=== PATIENT | female | born 1960 | race Caucasian/White ===

== ENCOUNTER → 2018-01-05 10:25 | Outpatient (CLI) | payer SELFPAY ==
--- NOTE | 2018-01-05 10:35 | US_ITS ---
STUDY: ABDOMINAL ULTRASOUND - RIGHT UPPER QUADRANT REASON FOR VISIT: Female, 57 years old. Right upper quadrant pain. TECHNIQUE: Ultrasound evaluation of the right upper quadrant was performed with real-time and static cat-scale imaging. TECHNICAL QUALITY: Adequate. COMPARISON: None. FINDINGS: Liver: The liver measures 16.5 cm. There is increased echogenicity consistent with fatty infiltration. The bile ducts are within normal limits. There is hepatic color flow. The direction of portal flow is hepatopetal. There is no demonstrated mass lesion. Gallbladder: Normal distended gallbladder. The gallbladder wall measures 2.2 mm. There is a negative sonographic Hu's sign. There is no pericholecystic fluid. There are no gallstones. Common Bile Duct (C.B.D.): The common bile duct measures 5.0 mm. Pancreas: Normal size of the head, body and tail of the pancreas. There is increased echogenicity of the pancreas. There is no demonstrated pancreatic mass or cyst. Right Kidney: Normal size of the right kidney. The right kidney measures 10.9 cm x 5.7 cm x 4.3 cm. Normal renal cortex. The right cortex measures 1.2 cm. There is no demonstrated renal mass or cyst. There is no right hydronephrosis. US/Abdomen Limited IMPRESSION: Fatty infiltration of the liver. Electronically Signed: Stefan Perez MD at 13:00 EDT Tel [phone], Service support ,
== END ==
PROVIDERS: Family Provider Family Medicine; PCP Family Medicine; Visit Provider Family Medicine
DX: R10.9 Unspecified abdominal pain (principal)
CPT/HCPCS: 76705

== ENCOUNTER → 2018-01-14 13:00 | Outpatient (CLI) | payer SELFPAY ==
--- NOTE | 2018-01-14 13:11 | CT_ITS ---
STUDY: CT ABDOMEN WITH CONTRAST REASON FOR EXAM: Female, 57 years old. Right upper quadrant and right flank pain RADIATION DOSAGE (If Supplied By Facility): CTDIvol = ( 21.59 ) mGy, DLP = ( 825.17 ) mGycm TECHNIQUE: Transaxial images were obtained post I.V. administration of 100mL ml of Isovue 300 contrast, and oral contrast. Sagittal and coronal images were reconstructed. Individualized dose optimization techniques were used for this CT. COMPARISON: None. FINDINGS: There is minor atelectasis within the dependent portion of the lungs.. The visualized portions of the heart are within normal limits. Liver is diffusely fatty infiltrated without mass or bile duct dilatation. Normal gallbladder and extrahepatic biliary system. Normal spleen. Normal pancreas. Normal bilateral adrenal glands. No evidence for renal obstruction or ureteral calculus. Tiny hypoattenuated density within the right kidney too small to characterize most likely cyst. Normal visualized stomach. Normal visualized portions of the small intestine. Normal visualized portions of the colon. Normal abdominal aorta. Normal inferior vena cava. Normal retroperitoneum. Normal abdominal wall. Lumbar spine demonstrates mild spondylosis.. CT/Abdomen WITH IV Contrast IMPRESSION: Mild hepatomegaly and fatty infiltrated liver. No other significant abnormality Electronically Signed: Calos Arnold MD at 17:18 EDT , Service support ,
== END ==
PROVIDERS: Family Provider Family Medicine; PCP Family Medicine; Visit Provider Family Medicine
DX: R10.9 Unspecified abdominal pain (principal)
CPT/HCPCS: 74160; Q9967

== ENCOUNTER → 2018-08-02 09:47 | Outpatient (CLI) | payer OTHER, SELFPAY ==
[2018-08-02 12:04] LABS: Absolute Lymphocyte Count 1.36 X10^3/ul (0.83-4.51); Absolute Neutrophil Count 4.2 X10^3/uL (2.0-7.7); Basophil# 0.03 X10^3/uL; Basophil% 0.5 % (0-1); Eosinophil# 0.16 X10^3/uL; Eosinophils% 2.6 % (0-5); Hematocrit 39.2 % (37-47); Hemoglobin 12.3 g/dl (12.0-15.0); Lymphocyte # 1.36 X10^3/ul (4.0); Lymphocyte % 21.7 % (19-41); Mean Corp Hgb Conc 31.4 g/gl (32-36); Mean Corpuscular Hgb 28.3 pg (27.0-32.0); Mean Corpuscular Volume 90.1 fL (81-99); Mean Platelet Vol. 10.3 fl (6.2-12.0); Monocyte# 0.53 X10^3/uL; Monocyte% 8.5 % (0-10); Neutrophil # 4.17 X10^3/uL (2.7-7.7); Neutrophil % 66.4 % (47-70); Platelet Count 287 K/mm3 (150-450); RBC Distribution Width CV 13.1 % (11.6-14.6); RBC Distribution Width SD 42.9 fl (35.1-43.9); Red Blood Count 4.35 M/mm3 (4.2-5.4); White Blood Count 6.3 K/mm3 (4.4-11.0)
[2018-08-02 12:07] LABS: POSITIVE COUNT NO; POSITIVE DIFFERENTIAL NO; POSITIVE MORPHOLOGY NO
[2018-08-02 12:12] LABS: ALB/GLOB Ratio 0.9 RATIO (0.9-2.4); AST(SGOT) 11 U/L (15-37); Alanine Aminotransfer ALT/SGPT 24 U/L (13-56); Albumin, Serum 3.6 g/dL (3.2-5.0); Alkaline Phosphatase 87 U/L (45-117); Anion Gap 8 (5-15); BUN 19 mg/dL (7-18); BUN/Creat Ratio 20.3 RATIO (10-20); Calcium,Total 8.8 mg/dL (8.5-10.1); Chloride 107 mmol/L (98-107); Creatinine, Serum 0.94 mg/dL (0.55-1.02); EST Glomerular Filtration Rate 65 mL/min (>60); Est Glom Filt Rate - Afr Amer 79 mL/min (>60); Globulin 4.2 g/dL (2.2-4.2); Glucose 147 mg/dL (74-106); Lipase 150 U/L (73-393); Potassium 4.3 mmol/L (3.5-5.1); Protein, Total 7.8 g/dL (6.4-8.2); Sodium Level 142 mmol/L (136-145)
== END ==
PROVIDERS: Family Provider Family Medicine; PCP Family Medicine; Visit Provider Family Medicine
DX: R10.9 Unspecified abdominal pain (principal)
CPT/HCPCS: 36415; 80053; 83690; 85025

== ENCOUNTER → 2018-08-02 10:21 | Outpatient (CLI) | payer OTHER, SELFPAY ==
--- NOTE | 2018-08-02 10:26 | US_ITS ---
STUDY: ABDOMINAL ULTRASOUND - RIGHT UPPER QUADRANT REASON FOR VISIT: Female, 57 years old. Right upper quadrant pain. TECHNIQUE: Ultrasound evaluation of the right upper quadrant was performed with real-time and static cat-scale imaging. TECHNICAL QUALITY: Adequate. COMPARISON: CT abdomen with IV contrast 01/14/2018. FINDINGS: Liver: The liver measures 18.1 cm. Increase echogenicity of the liver parenchyma due to fatty infiltration. The bile ducts are within normal limits. There is hepatic color flow. The direction of portal flow is hepatopetal. There is no demonstrated mass lesion. Gallbladder: Normal distended gallbladder. The gallbladder wall measures 2.1 mm. There is a negative sonographic Hu's sign. There is no pericholecystic fluid. There are no gallstones. Common Bile Duct (C.B.D.): The common bile duct measures 5.3 mm. Pancreas: Normal size of the head, body and tail of the pancreas. There is normal echogenicity of the pancreas. There is no demonstrated pancreatic mass or cyst. The pancreatic duct is not dilated. Right Kidney: Normal size of the right kidney. The right kidney measures 10.7 x 6.5 x 4.3 cm. Normal renal cortex. The right cortex measures 1.3 cm. There is no demonstrated renal mass or cyst. There is no right hydronephrosis. US/Abdomen Limited IMPRESSION: Hepatic steatosis otherwise negative ultrasound of the right upper quadrant of the abdomen. Electronically Signed: Vivek Locke MD at 13:19 EDT , Service support ,
== END ==
PROVIDERS: Family Provider Family Medicine; PCP Family Medicine; Visit Provider Family Medicine
DX: R10.9 Unspecified abdominal pain (principal)
CPT/HCPCS: 76705

== ENCOUNTER → 2018-08-18 07:41 | Outpatient (CLI) | payer OTHER, SELFPAY ==
--- NOTE | 2018-08-18 07:44 | NM_ITS ---
CLINICAL: 57-year-old female with reported history of right upper quadrant abdominal pain. RADIONUCLIDE HEPATOBILIARY SCINTIGRAPHY COMPARISON: Abdominal ultrasound report 08/02/2018 FINDINGS: Following the intravenous administration of 5.2 mCi of 99m Tc Mebrofenin, hepatobiliary images reveal: 1. Relatively prompt and homogeneous radiopharmaceutical concentration is noted by a normal sized liver. No parenchymal defects are identified. 2. Gallbladder activity is identified at 14 minutes post radiopharmaceutical administration. 3. Intestinal tract is not visualized during 60 minutes of sequential image acquisition. Small bowel is defined following the administration of the fatty meal. 4. Washout of the radiopharmaceutical by the hepatic parenchyma appears qualitatively normal. The patient was administered a fatty meal (8 ounces Boost). The post fatty meal ingestion gallbladder ejection fraction calculated at 60 minutes was noted to be 33.0 % (normal greater than 30%). NM/Hepatobilliary Img w/Pharm Int IMPRESSION: 1. NORMAL 99m Tc Mebrofenin hepatobiliary imaging examination with fatty meal ingestion. A. A gallbladder ejection fraction calculated to be greater than 30% following the administration of an ingested fatty meal makes the probability of functional hepatobiliary disease (gallbladder and/or sphincter of Oddi dyskinesia) and/or organic hepatobiliary disease (chronic acalculous cholecystitis and/or cystic duct syndrome) to be low. (Hany and Radames, J Nucl Med 43: 1603, 2002). Electronically Signed: Zev Mitchell DO at 23:04 EDT Tel , Service support ,
== END ==
PROVIDERS: Family Provider Family Medicine; PCP Family Medicine; Referring Provider Family Medicine; Visit Provider Family Medicine
DX: R10.9 Unspecified abdominal pain (principal)
CPT/HCPCS: 78227; A9500; A9537

== ENCOUNTER → 2018-08-26 08:50 | Outpatient (CLI) | payer OTHER, SELFPAY ==
--- NOTE | 2018-08-26 09:03 | RAD_ITS ---
STUDY: X-RAY - ABDOMEN/PELVIS REASON FOR EXAM: Female, 57 years old. Right upper quadrant pain. Constipation and diarrhea alternating for 3 to 4 weeks. TECHNIQUE: AP supine and upright views of the abdomen and pelvis. COMPARISON: None. FINDINGS: Normal visualized lung bases. There is a nonspecific bowel gas pattern. There is air seen scattered throughout nondistended colon. There is air in nondilated small bowel loops in the right mid abdomen. There is no demonstrated free abdominal air. The visualized liver, spleen and kidneys are grossly normal in size and morphology. Normal soft tissue structures. Normal visualized osseous structures. RAD/Abd Inc Decub and/or Erect IMPRESSION: Nonspecific bowel gas pattern. There is no obvious obstruction or ileus. Electronically Signed: Simone Campos DO at 22:28 EDT Tel [phone], Service support ,
[2018-08-26 09:13] LABS: Color, Urine Yellow (Yellow); Glucose, Dipstick Normal (Normal); Ketone-Dipstick Negative (Negative); Leukocyte Esterase-Dipstick 25 /ul (Negative); Nitrite-Dipstick Negative (Negative); Occult Blood-Urine 10 /ul (Negative); Protein-Dipstick Negative (Negative); Urine Bilirubin Dipstick Negative (Negative); Urine Clarity Sl. Cloudy (Clear); Urine Urobilinogen Normal (Normal)
[2018-08-26 09:21] LABS: Red Blood Cells-Urine 0-5 SEEN /hpf (0-5); Squamous Epithelial Cells - UA 0-5 SEEN /hpf (5-10); White Blood Cells 0-5 SEEN /hpf (0-5)
[2018-08-26 09:22] LABS: Bacteria 1+ /hpf (None Seen); Mucous, Urine 1+ /hpf (<or=2+)
== END ==
PROVIDERS: Family Provider Family Medicine; PCP Family Medicine; Referring Provider Surgery; Visit Provider Surgery
DX: R10.11 Right upper quadrant pain (principal)
CPT/HCPCS: 74019; 81001

== ENCOUNTER 2018-08-31 10:45 | Day surgery (SDC) | payer OTHER, SELFPAY ==
[2018-08-31 11:00] VITALS: BP 123/80; PULSE 82; RESP 16; TEMP 37.6; O2SAT 97; BMI 35.8
[2018-08-31 11:52] LABS: Bacteria 0 SEEN /hpf (None Seen); Red Blood Cells-Urine 0 SEEN /hpf (0-5)
[2018-08-31 11:58] LABS: Color, Urine Yellow (Yellow); Glucose, Dipstick Normal (Normal); Ketone-Dipstick Negative (Negative); Leukocyte Esterase-Dipstick 25 /ul (Negative); Nitrite-Dipstick Negative (Negative); Occult Blood-Urine Negative /ul (Negative); Protein-Dipstick 15 mg/dl (Negative); Urine Bilirubin Dipstick Negative (Negative); Urine Clarity Sl. Cloudy (Clear); Urine Urobilinogen Normal (Normal)
--- NOTE | 2018-08-31 12:00 | EGD_PTH ---
PATIENT: HAYLEE RICKS LOC: EN U#:[id number] AGE/SX: 57/F ROOM: RE08/31/[address]: Dr. Kolby Curry MD : 1960 BED: DIS: 08/31/2018 SPEC #: [id number] RECD: 08/31/18 13:15 STATUS: YVONNE YUNGGloria #: [id number] NIDHI: 08/31/18 12:[address]: Kolby Curry DEPT: SURGICAL PATHOLOGY RECD BY: Asa Urbina ENTERED: 08/31/18 14:49 SP TYPE: EGD BIOPSY OT DR: Dr. Charly Blackmon MD Tissues: A - Duodenum, NOS B - Gastric mucous membrane C - Esophagus, NOS D - Esophagus, NOS E - Cecum, NOS F - Transverse colon G - COLON BIOPSY Procedures: Surgery Specimen Level IV HEADER OPERATION: Colonoscopy, EGD ([facility] [place]) PRE-OP DIAGNOSIS: Epigastric pain and diarrhea TISSUE SUBMITTED: A - Duodenum biopsy, B - Antrum biopsy for H. pylori and path, C - Distal esophagus biopsy, D - Mid esophagus biopsy, E - Cecum polyp, F - Proximal transverse polyp, G - Left colon biopsy MICROSCOPIC DIAGNOSIS A. Duodenum, biopsy: A fragment of duodenal mucosa, no pathologic diagnosis. B. Antrum, biopsy: Mild gastritis. See microscopic description and comment. C. Distal esophagus, biopsy: Fragments of squamous epithelium with mild chronic inflammation. D. Mid esophagus, biopsy: Fragments of squamous epithelium, no pathologic diagnosis. E. Cecum polyp, biopsy: Fragments of tubular adenoma. F. Proximal transverse colon polyp, biopsy: Fragments of fecal material. See comment. G. Left colon, biopsy: Fragments of colonic mucosa, no pathologic diagnosis. SJ:jordan 09/01/18 COMMENT B. The results of immunohistochemistry for Helicobacter pylori will be reported separately ([id number]). F. Colonic mucosal tissue is not identified in the submitted specimen. MICROSCOPIC DESCRIPTION Slides are reviewed. B. The specimen shows fragments of gastric mucosa with chronic inflammatory cell infiltrates in the lamina propria consisting of lymphocytes and plasma cells, consistent with mild chronic gastritis. GROSS DESCRIPTION A - Received in fixative is one container labeled with the patient's name and designated duodenum biopsy. The specimen consists of one irregular fragment of light waller soft tissue that measures 0.3 x 0.2 x 0.1 cm. The specimen is totally submitted in one cassette. B - Received in fixative is one container labeled with the patient's name and designated antrum biopsy. The specimen consists of one fragment of light waller soft tissue that measures 0.5 x 0.3 x 0.1 cm. The specimen is totally submitted in one cassette. C - Received in fixative is one container labeled with the patient's name and designated distal esophagus biopsy. The specimen consists of multiple irregular fragments of light waller soft tissue that in aggregate measure 0.4 x 0.3 x 0.1 cm. The specimen is totally submitted in one cassette. D - Received in fixative is one container labeled with the patient's name and designated mid esophagus biopsy. The specimen consists of two irregular fragments of light waller soft tissue that in aggregate measure 0.5 x 0.2 x 0.1 cm. The specimen is totally submitted in one cassette. E - Received in fixative is one container labeled with the patient's name and designated cecum polyp. The specimen consists of multiple irregular fragments of light waller soft tissue that in aggregate measure 2 x 0.2 x 0.1 cm. The specimen is totally submitted in one cassette. F - Received in fixative is one container labeled with the patient's name and designated proximal transverse polyp. The specimen consists of multiple irregular fragments of light waller soft tissue mixed with fecal material that in aggregate measure 0.4 x 0.2 x 0.1 cm. The specimen is totally submitted in one cassette. G - Received in fixative is one container labeled with the patient's name and designated left colon biopsy. The specimen consists of multiple irregular fragments of light waller soft tissue that in aggregate measure 1.5 x 0.3 x 0.1 cm. The specimen is totally submitted in one cassette. / WILIAN:jordan 08/31/18 TC:1 CPT: 16876 x7
--- NOTE | 2018-08-31 12:00 | IMM_PTH ---
PATIENT: HAYLEE RICKS LOC: EN U#:[id number] AGE/SX: 57/F ROOM: RE08/31/[address]: Dr. Kolby Curry MD : 1960 BED: DIS: 08/31/2018 SPEC #: [id number] RECD: 08/31/18 15:54 STATUS: YVONNE FISCHER #: [id number] NIDHI: 08/31/18 12:[address]: Kolby Curry DEPT: IMMUNOHISTOCHEMISTRY RECD BY: Shayy Daily ENTERED: 08/31/18 15:54 SP TYPE: IMMUNO OTHR DR: Dr. Charly Blackmon MD Tissues: B - Stomach, NOS Procedures: H Pylori (initial) PHYSICIAN & INSTITUTION [place] [address] SPECIMEN INFORMATION: Tissue Source: B - Antrum biopsy Clinical Info: Epigastric pain and diarrhea Specimen Number: [id number] CPT code: 22467 METHODOLOGY: Deparaffinized sections of prefer/formalin-fixed tissue or PAP/DQ stained slides are incubated with monoclonal/polyclonal antibodies/oligonucleotide probes. Localization is made via biotin free immunoperoxidase method. Appropriate controls are performed and reacted as expected. Results on target cell population are indicated in the following table: RESULTS: ANTIBODY / CLONE RESULT Block B H Pylori (polyclonal) negative These tests were developed and their performance characteristics determined by [facility]. They may not have been cleared or approved by the U.S. Food and Drug Administration. The FDA has determined that such clearance or approval is not necessary. INTERPRETATION: B. Antrum, biopsy: Negative for Helicobacter pylori organisms. SJ:jordan 09/01/18
[2018-08-31 12:04] LABS: Mucous, Urine 1+ /hpf (<or=2+); Squamous Epithelial Cells - UA 0-5 SEEN /hpf (5-10); White Blood Cells 0-5 SEEN /hpf (0-5)
[2018-08-31 13:05] VITALS: BP 109/68; BP 123/80; PULSE 67; RESP 16; TEMP 36.4; O2SAT 98
--- NOTE | 2018-08-31 13:06 | OP.ENDO_ITS ---
Patient Name: Anuja Douglas Procedure Date: 08/31/2018 12:19 PM Date of : 1960 Age: 57 Procedure: Upper GI endoscopy Indications: Epigastric abdominal pain Providers: Kolby Curry MD Referring MD: Kolby Curry MD Medicines: See the Anesthesia note for documentation of the administered medications Complications: No immediate complications. Procedure: Pre-Anesthesia Assessment: - Prior to the procedure, a History and Physical was performed, and patient medications and allergies were reviewed. The patient's tolerance of previous anesthesia was also reviewed. The risks and benefits of the procedure and the sedation options and risks were discussed with the patient. All questions were answered, and informed consent was obtained. Prior Anticoagulants: The patient has taken aspirin, last dose was 1 day prior to procedure. ASA Grade Assessment: II - A patient with mild systemic disease. After reviewing the risks and benefits, the patient was deemed in satisfactory condition to undergo the procedure. After obtaining informed consent, the endoscope was passed under direct vision. Throughout the procedure, the patient's blood pressure, pulse, and oxygen saturations were monitored continuously. The gastroscope was introduced through the mouth, and advanced to the second part of duodenum. The upper GI endoscopy was accomplished without difficulty. The patient tolerated the procedure well. Scope In: 12:30:40 PM Scope Out: 12:35:34 PM Total Procedure Duration Time 0 hours 4 minutes 54 seconds Findings: A small hiatal hernia was present. Biopsies were taken with a cold forceps for histology. Mid esophageal biopsies obtained as well Diffuse mildly erythematous mucosa without bleeding was found in the gastric antrum. Biopsies were taken with a cold forceps for histology. The examined duodenum was normal. Biopsies were taken with a cold forceps for histology. Impression: - Small hiatal hernia. Biopsied. Mid esophagus visually normal, biopsied - Erythematous mucosa in the antrum. Biopsied. Very minimal findings - Normal examined duodenum. Biopsied. Recommendation: - Resume previous diet. - Continue present medications. - Telephone my office for pathology results in 1 week. Procedure Code(s): --- Professional --- 60328, Esophagogastroduodenoscopy, flexible, transoral; with biopsy, single or multiple Diagnosis Code(s): --- Professional --- K44.9, Diaphragmatic hernia without obstruction or gangrene K31.89, Other diseases of stomach and duodenum R10.13, Epigastric pain CPT copyright 2017 [employer]. All rights reserved. The codes documented in this report are preliminary and upon warp tier review may be revised to meet current compliance requirements. Kolby Curry MD 08/31/2018 1:05:41 PM This report has been signed electronically. Number of Addenda: 0 Note Initiated On: 08/31/2018 12:19 PM
[2018-08-31 13:10] VITALS: BP 114/71; BP 123/80; PULSE 60; RESP 16; O2SAT 96
--- NOTE | 2018-08-31 13:10 | OP.ENDO_ITS ---
Patient Name: Anuja Douglas Procedure Date: 08/31/2018 12:37 PM Date of : 1960 Age: 57 Procedure: Colonoscopy Indications: Epigastric abdominal pain Providers: Kolby Curry MD Referring MD: Kolby Curry MD Medicines: See the Anesthesia note for documentation of the administered medications Patient Profile: Last Colonoscopy: none. The patient's first colonoscopy is today. Complications: No immediate complications. Procedure: Pre-Anesthesia Assessment: - Prior to the procedure, a History and Physical was performed, and patient medications and allergies were reviewed. The patient's tolerance of previous anesthesia was also reviewed. The risks and benefits of the procedure and the sedation options and risks were discussed with the patient. All questions were answered, and informed consent was obtained. Prior Anticoagulants: The patient has taken aspirin, last dose was 1 day prior to procedure. ASA Grade Assessment: II - A patient with mild systemic disease. After reviewing the risks and benefits, the patient was deemed in satisfactory condition to undergo the procedure. After I obtained informed consent, the scope was passed under direct vision. Throughout the procedure, the patient's blood pressure, pulse, and oxygen saturations were monitored continuously. The colonoscope was introduced through the anus and advanced to the cecum, identified by appendiceal orifice and ileocecal valve. The colonoscopy was performed without difficulty. The patient tolerated the procedure well. The quality of the bowel preparation was good. The ileocecal valve was photographed. Scope In: 12:38:55 PM Scope Withdrawal Time 0 hours 13 minutes 13 seconds Scope Out: 12:58:49 PM Total Procedure Duration Time 0 hours 19 minutes 54 seconds Findings: Hemorrhoids were found on perianal exam. A 13 mm polyp was found in the cecum. The polyp was sessile. The polyp was removed with a cold snare. Resection and retrieval were complete. A 8 mm polyp was found in the proximal transverse colon. The polyp was sessile. The polyp was removed with a cold snare. Resection and retrieval were complete. Normal mucosa was found in the sigmoid colon. Biopsies for histology were taken with a cold forceps from the descending colon and sigmoid colon for evaluation of microscopic colitis. Impression: - Hemorrhoids found on perianal exam. - One 13 mm polyp in the cecum, removed with a cold snare. Resected and retrieved. - One 8 mm polyp in the proximal transverse colon, removed with a cold snare. Resected and retrieved. - Normal mucosa in the sigmoid colon. Biopsied. Recommendation: - Discharge patient to home. - Resume previous diet. - Continue present medications. - Telephone my office for pathology results in 1 week. - Repeat colonoscopy in 3 years for surveillance. Procedure Code(s): --- Professional --- 26721, Colonoscopy, flexible; with removal of tumor(s), polyp(s), or other lesion(s) by snare technique 09878, 59, Colonoscopy, flexible; with biopsy, single or multiple Diagnosis Code(s): --- Professional --- K64.9, Unspecified hemorrhoids D12.0, Benign neoplasm of cecum D12.3, Benign neoplasm of transverse colon (hepatic flexure or splenic flexure) R10.13, Epigastric pain CPT copyright 2017 [employer]. All rights reserved. The codes documented in this report are preliminary and upon dressmaker or tailor review may be revised to meet current compliance requirements. Kolby Curry MD 08/31/2018 1:09:37 PM This report has been signed electronically. Number of Addenda: 0 Note Initiated On: 08/31/2018 12:37 PM
[2018-08-31 13:15] VITALS: BP 115/69; BP 123/80; PULSE 57; RESP 16; O2SAT 95
[2018-08-31 13:20] VITALS: BP 115/70; BP 123/80; PULSE 55; RESP 16; TEMP 36.6; O2SAT 99
[2018-08-31 14:08] VITALS: BP 123/80
== END 2018-08-31 14:08 | disposition home or self-care (01) ==
LOC: EN 10:46 → AC 10:47
PROVIDERS: Family Provider Family Medicine; PCP Family Medicine; Referring Provider Surgery; Visit Provider Surgery
PROC: 0DJD8ZZ Inspection of Lower Intestinal Tract, Via Natural or Artificial Opening Endoscopic (ICD-10-PCS; CPT 45378; principal; 2018-08-31 11:55)
DX: K44.9 Diaphragmatic hernia without obstruction or gangrene (principal); K29.50 Unspecified chronic gastritis without bleeding; D12.0 Benign neoplasm of cecum; D12.3 Benign neoplasm of transverse colon; I10 Essential (primary) hypertension; J45.909 Unspecified asthma, uncomplicated; M19.90 Unspecified osteoarthritis, unspecified site; Z79.899 Other long term (current) drug therapy
CPT/HCPCS: 43239; 45380; 45385; 81001; 88305; 88342; J7120; J2405

== ENCOUNTER → 2018-10-07 15:09 | Outpatient (CLI) | payer OTHER, SELFPAY ==
--- NOTE | 2018-10-07 15:12 | RAD_ITS ---
STUDY: X-RAY - ABDOMEN/PELVIS REASON FOR EXAM: Female, 57 years old. Abdominal pain. TECHNIQUE: AP supine and upright views of the abdomen and pelvis. COMPARISON: AP supine and upright views of the abdomen and pelvis August 26, 2018; nuclear medicine HIDA scan August 18, 2018; right upper quadrant ultrasound August 02, 2018; CT abdomen January 14, 2018. FINDINGS: Normal visualized lung bases. Gas is seen again in segments of nondistended small bowel and colon. There are several fluid levels on upright exam, suggesting a mild generalized ileus. There is no demonstrated free abdominal air. The visualized liver, spleen and kidneys are grossly normal in size and morphology. Rounded sclerotic densities projecting in the right lower quadrant and some images are presumably radiopaque tablets in the bowel. There are stable calcified phleboliths in the left pelvic soft tissues. There are stable multilevel degenerative changes of the visualized spine, as well as degenerative arthroses of the bilateral sacroiliac joints. RAD/Abd Inc Decub and/or Erect IMPRESSION: Mild ileus without distention. No free gas. Electronically Signed: Onur Bean MD at 19:40 EST , Service support ,
--- OUTSIDE RECORDS SUMMARY | 2018-11-23 12:48 | XMS RPT_ITS ---
:1960 Author Organization OHIP Support Name Relationship Address Phone JASON RODRÍGUEZ Unavailable Unavailable + АЛЕКСАНДР RICKS Unavailable [address] + [place] [address] UE Unavailable Unavailable Unavailable JASON RODRÍGUEZ Unavailable Unavailable + АЛЕКСАНДР RICKS Unavailable [address] + [place] [address] UE Unavailable Unavailable Unavailable JASON RODRÍGUEZ Unavailable Unavailable + АЛЕКСАНДР RICKS Unavailable [address] + [place] [address] UE Unavailable Unavailable Unavailable JASON RODRÍGUEZ Unavailable Unavailable + АЛЕКСАНДР RICKS Unavailable [address] + [place] [address] UE Unavailable Unavailable Unavailable АЛЕКСАНДР RICKS Unavailable [address] + [place] [address] UE Unavailable Unavailable Unavailable АЛЕКСАНДР RICKS Unavailable [address] + [place] [address] UE Unavailable Unavailable Unavailable АЛЕКСАНДР RICKS Unavailable [address] + [place] [address] UE Unavailable Unavailable Unavailable АЛЕКСАНДР RICKS Unavailable [address] + [place] [address] S Unavailable Unavailable Unavailable АЛЕКСАНДР RICKS Unavailable [address] + [place] [address] S Unavailable Unavailable Unavailable АЛЕКСАНДР RICKS Unavailable [address] + [place] [address] S Unavailable Unavailable Unavailable АЛЕКСАНДР RICKS Unavailable [address] + [place] [address] S Unavailable Unavailable Unavailable Care Team Providers Name Role Phone Charly Blackmon Attending Unavailable Blackmon, Charly Referring Unavailable Blackmon, Charly Primary Care Unavailable Jabour, Huang Attending Unavailable Jabour, Nenaent Referring Unavailable Blackmon, Charly Primary Care Unavailable Blackmon, Charly Attending Unavailable Blackmon, Charly Primary Care Unavailable Blackmon, Charly Attending Unavailable Blackmon, Charly Primary Care Unavailable Blackmon, Charly Attending Unavailable Blackmon, Charly Primary Care Unavailable Blackmon, Charly Attending Unavailable Blackmon, Charly Primary Care Unavailable Blackmon, Charly Attending Unavailable Blackmon, Charly Referring Unavailable Blackmon, Charly Primary Care Unavailable Cebul, Kolby Attending Unavailable Blackmon, Charly Referring Unavailable Cebul, Kolby Attending Unavailable Cebul, Kolby Referring Unavailable Blackmon, Charly Primary Care Unavailable Cebul, Kolby Attending Unavailable Cebul, Kolby Referring Unavailable Blackmon, Charly Primary Care Unavailable Cebul, Kolby Attending Unavailable PROBLEMS PROBLEMS DATE TYPE CONDITION / CODE ATTENDING STATUS SOURCE 08/31/2018 Unknown R10.9 - Unspecified Cebul, Kolby Active [facility] abdominal pain / Community R10.9(ICD-10) Hospital Repository 09/23/2018 Unknown R10.13 - Epigastric Cebul, Kolby Active [facility] pain / Community R10.13(ICD-10) Hospital Repository 09/23/2018 Unknown 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7(ICD-10) Hospital Repository PROCEDURES PROCEDURES No Procedure Records FoundRESULTS RESULTS CRP Collected: 11/03/2018 Status: F Source: [facility] [facility] TYPE CODE TESTS RESULT OUT OF RANGE REFERENCE UNITS LAB L501.6710 0.0-3.0 mg/L High 69.90 C-REACTIVE PROT Result Comment: C-Reactive Protein (CRP) provides useful information for the diagnosis, therapy and monitoring of inflammatory processes and associated diseases. For the evaluation of Relative Risk for Cardiovascular Disease, a High Sensitivity CRP (HSCRP) should be ordered. Performed By: #### L501.6710 #### [facility] [address] [place], [address] CELIAC DISEASE Collected: 11/03/2018 Status: F Source: [place] PROFILE 4:50 PM [facility] REPOSITORY TYPE CODE TESTS RESULT OUT OF RANGE REFERENCE UNITS LAB L3200.1400 87-352 mg/dL Normal IMMUNO A 194 Result Comment: Performed at: - [facility] [id number] [employer]: Huang Barba PhD, Phone: [phone] LAB L3632.6722 0-3 U/mL Normal tTG IGA <2 Result Comment: Negative 0 - 3 Weak Positive 4 - 10 Positive >10 Tissue Transglutaminase (tTG) has been identified as the endomysial antigen. Studies have demonstr- ated that endomysial IgA antibodies have over 99% specificity for gluten sensitive enteropathy. LAB L3410.8731 Negative Normal ENDOMYSIAL IGA Negative Performed By: #### L3410.2400 #### [facility] (refer to report for specific site) refer to report for address and phone number ABD INC DECUB Observed: 10/07/2018 Status: F Source: [place] AND/OR ERECT 3:12 PM [facility] REPOSITORY [facility] Imaging Services [address] [place] [address] Abd Inc Decub and/or Erect MR#: [id number] Acct: [id number] Name: HAYLEE RICKS Rep #: [id number] : 1960 F 57 From: Sabas Bean MD PCP: Charly Blackmon MD Status: REG CLI Study: Abd Inc Decub and/or Erect Date of Exam: 10/07/18 Exam# [id number] Ordering Dr: Charly Blackmon MD STUDY: X-RAY - ABDOMEN/PELVIS REASON FOR EXAM: Female, 57 years old. Abdominal pain. TECHNIQUE: AP supine and upright views of the abdomen and pelvis. COMPARISON: AP supine and upright views of the abdomen and pelvis August 26, 2018; nuclear medicine HIDA scan August 18, 2018; right upper quadrant ultrasound August 02, 2018; CT abdomen January 14, 2018. FINDINGS: Normal visualized lung bases. Gas is seen again in segments of nondistended small bowel and colon. There are several fluid levels on upright exam, suggesting a mild generalized ileus. There is no demonstrated free abdominal air. The visualized liver, spleen and kidneys are grossly normal in size and morphology. Rounded sclerotic densities projecting in the right lower quadrant and some images are presumably radiopaque tablets in the bowel. There are stable calcified phleboliths in the left pelvic soft tissues. There are stable multilevel degenerative changes of the visualized spine, as well as degenerative arthroses of the bilateral sacroiliac joints. RAD/Abd Inc Decub and/or Erect IMPRESSION: Mild ileus without distention. No free gas. Electronically Signed: Onur Bean MD at 19:40 EST , Service support , CC: Charly Blackmon MD Chassis Driver: Signed OPERATIVE REPORT - Observed: 08/31/2018 Status: F Source: [place] [facility] 1:10 PM [facility] REPOSITORY [facility] Medical Records Department [address] [place] [address] Operative Report - Endoscopy MR#: [id number] Acct: [id number] Name: HAYLEE RICKS Rep #: [id number] : 1960 57 From: Kolby Curry MD PCP: Charly Blackmon MD Status: REG [facility] Patient Name: Haylee Ricks Procedure Date: 08/31/2018 12:37 PM Date of : 1960 Age: 57 Procedure: Colonoscopy Indications: Epigastric abdominal pain Providers: Kolby Curry MD Referring MD: Kolby Curry MD Medicines: See the Anesthesia note for documentation of the administered medications Patient Profile: Last Colonoscopy: none. The patient's first colonoscopy is today. Complications: No immediate complications. Procedure: Pre-Anesthesia Assessment: - Prior to the procedure, a History and Physical was performed, and patient medications and allergies were reviewed. The patient's tolerance of previous anesthesia was also reviewed. The risks and benefits of the procedure and the sedation options and risks were discussed with the patient. All questions were answered, and informed consent was obtained. Prior Anticoagulants: The patient has taken aspirin, last dose was 1 day prior to procedure. ASA Grade Assessment: II - A patient with mild systemic disease. After reviewing the risks and benefits, the patient was deemed in satisfactory condition to undergo the procedure. After I obtained informed consent, the scope was passed under direct vision. Throughout the procedure, the patient's blood pressure, pulse, and oxygen saturations were monitored continuously. The colonoscope was introduced through the anus and advanced to the cecum, identified by appendiceal orifice and ileocecal valve. The colonoscopy was performed without difficulty. The patient tolerated the procedure well. The quality of the bowel preparation was good. The ileocecal valve was photographed. Scope In: 12:38:55 PM Scope Withdrawal Time 0 hours 13 minutes 13 seconds Scope Out: 12:58:49 PM Total Procedure Duration Time 0 hours 19 minutes 54 seconds Findings: Hemorrhoids were found on perianal exam. A 13 mm polyp was found in the cecum. The polyp was sessile. The polyp was removed with a cold snare. Resection and retrieval were complete. A 8 mm polyp was found in the proximal transverse colon. The polyp was sessile. The polyp was removed with a cold snare. Resection and retrieval were complete. Normal mucosa was found in the sigmoid colon. Biopsies for histology were taken with a cold forceps from the descending colon and sigmoid colon for evaluation of microscopic colitis. Impression: - Hemorrhoids found on perianal exam. - One 13 mm polyp in the cecum, removed with a cold snare. Resected and retrieved. - One 8 mm polyp in the proximal transverse colon, removed with a cold snare. Resected and retrieved. - Normal mucosa in the sigmoid colon. Biopsied. Recommendation: - Discharge patient to home. - Resume previous diet. - Continue present medications. - Telephone my office for pathology results in 1 week. - Repeat colonoscopy in 3 years for surveillance. Procedure Code(s): --- Professional --- 11587, Colonoscopy, flexible; with removal of tumor(s), polyp(s), or other lesion(s) by snare technique 35020, 59, Colonoscopy, flexible; with biopsy, single or multiple Diagnosis Code(s): --- Professional --- K64.9, Unspecified hemorrhoids D12.0, Benign neoplasm of cecum D12.3, Benign neoplasm of transverse colon (hepatic flexure or splenic flexure) R10.13, Epigastric pain CPT copyright 2017 [employer]. All rights reserved. The codes documented in this report are preliminary and upon polisher balance screwhead review may be revised to meet current compliance requirements. Kolby Curry MD 08/31/2018 1:09:37 PM This report has been signed electronically. Number of Addenda: 0 Note Initiated On: 08/31/2018 12:37 PM 08/31/18 1309 Date Kolby Curry MD Cosigner Signature: Date (if indicated) CC: Charly Blackmon MD; Kolby Curry MD Date Dictated: 08/31/18 1237 Date Transcribed: Chassis Driver: BENEDICT Signed OPERATIVE REPORT - Observed: 08/31/2018 Status: F Source: [place] [facility] 1:06 PM [facility] REPOSITORY [facility] Medical Records Department [address] [place] [address] Operative Report - Endoscopy MR#: [id number] Acct: [id number] Name: HAYLEE RICKS Rep #: [id number] : 1960 57 From: Kolby Curry MD PCP: Charly Blackmon MD Status: REG [facility] Patient Name: Haylee Ricks Procedure Date: 08/31/2018 12:19 PM Date of : 1960 Age: 57 Procedure: Upper GI endoscopy Indications: Epigastric abdominal pain Providers: Kolby Curry MD Referring MD: Kolby Curry MD Medicines: See the Anesthesia note for documentation of the administered medications Complications: No immediate complications. Procedure: Pre-Anesthesia Assessment: - Prior to the procedure, a History and Physical was performed, and patient medications and allergies were reviewed. The patient's tolerance of previous anesthesia was also reviewed. The risks and benefits of the procedure and the sedation options and risks were discussed with the patient. All questions were answered, and informed consent was obtained. Prior Anticoagulants: The patient has taken aspirin, last dose was 1 day prior to procedure. ASA Grade Assessment: II - A patient with mild systemic disease. After reviewing the risks and benefits, the patient was deemed in satisfactory condition to undergo the procedure. After obtaining informed consent, the endoscope was passed under direct vision. Throughout the procedure, the patient's blood pressure, pulse, and oxygen saturations were monitored continuously. The gastroscope was introduced through the mouth, and advanced to the second part of duodenum. The upper GI endoscopy was accomplished without difficulty. The patient tolerated the procedure well. Scope In: 12:30:40 PM Scope Out: 12:35:34 PM Total Procedure Duration Time 0 hours 4 minutes 54 seconds Findings: A small hiatal hernia was present. Biopsies were taken with a cold forceps for histology. Mid esophageal biopsies obtained as well Diffuse mildly erythematous mucosa without bleeding was found in the gastric antrum. Biopsies were taken with a cold forceps for histology. The examined duodenum was normal. Biopsies were taken with a cold forceps for histology. Impression: - Small hiatal hernia. Biopsied. Mid esophagus visually normal, biopsied - Erythematous mucosa in the antrum. Biopsied. Very minimal findings - Normal examined duodenum. Biopsied. Recommendation: - Resume previous diet. - Continue present medications. - Telephone my office for pathology results in 1 week. Procedure Code(s): --- Professional --- 40719, Esophagogastroduodenoscopy, flexible, transoral; with biopsy, single or multiple Diagnosis Code(s): --- Professional --- K44.9, Diaphragmatic hernia without obstruction or gangrene K31.89, Other diseases of stomach and duodenum R10.13, Epigastric pain CPT copyright 2017 [employer]. All rights reserved. The codes documented in this report are preliminary and upon polisher balance screwhead review may be revised to meet current compliance requirements. Kolby Curry MD 08/31/2018 1:05:41 PM This report has been signed electronically. Number of Addenda: 0 Note Initiated On: 08/31/2018 12:19 PM 08/31/18 1305 Date Kolby Curry MD Cosigner Signature: Date (if indicated) CC: Charly Blackmon MD; Kolby Curry MD Date Dictated: 08/31/18 1219 Date Transcribed: Chassis Driver: BENEDICT Signed EGD (PICK SITE) Observed: 08/31/2018 Status: F Source: [place] 12:00 PM [facility] REPOSITORY Patient: HAYLEE RICKS : 1960 (57/F) Acct Num: [id number] Phys: Kolby Curry MD Unit Num: [id number] Loc: EN Specimen: [id number] Received: 08/31/18 - 1315 Spec Type: EGD BIOPSY TISSUES 1 TISSUES: A. Duodenum, NOS B. Gastric mucous membrane C. Esophagus, NOS - DISTAL D. Esophagus, NOS - MID E. Cecum, NOS F. Transverse colon G. COLON BIOPSY - LEFT COMMENT B. The results of immunohistochemistry for Helicobacter pylori will be reported separately ([id number]). F. Colonic mucosal tissue is not identified in the submitted specimen. GROSS DESCRIPTION A - Received in fixative is one container labeled with the patient's name and designated duodenum biopsy. The specimen consists of one irregular fragment of light waller soft tissue that measures 0.3 x 0.2 x 0.1 cm. The specimen is totally submitted in one cassette. B - Received in fixative is one container labeled with the patient's name and designated antrum biopsy. The specimen consists of one fragment of light waller soft tissue that measures 0.5 x 0.3 x 0.1 cm. The specimen is totally submitted in one cassette. C - Received in fixative is one container labeled with the patient's name and designated distal esophagus biopsy. The specimen consists of multiple irregular fragments of light waller soft tissue that in aggregate measure 0.4 x 0.3 x 0.1 cm. The specimen is totally submitted in one cassette. D - Received in fixative is one container labeled with the patient's name and designated mid esophagus biopsy. The specimen consists of two irregular fragments of light waller soft tissue that in aggregate measure 0.5 x 0.2 x 0.1 cm. The specimen is totally submitted in one cassette. E - Received in fixative is one container labeled with the patient's name and designated cecum polyp. The specimen consists of multiple irregular fragments of light waller soft tissue that in aggregate measure 2 x 0.2 x 0.1 cm. The specimen is totally submitted in one cassette. F - Received in fixative is one container labeled with the patient's name and designated proximal transverse polyp. The specimen consists of multiple irregular fragments of light waller soft tissue mixed with fecal material that in aggregate measure 0.4 x 0.2 x 0.1 cm. The specimen is totally submitted in one cassette. G - Received in fixative is one container labeled with the patient's name and designated left colon biopsy. The specimen consists of multiple irregular fragments of light waller soft tissue that in aggregate measure 1.5 x 0.3 x 0.1 cm. The specimen is totally submitted in one cassette. / SJ:rg 08/31/18 TC:1 CPT: 62261 x7 HEADER OPERATION: Colonoscopy, [place] PRE-OP DIAGNOSIS: Epigastric pain and diarrhea TISSUE SUBMITTED: A - Duodenum biopsy, B - Antrum biopsy for H. pylori and path , C - Distal esophagus biopsy, D - Mid esophagus biopsy, E - Cecum polyp, F - Proximal transverse polyp, G - Left colon biopsy MICROSCOPIC DESCRIPTION Slides are reviewed. B. The specimen shows fragments of gastric mucosa with chronic inflammatory cell infiltrates in the lamina propria consisting of lymphocytes and plasma cells, consistent with mild chronic gastritis. MICROSCOPIC DIAGNOSIS A. Duodenum, biopsy: A fragment of duodenal mucosa, no pathologic diagnosis. B. Antrum, biopsy: Mild gastritis. See microscopic description and comment. C. Distal esophagus, biopsy: Fragments of squamous epithelium with mild chronic inflammation. D. Mid esophagus, biopsy: Fragments of squamous epithelium, no pathologic diagnosis. E. Cecum polyp, biopsy: Fragments of tubular adenoma. F. Proximal transverse colon polyp, biopsy: Fragments of fecal material. See comment. G. Left colon, biopsy: Fragments of colonic mucosa, no pathologic diagnosis. SJ:jordan 09/01/18 Signed Buck Almendarez 09/01/18 <signature on file> Performed By: #### PEGD #### [facility] [address] [place] [address]. [place], [place], [address] IMMUNOHISTOCHEMISTRY Observed: 08/31/2018 Status: F Source: [place] 12:00 PM [facility] REPOSITORY Patient: HAYLEE RICKS : 1960 (57/F) Acct Num: [id number] Phys: Antoinette CRAWFORD,Kolby Unit Num: [id number] Loc: EN Specimen: [id number] Received: 08/31/181553 Spec Type: IMMUNO TISSUES 1 TISSUES: B. Stomach, NOS SPECIMEN INFORMATION: Tissue Source: B - Antrum biopsy Clinical Info: Epigastric pain and diarrhea Specimen Number: [id number] CPT code: 74316 METHODOLOGY: Deparaffinized sections of prefer/formalin-fixed tissue or PAP/DQ stained slides are incubated with monoclonal/polyclonal antibodies/oligonucleotide probes. Localization is made via biotin free immunoperoxidase method. Appropriate controls are performed and reacted as expected. Results on target cell population are indicated in the following table: RESULTS: ANTIBODY / CLONE RESULT Block B H Pylori (polyclonal) negative These tests were developed and their performance characteristics determined by [facility]. They may not have been cleared or approved by the U.S. Food and Drug Administration. The FDA has determined that such clearance or approval is not necessary. INTERPRETATION: B. Antrum, biopsy: Negative for Helicobacter pylori organisms. SJ:jordan 09/01/18 PHYSICIAN [facility] INSTIT[facility] [address] [address] Signed Buck Almendarez 09/01/18 <signature on file> Performed By: #### PIMM #### [facility] [address] [place], [place], [address] URINALYSIS, COMPLETE Collected: 08/31/2018 Status: F Source: [place] 11:52 AM [facility] REPOSITORY Order Comment: Comments: straight cath prior to colonoscopy Comments: straight cath prior to colonoscopy How was Urine Obtained? CATHETER SPECIMEN TYPE CODE TESTS RESULT OUT OF RANGE REFERENCE UNITS LAB L400.3000 Yellow COLOR Normal Yellow LAB L400.3050 Clear Normal CLARITY Sl. Cloudy LAB L400.3200 Normal mg/dl Normal GLUCOSE, UR Normal LAB L400.3300 Negative mg/dL Normal BILIRUBIN URINE Negative LAB L400.3400 Negative mg/dl Normal KETONE UR Negative LAB L400.3465 1.002-1.030 Normal SP.GR. DIPSTX 1.020 LAB L400.3550 5.0 - 8.0 pH UR Normal 5.0 LAB L400.3600 Negative mg/dl High PROT 15 DIPSTX LAB L400.3700 Normal mg/dl Normal UROBILI Normal LAB L400.3750 Negative Normal NITRITE UR Negative LAB L400.3780 Negative /ul Normal OCCULT BLOOD-UR Negative LAB L400.3800 Negative /ul High LEUK 25 ESTERASE LAB L400.4050 0-5 /hpf WBC Normal 0-5 SEEN LAB L400.4100 0-5 /hpf 0 Normal RBC-UA SEEN LAB L400.4150 5-10 /hpf SQUAM Normal EPI 0-5 SEEN LAB L400.4300 None Seen /hpf 0 Normal BACTERIA SEEN LAB L400.4350 <or=2+ /hpf 1+ Normal MUCUS, URINE Performed By: #### L400.0001 #### [facility] [address] [place], [address] SURGERY VISIT REPORT Observed: 08/26/2018 Status: F Source: [place] 9:06 AM [facility] REPOSITORY [facility]. [address] [place] [address] OFFICE VISIT Date of Service: 08/26/18 MR#: [id number] Acct: [id number] Name: HAYLEE RICKS Rep #: [id number] : 1960 Provider: Kolby Curry MD Age/Sex: 57/F [facility] Status: Signed Intake Vital Signs08/26/18 Height 5 ft 4 in 08/26/18 Weight: 210 lb Intake Visit Reasons: Abdominal Pain US [facility] 08/02 Electronic Publishing Specialist Required: No Is patient in pain?: Yes (abdomen) Pain scale (1-10): 6 Allergies hydrocodone bitartrate [From Vicodin] Allergy (Verified 08/26/18 08:16) Hives Medications D-Methorphan/PE/Acetaminophen [[place]aggie[place] Plus Day Cap] 1 ea PO DAILY 10/02/16 [History Confirmed 08/26/18] Fluticasone 0.05% [Flonase Nasal [place]] 1 spray NASAL DAILY 10/02/16 [History Confirmed 08/26/18] Lisinopril [Zestril] 5 mg PO DAILY 10/02/16 [History Confirmed 08/26/18] loratadine 10 mg tablet 10 mg PO DAILY 08/26/18 [History Confirmed 08/26/18] omeprazole 20 mg capsule,delayed release 20 mg PO DAILY 08/26/18 [History Confirmed 08/26/18] ondansetron HCl 4 mg tablet 4 mg PO BID-TID PRN 08/26/18 [History Confirmed 08/26/18] [facility] Medical History Asthma (Acute) HTN (hypertension) (Chronic) Surgical History S/P laparoscopy (Acute) S/P tonsillectomy (Acute) Family History Mother Breast cancer Diabetes Heart disease Hypertension CVA (cerebral vascular accident) Father Diabetes Heart disease Kidney disease Social History Smoking Status: Never smoker alcohol intake: current alcohol intake frequency: holidays/special occasions only HPI HPI HPI: HAYLEE RICKS, is a 57 F who presents to the office today for surgical consultation regarding abdominal pain and diarrhea. The patient is referred by Dr. Charly Blackmon and a written copy of my surgical consult recommendations will be returned to him. The patient's primary complaint today is that she is feeling worse than before. She has not felt well over the past year. Her problem started initially with right upper quadrant pain. Now over particularly the past 2 weeks she has had pain radiating over to the upper abdomen. She feels bloated. If he tries to eat within 15 minutes she has profuse diarrhea. As noted below she has had CT scan imaging and gallbladder ultrasound and gallbladder nuclear medicine tests all normal. The patient is referred for surgical consideration regarding potential gallbladder disease. The patient states that she is feeling very fatigued. She has not noticed bright red blood per rectum or melena. She has never had an upper or lower endoscopy. 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 She is less active. She is thinking that this is what is causing her increased weight gain. She claims that she has no routine physical activity because she is feeling so poorly. [facility] Imaging Services [address] [place] [address] Abdomen WITH IV Contrast MR#: [id number] Name: HAYLEE RICKS ERedarshan #:[id number] : 1960 57 From: Calos Arnold MD PCP:Charly Blackmon MD Status:REG CLI Study:Abdomen WITH IV Contrast Date of Exam:01/14/18 Exam#[id number] Ordering Dr: Charly Blackmon MD STUDY: CT ABDOMEN WITH CONTRAST REASON FOR EXAM: Female, 57 years old. Right upper quadrant and right flank pain RADIATION DOSAGE (If Supplied By Facility): CTDIvol = ( 21.59 ) mGy, DLP = ( 825.17 ) mGycm TECHNIQUE: Transaxial images were obtained post I.V. administration of 100mL ml of Isovue 300 contrast, and oral contrast. Sagittal and coronal images were reconstructed. Individualized dose optimization techniques were used for this CT. COMPARISON: None. FINDINGS: There is minor atelectasis within the dependent portion of the lungs.. The visualized portions of the heart are within normal limits. Liver is diffusely fatty infiltrated without mass or bile duct dilatation. Normal gallbladder and extrahepatic biliary system. Normal spleen. Normal pancreas. Normal bilateral adrenal glands. No evidence for renal obstruction or ureteral calculus. Tiny hypoattenuated density within the right kidney too small to characterize most likely cyst. Normal visualized stomach. Normal visualized portions of the small intestine. Normal visualized portions of the colon. Normal abdominal aorta. Normal inferior vena cava. Normal retroperitoneum. Normal abdominal wall. Lumbar spine demonstrates mild spondylosis.. CT/Abdomen WITH IV Contrast IMPRESSION: Mild hepatomegaly and fatty infiltrated liver. No other significant abnormality Electronically Signed: Calos Arnold MD at 17:18 EDT , Service support , [facility] Imaging Services [address] [place] [address] Abdomen Limited MR#: [id number] Name: HAYLEE RICKS [facility] #:[id number] : 1960 57 From: Vivek Locke MD PCP:Charly Blackmon MD Status:REG CLI Study:Abdomen Limited Date of Exam:08/02/18 Exam#[id number] Ordering Dr: Charly Blackmon MD STUDY: ABDOMINAL ULTRASOUND - RIGHT UPPER QUADRANT REASON FOR VISIT: Female, 57 years old. Right upper quadrant pain. TECHNIQUE: Ultrasound evaluation of the right upper quadrant was performed with real-time and static cat-scale imaging. TECHNICAL QUALITY: Adequate. COMPARISON: CT abdomen with IV contrast 01/14/2018. FINDINGS: Liver: The liver measures 18.1 cm. Increase echogenicity of the liver parenchyma due to fatty infiltration. The bile ducts are within normal limits. There is hepatic color flow. The direction of portal flow is hepatopetal. There is no demonstrated mass lesion. Gallbladder: Normal distended gallbladder. The gallbladder wall measures 2.1 mm. There is a negative sonographic Hu's sign. There is no pericholecystic fluid. There are no gallstones. Common Bile Duct (C.B.D.): The common bile duct measures 5.3 mm. Pancreas: Normal size of the head, body and tail of the pancreas. There is normal echogenicity of the pancreas. There is no demonstrated pancreatic mass or cyst. The pancreatic duct is not dilated. Right Kidney: Normal size of the right kidney. The right kidney measures 10.7 x 6.5 x 4.3 cm. Normal renal cortex. The right cortex measures 1.3 cm. There is no demonstrated renal mass or cyst. There is no right hydronephrosis. US/Abdomen Limited IMPRESSION: Hepatic steatosis otherwise negative ultrasound of the right upper quadrant of the abdomen. Electronically Signed: Vivek Locke MD at 13:19 EDT , Service support , [facility] Imaging Services [address] [place] [address] Hepatobilliary Img w/Pharm Int MR#: [id number] Name: HAYLEE RICKS [facility] #:[id number] : 1960 57 From: Zev Mitchell DO PCP:Charly Blackmon MD Status:REG CLI Study:Hepatobilliary Img w/Pharm Int Date of Exam:08/18/18 Exam#[id number] Ordering Dr: Charly Blackmon MD CLINICAL: 57-year-old female with reported history of right upper quadrant abdominal pain. RADIONUCLIDE HEPATOBILIARY SCINTIGRAPHY COMPARISON: Abdominal ultrasound report 08/02/2018 FINDINGS: Following the intravenous administration of 5.2 mCi of 99m Tc Mebrofenin, hepatobiliary images reveal: 1. Relatively prompt and homogeneous radiopharmaceutical concentration is noted by a normal sized liver. No parenchymal defects are identified. 2. Gallbladder activity is identified at 14 minutes post radiopharmaceutical administration. 3. Intestinal tract is not visualized during 60 minutes of sequential image acquisition. Small bowel is defined following the administration of the fatty meal. 4. Washout of the radiopharmaceutical by the hepatic parenchyma appears qualitatively normal. The patient was administered a fatty meal (8 ounces Boost). The post fatty meal ingestion gallbladder ejection fraction calculated at 60 minutes was noted to be 33.0 % (normal greater than 30%). NM/Hepatobilliary Img w/Pharm Int IMPRESSION: 1. NORMAL 99m Tc Mebrofenin hepatobiliary imaging examination with fatty meal ingestion. A. A gallbladder ejection fraction calculated to be greater than 30% following the administration of an ingested fatty meal makes the probability of functional hepatobiliary disease (gallbladder and/or sphincter of Oddi dyskinesia) and/or organic hepatobiliary disease (chronic acalculous cholecystitis and/or cystic duct syndrome) to be low. (Hany and Rdaames, J Nucl Med 43: 1603, 2002). Electronically Signed: Zev Mitchell DO at 23:04 EDT Tel , Service support , CC: Charly Blackmon MD Chassis Driver: Signed ROS General General: Yes fatigue; no weight change, appetite, colon cancer, breast cancer or weakness HEENT HEENT: No difficulty swallowing, eye injury, eye surgery, swollen glands or hoarseness Endo Endocrine: No thyroid disease, diabetes mellitus, thyroid cancer, Hair loss, heat intolerance or cold intolerance Skin Skin: No rash or changing moles Breast Breast: No left breast lump, right breast lump, nipple discharge, breast pain, abnormal mammogram, abnormal US or breast enlargement Musc Musculoskeletal: Yes arthritis; no back problems, rheumatoid arthritis, gout or joint pain Cardio Cardiovascular: Yes high blood pressure; no murmur, pacemaker, heart disease, atrial fibrillation, heart attack, heart stent, palpitations, shortness of breat with exertion or chest pain Psych Psychiatric: Yes depression and anxiety; no hearing voices Resp Respiratory: No shortness of breath, No sleep apnea, No cough, No COPD, No asthma, No emphysema, No wheezing Gastro Gastrointestinal: Yes abdominal pain, Yes nausea or vomiting, Yes diarrhea, Yes constipation, No blood in stool, No acid reflux, No hemorrhoids, No ulcers, No gallbladder problem, No black,tarry stools Gus Hematologic: No blood thinners, No blood disorders, No bleeding, No anemia, No blood clots Neuro Neurologic: No system reviewed and no additional complaints, except as docu, No as per HPI, No abnormal walking, No abnormal hearing, No abnormal movements, No abnormal speech, No behavioral changes, No burning sensations, No confusion, No seizure-like activity, No unsteadiness, No dizziness, No localized weakness, No frequent falls, No headache(s), No lack of coordination, No loss of vision, No memory loss, No numbness, No other visual disturbances, No radiating pain, No restless legs, No sensory deficit, No fainting, No tingling, No tremor(s), No weakness, No other Exam Const General: cooperative, ill appearing Nutritional Appearance: obese Orientation: alert, awake, oriented x3 Other: Halitosis noted HENMT Head: normal to inspection Eyes General: appearance normal, both eyes and all related structures Neck Neck: normal visual inspection Carotids: normal carotid upstroke, no bruits Lymphatic: no lymphadenopathy noted Chest Chest palpation AND inspection: normal inspection of the chest Breast Palpation: No nipple discharge Resp Effort AND Inspection: normal respiratory effort Auscultation: clear to auscultation bilaterally Cardio Rate: regular rate Rhythm: regular rhythm Heart Sounds: no murmurs GI Palpation: soft, no hepatosplenomegaly, no guarding Auscultation: hypoactive bowel sounds Musc Cervical Spine: normal cervical lordosis Skin Rashes: no rashes Neuro General: CN's II-XI intact bilaterally Extrem General: no calf tenderness Psych Affect: normal affect Assessment AND Plan Problems 1. Epigastric pain R10.13 2. Diarrhea, unspecified type R19.7 Plan 57-year-old female with a one-year history of right upper quadrant pain with radiation to the flank and to the upper abdomen. Now complaining of upper abdominal bloating. She has postprandial diarrhea. Fatigue. And simply generally describes her feeling of wellness is feeling very poorly. Significant fatigue. Laboratory that was obtained did not demonstrate leukocytosis or anemia. She has never had a colonoscopy. Her gallbladder testing is normal. Etiology to this patient's illness is undetermined at this time. Her abdomen is very quiet on examination. She has a lot of upper abdominal distention bloating. I recommend that we obtain a urinalysis today because of the right flank radiating discomfort. I recommend that we obtain supine and upright abdominal x- rays. I then recommend a esophagogastroduodenoscopy with anticipated biopsies and a colonoscopy with anticipated random biopsies to try to facilitate the diagnosis. Her symptoms do not seem to correlate with symptomatic gallbladder disease as noted CT ultrasound and HIDA scan all normal. I appreciate the opportunity of assisting with her surgical care. We will try to assist with expediting diagnosis and potential treatment CC: Dr. Charly Curry M.D., F.A.C.S. Orders Orders: Coding Level of Care Code Comprehensive,moderate Diagnoses Epigastric pain R10.13 Abdominal location: epigastric Diarrhea, unspecified type R19.7 Diarrhea type: unspecified type 08/26/18 0906 <Electronically signed by Kolby Curry MD> Date Kolby Curry MD Cosigner Signature: Date (if applicable) CC: Charly Blackmon MD ABD INC DECUB Observed: 08/26/2018 Status: F Source: [place] AND/OR ERECT 9:03 AM [facility] REPOS[facility] Imaging Services [address] [place] [address] Abd Inc Decub and/or Erect MR#: [id number] Acct: [id number] Name: HAYLEE RICKS Rep #: [id number] : 1960 F 57 From: Simone Campos DO PCP: Charly Blackmon MD Status: REG CLI Study: Abd Inc Decub and/or Erect Date of Exam: 08/26/18 Exam# [id number] Ordering Dr: Kolby Curry MD STUDY: X-RAY - ABDOMEN/PELVIS REASON FOR EXAM: Female, 57 years old. Right upper quadrant pain. Constipation and diarrhea alternating for 3 to 4 weeks. TECHNIQUE: AP supine and upright views of the abdomen and pelvis. COMPARISON: None. FINDINGS: Normal visualized lung bases. There is a nonspecific bowel gas pattern. There is air seen scattered throughout nondistended colon. There is air in nondilated small bowel loops in the right mid abdomen. There is no demonstrated free abdominal air. The visualized liver, spleen and kidneys are grossly normal in size and morphology. Normal soft tissue structures. Normal visualized osseous structures. RAD/Abd Inc Decub and/or Erect IMPRESSION: Nonspecific bowel gas pattern. There is no obvious obstruction or ileus. Electronically Signed: Simone Campos DO at 22:28 EDT Tel [phone], Service support , CC: Charly Blackmon MD; Kolby Curry MD Chassis Driver: Signed URINALYSIS, COMPLETE Collected: 08/26/2018 Status: F Source: [place] 8:56 AM [facility] REPOS[facility] Order Comment: How was Urine Obtained? CLEAN CATCH TYPE CODE TESTS RESULT OUT OF RANGE REFERENCE UNITS LAB L400.3000 Yellow COLOR Normal Yellow LAB L400.3050 Clear Normal CLARITY Sl. Cloudy LAB L400.3200 Normal mg/dl Normal GLUCOSE, UR Normal LAB L400.3300 Negative mg/dL Normal BILIRUBIN URINE Negative LAB L400.3400 Negative mg/dl Normal KETONE UR Negative LAB L400.3465 1.002-1.030 Normal SP.GR. DIPSTX 1.020 LAB L400.3550 5.0 - 8.0 pH UR Normal 6.0 LAB L400.3600 Negative mg/dl PROT Normal DIPSTX Negative LAB L400.3700 Normal mg/dl Normal UROBILI Normal LAB L400.3750 Negative Normal NITRITE UR Negative LAB L400.3780 Negative /ul High 10 OCCULT BLOOD-UR LAB L400.3800 Negative /ul High LEUK 25 ESTERASE LAB L400.4050 0-5 /hpf WBC Normal 0-5 SEEN LAB L400.4100 0-5 /hpf Normal RBC-UA 0-5 SEEN LAB L400.4150 5-10 /hpf SQUAM Normal EPI 0-5 SEEN LAB L400.4300 None Seen /hpf 1+ Normal BACTERIA LAB L400.4350 <or=2+ /hpf 1+ Normal MUCUS, URINE Performed By: #### L400.0001 #### [facility] [address] [place], [address] HEPATOBILLIARY IMG Observed: 08/18/2018 Status: F Source: [place] W/PHARM INT 7:44 AM [facility] REPOS[facility] Imaging Services [address] [place] [address] Hepatobilliary Img w/Pharm Int MR#: [id number] Acct: [id number] Name: HAYLEE RICKS Rep #: [id number] : 1960 F 57 From: Zev Mitchell DO PCP: Charly Blackmon MD Status: REG CLI Study: Hepatobilliary Img w/Pharm Int Date of Exam: 08/18/18 Exam# [id number] Ordering Dr: Charly Blackmon MD CLINICAL: 57-year-old female with reported history of right upper quadrant abdominal pain. RADIONUCLIDE HEPATOBILIARY SCINTIGRAPHY COMPARISON: Abdominal ultrasound report 08/02/2018 FINDINGS: Following the intravenous administration of 5.2 mCi of 99m Tc Mebrofenin, hepatobiliary images reveal: 1. Relatively prompt and homogeneous radiopharmaceutical concentration is noted by a normal sized liver. No parenchymal defects are identified. 2. Gallbladder activity is identified at 14 minutes post radiopharmaceutical administration. 3. Intestinal tract is not visualized during 60 minutes of sequential image acquisition. Small bowel is defined following the administration of the fatty meal. 4. Washout of the radiopharmaceutical by the hepatic parenchyma appears qualitatively normal. The patient was administered a fatty meal (8 ounces Boost). The post fatty meal ingestion gallbladder ejection fraction calculated at 60 minutes was noted to be 33.0 % (normal greater than 30%). NM/Hepatobilliary Img w/Pharm Int IMPRESSION: 1. NORMAL 99m Tc Mebrofenin hepatobiliary imaging examination with fatty meal ingestion. A. A gallbladder ejection fraction calculated to be greater than 30% following the administration of an ingested fatty meal makes the probability of functional hepatobiliary disease (gallbladder and/or sphincter of Oddi dyskinesia) and/or organic hepatobiliary disease (chronic acalculous cholecystitis and/or cystic duct syndrome) to be low. (Hany and Radames, J Nucl Med 43: 1603, 2002). Electronically Signed: Zev Mitchell DO at 23:04 EDT Tel , Service support , CC: Charly Blackmon MD Chassis Driver: Signed ABDOMEN LIMITED Observed: 08/02/2018 Status: F Source: [place] 10:26 AM [facility] RE[facility] Imaging Services [address] [place] [address] Abdomen Limited MR#: [id number] Acct: [id number] Name: HAYLEE RICKS Rep #: [id number] : 1960 F 57 From: Vivek Locke MD PCP: Charly Blackmon MD Status: REG CLI Study: Abdomen Limited Date of Exam: 08/02/18 Exam# [id number] Ordering Dr: Charly Blackmon MD STUDY: ABDOMINAL ULTRASOUND - RIGHT UPPER QUADRANT REASON FOR VISIT: Female, 57 years old. Right upper quadrant pain. TECHNIQUE: Ultrasound evaluation of the right upper quadrant was performed with real-time and static cat-scale imaging. TECHNICAL QUALITY: Adequate. COMPARISON: CT abdomen with IV contrast 01/14/2018. FINDINGS: Liver: The liver measures 18.1 cm. Increase echogenicity of the liver parenchyma due to fatty infiltration. The bile ducts are within normal limits. There is hepatic color flow. The direction of portal flow is hepatopetal. There is no demonstrated mass lesion. Gallbladder: Normal distended gallbladder. The gallbladder wall measures 2.1 mm. There is a negative sonographic Hu's sign. There is no pericholecystic fluid. There are no gallstones. Common Bile Duct (C.B.D.): The common bile duct measures 5.3 mm. Pancreas: Normal size of the head, body and tail of the pancreas. There is normal echogenicity of the pancreas. There is no demonstrated pancreatic mass or cyst. The pancreatic duct is not dilated. Right Kidney: Normal size of the right kidney. The right kidney measures 10.7 x 6.5 x 4.3 cm. Normal renal cortex. The right cortex measures 1.3 cm. There is no demonstrated renal mass or cyst. There is no right hydronephrosis. US/Abdomen Limited IMPRESSION: Hepatic steatosis otherwise negative ultrasound of the right upper quadrant of the abdomen. Electronically Signed: Vivek Locke MD at 13:19 EDT , Service support , CC: Charly Blackmon MD Chassis Driver: Signed CBC W/DIFF, AUTOMATED Collected: 08/02/2018 Status: F Source: [place] 9:51 AM [facility] TYPE CODE TESTS RESULT OUT OF RANGE REFERENCE UNITS LAB L100.1000 4.4-11.0 K/mm3 Normal WBC 6.3 LAB L100.1200 4.2-5.4 M/mm3 Normal RBC 4.35 LAB L100.1300 12.0-15.0 g/dl Normal HGB 12.3 LAB L100.1400 37-47 % Normal HCT 39.2 LAB L100.1500 81-99 fL Normal MCV 90.1 LAB L100.1600 27.0-32.0 pg Normal MCH 28.3 LAB L100.1700 32-36 g/gl Low MCHC 31.4 LAB L100.1810 11.6-14.6 % Normal RDW CV 13.1 LAB L100.1820 35.1-43.9 fl Normal RDW SD 42.9 LAB L100.1900 150-450 K/mm3 Normal PLT 287 LAB L100.2000 6.2-12.0 fl Normal MPV 10.3 LAB L100.2100 47-70 % Normal NEUT% 66.4 LAB L100.2200 19-41 % Normal LY% 21.7 LAB L100.2300 0-10 % Normal MONO% 8.5 LAB L100.2400 0-5 % Normal EO% 2.6 LAB L100.2500 0-1 % Normal BASO% 0.5 LAB L100.2550 0.0-0.9 % Normal IM GRAN % 0.300 Result Comment: IG% - Immature Granulocytes (promyelocytes, myelocytes and metamyelocytes) > 1% indicates that a LEFT SHIFT is Present. LAB L100.2620 2.0-7.7 X10 3/uL Normal Absolute Neut 4.2 LAB L100.2720 0.83-4.51 X10 3/ul Normal Absolute Lymph 1.36 Performed By: #### L100.0100 #### [facility] [address] [place], [address] COMPREHENSIVE METABOLIC Collected: 08/02/2018 Status: F Source: [place] [facility] 9:51 AM [facility] TYPE CODE TESTS RESULT OUT OF RANGE REFERENCE UNITS LAB L501.0100 74-106 mg/dL High GLU 147 Result Comment: Fasting Glucose result greater than or equal to 126 mg/dL suggests DIABETES MELLITUS per A.D.A. criteria. Please note revised GLUCOSE reference range effective 2017. LAB L501.1000 7-18 mg/dL High BUN 19 LAB L501.1100 0.55-1.02 mg/dL Normal CREAT,SERUM 0.94 Result Comment: The validity of the calculated GFR AND GFRAA in patients over 70 years has not been determined. Clinical correlation is essential. LAB L501.1110 >60 mL/min Normal EST GFR 65 Result Comment: Non- GFR Calc LAB L501.1115 >60 mL/min Normal EST GFR - AA 79 Result Comment: GFR Calc LAB L501.1300 10-20 RATIO High BUN/CRE 20.3 LAB L501.1500 6.4-8.2 g/dL T Normal PROT 7.8 LAB L501.1800 3.2-5.0 g/dL Normal ALB 3.6 LAB L501.1950 2.2-4.2 g/dL Normal GLOB 4.2 LAB L501.2000 0.9-2.4 RATIO Normal A/G 0.9 LAB L501.2200 8.5-10.1 mg/dL CA Normal 8.8 LAB L501.4100 15-37 U/L Low AST 11 LAB L501.4305 45-117 U/L Normal ALK P 87 LAB L501.4405 13-56 U/L Normal ALT 24 LAB L501.4600 0.20-1.00 mg/dL T Normal BILI 0.30 LAB L501.5300 136-145 mmol/L NA Normal 142 LAB L501.5600 3.5-5.1 mmol/L K Normal 4.3 LAB L501.5900 98-107 mmol/L CL Normal 107 LAB L501.6100 21.0-32.0 mmol/L Normal CO2 27.0 LAB L501.6200 5-15 Normal GAP 8 Performed By: #### L500.4050, L501.2450 #### [facility] [address] [place], [address] LIPASE Collected: 08/02/2018 Status: F Source: [place] 9:51 AM [facility] REPOS[facility] TYPE CODE TESTS RESULT OUT OF RANGE REFERENCE UNITS LAB L501.2450 73-393 U/L Normal LIPASE 150 Performed By: #### L500.4050, L501.2450 #### [facility] [address] [place], [address] ABDOMEN WITH IV Observed: 01/14/2018 Status: F Source: [place] CONTRAST 1:11 PM [facility] RE[facility] Imaging Services [address] [place] [address] Abdomen WITH IV Contrast MR#: [id number] Acct: [id number] Name: HAYLEE RICKS Rep #: [id number] : 1960 F 57 From: Calos Arnold MD PCP: Charly Blackmon MD Status: REG CLI Study: Abdomen WITH IV Contrast Date of Exam: 01/14/18 Exam# [id number] Ordering Dr: Charly Blackmon MD STUDY: CT ABDOMEN WITH CONTRAST REASON FOR EXAM: Female, 57 years old. Right upper quadrant and right flank pain RADIATION DOSAGE (If Supplied By Facility): CTDIvol = ( 21.59 ) mGy, DLP = ( 825.17 ) mGycm TECHNIQUE: Transaxial images were obtained post I.V. administration of 100mL ml of Isovue 300 contrast, and oral contrast. Sagittal and coronal images were reconstructed. Individualized dose optimization techniques were used for this CT. COMPARISON: None. FINDINGS: There is minor atelectasis within the dependent portion of the lungs.. The visualized portions of the heart are within normal limits. Liver is diffusely fatty infiltrated without mass or bile duct dilatation. Normal gallbladder and extrahepatic biliary system. Normal spleen. Normal pancreas. Normal bilateral adrenal glands. No evidence for renal obstruction or ureteral calculus. Tiny hypoattenuated density within the right kidney too small to characterize most likely cyst. Normal visualized stomach. Normal visualized portions of the small intestine. Normal visualized portions of the colon. Normal abdominal aorta. Normal inferior vena cava. Normal retroperitoneum. Normal abdominal wall. Lumbar spine demonstrates mild spondylosis.. CT/Abdomen WITH IV Contrast IMPRESSION: Mild hepatomegaly and fatty infiltrated liver. No other significant abnormality Electronically Signed: Calos Arnold MD at 17:18 EDT , Service support , CC: Charly Blackmon MD Chassis Driver: Signed ABDOMEN LIMITED Observed: 01/05/2018 Status: F Source: [place] 10:35 AM [facility] Imaging Services [address] [place] [address] Abdomen Limited MR#: [id number] Acct: [id number] Name: HAYLEE RICKS Rep #: [id number] : 1960 F 57 From: Stefan Perez MD PCP: Charly Blackmon MD Status: REG CLI Study: Abdomen Limited Date of Exam: 01/05/18 Exam# [id number] Ordering Dr: Charly Blackmon MD STUDY: ABDOMINAL ULTRASOUND - RIGHT UPPER QUADRANT REASON FOR VISIT: Female, 57 years old. Right upper quadrant pain. TECHNIQUE: Ultrasound evaluation of the right upper quadrant was performed with real-time and static cat-scale imaging. TECHNICAL QUALITY: Adequate. COMPARISON: None. FINDINGS: Liver: The liver measures 16.5 cm. There is increased echogenicity consistent with fatty infiltration. The bile ducts are within normal limits. There is hepatic color flow. The direction of portal flow is hepatopetal. There is no demonstrated mass lesion. Gallbladder: Normal distended gallbladder. The gallbladder wall measures 2.2 mm. There is a negative sonographic Hu's sign. There is no pericholecystic fluid. There are no gallstones. Common Bile Duct (C.B.D.): The common bile duct measures 5.0 mm. Pancreas: Normal size of the head, body and tail of the pancreas. There is increased echogenicity of the pancreas. There is no demonstrated pancreatic mass or cyst. Right Kidney: Normal size of the right kidney. The right kidney measures 10.9 cm x 5.7 cm x 4.3 cm. Normal renal cortex. The right cortex measures 1.2 cm. There is no demonstrated renal mass or cyst. There is no right hydronephrosis. US/Abdomen Limited IMPRESSION: Fatty infiltration of the liver. Electronically Signed: Stefan Perez MD at 13:00 EDT Tel [phone], Service support , CC: Charly Blackmon MD Chassis Driver: Signed ALLERGIES ALLERGIES DATE TYPE / CODE NAME / CODE REACTION SEVERITY SOURCE 08/27/2018 Drug hydrocodone Hives Unknown [place] Allergy/416 bitartrate/[id number] [facility] [id number]([place] [address](RXNORM) [facility] ED CT) Repository ENCOUNTERS ENCOUNTERS ADMIT/DISCHARGE ACCOUNT ADMITTING ENCOUNTER LOCATION SOURCE NUMBER CLASS 11/03/2018 [id number] Ambulatory [place] Erik 7 [facility] ing:MTLAB Repository 10/07/2018 [id number] Ambulatory [place] Erik 7 [facility] ing:MTRAD Repository 08/31/2018/ [id number] Ambulatory Erik Erik 8 9 [facility] ing:ENRoom: Repository AC12 08/31/2018/ [id number] Ambulatory BMSBuilding:B Erik 8 2 CF.A [facility] Repository 08/26/2018 [id number] Ambulatory [place] 8 [facility] ing:LAB Repository 08/26/2018/ [id number] Ambulatory BMSBuilding:B Erik 8 7 MS.WSA [facility] Repository 08/18/2018 [id number] Ambulatory Erik [place] 6 [facility] ing:NM Repository 08/02/2018 [id number] Ambulatory Erik [place] 0 [facility] Hospital ing:US Repository 08/02/2018 [id number] Ambulatory [place] Erik 0 [facility] Hospital ing:MFPLAB Repository 01/14/2018 [id number] Ambulatory Erik [place] 3 [facility] ing:CT Repository 01/05/2018 [id number] Ambulatory Erik Erik 1 [facility] ing:US Repository PAYERS PAYERS ENCOUNTER GUARANTOR PAYER SUBSCRIBER SOURCE 11/03/2018 HAYLEE Cooper Primary АЛЕКСАНДР Cooper Erik [id number] SR Insurance:GPATPA REUTTERDOB: [address] Number: [id number] [address]Ifa: 330 [id number] Repository [phone] () Date:7511-10-92[address], [place] [address]TR: 11/03/2018 Secondary NOT GIVENUNK Erik Insurance:SELF PAY [facility] Number: Effective Repository Date:2018-11-03 10/07/2018 HAYLEE Cooper Primary АЛЕКСАНДР Cooper [place] [id number] SR Insurance:GPATPA REUTTERDOB: [address] Number: [id number] Hospital [id number]: 330 [id number] Repository [phone] () Date:9318-42-16ZU [address], [place] [address]OB: 10/07/2018 Secondary NOT GIVENUNK [place] Insurance:SELF PAY [facility] Number: Effective Repository Date:2018-10-07 08/31/2018 HAYLEE Cooper Primary АЛЕКСАНДР [place] [id number] SR Insurance:GPATPA REUTTERDOB: [address] Number: [id number] [address]Jum: [phone] [id number] Repository [phone] (HP) Date:7475-29-91NS [address], [place] [address]NW: 08/31/2018 Secondary NOT GIVENUNK [place] Insurance:SELF PAY [facility] Number: Effective Repository Date:2018-08-26 08/31/2018 HAYLEE E Primary АЛЕКСАНДР E [place] [id number] SR Insurance:GPATPA REUTTERDOB: [address] Number: [id number] [facility] [address]Qjb: ([phone] [id number] Repository [phone] (HP) Date:4129-13-43[address], [place] [address]CP: 08/31/2018 Secondary NOT GIVENUNK [place] Insurance:SELF PAY [facility] Number: Effective Repository Date:2018-08-31 08/26/2018 HAYLEE E Primary АЛЕКСАНДР E [place] [id number] SR Insurance:GPATPA REUTTERDOB: [address] Number: [id number] [facility] [address]Glq: 330 [id number] Repository [phone] () Date:5558-36-37XL [address], [place] [address]DC: 08/26/2018 Secondary NOT GIVENUNK [place] Insurance:SELF PAY [facility] Hospital Number: Effective Repository Date:2018-08-26 08/26/2018 HAYLEE E Primary АЛЕКСАНДР E [place] [id number] SR Insurance:GPATPA REUTTERDOB: [address] Number: [id number] Hospital [address]Fch: [phone] [id number] Repository [phone] (HP) Date:7861-09-52XP [address], [place] [address]VX: 08/26/2018 Secondary NOT GIVENUNK Erik Insurance:SELF PAY [facility] Hospital Number: Effective Repository Date:2018-08-26 08/18/2018 HAYLEE E Primary АЛЕКСАНДР E Erik [id number] SR Insurance:GPATPA REUTTERDOB: [address] [facility] Number: [id number] [facility] [id number]: 330 [id number] Repository [phone] () Date:6900-43-43RV [address], [place] [address]VD: 08/18/2018 Secondary NOT GIVENUNK [place] Insurance:SELF PAY [facility] Hospital Number: Effective Repository Date:2018-08-13 08/02/2018 Haylee E Primary АЛЕКСАНДР REUTTERUNK Erik [id number] SR Insurance:[address] Number: [facility] [address]Ibc: 330 [id number] Repository [phone] () Date:3937-43-09YO [address], [place] [address]RJ: 08/02/2018 Secondary NOT GIVENUNK [place] Insurance:SELF PAY [facility] Hospital Number: Effective Repository Date:2018-08-02 08/02/2018 Haylee E Primary АЛЕКСАНДР REUTTERUNK [place] [id number] SR Insurance:[address] Number: [facility] [address]Fbk: 330 [id number] Repository [phone] () Date:2168-15-87CY [address], [place] [address]YA: 08/02/2018 Secondary NOT GIVENUNK [place] Insurance:SELF PAY [facility] Hospital Number: Effective Repository Date:2018-08-02 01/14/2018 Haylee E Primary Insurance:[facility] Haylee E [place] [id number] SR PACKAGE PLANPolicy ReutterDOB: [address] Number: Effective [id number] Hospital [address]Tid: 330) Date:2018-01-14 Repository [phone] () 01/14/2018 Secondary NOT GIVENUNK [place] Insurance:SELF PAY [facility] Number: Effective Repository Date:2018-01-14 01/05/2018 Haylee Cooper Primary Insurance:[facility] Haylee [place] [id number] SR PACKAGE PLANPolicy ReutterDOB: [address] Number: Effective [id number] Hospital [address]Pvc: ([phone]) Date:2018-01-04 Repository [phone] () 01/05/2018 Secondary NOT GIVENUNK Erik Insurance:SELF PAY [facility] Number: Effective Repository Date:2018-01-04
== END ==
PROVIDERS: Family Provider Family Medicine; PCP Family Medicine; Referring Provider Family Medicine; Visit Provider Family Medicine
DX: R10.9 Unspecified abdominal pain (principal)
CPT/HCPCS: 74019

== ENCOUNTER → 2018-11-03 16:43 | Outpatient (CLI) | payer OTHER, SELFPAY ==
[2018-11-05 16:07] LABS: Endomysial Antibody IgA Negative (Negative)
[2018-11-06 19:49] LABS: Immunoglobulin A 194 mg/dL (87-352); t-Transglutaminase IgA <2 U/mL (0-3)
== END ==
PROVIDERS: Family Provider Family Medicine; PCP Family Medicine; Referring Provider Internal Medicine Gastroenterology; Visit Provider Internal Medicine Gastroenterology
DX: R19.7 Diarrhea, unspecified (principal)
CPT/HCPCS: 36415; 82784; 83516; 86140; 86255

== ENCOUNTER → 2018-11-22 12:06 | Outpatient (CLI) | payer OTHER, SELFPAY ==
[2018-11-22 15:40] LABS: ALB/GLOB Ratio 0.8 RATIO (0.9-2.4); AST(SGOT) 15 U/L (15-37); Alanine Aminotransfer ALT/SGPT 21 U/L (13-56); Albumin, Serum 3.3 g/dL (3.2-5.0); Alkaline Phosphatase 72 U/L (45-117); Anion Gap 10 (5-15); BUN 18 mg/dL (7-18); Calcium,Total 8.6 mg/dL (8.5-10.1); Chloride 105 mmol/L (98-107); EST Glomerular Filtration Rate 68 mL/min (>60); Est Glom Filt Rate - Afr Amer 82 mL/min (>60); Globulin 4.1 g/dL (2.2-4.2); Glucose 107 mg/dL (74-106); Potassium 4.1 mmol/L (3.5-5.1); Protein, Total 7.4 g/dL (6.4-8.2); Sodium Level 142 mmol/L (136-145)
[2018-11-22 16:27] LABS: Erythrocyte Sedimentation Rate 19 mm/hr (0-30)
[2018-11-25 11:22] LABS: ANTINUCLEAR ANTIBODIES DIRECT Negative (Negative); Anti-Mitochondrial AB <20.0 Units (0.0-20.0)
== END ==
PROVIDERS: Family Provider Family Medicine; PCP Family Medicine; Visit Provider Family Medicine
DX: R10.9 Unspecified abdominal pain (principal)
CPT/HCPCS: 36415; 80053; 83516; 85652; 86038; 86140

== ENCOUNTER → 2018-12-20 11:10 | Outpatient (CLI) | payer OTHER, SELFPAY ==
--- NOTE | 2018-12-20 11:45 | CT_ITS ---
STUDY: CT ABDOMEN AND PELVIS WITH CONTRAST REASON FOR EXAM: Female, 57 years old. Abdominal pain and fever. RADIATION DOSAGE (If Supplied By Facility): CTDIvol = ( 15.14 ) mGy, DLP = ( 1984.63 ) mGycm TECHNIQUE: Transaxial images were obtained from the dome of the diaphragm to the symphysis pubis with oral contrast. Isovue 300 100 IV/Oral was administered. Sagittal and coronal images were reconstructed. Delayed imaging was obtained as well. Individualized dose optimization techniques were used for this CT. COMPARISON: Comparison is made with prior study dated January 14, 2018. FINDINGS: Increased linear markings at the lung bases suggestive of bibasilar atelectasis. The visualized portions of the heart are within normal limits. There is decreased attenuation of the liver consistent with steatosis. There is evidence of perihepatic and perisplenic fluid collection. Normal gallbladder and extrahepatic biliary system. Normal spleen. Normal pancreas. Normal bilateral adrenal glands. Mild to moderate degree of right hydronephrosis and right hydroureter. Normal left kidney. Normal visualized stomach. Normal small intestine. Normal colon. The appendix is visualized and appears normal. Normal abdominal aorta. Normal inferior vena cava. There is retroperitoneal lymphadenopathy with enlarged nodes greater than 10-15mm in the short axis. There is evidence of increased markings in the peritoneum with the multiple small nodular densities just above the mesenteric and omental metastasis. The bladder is not well visualized. There is evidence of a 11 cm x 19 cm x 14.1 cm inhomogeneous mass arising from the pelvis more prominent on the right side. This most likely represents right ovarian carcinoma. This also extends into the left adnexal region. This also evidence of a 5.1 cm x 4.7 cm inhomogeneous soft tissue mass in the left anterior pelvis. Normal abdominal wall. Normal osseous structures. CT/Abdomen/Pelvis WITH Contrast IMPRESSION: There is evidence of a large pelvic mass most likely ovarian carcinoma with retroperitoneal lymphadenopathy and mesenteric and omental metastasis. Fatty infiltration of the liver. Perihepatic and perisplenic fluid. Electronically Signed: Stefan Perez MD at 14:56 EST , Service support ,
[2018-12-20 12:33] LABS: Absolute Lymphocyte Count 1.25 X10^3/ul (0.83-4.51); Absolute Neutrophil Count 9.6 X10^3/uL (2.0-7.7); Basophil# 0.01 X10^3/uL; Basophil% 0.1 % (0-1); Eosinophil# 0.05 X10^3/uL; Eosinophils% 0.4 % (0-5); Hematocrit 37.1 % (37-47); Hemoglobin 11.3 g/dl (12.0-15.0); Lymphocyte # 1.25 X10^3/ul (4.0); Lymphocyte % 10.6 % (19-41); Mean Corp Hgb Conc 30.5 g/gl (32-36); Mean Corpuscular Volume 85.5 fL (81-99); Mean Platelet Vol. 9.5 fl (6.2-12.0); Monocyte% 7.6 % (0-10); Neutrophil # 9.59 X10^3/uL (2.7-7.7); Platelet Count 351 K/mm3 (150-450); RBC Distribution Width CV 14.8 % (11.6-14.6); RBC Distribution Width SD 46.2 fl (35.1-43.9); Red Blood Count 4.34 M/mm3 (4.2-5.4); White Blood Count 11.8 K/mm3 (4.4-11.0)
[2018-12-20 12:36] LABS: POSITIVE COUNT NO; POSITIVE DIFFERENTIAL NO; POSITIVE MORPHOLOGY NO
[2018-12-20 12:49] LABS: ALB/GLOB Ratio 0.7 RATIO (0.9-2.4); AST(SGOT) 19 U/L (15-37); Alanine Aminotransfer ALT/SGPT 24 U/L (13-56); Albumin, Serum 2.8 g/dL (3.2-5.0); Alkaline Phosphatase 67 U/L (45-117); Anion Gap 7 (5-15); BUN 19 mg/dL (7-18); Calcium,Total 8.4 mg/dL (8.5-10.1); Chloride 107 mmol/L (98-107); Creatinine, Serum 0.95 mg/dL (0.55-1.02); EST Glomerular Filtration Rate 64 mL/min (>60); Est Glom Filt Rate - Afr Amer 78 mL/min (>60); Globulin 4.3 g/dL (2.2-4.2); Glucose 111 mg/dL (74-106); Lipase 167 U/L (73-393); Potassium 4.1 mmol/L (3.5-5.1); Protein, Total 7.1 g/dL (6.4-8.2); Sodium Level 139 mmol/L (136-145)
== END ==
PROVIDERS: Family Provider Family Medicine; PCP Family Medicine; Referring Provider Family Medicine; Visit Provider Family Medicine
DX: R10.9 Unspecified abdominal pain (principal); C56.9 Malignant neoplasm of unspecified ovary; C78.6 Secondary malignant neoplasm of retroperitoneum and peritoneum; N39.0 Urinary tract infection, site not specified; I10 Essential (primary) hypertension; R50.9 Fever, unspecified; R05 Cough; Z79.899 Other long term (current) drug therapy
CPT/HCPCS: 36415; 71046; 74177; 80053; 81001; 83690; 85025; 87086; 87088; 87804; 96365; 96375; 96376; 99284; J7030; J7040; Q9967; A4216; J2405

== ENCOUNTER 2018-12-20 17:30 | Emergency (ER) | payer OTHER, SELFPAY ==
[2018-12-20 17:33] VITALS: BP 134/86; PULSE 103; RESP 20; TEMP 37.5; O2SAT 97; BMI 34.8
--- NOTE | 2018-12-20 19:08 | RAD_ITS ---
STUDY: X-RAY CHEST REASON FOR EXAM: Female, 57 years old. Cough TECHNIQUE: Frontal and lateral views COMPARISON: None. FINDINGS: The lungs are not fully expanded. There is no demonstrated pleural abnormality. Normal size heart. Normal mediastinum and petros. Normal visualized pulmonary arteries. Normal visualized aortic arch and descending thoracic aorta. Degenerative changes of the thoracic spine. Degenerative changes of the shoulders. There is no demonstrated abnormality of the visualized soft tissue structures of the upper abdomen. RAD/Chest PA and Lateral IMPRESSION: Normal x-ray examination of the chest. Electronically Signed: Ron Negrete DO at 20:46 EST Tel [phone], Service support ,
[2018-12-20] MEDS: Ondansetron 4 MG/2 ML Vial IV (19:40)
[2018-12-20] MEDS: Morphine 4 MG/ML Syringe IV ×2 (19:43→23:26)
[2018-12-20 19:44] LABS: Bacteria 0 SEEN /hpf (None Seen); Mucous, Urine 0 SEEN /hpf (<or=2+)
[2018-12-20 19:45] LABS: Color, Urine Yellow (Yellow); Glucose, Dipstick Normal (Normal); Ketone-Dipstick Negative (Negative); Leukocyte Esterase-Dipstick 100 /ul (Negative); Nitrite-Dipstick Negative (Negative); Occult Blood-Urine 50 /ul (Negative); Protein-Dipstick 15 mg/dl (Negative); Specific Gravity, Urine 1.005 (1.002-1.030); Urine Bilirubin Dipstick Negative (Negative); Urine Clarity Cloudy (Clear); Urine Urobilinogen Normal (Normal)
[2018-12-20 19:46] VITALS: BP 117/75; PULSE 78; RESP 16; O2SAT 100
[2018-12-20 19:55] LABS: Amorphous Sediment 1+ URATE; Red Blood Cells-Urine 0-5 SEEN /hpf (0-5); Squamous Epithelial Cells - UA 0-5 SEEN /hpf (5-10); White Blood Cells 10-25 SEEN /hpf (0-5)
[2018-12-20 19:58] LABS: Absolute Lymphocyte Count 1.63 X10^3/ul (0.83-4.51); Absolute Neutrophil Count 11.3 X10^3/uL (2.0-7.7); Basophil# 0.01 X10^3/uL; Basophil% 0.1 % (0-1); Eosinophil# 0.05 X10^3/uL; Eosinophils% 0.4 % (0-5); Hematocrit 35.3 % (37-47); Hemoglobin 10.9 g/dl (12.0-15.0); Lymphocyte # 1.63 X10^3/ul (4.0); Lymphocyte % 11.6 % (19-41); Mean Corp Hgb Conc 30.9 g/gl (32-36); Mean Corpuscular Hgb 26.1 pg (27.0-32.0); Mean Corpuscular Volume 84.7 fL (81-99); Mean Platelet Vol. 9.8 fl (6.2-12.0); Monocyte# 1.06 X10^3/uL; Monocyte% 7.5 % (0-10); Neutrophil # 11.26 X10^3/uL (2.7-7.7); Neutrophil % 80.2 % (47-70); Platelet Count 352 K/mm3 (150-450); RBC Distribution Width CV 14.8 % (11.6-14.6); RBC Distribution Width SD 46.3 fl (35.1-43.9); Red Blood Count 4.17 M/mm3 (4.2-5.4)
[2018-12-20 19:59] LABS: ALB/GLOB Ratio 0.7 RATIO (0.9-2.4); AST(SGOT) 20 U/L (15-37); Alanine Aminotransfer ALT/SGPT 25 U/L (13-56); Albumin, Serum 2.9 g/dL (3.2-5.0); Alkaline Phosphatase 68 U/L (45-117); Anion Gap 11 (5-15); BUN 17 mg/dL (7-18); BUN/Creat Ratio 17.5 RATIO (10-20); Calcium,Total 8.2 mg/dL (8.5-10.1); Chloride 105 mmol/L (98-107); Creatinine, Serum 0.97 mg/dL (0.55-1.02); EST Glomerular Filtration Rate 63 mL/min (>60); Est Glom Filt Rate - Afr Amer 76 mL/min (>60); Estimated Creatinine Clearance 54.59 ml/min; Globulin 4.2 g/dL (2.2-4.2); Glucose 133 mg/dL (74-106); Potassium 3.8 mmol/L (3.5-5.1); Protein, Total 7.1 g/dL (6.4-8.2); Sodium Level 140 mmol/L (136-145)
[2018-12-20 20:08] LABS: POSITIVE COUNT NO; POSITIVE DIFFERENTIAL NO; POSITIVE MORPHOLOGY NO
[2018-12-20] MEDS: Ceftriaxone 1 GM/50 ML BAG IV (21:04)
--- NOTE | 2018-12-20 22:19 | ED.RN ---
Patient has been accepted to [facility] [place] 6 floor bed 6028
[2018-12-20 22:47] VITALS: BP 131/72; PULSE 93; RESP 18; O2SAT 96
[2018-12-20 23:12] VITALS: BP 131/72; PULSE 93; RESP 16; RESP 18; TEMP 37.7; O2SAT 96
--- NOTE | 2018-12-20 23:19 | ED.VISSUMM ---
- ER Visit Summary Date of Service: 12/20/18 Chief Complaint: Abdominal pain History of Present Illness: The patient is a [address] Charly Rey. 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 She reports that she has had abdominal pain for approximately a year. Is gradually gotten worse. Pain is 8 out of 10 at worst and 5-10 currently. Is worsened by movement relieved by remaining still. She denies any vaginal bleeding or discharge. She denies any dysuria. She has had frequency. Patient reports that she has had evaluation for this multiple times in the past year. States that she has had CT and ultrasounds that were unremarkable. Today she had an outpatient CT that showed a large ovarian mass with metastases. On review of systems patient complains of a fever of 103 degrees. She had a nonproductive cough. She denies any vomiting or diarrhea. No dysuria. No rash or headache. She does report she had a poor appetite. Physical Examination: Vitals: Stable. Afebrile. General: Well-nourished and well-developed. Head: Normocephalic atraumatic. Neck: Supple, no lymphadenopathy. No JVD. Nontender. Cardiovascular: Regular rate and rhythm. No murmurs. Respiratory: No respiratory distress. Clear to auscultation bilaterally. Abdominal: Soft, moderate suprapubic tenderness to palpation, nondistended, normal bowel sounds. No guarding, rebound, or peritoneal signs. Back: Nontender. Extremities: Nontender, no edema. Skin: Normal color, no rash. Neurologic: Alert and oriented ?3. Cranial nerves II through XII are intact. Normal strength and sensation. Psych: Normal affect. Test Results: CBC is remarkable for a white count of 14.0, H&H of 10.9 and 35.3, segmented neutrophils of 80, and lymphocytes of 12. Chem-7 is more for glucose 133 and calcium 8.2. LFTs marked for an albumin of 2.9. UA shows leukocytes and 10-25 white blood cells. There is no bacteria. Chest x-ray shows no acute disease. CT with p.o. and IV contrast obtained prior to arrival shows an 11 x 19 x 14 cm right adnexal mass with a 5.1 x 4.7 cm mass in the left inferior pelvis. There is retroperitoneal adenopathy. There is mesenteric and omental metastases. Emergency Department Course and Treatment: Patient's urine was sent for culture. She was given Rocephin IV. She was given morphine and Zofran. She is resting comfortably. Treatment Plan: Patient was discussed with [facility]. They do not have any beds available. She was then discussed with Dr. Rinaldi at [facility] who is accepted her in transfer. States that with the extent of the patient's disease that she will not have operative management. They will obtain a biopsy and start her on chemotherapy. It was discussed with the patient and her family. Disposition: Transferred in serious condition. Impression: 1. Ovarian cancer with metastases. 2. Fever. 3. Pyuria. This note was generated with [employer] dictation software. It may contain incorrect words, spelling, and punctuation that were not noted in review of the chart prior to signing ED Disposition - Plan for ED Patient: Referrals: Charly Blackmon MD [Primary Care Provider] -
--- NOTE | 2018-12-20 23:22 | ED.DCSUM_ITS ---
- ER Visit Summary Date of Service: 12/20/18 Chief Complaint: Abdominal pain History of Present Illness: The patient is a [address] Charly Rey. 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 She reports that she has had abdominal pain for approximately a year. Is gradually gotten worse. Pain is 8 out of 10 at worst and 5-10 currently. Is worsened by movement relieved by remaining still. She denies any vaginal bleeding or discharge. She denies any dysuria. She has had frequency. Patient reports that she has had evaluation for this multiple times in the past year. States that she has had CT and ultrasounds that were unremarkable. Today she had an outpatient CT that showed a large ovarian mass with metastases. On review of systems patient complains of a fever of 103 degrees. She had a nonproductive cough. She denies any vomiting or diarrhea. No dysuria. No rash or headache. She does report she had a poor appetite. Physical Examination: Vitals: Stable. Afebrile. General: Well-nourished and well-developed. Head: Normocephalic atraumatic. Neck: Supple, no lymphadenopathy. No JVD. Nontender. Cardiovascular: Regular rate and rhythm. No murmurs. Respiratory: No respiratory distress. Clear to auscultation bilaterally. Abdominal: Soft, moderate suprapubic tenderness to palpation, nondistended, normal bowel sounds. No guarding, rebound, or peritoneal signs. Back: Nontender. Extremities: Nontender, no edema. Skin: Normal color, no rash. Neurologic: Alert and oriented ?3. Cranial nerves II through XII are intact. Normal strength and sensation. Psych: Normal affect. Test Results: CBC is remarkable for a white count of 14.0, H&H of 10.9 and 35.3, segmented neutrophils of 80, and lymphocytes of 12. Chem-7 is more for glucose 133 and calcium 8.2. LFTs marked for an albumin of 2.9. UA shows leukocytes and 10-25 white blood cells. There is no bacteria. Chest x-ray shows no acute disease. CT with p.o. and IV contrast obtained prior to arrival shows an 11 x 19 x 14 cm right adnexal mass with a 5.1 x 4.7 cm mass in the left inferior pelvis. There is retroperitoneal adenopathy. There is mesenteric and omental metastases. Emergency Department Course and Treatment: Patient's urine was sent for culture. She was given Rocephin IV. She was given morphine and Zofran. She is resting comfortably. Treatment Plan: Patient was discussed with [facility]. They do not have any beds available. She was then discussed with Dr. Rinaldi at [facility] who is accepted her in transfer. States that with the extent of the patient's disease that she will not have operative management. They will obtain a biopsy and start her on chemotherapy. It was discussed with the patient and her family. Disposition: Transferred in serious condition. Impression: 1. Ovarian cancer with metastases. 2. Fever. 3. Pyuria. This note was generated with [employer] dictation software. It may contain incorrect words, spelling, and punctuation that were not noted in review of the chart prior to signing ED Disposition - Plan for ED Patient: Referrals: Charly Blackmon MD [Primary Care Provider] -
== END 2018-12-20 23:53 | disposition short-term general hospital (02) ==
LOC: ED 19:09
PROVIDERS: Emergency Provider Emergency Medicine; Family Provider Family Medicine; PCP Family Medicine
DX: C56.9 Malignant neoplasm of unspecified ovary (principal); C78.6 Secondary malignant neoplasm of retroperitoneum and peritoneum; N39.0 Urinary tract infection, site not specified; I10 Essential (primary) hypertension; R50.9 Fever, unspecified; R05 Cough; Z79.899 Other long term (current) drug therapy
CPT/HCPCS: 71046; 80053; 81001; 85025; 87086; 87088; 87804; 96365; 96375; 96376; 99284; J7030; J7040; A4216; J2405

== ENCOUNTER 2019-01-02 18:09 | Inpatient (IN) | payer OTHER, SELFPAY ==
[2019-01-02] VITALS (9 sets, daily range): BP systolic 125–147; BP diastolic 74–86; PULSE 91–107; RESP 18–23; TEMP 37.3–38.3; O2SAT 93–96; BMI 36.6; BMI 36.0; BMI 36.1
--- NOTE | 2019-01-02 18:35 | RAD_ITS ---
STUDY: X-RAY CHEST REASON FOR EXAM: Female, 58 years old. Fever, weakness lower abdominal pain TECHNIQUE: PA and lateral chest COMPARISON: 12/20/2018. FINDINGS: There are new bibasilar pulmonary opacities and pleural effusions. Normal size heart. Normal mediastinum and petros. Normal visualized pulmonary arteries. Normal visualized aortic arch and descending thoracic aorta. Normal visualized thoracic spine. Normal visualized ribs, clavicles, and shoulders. There is no demonstrated abnormality of the visualized soft tissue structures of the upper abdomen. RAD/Chest PA and Lateral IMPRESSION: New bibasilar pulmonary opacities, infiltrates and pleural effusions Electronically Signed: Kolby Franz, at 21:45 EDT Tel , Service support ,
--- NOTE | 2019-01-02 18:40 | ED.DCSUM_ITS ---
- ER Visit Summary Date of Service: 01/02/19 Chief Complaint: Fever History of Present Illness: The patient is a 58 F with ovarian cancer who started chemotherapy on Thursday who presents with a fever today. Patient states she had her first chemotherapy on Thursday which had to be aborted earlier due to an anaphylactic reaction. Patient felt well yesterday. During the night she developed lower abdominal pain that is consistent with her cancer pain but did not respond to her pain medications. Today she is felt fatigued, dizzy, with general malaise and noted that she had a fever this afternoon. She denies any cough, congestion, shortness of breath, nausea or vomiting, diarrhea, myalgias or arthralgias, headache. She has a nephrostomy tube in place due to kidney inflammation resulting in a UTI. Patient states she just stopped antibiotics yesterday. Physical Examination: Vital signs: afebrile, normotensive and tachycardic, no hypoxia on room air General: well nourished, well developed, appears unwell Skin: warm, flushed, no rash, no pallor HEENT: normocephalic and atraumatic; PERRL, EOMI, moist mucous membranes, no lymphadenopathy Cardiovascular: Tachycardic rate and rhythm without murmurs, no peripheral edema, 2+ pulses all distal extremities Respiratory: No increased work of breathing, lungs are clear to auscultation bilaterally, no rales, rhonchi or wheezing Abdominal: Abdomen is soft, tender with normoactive bowel sounds, no guarding or rebound MSK: Moves all extremities, no deformities, normal strength Neuro: Awake and alert, oriented ?4. No facial droop, sensation and motor function intact and symmetric Test Results: Abnormal Lab Results 01/02/19 01/02/19 01/02/19 18:26 18:26 18:26 WBC 16.2 H RBC 3.95 L Hgb 10.4 L Hct 33.3 L MCV 84.3 MCH 26.3 L MCHC 31.2 L RDW 15.1 H RDW Differential 46.9 H Plt Count 541 H MPV 9.1 Immature Gran % (Auto) 0.200 Neut % (Auto) 82.7 H Lymph % (Auto) 6.7 L Harrison % (Auto) 9.6 Eos % (Auto) 0.7 Baso % (Auto) 0.1 Absolute Neuts (auto) 13.4 H Absolute Lymphs (auto) 1.08 Total Counted Not Reportable Differential Comment SCANNED Diff Path Review May foll Platelet Estimate SLT INC Ovalocytes RARE PT 14.6 INR 1.2 APTT 26.9 Sodium 137 Potassium 4.5 Chloride 105 Carbon Dioxide 25.0 Anion Gap 7 BUN 21 H Creatinine 1.01 Estim Creat Clear Calc 51.79 Est GFR (MDRD) Af Amer 72 Est GFR (MDRD) Non-Af 60 BUN/Creatinine Ratio 20.8 H Glucose 115 H Lactic Acid Calcium 7.9 L Phosphorus 3.7 Magnesium 1.9 Total Bilirubin 0.20 AST 17 ALT 28 Alkaline Phosphatase 69 Total Protein 6.5 Albumin 2.6 L Globulin 3.9 Albumin/Globulin Ratio 0.7 L Urine Color Urine Clarity Urine pH Ur Specific [place] Urine Protein Urine Glucose (UA) Urine Ketones Urine Occult Blood Urine Nitrite Urine Bilirubin Urine Urobilinogen Ur Leukocyte Esterase Urine RBC Urine WBC Ur Squamous Epith Cells Amorphous Sediment Urine Bacteria Urine Mucus 01/02/19 01/02/19 18:26 19:47 WBC RBC Hgb Hct MCV MCH MCHC RDW RDW Differential Plt Count MPV Immature Gran % (Auto) Neut % (Auto) Lymph % (Auto) Harrison % (Auto) Eos % (Auto) Baso % (Auto) Absolute Neuts (auto) Absolute Lymphs (auto) Total Counted Differential Comment Diff Path Review Platelet Estimate Ovalocytes PT INR APTT Sodium Potassium Chloride Carbon Dioxide Anion Gap BUN Creatinine Estim Creat Clear Calc Est GFR (MDRD) Af Amer Est GFR (MDRD) Non-Af BUN/Creatinine Ratio Glucose Lactic Acid 1.5 Calcium Phosphorus Magnesium Total Bilirubin AST ALT Alkaline Phosphatase Total Protein Albumin Globulin Albumin/Globulin Ratio Urine Color Yellow Urine Clarity Sl. Cloudy Urine pH 6.0 Ur Specific [place] 1.015 Urine Protein 100 H Urine Glucose (UA) Normal Urine Ketones Negative Urine Occult Blood 150 H Urine Nitrite Negative Urine Bilirubin Negative Urine Urobilinogen Normal Ur Leukocyte Esterase 25 H Urine RBC 25-50 SEEN Urine WBC 0-5 SEEN Ur Squamous Epith Cells 10-25 SEEN Amorphous Sediment 1+ URATE Urine Bacteria 0 SEEN Urine Mucus 0 SEEN Clinical Impression(s) from Imaging Studies Chest X-Ray 01/02/19 18:35 IMPRESSION: New bibasilar pulmonary opacities, infiltrates and pleural effusions Electronically Signed: Kolby Franz, at 21:45 EDT Tel , Service support , Medications Given Vancomycin HCl 1,500 mg/ (Sodium Chloride) 530 mls @ 250 mls/hr IV X1 ONE Stop: 01/02/19 22:11 Last Admin: 01/02/19 21:43 Dose: 250 mls/hr Discontinued Medications Sodium Chloride () 1,000 mls @ 999 mls/hr IV .Q1H1M ONE Stop: 01/02/19 19:35 Last Admin: 01/02/19 19:11 Dose: 999 mls/hr Piperacillin Sod/Tazobactam (Sod 3.375 gm/ Sodium Chloride) 50 mls @ 100 mls/hr IV X1 ONE Stop: 01/02/19 20:33 Last Admin: 01/02/19 20:29 Dose: 100 mls/hr Morphine Sulfate () 4 mg IV X1 ONE Stop: 01/02/19 19:06 Last Admin: 01/02/19 19:09 Dose: 4 mg Ondansetron HCl (Zofran) 4 mg IV X1 ONE Stop: 01/02/19 19:06 Last Admin: 01/02/19 19:12 Dose: 4 mg Emergency Department Course and Treatment: Patient presents for fever and general fatigue and malaise, with initiation of chemotherapy treatment that was aborted 2 days ago for anaphylactic reaction. Patient received morphine for her abdominal pain and got great relief. She was given Zofran for any nausea. Patient is unlikely neutropenic at this point since she only has received a partial treatment, however neutropenic precautions were followed until her status was confirmed. Labs were performed showing a leukocytosis of 18.2. Lactate was normal. Urinalysis was performed on the nephrostomy output and did not show any acute infection. Patient eventually was able to produce a urine sample which is currently in process. Patient's chest x-ray was concerning for bilateral lower lobe infiltrates and effusions. Patient had been started empirically on vancomycin and Zosyn for infection in a cancer patient of unknown origin. Patient was discussed with her oncology team at [facility], Dr. Garcia for Dr. Rinaldi ([phone]), and they were notified patient is at this hospital. Patient will be admitted for bilateral lower lobe pneumonia and cancer related pain. Patient was discussed with the hospitalist and admitted. Treatment Plan: [] Disposition: [] Impression: Metastatic ovarian cancer, bilateral lower lobe pneumonia, cancer related pain This note was generated with [employer] dictation software. It may contain incorrect words, spelling, and punctuation that were not noted in review of the chart prior to signing ED Disposition - Plan for ED Patient: Referrals: Charly Blackmon MD [Primary Care Provider] -
[2019-01-02] MEDS: Morphine 4 MG/ML Syringe IV ×2 (19:09→23:09)
[2019-01-02] MEDS: 0.9% Normal Saline 1,000 ML 999 ML IV (19:11)
[2019-01-02] MEDS: Ondansetron 4 MG/2 ML Vial IV (19:12)
[2019-01-02 19:46] LABS: International Normalized Ratio 1.2; Partial Thromboplast Time 26.9 Seconds (24.1-36.2); Prothrombin Time (Protime)PT. 14.6 SECONDS (11.7-14.9)
[2019-01-02 19:48] LABS: Bacteria 0 SEEN /hpf (None Seen); Mucous, Urine 0 SEEN /hpf (<or=2+)
[2019-01-02 19:48] LABS: Absolute Lymphocyte Count 1.08 X10^3/ul (0.83-4.51); Absolute Neutrophil Count 13.4 X10^3/uL (2.0-7.7); Basophil# 0.02 X10^3/uL; Basophil% 0.1 % (0-1); Eosinophil# 0.12 X10^3/uL; Eosinophils% 0.7 % (0-5); Hematocrit 33.3 % (37-47); Hemoglobin 10.4 g/dl (12.0-15.0); Lymphocyte # 1.08 X10^3/ul (4.0); Lymphocyte % 6.7 % (19-41); Mean Corp Hgb Conc 31.2 g/gl (32-36); Mean Corpuscular Hgb 26.3 pg (27.0-32.0); Mean Corpuscular Volume 84.3 fL (81-99); Mean Platelet Vol. 9.1 fl (6.2-12.0); Monocyte# 1.55 X10^3/uL; Monocyte% 9.6 % (0-10); Neutrophil # 13.38 X10^3/uL (2.7-7.7); Neutrophil % 82.7 % (47-70); Platelet Count 541 K/mm3 (150-450); RBC Distribution Width CV 15.1 % (11.6-14.6); RBC Distribution Width SD 46.9 fl (35.1-43.9); Red Blood Count 3.95 M/mm3 (4.2-5.4); White Blood Count 16.2 K/mm3 (4.4-11.0)
[2019-01-02 19:49] LABS: Differential Indicated SCAN CRITERIA MET; POSITIVE COUNT NO; POSITIVE DIFFERENTIAL YES; POSITIVE MORPHOLOGY NO
[2019-01-02 19:50] LABS: Color, Urine Yellow (Yellow); Glucose, Dipstick Normal (Normal); Ketone-Dipstick Negative (Negative); Leukocyte Esterase-Dipstick 25 /ul (Negative); Nitrite-Dipstick Negative (Negative); Occult Blood-Urine 150 /ul (Negative); Protein-Dipstick 100 mg/dl (Negative); Specific Gravity, Urine 1.015 (1.002-1.030); Urine Bilirubin Dipstick Negative (Negative); Urine Clarity Sl. Cloudy (Clear); Urine Urobilinogen Normal (Normal)
[2019-01-02 20:00] LABS: ALB/GLOB Ratio 0.7 RATIO (0.9-2.4); AST(SGOT) 17 U/L (15-37); Alanine Aminotransfer ALT/SGPT 28 U/L (13-56); Albumin, Serum 2.6 g/dL (3.2-5.0); Alkaline Phosphatase 69 U/L (45-117); Anion Gap 7 (5-15); BUN 21 mg/dL (7-18); BUN/Creat Ratio 20.8 RATIO (10-20); Calcium,Total 7.9 mg/dL (8.5-10.1); Chloride 105 mmol/L (98-107); Creatinine, Serum 1.01 mg/dL (0.55-1.02); EST Glomerular Filtration Rate 60 mL/min (>60); Est Glom Filt Rate - Afr Amer 72 mL/min (>60); Estimated Creatinine Clearance 51.79 ml/min; Globulin 3.9 g/dL (2.2-4.2); Glucose 115 mg/dL (74-106); Lactic Acid 1.5 mmol/L (0.4-2.0); Magnesium 1.9 mg/dL (1.6-2.6); Phosphorus 3.7 mg/dL (2.5-4.9); Potassium 4.5 mmol/L (3.5-5.1); Protein, Total 6.5 g/dL (6.4-8.2); Sodium Level 137 mmol/L (136-145)
[2019-01-02 20:02] LABS: Amorphous Sediment 1+ URATE; Red Blood Cells-Urine 25-50 SEEN /hpf (0-5); Squamous Epithelial Cells - UA 10-25 SEEN /hpf (5-10); White Blood Cells 0-5 SEEN /hpf (0-5)
[2019-01-02 20:26] LABS: Platelet Estimate SLT INC (ADEQ)
[2019-01-02 20:27] LABS: Differential Comment SCANNED; Ovalocyte RARE
--- NOTE | 2019-01-02 21:22 | ED.RN ---
CALLED XRAY FOR THE SECOND TIME REQUESTED BY DR COLON REFERENCE A REPORT ON THIS PT, XRAY IS UNABLE TO GET A RESULT.
--- NOTE | 2019-01-02 21:30 | ED.RN ---
CALLED [facility], THEIR REP STATED THE DELAY IS DUE TO VERY HIGH VOLUME, AND THEY HAVE REQUESTED ASSISTANCE FROM OTHERS IN THEIR ORGANIZATION. THIS XRAY IS THIRD IN LINE TO BE READ.
--- NOTE | 2019-01-02 21:50 | HP.PCM_ITS ---
Problem List (1) Sepsis Status: Acute (2) Community acquired pneumonia Status: Acute History of Present Illness Date of Admission: 01/02/19 Chief Complaint: fever The patient is a 58 year old F with a significant history of metastatic ovarian cancer; nephrostomy tube secondary to inflammation from metastatic ovarian cancer; hypertension and GERD who presented to the emergency department because of a fever of 102.2. Patient reported that per her oncology team at [facility] if she has a fever of 100.4 she should follow-up. So with a fever of 102.2 she called her oncology team and she was instructed to come to the emergency department. Associated with her symptoms is malaise, lightheadedness, poor appetite, weakness, and tiredness. In regard to her metastatic ovarian cancer she was started on a chemotherapy 2 days ago. About 5 minutes into her chemotherapy infusion she had an anaphylactic reaction where she became unresponsive and she stopped breathing requiring administration of epinephrine. Patient reports that chemotherapy will be tried again next 04/07/2019. Emergency department doctor was concerned that patient might have aspirated during the episode of unresponsiveness from her anaphylactic reaction. Also patient reported that she finished antibiotic treatment for UTI a day before her presentation. At the emergency department her T-max was 100. She had tachypnea and tachycardia. Her white count was elevated at 16.2 K. Her lactic acid was unremarkable. Past Medical History Medical History: Medical History (Last Reviewed 01/02/19 @ 22:55 by David Martinez MD) Abdominal pain (Acute) R10.9 Asthma J45.909 HTN (hypertension) I10 Allergies carboplatin Allergy (Verified 01/02/19 19:28) Anaphylaxis unresponsive hydrocodone bitartrate [From Vicodin] Allergy (Verified 01/02/19 18:16) Hives paclitaxel Allergy (Verified 01/02/19 19:28) Anaphylaxis unresponsive Home Medications: Ambulatory Orders Medication Instructions Recorded Lisinopril [Zestril] 20 mg PO DAILY 10/02/16 Pantoprazole Sodium [Protonix] 40 mg PO DAILY 01/02/19 Surgical History: Surgical History (Last Reviewed 01/02/19 @ 22:55 by David Martinez MD) S/P laparoscopy Z98.890 S/P tonsillectomy Z90.89 Lives: With Family Smoking Status: Never smoker Alcohol: Occasional - *Family History Maternal Family History: Family History (Last Reviewed 01/02/19 @ 23:30 by David Martinez MD) Mother Breast cancer Diabetes Heart disease Hypertension CVA (cerebral vascular accident) Father Diabetes Heart disease Kidney disease Review of Systems Constitutional: Reports: Fever, Malaise, Weakness. Denies: Chills, Weight Change HEENT: Denies: Head Aches, Sinus Congestion, Sinus Drainage Cardiovascular: Reports: Chest Pain, Light Headedness. Denies: Palpitations Respiratory: Reports: Cough, Shortness of Breath Gastrointestinal: Reports: Abdominal Pain Genitourinary: Denies: Dysuria Musculoskeletal: Denies: Joint Pain, Joint Tenderness Skin: Denies: Rash, Wounds Neurological: Denies: Numbness, Tingling, Focal weakness Psychiatric: Denies: Anxiety, Depression, Homicidal Ideations, Suicidal Ideations Hematologic/ Lymphatic: Denies: Easy Bruising, Easy Bleeding VTE Information - Inpt Only VTE Present on Admission: No VTE Mechan Device Prophylaxis: None VTE Pharm Prophylaxis ordered?: Yes Patient Problems: Active and Suspected Problems (Last Reviewed 01/02/19 @ 22:55 by David Martinez MD) Sepsis (Acute) Community acquired pneumonia (Acute) - Physical Exam General: Alert, Oriented x3, Cooperative HEENT: Atraumatic, PERRLA, EOMI, Normocephalic Neck: Supple, No JVD, Negative Carotid Bruits Lungs: Rales - Bibasilar, Tachypneic Cardiovascular: No murmurs, Tachycardic Abdomen: Bowel Sounds Present, Soft, Tender Extremities: Capillary Refill Less than 3 Seconds, Edema - Bilateral legs Skin: No rashes, No breakdown Musculoskeletal: No Tenderness to Palpation of Joints or Extremities, - - Nephrostomy tube draining clear yellow urine and emanating from right flank. Neurological: Neuro grossly intact Psych/Mental Status: Normal Affect, Appropriate Vital Signs Temp Pulse Resp BP Pulse Ox 99.7 F H 94 18 131/78 H 95 01/02/19 21:00 01/02/19 21:00 01/02/19 21:00 01/02/19 21:00 01/02/19 21:00 Oxygen Flow Rate (L/min) 2 Oxygen Delivery Method Room Air Weight: 96.615 kg Body Mass Index (BMI) 36.6 Microbiology Past 72 Hours 01/02/19 18:45 Influenza Types A,B Direct FA (KIMBERLEY) - Final Mucosa - Nasopharyngeal Laboratory Tests Past 24 Hrs 01/02/19 01/02/19 01/02/19 18:26 18:26 18:26 WBC 16.2 H RBC 3.95 L Hgb 10.4 L Hct 33.3 L MCV 84.3 MCH 26.3 L MCHC 31.2 L RDW 15.1 H RDW Differential 46.9 H Plt Count 541 H MPV 9.1 Immature Gran % (Auto) 0.200 Neut % (Auto) 82.7 H Lymph % (Auto) 6.7 L King % (Auto) 9.6 Eos % (Auto) 0.7 Baso % (Auto) 0.1 Absolute Neuts (auto) 13.4 H Absolute Lymphs (auto) 1.08 Total Counted Not Reportable Differential Comment SCANNED Diff Path Review May foll Platelet Estimate SLT INC Ovalocytes RARE PT 14.6 INR 1.2 APTT 26.9 Sodium 137 Potassium 4.5 Chloride 105 Carbon Dioxide 25.0 Anion Gap 7 BUN 21 H Creatinine 1.01 Estim Creat Clear Calc 51.79 Est GFR (MDRD) Af Amer 72 Est GFR (MDRD) Non-Af 60 BUN/Creatinine Ratio 20.8 H Glucose 115 H Lactic Acid Calcium 7.9 L Phosphorus 3.7 Magnesium 1.9 Total Bilirubin 0.20 AST 17 ALT 28 Alkaline Phosphatase 69 Total Protein 6.5 Albumin 2.6 L Globulin 3.9 Albumin/Globulin Ratio 0.7 L Urine Color Urine Clarity Urine pH Ur Specific [place] Urine Protein Urine Glucose (UA) Urine Ketones Urine Occult Blood Urine Nitrite Urine Bilirubin Urine Urobilinogen Ur Leukocyte Esterase Urine RBC Urine WBC Ur Squamous Epith Cells Amorphous Sediment Urine Bacteria Urine Mucus 01/02/19 01/02/19 18:26 19:47 WBC RBC Hgb Hct MCV MCH MCHC RDW RDW Differential Plt Count MPV Immature Gran % (Auto) Neut % (Auto) Lymph % (Auto) King % (Auto) Eos % (Auto) Baso % (Auto) Absolute Neuts (auto) Absolute Lymphs (auto) Total Counted Differential Comment Diff Path Review Platelet Estimate Ovalocytes PT INR APTT Sodium Potassium Chloride Carbon Dioxide Anion Gap BUN Creatinine Estim Creat Clear Calc Est GFR (MDRD) Af Amer Est GFR (MDRD) Non-Af BUN/Creatinine Ratio Glucose Lactic Acid 1.5 Calcium Phosphorus Magnesium Total Bilirubin AST ALT Alkaline Phosphatase Total Protein Albumin Globulin Albumin/Globulin Ratio Urine Color Yellow Urine Clarity Sl. Cloudy Urine pH 6.0 Ur Specific [place] 1.015 Urine Protein 100 H Urine Glucose (UA) Normal Urine Ketones Negative Urine Occult Blood 150 H Urine Nitrite Negative Urine Bilirubin Negative Urine Urobilinogen Normal Ur Leukocyte Esterase 25 H Urine RBC 25-50 SEEN Urine WBC 0-5 SEEN Ur Squamous Epith Cells 10-25 SEEN Amorphous Sediment 1+ URATE Urine Bacteria 0 SEEN Urine Mucus 0 SEEN Assessment/Plan All Active Problems (Last Reviewed 01/02/19 @ 22:55 by David Martinez MD) Sepsis (Acute) Community acquired pneumonia (Acute) Abdominal pain (Acute) The patient is a 58 year old F with a significant history of metastatic ovarian cancer; nephrostomy tube secondary to inflammation from metastatic ovarian cancer; hypertension and GERD who presented to the emergency department because of a fever of 102.2; and found to have tachycardia; tachypnea; fever; and radiographic evidence of fever consistent with sepsis secondary to pneumonia which could be adequately acquired pneumonia or aspiration pneumonia. Sepsis. Secondary to community-acquired pneumonia or aspiration pneumonia Lactic acid: 1.5 RR ~23 Tachycardia with heart rate of between 97-107 Blood culture ?2 is pending Chest x-ray: New bibasilar pulmonary opacities; infiltrates and pleural effusions. By independent review I agree with radiologist interpretation. Respiratory Gram stain and culture pending Antibiotics : On 01/02/2019 at emergency department patient was started on vancomycin and Zosyn. We will continue vancomycin and Zosyn. Pharmacy to dose vancomycin. We will get an MRSA screen of the nares. IV hydration: Received normal saline 1 L bolus at the emergency department. Albuterol as needed Legionella antigen screen and Strep antigen ordered Incentive spirometer and acapella ordered. Trend CBC and BMP. Metastatic ovarian cancer Per Emergency department doctor patient case was discussed with her oncology team at [facility]. Tylenol as needed; oxycodone as needed for moderate pain and morphine pain for severe pain ordered. Bowel protocol and IV antiemetics as needed ordered in the setting of starting narcotics. Urinary retention status post inflammation of metastatic ovarian cancer Nephrostomy tube in place. Abnormal urinalysis Patient noted to have some urine occult blood; mild leukocyte esterase in the urine. But with no bacteria seen. Urine cultures are pending Indicates Zosyn will be effective for many genitourinary bacteria. And of note patient last antibiotic for UTI was a day before presentation. Hypertension On presentation his blood pressure was not within goal. Lisinopril continued Trend blood pressure and adjust blood pressure medication. GERD Protonix continued DVT prophylaxis Lovenox ordered Code Visit Inpatient E&M: 58051 Init Hosp L3
[2019-01-02 21:56] LABS: Bacteria 0 SEEN /hpf (None Seen); Mucous, Urine 0 SEEN /hpf (<or=2+)
[2019-01-02 22:11] LABS: Color, Urine Yellow (Yellow); Glucose, Dipstick Normal (Normal); Ketone-Dipstick Negative (Negative); Leukocyte Esterase-Dipstick 25 /ul (Negative); Nitrite-Dipstick Negative (Negative); Occult Blood-Urine 10 /ul (Negative); Protein-Dipstick Negative (Negative); Urine Bilirubin Dipstick Negative (Negative); Urine Clarity Sl. Cloudy (Clear); Urine Urobilinogen Normal (Normal)
[2019-01-02 22:16] LABS: Red Blood Cells-Urine 0-5 SEEN /hpf (0-5); Squamous Epithelial Cells - UA 0-5 SEEN /hpf (5-10); Transitional Epithelial - Ur 0-5 SEEN /hpf (0-5); White Blood Cells 0-5 SEEN /hpf (0-5)
[2019-01-03] VITALS (10 sets, daily range): BP systolic 111–137; BP diastolic 61–79; PULSE 75–97; RESP 16–20; TEMP 37–37.8; O2SAT 95–98
--- NOTE | 2019-01-03 00:12 | PCM.RX.CS ---
Consult Pharmacy has been consulted to manage selected antiobiotic: Vancomycin Type of Consult: New start Suspected Infection: Sepsis Prior Doses of Antibiotics Received/Current Regimen: Medications Vancomycin HCl (Vancomycin) 1,000 mg in 200 mls @ 200 mls/hr IV Q12H [facility] Discontinued Medications Vancomycin HCl 1,500 mg/ (Sodium Chloride) 530 mls @ 250 mls/hr IV X1 ONE Stop: 01/02/19 22:11 Last Admin: 01/02/19 21:43 Dose: 250 mls/hr Labs: Sodium 137 mmol/L (136-145) 01/02/19 18:26 Potassium 4.5 mmol/L (3.5-5.1) 01/02/19 18:26 Chloride 105 mmol/L (98-107) 01/02/19 18:26 Carbon Dioxide 25.0 mmol/L (21.0-32.0) 01/02/19 18:26 Anion Gap 7 (5-15) 01/02/19 18:26 BUN 21 mg/dL (7-18) H 01/02/19 18:26 Creatinine 1.01 mg/dL (0.55-1.02) 01/02/19 18:26 Est GFR (MDRD) Af Amer 72 mL/min (>60) 01/02/19 18:26 Est GFR (MDRD) Non-Af 60 mL/min (>60) 01/02/19 18:26 BUN/Creatinine Ratio 20.8 RATIO (10-20) H 01/02/19 18:26 Glucose 115 mg/dL (74-106) H 01/02/19 18:26 Microbiology: Microbiology 01/02/19 18:45 Mucosa - Nasopharyngeal Influenza Types A,B Direct FA (KIMBERLEY) - Final Weight used for dosin.3 kg Estimated Creatinine Clearance: 52 Goal Trough: 15-20 mcg/mL Pharmacy Plan for Drug Dosing: Pharmacy Service will continue to monitor and adjust dosing as required. Follow-Up Labs: Trough Vancomycin Labs to be done on [date and time ordered]: 01/04/19 @0930
[2019-01-03] MEDS: Morphine 2 MG/ML Syringe IV ×2 (05:00→13:36)
[2019-01-03 05:38] LABS: Anion Gap 11 (5-15); BUN 21 mg/dL (7-18); BUN/Creat Ratio 19.4 RATIO (10-20); Calcium,Total 7.8 mg/dL (8.5-10.1); Chloride 105 mmol/L (98-107); Creatinine, Serum 1.08 mg/dL (0.55-1.02); EST Glomerular Filtration Rate 55 mL/min (>60); Est Glom Filt Rate - Afr Amer 67 mL/min (>60); Estimated Creatinine Clearance 48.43 ml/min; Glucose 130 mg/dL (74-106); Potassium 4.3 mmol/L (3.5-5.1); Sodium Level 140 mmol/L (136-145)
[2019-01-03 05:59] LABS: Absolute Lymphocyte Count 1.41 X10^3/ul (0.83-4.51); Absolute Neutrophil Count 9.9 X10^3/uL (2.0-7.7); Basophil# 0.02 X10^3/uL; Basophil% 0.2 % (0-1); Eosinophil# 0.11 X10^3/uL; Eosinophils% 0.9 % (0-5); Hematocrit 31.6 % (37-47); Hemoglobin 9.8 g/dl (12.0-15.0); Lymphocyte # 1.41 X10^3/ul (4.0); Lymphocyte % 10.9 % (19-41); Mean Corpuscular Hgb 26.3 pg (27.0-32.0); Mean Corpuscular Volume 84.9 fL (81-99); Mean Platelet Vol. 8.9 fl (6.2-12.0); Monocyte# 1.45 X10^3/uL; Monocyte% 11.2 % (0-10); Neutrophil # 9.91 X10^3/uL (2.7-7.7); Neutrophil % 76.5 % (47-70); Platelet Count 500 K/mm3 (150-450); RBC Distribution Width CV 15.4 % (11.6-14.6); RBC Distribution Width SD 47.7 fl (35.1-43.9); Red Blood Count 3.72 M/mm3 (4.2-5.4); White Blood Count 12.9 K/mm3 (4.4-11.0)
[2019-01-03 06:08] LABS: POSITIVE COUNT NO; POSITIVE DIFFERENTIAL NO; POSITIVE MORPHOLOGY NO
--- NOTE | 2019-01-03 07:47 | PN_ITS ---
Patient Problems: Active and Suspected Problems (Last Reviewed 01/02/19 @ 22:55 by David Martinez MD) Sepsis (Acute) Community acquired pneumonia (Acute) Subjective: Patient is a 58-year-old lady recently diagnosed with metastatic ovarian CA who presented with fever of 102.2. Chest x-ray obtained demonstrated new bibasilar pulmonary opacities and infiltrate. An assessment of pneumonia made admitted to regular nursing floor for further management. Objective: GENERAL: cooperative HEENT: Atraumatic; moist oral mucosa EYES; Anicteric, Normal Conjunctiva NECK; supple, normal thyroid, RESPIRATORY: Diminished to auscultation bilaterally, CARDIOVASCULAR: Regular S1 S2, no audible murmurs GI: soft, non-tender, normoactive bowel sounds, : No Renal angle tenderness; EXTREMITIES: No edema, no clubbing, no cyanosis. MUSCULOSKELETAL: No Joint Tenderness; NEURO: Awake; no lateralizing signs. SKIN: No Rash PSYCH; Normal affect Vitals/I&O's: Vital Signs Temp Pulse Resp BP Pulse Ox 99.1 F 97 20 H 130/79 H 98 01/03/19 05:07 01/03/19 05:07 01/03/19 05:07 01/03/19 05:07 01/03/19 05:07 Oxygen Flow Rate (L/min) 2 Oxygen Delivery Method Nasal Cannula Weight: 95.3 kg Body Mass Index (BMI) 36.0 Intake and Output for Last 24 Hours 01/01/19 01/02/19 01/03/19 22:59 23:59 23:59 Intake Total 1094 / 1094 Output Total 200 / 200 Balance 894 / 894 Microbiology Past 72 Hours 01/02/19 19:47 Urine, Clean Catch Streptococcus pneumoniae Antigen (M - Final 01/02/19 19:47 Urine, Clean Catch Legionella Antigen - Final 01/02/19 18:45 Mucosa - Nasopharyngeal Influenza Types A,B Direct FA (KIMBERLEY) - Final Laboratory Results 01/02/19 18:26: WBC 16.2 H, RBC 3.95 L, Hgb 10.4 L, Hct 33.3 L, MCV 84.3, MCH 26.3 L, MCHC 31.2 L, RDW 15.1 H, RDW Differential 46.9 H, Plt Count 541 H, MPV 9.1, Immature Gran % (Auto) 0.200, Neut % (Auto) 82.7 H, Lymph % (Auto) 6.7 L, [place] % (Auto) 9.6, Eos % (Auto) 0.7, Baso % (Auto) 0.1, Absolute Neuts (auto) 13.4 H, Absolute Lymphs (auto) 1.08, Total Counted Not Reportable, Differential Comment SCANNED, Diff Path Review May foll, Platelet Estimate SLT INC, Ovalocytes RARE 01/02/19 18:26: PT 14.6, INR 1.2, APTT 26.9 01/02/19 18:26: Sodium 137, Potassium 4.5, Chloride 105, Carbon Dioxide 25.0, Anion Gap 7, BUN 21 H, Creatinine 1.01, Estim Creat Clear Calc 51.79, Est GFR (MDRD) Af Amer 72, Est GFR (MDRD) Non-Af 60, BUN/Creatinine Ratio 20.8 H, Glucose 115 H, Calcium 7.9 L, Phosphorus 3.7, Magnesium 1.9, Total Bilirubin 0.20, AST 17, ALT 28, Alkaline Phosphatase 69, Total Protein 6.5, Albumin 2.6 L, Globulin 3.9, Albumin/Globulin Ratio 0.7 L 01/02/19 18:26: Lactic Acid 1.5 01/02/19 19:47: Urine Color Yellow, Urine Clarity Sl. Cloudy, Urine pH 6.0, Ur Specific [place] 1.015, Urine Protein 100 H, Urine Glucose (UA) Normal, Urine Ketones Negative, Urine Occult Blood 150 H, Urine Nitrite Negative, Urine Bilirubin Negative, Urine Urobilinogen Normal, Ur Leukocyte Esterase 25 H, Urine RBC 25-50 SEEN, Urine WBC 0-5 SEEN, Ur Squamous Epith Cells 10-25 SEEN, Amorphous Sediment 1+ URATE, Urine Bacteria 0 SEEN, Urine Mucus 0 SEEN 01/02/19 21:50: Urine Color Yellow, Urine Clarity Sl. Cloudy, Urine pH 5.0, Ur Specific [place] 1.010, Urine Protein Negative, Urine Glucose (UA) Normal, Urine Ketones Negative, Urine Occult Blood 10 H, Urine Nitrite Negative, Urine Bilir ubin Negative, Urine Urobilinogen Normal, Ur Leukocyte Esterase 25 H, Urine RBC 0-5 SEEN, Urine WBC 0-5 SEEN, Ur Squamous Epith Cells 0-5 SEEN, Ur Transition Epith Cell 0-5 SEEN, Urine Bacteria 0 SEEN, Urine Mucus 0 SEEN 01/03/19 05:08: Sodium 140, Potassium 4.3, Chloride 105, Carbon Dioxide 24.0, Anion Gap 11, BUN 21 H, Creatinine 1.08 H, Estim Creat Clear Calc 48.43, Est GFR (MDRD) Af Amer 67, Est GFR (MDRD) Non-Af 55 L, BUN/Creatinine Ratio 19.4, Glucose 130 H, Calcium 7.8 L 01/03/19 05:08: WBC 12.9 H, RBC 3.72 L, Hgb 9.8 L, Hct 31.6 L, MCV 84.9, MCH 26.3 L, MCHC 31.0 L, RDW 15.4 H, RDW Differential 47.7 H, Plt Count 500 H, MPV 8.9, Immature Gran % (Auto) 0.300, Neut % (Auto) 76.5 H, Lymph % (Auto) 10.9 L, [place] % (Auto) 11.2 H, Eos % (Auto) 0.9, Baso % (Auto) 0.2, Absolute Neuts (auto) 9.9 H, Absolute Lymphs (auto) 1.41, Total Counted Not Reportable 01/03/19 05:10: MRSA (PCR) Pending Current Medications Acetaminophen (Tylenol) 650 mg PO Q6H PRN PRN PRN Reason: Mild Pain (scale 0-3)/T>100.7 Al Hydroxide/Mg Hydroxide (Mylanta Ii) 30 ml PO Q6H PRN PRN PRN Reason: Gastric burning Albuterol Sulfate (Ventolin Aerosols) 2.5 mg INHALATION Q2H PRN PRN PRN Reason: SHORTNESS OF BREATH Enoxaparin Sodium (Lovenox) 40 mg SC DAILY@1000 [facility] Piperacillin Sod/Tazobactam (Sod 3.375 gm/ Sodium Chloride) 50 mls @ 12.5 mls/hr IV Q8 [facility] Last Admin: 01/03/19 05:13 Dose: 12.5 mls/hr Vancomycin IV Pharmacy to Dose (1,000 ea/ Sodium Chloride) 500 mls @ 250 mls/hr IV PRN PRN; Protocol Vancomycin HCl (Vancomycin) 1,000 mg in 200 mls @ 200 mls/hr IV Q12H [facility] Lisinopril (Zestril) 20 mg PO DAILY [facility] Magnesium Hydroxide (Milk Of Magnesia) 30 ml PO DAILY PRN PRN PRN Reason: Constipation Morphine Sulfate () 2 - 4 mg IV Q3H PRN PRN PRN Reason: Severe Pain (pain scale 6-10) Last Admin: 01/03/19 05:00 Dose: 2 mg Morphine Sulfate () 2 - 4 mg IV Q3H PRN PRN PRN Reason: Severe Pain (pain scale 6-10) Ondansetron HCl (Zofran) 4 mg IV Q8H PRN PRN PRN Reason: NAUSEA Oxycodone HCl (Oxyir) 5 mg PO Q4H PRN PRN PRN Reason: Moderate Pain (pain scale 4-5) Pantoprazole Sodium (Protonix) 40 mg PO DAILY [facility] Psyllium Hydrophilic Mucilloid (Metamucil) 1 packet PO DAILY PRN PRN PRN Reason: CONSTIPATION Senna/Docusate Sodium (Senokot-S, Diane-Colace) 1 tablet PO BID [facility] Sodium Chloride () 5 - 15 ml IV UD PRN PRN Reason: SALINE FLUSH Zolpidem Tartrate (Ambien (Generic)) 5 mg PO QHS PRN PRN PRN Reason: INSOMNIA Medical Necessity - Tobacco Use Smoking Status: Never smoker Assessment/Plan All Active Problems (Last Reviewed 01/02/19 @ 22:55 by David Martinez MD) Sepsis (Acute) Community acquired pneumonia (Acute) Abdominal pain (Acute) Patient is a 58-year-old lady recently diagnosed with metastatic ovarian CA who presented with fever of 102.2. Chest x-ray obtained demonstrated new bibasilar pulmonary opacities and infiltrate. An assessment of pneumonia made admitted to regular nursing floor for further management. 1. Sepsis secondary to community-acquired pneumonia with suspected gram- negative organisms. Patient admitted to a regular nursing floor antibiotics initiated per protocol with Zosyn and vancomycin MRSA nasal swab ordered if negative will discontinue Vanco. Blood cultures were obtained on admission results pending. In addition to above patient was placed on aerosol treatment as well as supplemental oxygen titrated to keep oxygen saturation greater than 90 2. Metastatic ovarian CA diagnosed on 12/20/2018. Patient apparently had an allergic reaction to her first chemo at [facility]. Her next chemo is apparently scheduled on 01/05/2019 3. Urinary retention attributed to patient metastatic ovarian CA has a nephrostomy tube in place. 4. Hypertension-blood pressure controlled, home medications continued with dose adjustment as needed 5. GERD on PPI 6. DVT prophylaxis SC Lovenox Active Medications Acetaminophen (Tylenol) 650 mg PO Q6H PRN PRN PRN Reason: Mild Pain (scale 0-3)/T>100.7 Al Hydroxide/Mg Hydroxide (Mylanta Ii) 30 ml PO Q6H PRN PRN PRN Reason: Gastric burning Albuterol Sulfate (Ventolin Aerosols) 2.5 mg INHALATION Q2H PRN PRN PRN Reason: SHORTNESS OF BREATH Enoxaparin Sodium (Lovenox) 40 mg SC DAILY@1000 [facility] Piperacillin Sod/Tazobactam (Sod 3.375 gm/ Sodium Chloride) 50 mls @ 12.5 mls/ hr IV Q8 [facility] Last Admin: 01/03/19 05:13 Dose: 12.5 mls/hr Vancomycin IV Pharmacy to Dose (1,000 ea/ Sodium Chloride) 500 mls @ 250 mls/hr IV PRN PRN; Protocol Vancomycin HCl (Vancomycin) 1,000 mg in 200 mls @ 200 mls/hr IV Q12H [facility] Lisinopril (Zestril) 20 mg PO DAILY [facility] Magnesium Hydroxide (Milk Of Magnesia) 30 ml PO DAILY PRN PRN PRN Reason: Constipation Morphine Sulfate () 2 - 4 mg IV Q3H PRN PRN PRN Reason: Severe Pain (pain scale 6-10) Last Admin: 01/03/19 05:00 Dose: 2 mg Morphine Sulfate () 2 - 4 mg IV Q3H PRN PRN PRN Reason: Severe Pain (pain scale 6-10) Ondansetron HCl (Zofran) 4 mg IV Q8H PRN PRN PRN Reason: NAUSEA Oxycodone HCl (Oxyir) 5 mg PO Q4H PRN PRN PRN Reason: Moderate Pain (pain scale 4-5) Pantoprazole Sodium (Protonix) 40 mg PO DAILY [facility] Psyllium Hydrophilic Mucilloid (Metamucil) 1 packet PO DAILY PRN PRN PRN Reason: CONSTIPATION Senna/Docusate Sodium (Senokot-S, Diane-Colace) 1 tablet PO BID [facility] Sodium Chloride () 5 - 15 ml IV UD PRN PRN Reason: SALINE FLUSH Zolpidem Tartrate (Ambien (Generic)) 5 mg PO QHS PRN PRN PRN Reason: INSOMNIA Clinical Impression(s) from Imaging Studies Chest X-Ray 01/02/19 18:35 IMPRESSION: New bibasilar pulmonary opacities, infiltrates and pleural effusions Electronically Signed: Kolby Franz, at 21:45 EDT Tel , Service support , Code Visit Inpatient E&M: 16609 Subs Hosp L3
[2019-01-03 08:19] LABS: M R Staph aureus DNA By PCR Negative (Negative); Probe Check PASS; Specimen Processing Control PASS
[2019-01-03] MEDS: Enoxaparin 40 MG/0.4 ML Syringe SC (10:47)
[2019-01-03] MEDS: Senna/Docusate Sodium 1 Tablet PO ×2 (10:47→19:55)
[2019-01-03] MEDS: Lisinopril 20 MG Tablet PO (10:48)
[2019-01-03] MEDS: Pantoprazole Sodium 40 MG Tablet PO (10:48)
--- NOTE | 2019-01-03 11:18 | CASEMGMT ---
RN CM Assessment Presentation: Sepsis; CAP. Pt recently started chemotherapy for metastatic ovarian cancer and had code event during the infusion. Intro role of CM and purpose of RN CM assessment to patient and her in room. Pt is resting in bed. Able to speak with both re: care needs at home, current home health. RN CM inquired on how pt feels she is doing with care of nephrostomy tube. Pt stated at first I was worried, but now I'm doing ok with it. Voiced that Home Health nurse is supportive with teaching. Pt feels she has good support system with her family, is supportive. Emotional support given, questions answered. PCP:Dr. Blackmon Specialists: Oncologist @ [facility] Preferred Pharmacy: [facility] Insurance:[employer] Prescription Benefit: through insurance LNOK: Giovanni Douglas, Living Arrangements: Lives independently with her . Pt states her is able to assist with care needs. Has home health nurse who assesses and teaches care. Pt currently independent in room. Transportation: pt or drives. DME: none HHC: [facility]- RN (add Team 5 nurses on fax cover) -clinical information faxed to [facility] with new resume order. DC PLAN: anticipate home with family support. Resume [facility]
[2019-01-03] MEDS: 0.9% NaCl Peripheral Flush Adult/Peds IV (13:36)
[2019-01-03] MEDS: oxyCODONE 5 MG Tablet PO (18:47)
[2019-01-03] MEDS: Ondansetron 4 MG/2 ML Vial IV (19:23)
[2019-01-04] VITALS (13 sets, daily range): BP systolic 123–166; BP diastolic 70–83; PULSE 71–87; RESP 16–18; TEMP 36.7–37.1; O2SAT 93–100
[2019-01-04 06:20] LABS: Hematocrit 31.2 % (37-47); Hemoglobin 9.5 g/dl (12.0-15.0); Mean Corp Hgb Conc 30.4 g/gl (32-36); Mean Corpuscular Hgb 26.3 pg (27.0-32.0); Mean Corpuscular Volume 86.4 fL (81-99); Mean Platelet Vol. 9.1 fl (6.2-12.0); Platelet Count 491 K/mm3 (150-450); RBC Distribution Width CV 15.1 % (11.6-14.6); RBC Distribution Width SD 45.6 fl (35.1-43.9); Red Blood Count 3.61 M/mm3 (4.2-5.4); White Blood Count 13.1 K/mm3 (4.4-11.0)
[2019-01-04] MEDS: oxyCODONE 5 MG Tablet PO (06:21)
[2019-01-04 06:35] LABS: Anion Gap 12 (5-15); BUN 19 mg/dL (7-18); Calcium,Total 8.2 mg/dL (8.5-10.1); Chloride 104 mmol/L (98-107); Creatinine, Serum 1.19 mg/dL (0.55-1.02); EST Glomerular Filtration Rate 49 mL/min (>60); Est Glom Filt Rate - Afr Amer 60 mL/min (>60); Estimated Creatinine Clearance 43.96 ml/min; Glucose 125 mg/dL (74-106); Magnesium 2.1 mg/dL (1.6-2.6); Potassium 4.5 mmol/L (3.5-5.1); Sodium Level 141 mmol/L (136-145)
[2019-01-04 06:46] LABS: Scan Indicated on CBC? Y/N NO
--- NOTE | 2019-01-04 08:04 | PN_ITS ---
Patient Problems: Active and Suspected Problems (Last Reviewed 01/02/19 @ 22:55 by David Martinez MD) Sepsis (Acute) Community acquired pneumonia (Acute) Subjective: Patient seen complains of still feeling tired. WBC count remains elevated. Temp Pulse Resp BP Pulse Ox 98.2 F 79 16 166/77 H 100 01/04/19 02:30 01/04/19 04:17 01/04/19 02:30 01/04/19 02:30 01/04/19 03:00 Objective: GENERAL: cooperative HEENT: Atraumatic; moist oral mucosa EYES; Anicteric, Normal Conjunctiva NECK; supple, normal thyroid, RESPIRATORY: Diminished to auscultation bilaterally, CARDIOVASCULAR: Regular S1 S2, no audible murmurs GI: soft, non-tender, normoactive bowel sounds, : No Renal angle tenderness; EXTREMITIES: No edema, no clubbing, no cyanosis. MUSCULOSKELETAL: No Joint Tenderness; NEURO: Awake; no lateralizing signs. SKIN: No Rash PSYCH; Normal affect Vitals/I&O's: Vital Signs Temp Pulse Resp BP Pulse Ox 98.2 F 79 16 166/77 H 100 01/04/19 02:30 01/04/19 04:17 01/04/19 02:30 01/04/19 02:30 01/04/19 03:00 Oxygen Flow Rate (L/min) 1 Oxygen Delivery Method Nasal Cannula Weight: 95.3 kg Body Mass Index (BMI) 36.0 Intake and Output for Last 24 Hours 01/02/19 01/03/19 01/04/19 23:59 23:59 23:59 Intake Total 2744 / 2744 899 / 899 Output Total 1550 / 1550 Balance 1194 / 1194 899 / 899 Microbiology Past 72 Hours 01/02/19 19:47 Urine, Clean Catch Urine Culture - Preliminary Culture exhibits no growth. 01/02/19 19:47 Urine, Clean Catch Streptococcus pneumoniae Antigen (M - Final 01/02/19 19:47 Urine, Clean Catch Legionella Antigen - Final 01/02/19 18:45 Mucosa - Nasopharyngeal Influenza Types A,B Direct FA ([facility]) - Final Laboratory Results 01/03/19 05:10: MRSA (PCR) Negative 01/04/19 05:30: WBC 13.1 H, RBC 3.61 L, Hgb 9.5 L, Hct 31.2 L, MCV 86.4, MCH 26.3 L, MCHC 30.4 L, RDW 15.1 H, RDW Differential 45.6 H, Plt Count 491 H, MPV 9.1 01/04/19 05:30: Sodium 141, Potassium 4.5, Chloride 104, Carbon Dioxide 25.0, Anion Gap 12, BUN 19 H, Creatinine 1.19 H, Estim Creat Clear Calc 43.96, Est GFR (MDRD) Af Amer 60, Est GFR (MDRD) Non-Af 49 L, BUN/Creatinine Ratio 16.0, Glucose 125 H, Calcium 8.2 L, Magnesium 2.1 Current Medications Acetaminophen (Tylenol) 650 mg PO Q6H PRN PRN PRN Reason: Mild Pain (scale 0-3)/T>100.7 Al Hydroxide/Mg Hydroxide (Mylanta Ii) 30 ml PO Q6H PRN PRN PRN Reason: Gastric burning Albuterol Sulfate (Ventolin Aerosols) 2.5 mg INHALATION Q2H PRN PRN PRN Reason: SHORTNESS OF BREATH Enoxaparin Sodium (Lovenox) 40 mg SC DAILY@1000 [facility] Last Admin: 01/03/19 10:47 Dose: 40 mg Piperacillin Sod/Tazobactam (Sod 3.375 gm/ Sodium Chloride) 50 mls @ 12.5 mls/hr IV Q8 [facility] Last Admin: 01/04/19 06:21 Dose: 12.5 mls/hr Lisinopril (Zestril) 20 mg PO DAILY [facility] Last Admin: 01/03/19 10:48 Dose: 20 mg Magnesium Hydroxide (Milk Of Magnesia) 30 ml PO DAILY PRN PRN PRN Reason: Constipation Morphine Sulfate () 2 - 4 mg IV Q3H PRN PRN PRN Reason: Severe Pain (pain scale 6-10) Last Admin: 01/03/19 13:36 Dose: 2 mg Morphine Sulfate () 2 - 4 mg IV Q3H PRN PRN PRN Reason: Severe Pain (pain scale 6-10) Ondansetron HCl (Zofran) 4 mg IV Q8H PRN PRN PRN Reason: NAUSEA Last Admin: 01/03/19 19:23 Dose: 4 mg Oxycodone HCl (Oxyir) 5 mg PO Q4H PRN PRN PRN Reason: Moderate Pain (pain scale 4-5) Last Admin: 01/04/19 06:21 Dose: 5 mg Pantoprazole Sodium (Protonix) 40 mg PO DAILY [facility] Last Admin: 01/03/19 10:48 Dose: 40 mg Psyllium Hydrophilic Mucilloid (Metamucil) 1 packet PO DAILY PRN PRN PRN Reason: CONSTIPATION Senna/Docusate Sodium (Senokot-S, Diane-Colace) 1 tablet PO BID [facility] Last Admin: 01/03/19 19:55 Dose: 1 tablet Sodium Chloride () 5 - 15 ml IV UD PRN PRN Reason: SALINE FLUSH Last Admin: 01/03/19 13:36 Dose: 10 ml Zolpidem Tartrate (Ambien (Generic)) 5 mg PO QHS PRN PRN PRN Reason: INSOMNIA Medical Necessity - Tobacco Use Smoking Status: Never smoker Assessment/Plan All Active Problems (Last Reviewed 01/02/19 @ 22:55 by David Martinez MD) Sepsis (Acute) Community acquired pneumonia (Acute) Abdominal pain (Acute) Patient is a 58-year-old lady recently diagnosed with metastatic ovarian CA who presented with fever of 102.2. Chest x-ray obtained demonstrated new bibasilar pulmonary opacities and infiltrate. An assessment of pneumonia made admitted to regular nursing floor for further management. 1. Sepsis secondary to community-acquired pneumonia with suspected gram-n egative organisms. Patient admitted to a regular nursing floor antibiotics initiated per protocol with Zosyn and vancomycin MRSA nasal swab ordered if negative will discontinue Vanco. Blood cultures were obtained on admission results pending. In addition to above patient was placed on aerosol treatment as well as supplemental oxygen titrated to keep oxygen saturation greater than 90 cultures still pending. 2. Metastatic ovarian CA diagnosed on 12/20/2018. Patient apparently had an allergic reaction to her first chemo at [facility]. Her next chemo is apparently scheduled on 01/05/2019 3. Urinary retention attributed to patient metastatic ovarian CA has a nephrostomy tube in place. 4. Hypertension-blood pressure controlled, home medications continued with dose adjustment as needed 5. GERD on PPI 6. DVT prophylaxis SC Lovenox Code Visit Inpatient E&M: 14942 Subs Hosp L2
[2019-01-04] MEDS: Enoxaparin 40 MG/0.4 ML Syringe SC (10:11)
[2019-01-04] MEDS: Lisinopril 20 MG Tablet PO (10:12)
[2019-01-04] MEDS: Senna/Docusate Sodium 1 Tablet PO ×2 (10:12→21:57)
[2019-01-04] MEDS: Pantoprazole Sodium 40 MG Tablet PO (10:12)
[2019-01-04] MEDS: Acetaminophen 325 MG Tablet 650 MG PO (12:50)
[2019-01-04] MEDS: Psyllium 1 PACKET PO (12:50)
[2019-01-04 13:20] LABS: Pathologist Review Reviewed
[2019-01-04] MEDS: Magnesium Hydroxide 30 ML UDC PO (16:57)
[2019-01-04] MEDS: Ondansetron 4 MG/2 ML Vial IV (22:14)
[2019-01-05] VITALS (12 sets, daily range): BP systolic 126–144; BP diastolic 69–76; PULSE 74–100; RESP 16–20; TEMP 36.9–37.3; O2SAT 87–97
[2019-01-05] MEDS: Mag Hydrox/Al Hydrox/Simeth 30 ML UDC PO (03:11)
[2019-01-05 05:57] LABS: Hematocrit 32.4 % (37-47); Hemoglobin 9.9 g/dl (12.0-15.0); Mean Corp Hgb Conc 30.6 g/gl (32-36); Mean Corpuscular Hgb 26.1 pg (27.0-32.0); Mean Corpuscular Volume 85.5 fL (81-99); Platelet Count 562 K/mm3 (150-450); RBC Distribution Width CV 14.9 % (11.6-14.6); RBC Distribution Width SD 45.1 fl (35.1-43.9); Red Blood Count 3.79 M/mm3 (4.2-5.4); White Blood Count 14.6 K/mm3 (4.4-11.0)
[2019-01-05 06:10] LABS: Scan Indicated on CBC? Y/N NO
[2019-01-05 06:53] LABS: Anion Gap 8 (5-15); BUN 16 mg/dL (7-18); BUN/Creat Ratio 12.1 RATIO (10-20); Calcium,Total 8.6 mg/dL (8.5-10.1); Chloride 100 mmol/L (98-107); Creatinine, Serum 1.32 mg/dL (0.55-1.02); EST Glomerular Filtration Rate 44 mL/min (>60); Est Glom Filt Rate - Afr Amer 53 mL/min (>60); Estimated Creatinine Clearance 39.63 ml/min; Glucose 138 mg/dL (74-106); Potassium 4.6 mmol/L (3.5-5.1); Sodium Level 137 mmol/L (136-145)
[2019-01-05] MEDS: Ondansetron 4 MG/2 ML Vial IV ×2 (07:21→22:00)
--- NOTE | 2019-01-05 07:52 | VDLE_ITS ---
Reason For Study: LEG SWELLING RIGHT LEFT GSV is normal. GSV is normal. CFV is compressible, spontaneous, phasic, CFV is compressible, spontaneous, phasic, competent and demonstrates normal competent, and demonstrates normal augmentation. augmentation. FV is compressible, spontaneous, phasic, FV is compressible, spontaneous, phasic, competent and demonstrates normal competent and demonstrates normal augmentation. augmentation. POP V is compressible, spontaneous, phasic, POP V is compressible, spontaneous, phasic, competent and demonstrates normal competent and demonstrates normal augmentation. augmentation. T/P Trunk is compressible. T/P Trunk is compressible. PTV is compressible. PTV is compressible. RT PerV is compressible. LT PerV is compressible. Procedure Exam performed portable in patient room. A preliminary report was called and/or faxed to [facility]. Interpretation Summary Deep veins of the lower extremities are bilaterally patent and compressible segmentally. There is no evidence of deep vein thrombosis on either side. Valvular competence appears intact within the proximal deep venous systems bilaterally. The greater saphenous veins appear bilaterally patent and compressible segmentally. Ordering Physician: Eric Neil Referring Physician: Charly Blackmon Performed By: Glendy Hidalgo RVT
--- NOTE | 2019-01-05 07:53 | PCM.PN.HOSP ---
Patient Problems: Active and Suspected Problems (Last Reviewed 01/02/19 @ 22:55 by David Martinez MD) Sepsis (Acute) Community acquired pneumonia (Acute) Subjective: Patient seen complains of not feeling well. Apparently had several bouts of nausea with emesis during the night. Also complains of not having had any bowel movement admission. Patient was given senna, miraLAX as well as milk of magnesia without any bowel movement. Also complains of bilateral swelling involving both lower extremities. Ordered bilateral venous duplex to rule out DVT. Also requested for abdominal series to rule out small bowel obstruction. Patient WBC count is going up in addition to his creatinine IV fluids initiated Vital Signs - 24 hr Temp Pulse Resp BP Pulse Ox 01/05/19 06:55 94 01/05/19 04:12 80 01/04/19 22:11 87 01/04/19 18:14 98.7 F 82 16 126/70 H 94 01/04/19 18:00 80 01/04/19 15:00 18 98 01/04/19 14:11 98.1 F 82 16 123/77 H 100 01/04/19 14:00 83 01/04/19 10:00 84 01/04/19 09:01 93 01/04/19 09:00 18 100 01/04/19 08:30 98.6 F 84 16 135/83 H 100 Objective: GENERAL: cooperative HEENT: Atraumatic; moist oral mucosa EYES; Anicteric, Normal Conjunctiva NECK; supple, normal thyroid, RESPIRATORY: Diminished to auscultation bilaterally, CARDIOVASCULAR: Regular S1 S2, no audible murmurs GI: soft, non-tender, normoactive bowel sounds, : No Renal angle tenderness; EXTREMITIES: No edema, no clubbing, no cyanosis. MUSCULOSKELETAL: No Joint Tenderness; NEURO: Awake; no lateralizing signs. SKIN: No Rash PSYCH; Normal affect Vitals/I&O's: Vital Signs Temp Pulse Resp BP Pulse Ox 98.7 F 80 16 126/70 H 94 01/04/19 18:14 01/05/19 04:12 01/04/19 18:14 01/04/19 18:14 01/05/19 06:55 Oxygen Flow Rate (L/min) 1 Oxygen Delivery Method Room Air Weight: 95.3 kg Body Mass Index (BMI) 36.0 Intake and Output for Last 24 Hours 01/03/19 01/04/19 01/05/19 23:59 23:59 23:59 Intake Total 2744 / 2744 2824 / 2824 989 / 989 Output Total 1550 / 1550 1050 / 1050 200 / 200 Balance 1194 / 1194 1774 / 1774 789 / 789 Microbiology Past 72 Hours 01/02/19 21:50 Urine, Clean Catch Urine Culture - Final Mixed Gram Positive Organisms 01/02/19 19:47 Urine, Clean Catch Urine Culture - Final Culture exhibits no growth. 01/02/19 19:47 Urine, Clean Catch Streptococcus pneumoniae Antigen (M - Final 01/02/19 19:47 Urine, Clean Catch Legionella Antigen - Final 01/02/19 18:45 Mucosa - Nasopharyngeal Influenza Types A,B Direct FA ([facility]) - Final Laboratory Results 01/02/19 18:26: Diff Path Review Reviewed 01/05/19 05:30: WBC 14.6 H, RBC 3.79 L, Hgb 9.9 L, Hct 32.4 L, MCV 85.5, MCH 26.1 L, MCHC 30.6 L, RDW 14.9 H, RDW Differential 45.1 H, Plt Count 562 H, MPV 9.0 01/05/19 05:30: Sodium 137, Potassium 4.6, Chloride 100, Carbon Dioxide 29.0, Anion Gap 8, BUN 16, Creatinine 1.32 H, Estim Creat Clear Calc 39.63, Est GFR (MDRD) Af Amer 53 L, Est GFR (MDRD) Non-Af 44 L, BUN/Creatinine Ratio 12.1, Glucose 138 H, Calcium 8.6 Current Medications Acetaminophen (Tylenol) 650 mg PO Q6H PRN PRN PRN Reason: Mild Pain (scale 0-3)/T>100.7 Last Admin: 01/04/19 12:50 Dose: 650 mg Al Hydroxide/Mg Hydroxide (Mylanta Ii) 30 ml PO Q6H PRN PRN PRN Reason: Gastric burning Last Admin: 01/05/19 03:11 Dose: 30 ml Albuterol Sulfate (Ventolin Aerosols) 2.5 mg INHALATION Q2H PRN PRN PRN Reason: SHORTNESS OF BREATH Enoxaparin Sodium (Lovenox) 40 mg SC DAILY@1000 [facility] Last Admin: 01/04/19 10:11 Dose: 40 mg Piperacillin Sod/Tazobactam (Sod 3.375 gm/ Sodium Chloride) 50 mls @ 12.5 mls/hr IV Q8 [facility] Last Admin: 01/05/19 06:17 Dose: 12.5 mls/hr Sodium Chloride () 1,000 mls @ 125 mls/hr IV .Q8H [facility] Lisinopril (Zestril) 20 mg PO DAILY [facility] Last Admin: 01/04/19 10:12 Dose: 20 mg Magnesium Hydroxide (Milk Of Magnesia) 30 ml PO DAILY PRN PRN PRN Reason: Constipation Last Admin: 01/04/19 16:57 Dose: 30 ml Morphine Sulfate () 2 - 4 mg IV Q3H PRN PRN PRN Reason: Severe Pain (pain scale 6-10) Last Admin: 01/03/19 13:36 Dose: 2 mg Morphine Sulfate () 2 - 4 mg IV Q3H PRN PRN PRN Reason: Severe Pain (pain scale 6-10) Ondansetron HCl (Zofran) 4 mg IV Q8H PRN PRN PRN Reason: NAUSEA Last Admin: 01/05/19 07:21 Dose: 4 mg Oxycodone HCl (Oxyir) 5 mg PO Q4H PRN PRN PRN Reason: Moderate Pain (pain scale 4-5) Last Admin: 01/04/19 06:21 Dose: 5 mg Pantoprazole Sodium (Protonix) 40 mg PO DAILY [facility] Last Admin: 01/04/19 10:12 Dose: 40 mg Psyllium Hydrophilic Mucilloid (Metamucil) 1 packet PO DAILY PRN PRN PRN Reason: CONSTIPATION Last Admin: 01/04/19 12:50 Dose: 1 packet Senna/Docusate Sodium (Senokot-S, Diane-Colace) 1 tablet PO BID [facility] Last Admin: 01/04/19 21:57 Dose: 1 tablet Sodium Chloride () 5 - 15 ml IV UD PRN PRN Reason: SALINE FLUSH Last Admin: 01/03/19 13:36 Dose: 10 ml Zolpidem Tartrate (Ambien (Generic)) 5 mg PO QHS PRN PRN PRN Reason: INSOMNIA Medical Necessity - Tobacco Use Smoking Status: Never smoker Assessment/Plan All Active Problems (Last Reviewed 01/02/19 @ 22:55 by David Martinez MD) Sepsis (Acute) Community acquired pneumonia (Acute) Abdominal pain (Acute) Patient is a 58-year-old lady recently diagnosed with metastatic ovarian CA who presented with fever of 102.2. Chest x-ray obtained demonstrated new bibasilar pulmonary opacities and infiltrate. An assessment of pneumonia made admitted to regular nursing floor for further management. 1. Sepsis secondary to community-acquired pneumonia with suspected gram-negative organisms. Patient admitted to a regular nursing floor antibiotics initiated per protocol with Zosyn and vancomycin MRSA nasal swab ordered if negative will discontinue Vanco. Blood cultures were obtained on admission results pending. In addition to above patient was placed on aerosol treatment as well as supplemental oxygen titrated to keep oxygen saturation greater than 90. Patient cultures have remained negative to date. 2. Intractable nausea vomiting ordered abdominal series to rule out ileus/small bowel obstruction and if present did discuss with patient about being transferred to [facility] 3. Bilateral swelling involving both lower extremities ordered bilateral venous duplex to rule out DVT 4. Acute kidney injury patient started on IV fluids with subsequent monitoring of electrolyte 5. Metastatic ovarian CA diagnosed on 12/20/2018. Patient apparently had an allergic reaction to her first chemo at [facility]. Her next chemo is apparently scheduled on 01/05/2019 6. Urinary retention attributed to patient metastatic ovarian CA has a nephrostomy tube in place. 7. Hypertension-blood pressure controlled, home medications continued with dose adjustment as needed 8. GERD on PPI 9. DVT prophylaxis SC Lovenox Code Visit Inpatient E&M: [id number] [facility] Hosp L3
--- NOTE | 2019-01-05 07:57 | PN_ITS ---
Patient Problems: Active and Suspected Problems (Last Reviewed 01/02/19 @ 22:55 by David Martinez MD) Sepsis (Acute) Community acquired pneumonia (Acute) Subjective: Patient seen complains of not feeling well. Apparently had several bouts of nausea with emesis during the night. Also complains of not having had any bowel movement admission. Patient was given senna, miraLAX as well as milk of magnesia without any bowel movement. Also complains of bilateral swelling involving both lower extremities. Ordered bilateral venous duplex to rule out DVT. Also requested for abdominal series to rule out small bowel obstruction. Patient WBC count is going up in addition to his creatinine IV fluids initiated Vital Signs - 24 hr Temp Pulse Resp BP Pulse Ox 01/05/19 06:55 94 01/05/19 04:12 80 01/04/19 22:11 87 01/04/19 18:14 98.7 F 82 16 126/70 H 94 01/04/19 18:00 80 01/04/19 15:00 18 98 01/04/19 14:11 98.1 F 82 16 123/77 H 100 01/04/19 14:00 83 01/04/19 10:00 84 01/04/19 09:01 93 01/04/19 09:00 18 100 01/04/19 08:30 98.6 F 84 16 135/83 H 100 Objective: GENERAL: cooperative HEENT: Atraumatic; moist oral mucosa EYES; Anicteric, Normal Conjunctiva NECK; supple, normal thyroid, RESPIRATORY: Diminished to auscultation bilaterally, CARDIOVASCULAR: Regular S1 S2, no audible murmurs GI: soft, non-tender, normoactive bowel sounds, : No Renal angle tenderness; EXTREMITIES: No edema, no clubbing, no cyanosis. MUSCULOSKELETAL: No Joint Tenderness; NEURO: Awake; no lateralizing signs. SKIN: No Rash PSYCH; Normal affect Vitals/I&O's: Vital Signs Temp Pulse Resp BP Pulse Ox 98.7 F 80 16 126/70 H 94 01/04/19 18:14 01/05/19 04:12 01/04/19 18:14 01/04/19 18:14 01/05/19 06:55 Oxygen Flow Rate (L/min) 1 Oxygen Delivery Method Room Air Weight: 95.3 kg Body Mass Index (BMI) 36.0 Intake and Output for Last 24 Hours 01/03/19 01/04/19 01/05/19 23:59 23:59 23:59 Intake Total 2744 / 2744 2824 / 2824 989 / 989 Output Total 1550 / 1550 1050 / 1050 200 / 200 Balance 1194 / 1194 1774 / 1774 789 / 789 Microbiology Past 72 Hours 01/02/19 21:50 Urine, Clean Catch Urine Culture - Final Mixed Gram Positive Organisms 01/02/19 19:47 Urine, Clean Catch Urine Culture - Final Culture exhibits no growth. 01/02/19 19:47 Urine, Clean Catch Streptococcus pneumoniae Antigen (M - Final 01/02/19 19:47 Urine, Clean Catch Legionella Antigen - Final 01/02/19 18:45 Mucosa - Nasopharyngeal Influenza Types A,B Direct FA ([facility]) - Final Laboratory Results 01/02/19 18:26: Diff Path Review Reviewed 01/05/19 05:30: WBC 14.6 H, RBC 3.79 L, Hgb 9.9 L, Hct 32.4 L, MCV 85.5, MCH 26.1 L, MCHC 30.6 L, RDW 14.9 H, RDW Differential 45.1 H, Plt Count 562 H, MPV 9.0 01/05/19 05:30: Sodium 137, Potassium 4.6, Chloride 100, Carbon Dioxide 29.0, Anion Gap 8, BUN 16, Creatinine 1.32 H, Estim Creat Clear Calc 39.63, Est GFR (MDRD) Af Amer 53 L, Est GFR (MDRD) Non-Af 44 L, BUN/Creatinine Ratio 12.1, Glucose 138 H, Calcium 8.6 Current Medications Acetaminophen (Tylenol) 650 mg PO Q6H PRN PRN PRN Reason: Mild Pain (scale 0-3)/T>100.7 Last Admin: 01/04/19 12:50 Dose: 650 mg Al Hydroxide/Mg Hydroxide (Mylanta Ii) 30 ml PO Q6H PRN PRN PRN Reason: Gastric burning Last Admin: 01/05/19 03:11 Dose: 30 ml Albuterol Sulfate (Ventolin Aerosols) 2.5 mg INHALATION Q2H PRN PRN PRN Reason: SHORTNESS OF BREATH Enoxaparin Sodium (Lovenox) 40 mg SC DAILY@1000 [facility] Last Admin: 01/04/19 10:11 Dose: 40 mg Piperacillin Sod/Tazobactam (Sod 3.375 gm/ Sodium Chloride) 50 mls @ 12.5 mls/hr IV Q8 [facility] Last Admin: 01/05/19 06:17 Dose: 12.5 mls/hr Sodium Chloride () 1,000 mls @ 125 mls/hr IV .Q8H [facility] Lisinopril (Zestril) 20 mg PO DAILY [facility] Last Admin: 01/04/19 10:12 Dose: 20 mg Magnesium Hydroxide (Milk Of Magnesia) 30 ml PO DAILY PRN PRN PRN Reason: Constipation Last Admin: 01/04/19 16:57 Dose: 30 ml Morphine Sulfate () 2 - 4 mg IV Q3H PRN PRN PRN Reason: Severe Pain (pain scale 6-10) Last Admin: 01/03/19 13:36 Dose: 2 mg Morphine Sulfate () 2 - 4 mg IV Q3H PRN PRN PRN Reason: Severe Pain (pain scale 6-10) Ondansetron HCl (Zofran) 4 mg IV Q8H PRN PRN PRN Reason: NAUSEA Last Admin: 01/05/19 07:21 Dose: 4 mg Oxycodone HCl (Oxyir) 5 mg PO Q4H PRN PRN PRN Reason: Moderate Pain (pain scale 4-5) Last Admin: 01/04/19 06:21 Dose: 5 mg Pantoprazole Sodium (Protonix) 40 mg PO DAILY [facility] Last Admin: 01/04/19 10:12 Dose: 40 mg Psyllium Hydrophilic Mucilloid (Metamucil) 1 packet PO DAILY PRN PRN PRN Reason: CONSTIPATION Last Admin: 01/04/19 12:50 Dose: 1 packet Senna/Docusate Sodium (Senokot-S, Diane-Colace) 1 tablet PO BID [facility] Last Admin: 01/04/19 21:57 Dose: 1 tablet Sodium Chloride () 5 - 15 ml IV UD PRN PRN Reason: SALINE FLUSH Last Admin: 01/03/19 13:36 Dose: 10 ml Zolpidem Tartrate (Ambien (Generic)) 5 mg PO QHS PRN PRN PRN Reason: INSOMNIA Medical Necessity - Tobacco Use Smoking Status: Never smoker Assessment/Plan All Active Problems (Last Reviewed 01/02/19 @ 22:55 by David Martinez MD) Sepsis (Acute) Community acquired pneumonia (Acute) Abdominal pain (Acute) Patient is a 58-year-old lady recently diagnosed with metastatic ovarian CA who presented with fever of 102.2. Chest x-ray obtained demonstrated new bibasilar pulmonary opacities and infiltrate. An assessment of pneumonia made admitted to regular nursing floor for further management. 1. Sepsis secondary to community-acquired pneumonia with suspected gram- negative organisms. Patient admitted to a regular nursing floor antibiotics initiated per protocol with Zosyn and vancomycin MRSA nasal swab ordered if negative will discontinue Vanco. Blood cultures were obtained on admission results pending. In addition to above patient was placed on aerosol treatment as well as supplemental oxygen titrated to keep oxygen saturation greater than 90. Patient cultures have remained negative to date. 2. Intractable nausea vomiting ordered abdominal series to rule out ileus/small bowel obstruction and if present did discuss with patient about being transferred to [facility] 3. Bilateral swelling involving both lower extremities ordered bilateral venous duplex to rule out DVT 4. Acute kidney injury patient started on IV fluids with subsequent monitoring of electrolyte 5. Metastatic ovarian CA diagnosed on 12/20/2018. Patient apparently had an allergic reaction to her first chemo at [facility]. Her next chemo is apparently scheduled on 01/05/2019 6. Urinary retention attributed to patient metastatic ovarian CA has a nephrostomy tube in place. 7. Hypertension-blood pressure controlled, home medications continued with dose adjustment as needed 8. GERD on PPI 9. DVT prophylaxis SC Lovenox Code Visit Inpatient E&M: [id number] [facility] Hosp L3
--- NOTE | 2019-01-05 09:10 | RAD_ITS ---
STUDY: X-RAY - ABDOMEN/PELVIS REASON FOR EXAM: Female, 58 years old. Nausea and vomiting. Patient has a history of ovarian carcinoma. TECHNIQUE: AP supine and upright views of the abdomen and pelvis. COMPARISON: Comparison is made with prior study dated October 07, 2018. FINDINGS: Elevation of the left hemidiaphragm with left basilar infiltration and/or atelectasis with blunting of the left costophrenic angle. There is also blunting of the right costophrenic angle. There is an unremarkable bowel gas pattern. There is no demonstrated free abdominal air. A right-sided nephro ureteral stent is seen. Right femoral line is seen. There are calcified phleboliths in the pelvis. There are diffuse degenerative changes of the visualized lumbar spine. RAD/Abd Inc Decub and/or Erect IMPRESSION: Nonspecific gas pattern. Fecal material is seen throughout the colon down to the rectum. Electronically Signed: Stefan Perez, at 15:20 EDT , Service support ,
--- NOTE | 2019-01-05 09:18 | NURSING ---
pt off of unit- to radiology
[2019-01-05] MEDS: Morphine 2 MG/ML Syringe IV (10:13)
[2019-01-05] MEDS: 0.9% Normal Saline 1,000 ML 125 ML IV ×2 (10:13→19:11)
[2019-01-05] MEDS: 0.9% NaCl Peripheral Flush Adult/Peds IV ×3 (10:13→19:21)
[2019-01-05] MEDS: Pantoprazole Sodium 40 MG Tablet PO (10:26)
[2019-01-05] MEDS: Senna/Docusate Sodium 1 Tablet PO ×2 (10:26→21:47)
[2019-01-05] MEDS: Enoxaparin 40 MG/0.4 ML Syringe SC (14:21)
[2019-01-05] MEDS: Morphine 4 MG/ML Syringe IV ×2 (14:22→19:20)
[2019-01-05] MEDS: Magnesium Citrate 300 ML PO (19:11)
--- NOTE | 2019-01-05 21:41 | NURSING ---
Pt fell asleep and SPO2 dropped to 87% on room air. Reapplied oxygen - 97% on 2L
[2019-01-05] MEDS: Bisacodyl 10 MG Suppository RECTAL (21:49)
[2019-01-05] MEDS: Acetaminophen 325 MG Tablet 650 MG PO (22:00)
[2019-01-06] VITALS (12 sets, daily range): BP systolic 130–151; BP diastolic 67–88; PULSE 77–96; RESP 16–18; TEMP 36.6–37.2; O2SAT 93–96
[2019-01-06] MEDS: 0.9% Normal Saline 1,000 ML 125 ML IV ×3 (03:12→18:48)
[2019-01-06] MEDS: Ondansetron 4 MG/2 ML Vial IV ×2 (06:44→15:50)
[2019-01-06 07:49] LABS: Anion Gap 9 (5-15); BUN 16 mg/dL (7-18); BUN/Creat Ratio 14.2 RATIO (10-20); Calcium,Total 8.1 mg/dL (8.5-10.1); Chloride 105 mmol/L (98-107); Creatinine, Serum 1.13 mg/dL (0.55-1.02); EST Glomerular Filtration Rate 52 mL/min (>60); Est Glom Filt Rate - Afr Amer 63 mL/min (>60); Estimated Creatinine Clearance 46.29 ml/min; Glucose 126 mg/dL (74-106); Potassium 4.4 mmol/L (3.5-5.1); Sodium Level 139 mmol/L (136-145)
--- NOTE | 2019-01-06 09:16 | PCM.PN.HOSP ---
Patient Problems: Active and Suspected Problems (Last Reviewed 01/02/19 @ 22:55 by David Martinez MD) Sepsis (Acute) Community acquired pneumonia (Acute) Subjective: Patient seen complains of significantly decreased appetite as well as nausea. Imaging studies obtained the day prior did not show any evidence of obstruction nor ileus. However did demonstrate significant amount of stool in the colon. Patient did respond to magnesium citrate. Vital Signs - 24 hr Temp Pulse Resp BP Pulse Ox 01/06/19 09:05 98.5 F 80 16 151/88 H 93 01/06/19 03:44 77 01/06/19 02:05 88 01/06/19 02:00 98.5 F 88 18 130/67 H 95 01/05/19 23:59 92 01/05/19 22:00 100 18 97 01/05/19 21:54 99.2 F H 100 18 144/76 H 97 01/05/19 21:41 87 01/05/19 19:59 90 01/05/19 18:00 84 01/05/19 14:06 98.5 F 74 16 126/69 H 94 01/05/19 14:00 78 01/05/19 10:00 82 Objective: GENERAL: cooperative HEENT: Atraumatic; moist oral mucosa EYES; Anicteric, Normal Conjunctiva NECK; supple, normal thyroid, RESPIRATORY: Diminished to auscultation bilaterally, CARDIOVASCULAR: Regular S1 S2, no audible murmurs GI: soft, non-tender, normoactive bowel sounds, : No Renal angle tenderness; EXTREMITIES: No edema, no clubbing, no cyanosis. MUSCULOSKELETAL: No Joint Tenderness; NEURO: Awake; no lateralizing signs. SKIN: No Rash PSYCH; Normal affect Vitals/I&O's: Vital Signs Temp Pulse Resp BP Pulse Ox 98.5 F 80 16 151/88 H 93 01/06/19 09:05 01/06/19 09:05 01/06/19 09:05 01/06/19 09:05 01/06/19 09:05 Oxygen Flow Rate (L/min) 2 Oxygen Delivery Method Room Air Weight: 95.3 kg Body Mass Index (BMI) 36.0 Intake and Output for Last 24 Hours 01/04/19 01/05/19 01/06/19 23:59 23:59 23:59 Intake Total 2824 / 2824 2145 / 2145 1679 / 1679 Output Total 1050 / 1050 1850 / 1850 300 / 300 Balance 1774 / 1774 295 / 295 1379 / 1379 Microbiology Past 72 Hours 01/02/19 18:26 Blood Culture (Wb) #2 - Anticubital Right Blood Culture - Preliminary No growth in 48 hours. 01/02/19 18:26 Blood Culture (Wb) - Anticubital Left Blood Culture - Preliminary No growth in 48 hours. 01/02/19 21:50 Urine, Clean Catch Urine Culture - Final Mixed Gram Positive Organisms 01/02/19 19:47 Urine, Clean Catch Urine Culture - Final Culture exhibits no growth. Laboratory Results 01/06/19 07:00: Sodium 139, Potassium 4.4, Chloride 105, Carbon Dioxide 25.0, Anion Gap 9, BUN 16, Creatinine 1.13 H, Estim Creat Clear Calc 46.29, Est GFR (MDRD) Af Amer 63, Est GFR (MDRD) Non-Af 52 L, BUN/Creatinine Ratio 14.2, Glucose 126 H, Calcium 8.1 L Current Medications Acetaminophen (Tylenol) 650 mg PO Q6H PRN PRN PRN Reason: Mild Pain (scale 0-3)/T>100.7 Last Admin: 01/05/19 22:00 Dose: 650 mg Al Hydroxide/Mg Hydroxide (Mylanta Ii) 30 ml PO Q6H PRN PRN PRN Reason: Gastric burning Last Admin: 01/05/19 03:11 Dose: 30 ml Albuterol Sulfate (Ventolin Aerosols) 2.5 mg INHALATION Q2H PRN PRN PRN Reason: SHORTNESS OF BREATH Enoxaparin Sodium (Lovenox) 40 mg SC DAILY@1000 [facility] Last Admin: 01/05/19 14:21 Dose: 40 mg Piperacillin Sod/Tazobactam (Sod 3.375 gm/ Sodium Chloride) 50 mls @ 12.5 mls/hr IV Q8 [facility] Last Admin: 01/06/19 05:27 Dose: 12.5 mls/hr Sodium Chloride () 1,000 mls @ 125 mls/hr IV .Q8H [facility] Last Admin: 01/06/19 03:12 Dose: 125 mls/hr Lisinopril (Zestril) 20 mg PO DAILY [facility] Last Admin: 01/05/19 12:09 Dose: Not Given Magnesium Hydroxide (Milk Of Magnesia) 30 ml PO DAILY PRN PRN PRN Reason: Constipation Last Admin: 01/04/19 16:57 Dose: 30 ml Morphine Sulfate () 2 - 4 mg IV Q3H PRN PRN PRN Reason: Severe Pain (pain scale 6-10) Last Admin: 01/05/19 10:13 Dose: 4 mg Morphine Sulfate () 2 - 4 mg IV Q3H PRN PRN PRN Reason: Severe Pain (pain scale 6-10) Last Admin: 01/05/19 19:20 Dose: 4 mg Ondansetron HCl (Zofran) 4 mg IV Q8H PRN PRN PRN Reason: NAUSEA Last Admin: 01/06/19 06:44 Dose: 4 mg Oxycodone HCl (Oxyir) 5 mg PO Q4H PRN PRN PRN Reason: Moderate Pain (pain scale 4-5) Last Admin: 01/04/19 06:21 Dose: 5 mg Pantoprazole Sodium (Protonix) 40 mg PO DAILY [facility] Last Admin: 01/05/19 10:26 Dose: 40 mg Promethazine HCl (Phenergan) 12.5 mg IM Q4H PRN PRN PRN Reason: NAUSEA/VOMITING Psyllium Hydrophilic Mucilloid (Metamucil) 1 packet PO DAILY PRN PRN PRN Reason: CONSTIPATION Last Admin: 01/04/19 12:50 Dose: 1 packet Senna/Docusate Sodium (Senokot-S, Diane-Colace) 1 tablet PO BID [facility] Last Admin: 01/05/19 21:47 Dose: 1 tablet Sodium Chloride () 5 - 15 ml IV UD PRN PRN Reason: SALINE FLUSH Last Admin: 01/05/19 19:21 Dose: 10 ml Zolpidem Tartrate (Ambien (Generic)) 5 mg PO QHS PRN PRN PRN Reason: INSOMNIA Medical Necessity - Tobacco Use Smoking Status: Never smoker Assessment/Plan All Active Problems (Last Reviewed 01/02/19 @ 22:55 by David Martinez MD) Sepsis (Acute) Community acquired pneumonia (Acute) Abdominal pain (Acute) Patient is a 58-year-old lady recently diagnosed with metastatic ovarian CA who presented with fever of 102.2. Chest x-ray obtained demonstrated new bibasilar pulmonary opacities and infiltrate. An assessment of pneumonia made admitted to regular nursing floor for further management. 1. Sepsis secondary to community-acquired pneumonia with suspected gram-negative organisms. Patient admitted to a regular nursing floor antibiotics initiated per protocol with Zosyn and vancomycin MRSA nasal swab ordered if negative will discontinue Vanco. Blood cultures were obtained on admission results pending. In addition to above patient was placed on aerosol treatment as well as supplemental oxygen titrated to keep oxygen saturation greater than 90. Patient cultures have remained negative to date.. Patient still remains afebrile however has significant nausea. 2. Intractable nausea vomiting ordered abdominal series to rule out ileus/small bowel obstruction imaging studies demonstrated Nonspecific gas pattern. Fecal material is seen throughout the colon down to the rectum. Patient was treated with magnesium citrate with some improvement in symptoms 3. Bilateral swelling involving both lower extremities ordered bilateral venous duplex to rule out DVT 4. Acute kidney injury patient started on IV fluids with subsequent monitoring of electrolyte 5. Metastatic ovarian CA diagnosed on 12/20/2018. Patient apparently had an allergic reaction to her first chemo at [facility]. Her next chemo is apparently scheduled on 01/05/2019 6. Urinary retention attributed to patient metastatic ovarian CA has a nephrostomy tube in place. 7. Hypertension-blood pressure controlled, home medications continued with dose adjustment as needed 8. GERD on PPI 9. DVT prophylaxis SC Lovenox 10 Physical deconditioning secondary to medical comorbidities requested for PT OT and social work administrator to assist with discharge planning Clinical Impression(s) from Imaging Studies Abdomen X-Ray 01/05/19 09:10 IMPRESSION: Nonspecific gas pattern. Fecal material is seen throughout the colon down to the rectum. Electronically Signed: Stefan Perez, at 15:20 EDT , Service support , Code Visit Inpatient E&M: [id number] Subs Hosp L2
[2019-01-06] MEDS: Pantoprazole Sodium 40 MG Tablet PO (09:17)
[2019-01-06] MEDS: Lisinopril 20 MG Tablet PO (09:17)
[2019-01-06] MEDS: Enoxaparin 40 MG/0.4 ML Syringe SC (09:17)
[2019-01-06] MEDS: Senna/Docusate Sodium 1 Tablet PO ×2 (09:17→21:45)
--- NOTE | 2019-01-06 09:19 | PN_ITS ---
Patient Problems: Active and Suspected Problems (Last Reviewed 01/02/19 @ 22:55 by David Martinez MD) Sepsis (Acute) Community acquired pneumonia (Acute) Subjective: Patient seen complains of significantly decreased appetite as well as nausea. Imaging studies obtained the day prior did not show any evidence of obstruction nor ileus. However did demonstrate significant amount of stool in the colon. Patient did respond to magnesium citrate. Vital Signs - 24 hr Temp Pulse Resp BP Pulse Ox 01/06/19 09:05 98.5 F 80 16 151/88 H 93 01/06/19 03:44 77 01/06/19 02:05 88 01/06/19 02:00 98.5 F 88 18 130/67 H 95 01/05/19 23:59 92 01/05/19 22:00 100 18 97 01/05/19 21:54 99.2 F H 100 18 144/76 H 97 01/05/19 21:41 87 01/05/19 19:59 90 01/05/19 18:00 84 01/05/19 14:06 98.5 F 74 16 126/69 H 94 01/05/19 14:00 78 01/05/19 10:00 82 Objective: GENERAL: cooperative HEENT: Atraumatic; moist oral mucosa EYES; Anicteric, Normal Conjunctiva NECK; supple, normal thyroid, RESPIRATORY: Diminished to auscultation bilaterally, CARDIOVASCULAR: Regular S1 S2, no audible murmurs GI: soft, non-tender, normoactive bowel sounds, : No Renal angle tenderness; EXTREMITIES: No edema, no clubbing, no cyanosis. MUSCULOSKELETAL: No Joint Tenderness; NEURO: Awake; no lateralizing signs. SKIN: No Rash PSYCH; Normal affect Vitals/I&O's: Vital Signs Temp Pulse Resp BP Pulse Ox 98.5 F 80 16 151/88 H 93 01/06/19 09:05 01/06/19 09:05 01/06/19 09:05 01/06/19 09:05 01/06/19 09:05 Oxygen Flow Rate (L/min) 2 Oxygen Delivery Method Room Air Weight: 95.3 kg Body Mass Index (BMI) 36.0 Intake and Output for Last 24 Hours 01/04/19 01/05/19 01/06/19 23:59 23:59 23:59 Intake Total 2824 / 2824 2145 / 2145 1679 / 1679 Output Total 1050 / 1050 1850 / 1850 300 / 300 Balance 1774 / 1774 295 / 295 1379 / 1379 Microbiology Past 72 Hours 01/02/19 18:26 Blood Culture (Wb) #2 - Anticubital Right Blood Culture - Preliminary No growth in 48 hours. 01/02/19 18:26 Blood Culture (Wb) - Anticubital Left Blood Culture - Preliminary No growth in 48 hours. 01/02/19 21:50 Urine, Clean Catch Urine Culture - Final Mixed Gram Positive Organisms 01/02/19 19:47 Urine, Clean Catch Urine Culture - Final Culture exhibits no growth. Laboratory Results 01/06/19 07:00: Sodium 139, Potassium 4.4, Chloride 105, Carbon Dioxide 25.0, Anion Gap 9, BUN 16, Creatinine 1.13 H, Estim Creat Clear Calc 46.29, Est GFR (MDRD) Af Amer 63, Est GFR (MDRD) Non-Af 52 L, BUN/Creatinine Ratio 14.2, Glucose 126 H, Calcium 8.1 L Current Medications Acetaminophen (Tylenol) 650 mg PO Q6H PRN PRN PRN Reason: Mild Pain (scale 0-3)/T>100.7 Last Admin: 01/05/19 22:00 Dose: 650 mg Al Hydroxide/Mg Hydroxide (Mylanta Ii) 30 ml PO Q6H PRN PRN PRN Reason: Gastric burning Last Admin: 01/05/19 03:11 Dose: 30 ml Albuterol Sulfate (Ventolin Aerosols) 2.5 mg INHALATION Q2H PRN PRN PRN Reason: SHORTNESS OF BREATH Enoxaparin Sodium (Lovenox) 40 mg SC DAILY@1000 [facility] Last Admin: 01/05/19 14:21 Dose: 40 mg Piperacillin Sod/Tazobactam (Sod 3.375 gm/ Sodium Chloride) 50 mls @ 12.5 mls/hr IV Q8 [facility] Last Admin: 01/06/19 05:27 Dose: 12.5 mls/hr Sodium Chloride () 1,000 mls @ 125 mls/hr IV .Q8H [facility] Last Admin: 01/06/19 03:12 Dose: 125 mls/hr Lisinopril (Zestril) 20 mg PO DAILY [facility] Last Admin: 01/05/19 12:09 Dose: Not Given Magnesium Hydroxide (Milk Of Magnesia) 30 ml PO DAILY PRN PRN PRN Reason: Constipation Last Admin: 01/04/19 16:57 Dose: 30 ml Morphine Sulfate () 2 - 4 mg IV Q3H PRN PRN PRN Reason: Severe Pain (pain scale 6-10) Last Admin: 01/05/19 10:13 Dose: 4 mg Morphine Sulfate () 2 - 4 mg IV Q3H PRN PRN PRN Reason: Severe Pain (pain scale 6-10) Last Admin: 01/05/19 19:20 Dose: 4 mg Ondansetron HCl (Zofran) 4 mg IV Q8H PRN PRN PRN Reason: NAUSEA Last Admin: 01/06/19 06:44 Dose: 4 mg Oxycodone HCl (Oxyir) 5 mg PO Q4H PRN PRN PRN Reason: Moderate Pain (pain scale 4-5) Last Admin: 01/04/19 06:21 Dose: 5 mg Pantoprazole Sodium (Protonix) 40 mg PO DAILY [facility] Last Admin: 01/05/19 10:26 Dose: 40 mg Promethazine HCl (Phenergan) 12.5 mg IM Q4H PRN PRN PRN Reason: NAUSEA/VOMITING Psyllium Hydrophilic Mucilloid (Metamucil) 1 packet PO DAILY PRN PRN PRN Reason: CONSTIPATION Last Admin: 01/04/19 12:50 Dose: 1 packet Senna/Docusate Sodium (Senokot-S, Diane-Colace) 1 tablet PO BID [facility] Last Admin: 01/05/19 21:47 Dose: 1 tablet Sodium Chloride () 5 - 15 ml IV UD PRN PRN Reason: SALINE FLUSH Last Admin: 01/05/19 19:21 Dose: 10 ml Zolpidem Tartrate (Ambien (Generic)) 5 mg PO QHS PRN PRN PRN Reason: INSOMNIA Medical Necessity - Tobacco Use Smoking Status: Never smoker Assessment/Plan All Active Problems (Last Reviewed 01/02/19 @ 22:55 by Dvaid Martinez MD) Sepsis (Acute) Community acquired pneumonia (Acute) Abdominal pain (Acute) Patient is a 58-year-old lady recently diagnosed with metastatic ovarian CA who presented with fever of 102.2. Chest x-ray obtained demonstrated new bibasilar pulmonary opacities and infiltrate. An assessment of pneumonia made admitted to regular nursing floor for further management. 1. Sepsis secondary to community-acquired pneumonia with suspected gram- negative organisms. Patient admitted to a regular nursing floor antibiotics initiated per protocol with Zosyn and vancomycin MRSA nasal swab ordered if negative will discontinue Vanco. Blood cultures were obtained on admission results pending. In addition to above patient was placed on aerosol treatment as well as supplemental oxygen titrated to keep oxygen saturation greater than 90. Patient cultures have remained negative to date.. Patient still remains afebrile however has significant nausea. 2. Intractable nausea vomiting ordered abdominal series to rule out ileus/small bowel obstruction imaging studies demonstrated Nonspecific gas pattern. Fecal material is seen throughout the colon down to the rectum. Patient was treated with magnesium citrate with some improvement in symptoms 3. Bilateral swelling involving both lower extremities ordered bilateral venous duplex to rule out DVT 4. Acute kidney injury patient started on IV fluids with subsequent monitoring of electrolyte 5. Metastatic ovarian CA diagnosed on 12/20/2018. Patient apparently had an allergic reaction to her first chemo at [facility]. Her next chemo is apparently scheduled on 01/05/2019 6. Urinary retention attributed to patient metastatic ovarian CA has a nephrostomy tube in place. 7. Hypertension-blood pressure controlled, home medications continued with dose adjustment as needed 8. GERD on PPI 9. DVT prophylaxis SC Lovenox 10 Physical deconditioning secondary to medical comorbidities requested for PT OT and social worker assistant to assist with discharge planning Clinical Impression(s) from Imaging Studies Abdomen X-Ray 01/05/19 09:10 IMPRESSION: Nonspecific gas pattern. Fecal material is seen throughout the colon down to the rectum. Electronically Signed: Stefan Perez, at 15:20 EDT , Service support , Code Visit Inpatient E&M: [id number] Subs Hosp L2
[2019-01-06] MEDS: proMETHazine 25 MG/ML Syringe 12.5 MG IM (09:59)
--- NOTE | 2019-01-06 10:06 | NURSING ---
Pt reports mild abd pain, states she does not want pain medication d/t constipation issues. Will monitor. Warm blanket offered for abd cramping also suggested ambulation.
[2019-01-06] MEDS: Morphine 4 MG/ML Syringe IV ×2 (12:57→15:50)
[2019-01-06] MEDS: Ensure Clear 120 ML Liquid PO ×2 (12:57→21:41)
[2019-01-06] MEDS: 0.9% NaCl Peripheral Flush Adult/Peds IV ×6 (12:58→20:11)
--- NOTE | 2019-01-06 14:30 | RAD_ITS ---
STUDY: X-RAY - ABDOMEN/PELVIS REASON FOR EXAM: Female, 58 years old. Abdominal pain, bloating, nausea. Recent diagnosis of ovarian cancer and aspiration. TECHNIQUE: AP supine and upright views of the abdomen and pelvis on 4 films. COMPARISON: Supine and upright views of the abdomen and pelvis January 05, 2019 FINDINGS: Airspace disease with air bronchograms reflecting partial collapse or pneumonia noted in the left lung base overlapping the cardiac silhouette. There is mild gas and fluid distention of the colon to the mid descending segment, with a number of fluid levels on upright exam. Bowel gas in the midabdomen is thought to be in elongated sigmoid colon rather than small bowel. Differential includes a colonic ileus as well as called distal colonic obstructive pathology. Gas and stool seen previously in the area of the rectum have been evacuated. There is no demonstrated free abdominal air. Percutaneous nephroureteral stent seen on the right, its proximal retaining loop in the area of the renal pelvis and distal loop at the level of the urinary bladder. The visualized liver, spleen and kidneys are otherwise grossly normal in size and morphology. There is calcified phlebolith in the left pelvic soft tissues. There are diffuse degenerative changes of the visualized spine. RAD/Abd Inc Decub and/or Erect IMPRESSION: 1. Colonic ileus versus occult distal obstructive pathology without significant distention. No free gas. 2. Persistent airspace disease with air bronchograms in the medial left lung base. 3. Right percutaneous nephroureteral stent again noted. Electronically Signed: Onur Bean MD at 17:02 EDT , Service support ,
--- NOTE | 2019-01-06 15:28 | CASEMGMT ---
RN CM Note: Call to Home Health to update on pt's stay and anticipated dc tomorrow. PT notes reviewed: no PT recommended. Anticipate home with RN for home health care. Will fax dc summary and instructions when available. will continue with RN only for HHS. Freddie GIBBONSN RN AC
[2019-01-06] MEDS: Bisacodyl 10 MG Suppository RECTAL (17:32)
[2019-01-06] MEDS: Morphine 2 MG/ML Syringe IV (20:04)
[2019-01-07] VITALS (8 sets, daily range): BP systolic 134–143; BP diastolic 79–84; PULSE 83–93; RESP 16–18; TEMP 36.8–37.2; O2SAT 94–97
[2019-01-07] MEDS: Morphine 2 MG/ML Syringe IV ×2 (01:33→07:26)
[2019-01-07] MEDS: 0.9% Normal Saline 1,000 ML 125 ML IV ×2 (03:20→11:27)
[2019-01-07] MEDS: Senna/Docusate Sodium 1 Tablet PO (10:25)
[2019-01-07] MEDS: Enoxaparin 40 MG/0.4 ML Syringe SC (10:25)
[2019-01-07] MEDS: Lisinopril 20 MG Tablet PO (10:25)
[2019-01-07] MEDS: Pantoprazole Sodium 40 MG Tablet PO (10:25)
--- NOTE | 2019-01-07 11:57 | CT_ITS ---
STUDY: CT CHEST/THORAX WITHOUT CONTRAST REASON FOR EXAM: Female, 58 years old. Anaerobic bacteria and blood. RADIATION DOSAGE (If Supplied By Facility): CTDIvol = ( 19.25 ) mGy, DLP = ( 567.04 ) mGycm TECHNIQUE: Transaxial imaging was performed without the administration of intravenous contrast material. Multiplanar coronal and sagittal images were reformatted. Individualized dose optimization techniques were used for this CT. COMPARISON: Upright AP and lateral chest x-ray January 02, 2019. FINDINGS: 9 x 12 x 8 mm low-density of the anterior margin of the lower aspect of the right thyroid lobe (series 2 image 8, series 601 image 93) is of indeterminate etiology. There is a moderate-sized left pleural effusion. The lungs overall are underexpanded. Subsegmental airspace disease in the lung bases is mildly worsened from CT abdomen and pelvis December 20, 2018. This is likely atelectasis, but infection is not excluded. There is no demonstrated pleural abnormality. Normal heart size. There is a small anterior pericardial effusion. There are calcifications of the coronary arteries. Normal mediastinum. Normal hilar regions. Normal unenhanced pulmonary arteries. There is minimal atherosclerotic calcification of the aortic arch. There are degenerative changes of the thoracic spine with multilevel bridging and near bridging anterior endplate osteophytes. Subarticular cystic degenerative changes are noted at the right glenohumeral articulation, and there is degenerative osteoarthritis of the right acromioclavicular joint. There is diffuse decreased attenuation of the liver parenchyma consistent with fatty metamorphosis. There is small volume ascites. Particular stranding and some nodularity seen in the fatty tissues of the left upper quadrant. CT/Chest without Contrast IMPRESSION: 1. Moderate size left pleural effusion. 2. Overall, the lungs are underexpanded. Subsegmental airspace disease in the lung bases is mildly worsened from December 20, 2018. While this is likely atelectasis, infection is not excluded. 3. Normal heart size. Small anterior pericardial effusion present. 4. Atherosclerotic calcifications of the coronary arteries. 5. Hepatic steatosis. 6. There is small volume ascites as well as particular stranding and nodularity in the fatty tissues of the left upper quadrant of the abdomen. See report of CT abdomen pelvis also done today. 7. 12 mm low-density in the anterior margin of the lower right lobe of the thyroid. This could be further characterized with ultrasound. Electronically Signed: Onur Bean MD at 16:32 EDT , Service support ,
--- NOTE | 2019-01-07 12:01 | CASEMGMT ---
Addendum entered by Desmond Salomon 01/07/19 15:53: Plan is to transfer pt to [facility] per Dr. Jacobsen. Call to [facility] to notify of this change. Curt SESAY Original Note: EFREN MUNOZ Note: Per interdisciplinary rounds, pt will remain with anticipated dc Thursday or Thursday. Call to [facility] to update. She requests call if dc'd on weekend to contact worker lithography staff and fax dc instructions/summary to , attention Intake. See green Sheet on chart. Curt GLASER ACM.
[2019-01-07] MEDS: Morphine 4 MG/ML Syringe IV ×3 (12:09→19:43)
[2019-01-07] MEDS: 0.9% NaCl Peripheral Flush Adult/Peds IV ×5 (12:10→19:43)
--- NOTE | 2019-01-07 12:13 | CT_ITS ---
STUDY: CT ABDOMEN AND PELVIS WITHOUT CONTRAST REASON FOR EXAM: Female, 58 years old. Anaerobic bacteria in blood. RADIATION DOSAGE (If Supplied By Facility): CTDIvol = ( 25.69 ) mGy, DLP = ( 1448.84 ) mGycm TECHNIQUE: Transaxial images were obtained from the dome of the diaphragm to the symphysis pubis with oral contrast, and without intravenous contrast. Sagittal and coronal images were reconstructed. Individualized dose optimization techniques were used for this CT. COMPARISON: Supine and upright views of the abdomen and pelvis January 06, 2019; CT abdomen pelvis with IV contrast December 20, 2018. FINDINGS: Moderate size left pleural effusion is now present. There is mildly worsened subsegmental airspace disease in the bilateral lung bases, presumably atelectasis, but infection is not excluded. The heart size remains within normal limits. There is calcification of the left anterior descending coronary artery. There is decreased attenuation of the liver consistent with steatosis. The portal vein diameter is 1.5 cm. Normal gallbladder and extrahepatic biliary system. The diameter of the common bile duct in the head of the pancreas is 6 mm. Normal spleen. Normal pancreas. Normal bilateral adrenal glands. Right percutaneous nephroureteral stent catheter is now present with its proximal retaining loop is in a lateral calyx at the midpole of the right kidney, while its distal retaining loop within the urinary bladder. Right hydroureteronephrosis is relatively unchanged. There is mild left hydroureteronephrosis that is new. Normal size of the left kidney. Normal visualized stomach. Small volume ascites again noted there is extensive stranding in the omentum, particularly to the left, with occasional nodularity. An incompletely defined 4.8 x 11.2 x 4.1 cm soft tissue density in the anterolateral left flank consistent with an enlarging omental cake metastasis. Borderline gaseous and fluid distention of the colon from the hepatic flexure to the proximal descending segment, the point of transition correlating roughly to the region of ill-defined and mildly nodular omental metastatic disease described above. The small bowel is not fully opacified at the time of scanning, but there is no sign of obstruction. There is non-visualization of the appendix. Normal abdominal aorta. Normal inferior vena cava. Retroperitoneal/periaortic adenopathy is slightly worsened. Normal urinary bladder. The large, complex mass arising out of the pelvis, presumably neoplasm of ovarian etiology with next solid and cystic components, is grossly unchanged. This is inseparable from the fundal region of the uterus. There is increasing ill-defined congestive or inflammatory stranding in the subcutaneous tissues of the lateral abdominal and pelvic long. Soft tissue density of indeterminate etiology and significance at the umbilicus is unchanged. There are stable multilevel degenerative changes of the visualized spine. CT/Abdomen/Pel W ORAL Cont Only IMPRESSION: 1. Large, complex mass with mixed solid and cystic components arising out of the pelvis is unchanged. 2. Findings of mesenteric/omental metastatic disease as well as probable metastatic peritoneal adenopathy again noted. The lymph nodes are slightly increased in size, and there is increased size of a mesenteric soft tissue density consistent with an omental cake in the anterolateral left flank. 3. Right percutaneous nephroureteral stent catheter now present. Right hydroureteronephrosis is relatively unchanged, while mild left hydroureteronephrosis is now present. 4. A moderate-sized left pleural effusion is now present as well. There is mild worsened bibasilar subsegmental airspace disease, likely atelectasis. Infection is not excluded, however. 5. New, mild congestive or inflammatory stranding in the subcutaneous tissues of the lateral abdominal and pelvic long. There is stable soft tissue density at the umbilicus, etiology uncertain. Electronically Signed: Onur Bean MD at 16:06 EDT , Service support ,
--- NOTE | 2019-01-07 12:14 | PN_ITS ---
Patient Problems: Active and Suspected Problems (Last Reviewed 01/07/19 @ 15:12 by Kayla Ellis MD) Sepsis (Acute) Community acquired pneumonia (Acute) Bacteremia due to Gram-negative bacteria (Acute) Hydronephrosis (Acute) Low urine output (Acute) Subjective: Day #6 Zosyn The patient is a 58-year-old female with a past medical history of recently diagnosed metastatic ovarian cancer, recent right nephrostomy tube(placed at [facility]) secondary to urinary tract obstruction related to inflammation from metastatic ovarian cancer, hypertension and GERD who presented to the ED at [facility] on 01/02/2019 with a complaint of fever to 102.2 ?F. 2 days prior to presentation to the ED she had an anaphylactic RX to a chemo agent and her tells me that she quit breathing. White blood cell count at presentation to the emergency department was 16.2 with a left shift. Hemoglobin was 10.4 and the platelets were high at 541,000. BMP was remarkable for an elevated BUN at 21. Lactic acid was 1.5. Phosphorus and magnesium were within normal limits. LFTs were unremarkable. A UA had 0-5 WBCs per high-power field and 25-50 RBCs. Chest x-ray showed dense consolidation in the left base with platelike infiltrate in the right base. she was admitted to the hospital with a dx of healthcare associated pneumonia, possibly secondary to aspiration during anaphylactic episode. She was started on vancomycin and Zosyn. Legionella and streptococcal antigens in the urine were negative. Urine culture had no growth. Influenza swab was negative. 1 of 2 blood cultures drawn on 01/02/2019 is positive for a gram-negative willa anaerobe. A venous US during the admission was negative for DVT. KUB should a lot of stool accumulation and a bowel regimen was started. Abd bloating and Nausea improved after a few BM's. All events the past 24 hours been reviewed. She has been afebrile since 01/03/2019. Vital signs are stable. Weights are not accurate. She is maintaining a pulse ox on room air of 94% at rest but becomes very tachypneic with conversational dyspnea after walking out to her chair from the bathroom. Fluid balance since admission is positive greater than 6 L. All lab was personally reviewed. She is c/o increasing edema and discomfort of the legs and also SOB when lying down. CT of the abd and pelvis in November showed perihepatic and perisplenic fluid. fullness in the abdomen improved with BM's - Physical Exam General: Alert, Oriented x3, Cooperative, - - tachypneic after walking across the room from the BR. She is pale and appears very fatigued HEENT: Atraumatic, PERRLA, EOMI, Normocephalic Oral: Dry Mucosa Neck: Supple, No Nuchal Rigidity, Trachea Midline Lungs: No wheeze, Diminished - ashley in the left base, Rales, Rhonchi, Tachypneic, - - no accessory muscle use Cardiovascular: Regular rate, Regular Rhythm, Normal S1, Normal S2, No murmurs, No rub noted, No Gallop Abdomen: Bowel Sounds Present, Soft, Distended - mildly, - - no guarding with palpation Extremities: Edema - 4+ of the legs.......posterior thighs to the groin. no pitting in the flanks Skin: No rashes, No breakdown Neurological: Cranial nerves II-XII grossly intact, Neuro grossly intact Psych/Mental Status: Normal Affect, Appropriate Vital Signs Temp Pulse Resp BP Pulse Ox 98.7 F 87 16 143/81 H 94 01/07/19 08:04 01/07/19 08:04 01/07/19 08:04 01/07/19 08:04 01/07/19 08:04 Oxygen Flow Rate (L/min) 2 Oxygen Delivery Method Room Air Weight: 210 lb 1.608 oz Body Mass Index (BMI) 36.0 Intake and Output for Last 24 Hours 01/05/19 01/06/19 01/07/19 23:59 23:59 23:59 Intake Total 2145 / 2145 3214 / 3214 2771 / 2771 Output Total 1850 / 1850 340 / 340 325 / 325 Balance 295 / 295 2874 / 2874 2446 / 2446 Microbiology Past 72 Hours 01/02/19 18:26 Blood Culture - Preliminary Blood Culture (Wb) - Anticubital Left 01/02/19 18:26 Blood Culture - Preliminary Blood Culture (Wb) #2 - Anticubital Right No growth in 48 hours. 01/02/19 21:50 Urine Culture - Final Urine, Clean Catch Mixed Gram Positive Organisms 01/02/19 19:47 Urine Culture - Final Urine, Clean Catch Culture exhibits no growth. Medical Necessity - Tobacco Use Smoking Status: Never smoker Assessment/Plan All Active Problems (Last Reviewed 01/07/19 @ 15:12 by Kayla Ellis MD) Sepsis (Acute) Community acquired pneumonia (Acute) Bacteremia due to Gram-negative bacteria (Acute) Hydronephrosis (Acute) Low urine output (Acute) Abdominal pain (Acute) Impressions 1. HCAP - possibly due to aspiration 2. anaerobic bacteremia - GM negative willa 3. ovarian CA with mets to the mesentery and the omentum 4. R nephrostomy tube placed at for obstructed R ureter 5. severe peripheral edema, suspect may also have ascites and pleural effusion as well. Venous ultrasound of the lower extremities was negative for DVT 6. RGEGOR 7. severe constipation CMP, BNP, CBC with diff, mag and phos, ESR, CRP CT scan of the chest, abd and pelvis Consult Dr. Ellis from urology Consult Dr. Kolby Padilla from infectious disease Continue Zosyn further recommendations after results from the above obtained Code Visit Inpatient E&M: 56940 Subs Hosp L3
[2019-01-07] MEDS: Furosemide 40 MG/4 ML Vial IV (12:47)
[2019-01-07 12:55] LABS: Erythrocyte Sedimentation Rate 68 mm/hr (0-30)
[2019-01-07 13:08] LABS: AST(SGOT) 18 U/L (15-37); Alanine Aminotransfer ALT/SGPT 20 U/L (13-56); Albumin, Serum 2.3 g/dL (3.2-5.0); Alkaline Phosphatase 72 U/L (45-117); Bilirubin, Direct 0.14 mg/dL (0.00-0.30); Globulin 3.9 g/dL (2.2-4.2); Magnesium 2.3 mg/dL (1.6-2.6); Phosphorus 3.3 mg/dL (2.5-4.9); Protein, Total 6.2 g/dL (6.4-8.2)
--- NOTE | 2019-01-07 13:13 | PCM.HP.ID ---
Problem List (1) Bacteremia due to Gram-negative bacteria Status: Acute Reason for Consult: (+) bcx Consulted by: Dr. Jacobsen History of Present Illness: The patient is a 58 year old F with recent dx of metastatic ovarian cancer who presented 01/02 to the ED with sudden onset of fever to 102 at home. Presented originally to ED 12/20 after a year of not feeling well, CT showed ovarian mass, transferred to , dx with the cancer, and had R neph tube placed. Discharged on po cipro and plans to start chemotherapy. 1st chemo was 12/31 via PIV, had to be stopped due to anaphylaxis. She completed cipro 01/01. Over next day noticed decreased neph tube output. Mild nausea. No blood in stool. No cough or SOB. Came to ED, had ? aspiration pneumonia, admitted on zosyn after vanc x1. Feeling about the same. Bcx now with GNR. Full ROS Performed and neg except as noted above. - Medical History Allergies/Adverse Reactions: Allergies carboplatin Allergy (Verified 01/02/19 19:28) Anaphylaxis unresponsive hydrocodone bitartrate [From Vicodin] Allergy (Verified 01/02/19 18:16) Hives paclitaxel Allergy (Verified 01/02/19 19:28) Anaphylaxis unresponsive Home Medications: Ambulatory Orders Medication Instructions Recorded Lisinopril [Zestril] 20 mg PO DAILY 10/02/16 Pantoprazole Sodium [Protonix] 40 mg PO DAILY 01/02/19 - Social History SMOKING STATUS:: Never smoker Vital Signs Temp Pulse Resp BP Pulse Ox 98.7 F 87 16 143/81 H 94 01/07/19 08:04 01/07/19 08:04 01/07/19 08:04 01/07/19 08:04 01/07/19 08:04 Oxygen Flow Rate (L/min) 2 Oxygen Delivery Method Room Air Weight: 95.3 kg Body Mass Index (BMI) 36.0 Microbiology Past 72 Hours 01/02/19 18:26 Blood Culture - Preliminary Blood Culture (Wb) - Anticubital Left 01/02/19 18:26 Blood Culture - Preliminary Blood Culture (Wb) #2 - Anticubital Right No growth in 48 hours. 01/02/19 21:50 Urine Culture - Final Urine, Clean Catch Mixed Gram Positive Organisms Laboratory Tests Past 24 Hrs 01/07/19 01/07/19 01/07/19 12:25 12:25 12:25 ESR 68 H Phosphorus 3.3 Magnesium 2.3 Total Bilirubin 0.40 Direct Bilirubin 0.14 AST 18 ALT 20 Alkaline Phosphatase 72 C-React Prot Ext Range 172.00 H B-Natriuretic Peptide Pending Total Protein 6.2 L Albumin 2.3 L Globulin 3.9 - Other Studies Radiology: [] reviewed Other Studies: [] Route of nutrition/ use of supplements: [] Nutritional Intake: [] IV Site: [] Ontiveros Catheter: [] - Physical Exam General: Alert, Oriented x3, Cooperative, No apparent distress HEENT: Atraumatic, PERRLA, EOMI Neck: Supple, No Nodes Lungs: Clear to auscultation, Normal air movement Cardiovascular: Regular rate, Regular Rhythm, No murmurs Abdomen: Soft, Non Tender, Distended - mild Extremities: No edema Skin: No rashes IV Site: Peripheral, without redness Musculoskeletal: No Tenderness to Palpation of Joints or Extremities Neurological: Cranial nerves II-XII grossly intact - Assessment/Plan Antibiotics: [] Assessment/Plan: [] Active and Suspected Problems (Last Reviewed 01/02/19 @ 22:55 by David Martinez MD) Sepsis (Acute) Community acquired pneumonia (Acute) sepsis due to GNR bacteremia, suspect neph tube as source vs related to her ovarian cancer - low suspicion for pneumonia given lack of SOB, cough, or hypoxia. Continue zosyn. Would consult urology given decreased neph tube output recently. Will request discharge summary and micro data from recent admit where she was treated for uti/pyelo, sent home on cipro. Check CT abd/pelvis to look for nidus of infection/hydronephrosis/possible GI source. Will follow, thank you, d/w Dr. Jacobsen.
[2019-01-07] MEDS: Ondansetron 4 MG/2 ML Vial IV ×2 (13:18→20:31)
[2019-01-07 13:40] LABS: BNP,B-Type NATRIURETIC PEPTIDE 32.4 pg/mL (0-100)
--- NOTE | 2019-01-07 15:13 | CON.PCM_ITS ---
Problem List (1) Hydronephrosis Status: Acute (2) Low urine output Status: Acute (3) Bacteremia due to Gram-negative bacteria Status: Acute (4) Abdominal pain Status: Acute Qualifiers: Abdominal location: epigastric Qualified Code(s): R10.13 - Epigastric pain Reason for Consult Date of Consultation: 01/07/19 Reason for Consultation: Low urine output, metastatic ovarian Ca S/P right percutaneous nephrostomy tube. History of Present Illness: The patient is a 58 year old F who was identified as having metastatic ovarian cancer approximately 18 days ago. She was transferred up to [place] and a right nephrostomy tube was inserted secondary to obstruction with hydronephrosis. She was subsequently admitted here with fevers. She was identified as having positive blood cultures with gram-negative rods also seen in her urine. She is being followed by infectious disease. Over the course of the last 24 hours she has had significant decrease in urine output from her nephrostomy tube as well as from her bladder. At this time she is lying in bed in preparation for a CAT scan of her abdomen and pelvis and is complaining of significant pain in her abdomen. Past Medical History Medical History: Medical History (Last Reviewed 01/07/19 @ 15:12 by Kayla Ellis MD) Abdominal pain (Acute) R10.9 Asthma J45.909 HTN (hypertension) I10 Allergies carboplatin Allergy (Verified 01/02/19 19:28) Anaphylaxis unresponsive hydrocodone bitartrate [From Vicodin] Allergy (Verified 01/02/19 18:16) Hives paclitaxel Allergy (Verified 01/02/19 19:28) Anaphylaxis unresponsive Home Medications: Ambulatory Orders Medication Instructions Recorded Lisinopril [Zestril] 20 mg PO DAILY 10/02/16 Pantoprazole Sodium [Protonix] 40 mg PO DAILY 01/02/19 Surgical History: Surgical History (Last Reviewed 01/07/19 @ 15:12 by Kayla Ellis MD) S/P laparoscopy Z98.890 S/P tonsillectomy Z90.89 [employer] History: ovarian cancer Lives: With Family Smoking Status: Never smoker Alcohol: Occasional - *Family History Maternal Family History: Family History (Last Reviewed 01/07/19 @ 15:12 by Kayla Ellis MD) Mother Breast cancer Diabetes Heart disease Hypertension CVA (cerebral vascular accident) Father Diabetes Heart disease Kidney disease Review of Systems Constitutional: Reports: Anorexia Eyes: Denies: Vision Change HEENT: Denies: Head Aches Cardiovascular: Denies: Chest Pressure Respiratory: Denies: Shortness of Breath Gastrointestinal: Reports: Abdominal Pain Genitourinary: Denies: Retention Neurological: Denies: Difficulty swallowing Patient Problems: Active and Suspected Problems (Last Reviewed 01/07/19 @ 15:12 by Kayla Ellis MD) Sepsis (Acute) Community acquired pneumonia (Acute) Bacteremia due to Gram-negative bacteria (Acute) Hydronephrosis (Acute) Low urine output (Acute) - Physical Exam General: Alert, Oriented x3, - - mild distress due to abdominal pain HEENT: Atraumatic, Normocephalic Oral: Dry Mucosa Neck: Trachea Midline Lungs: Normal air movement Abdomen: Tender, - - right nephrostomy tube with clear yellow urine in bag Skin: - - warm Neurological: Cranial nerves II-XII grossly intact, Neuro grossly intact Psych/Mental Status: Appropriate Vital Signs Temp Pulse Resp BP Pulse Ox 98.9 F 86 16 135/84 H 94 01/07/19 14:04 01/07/19 14:04 01/07/19 14:04 01/07/19 14:04 01/07/19 14:04 Oxygen Flow Rate (L/min) 2 Oxygen Delivery Method Room Air Weight: 95.3 kg Body Mass Index (BMI) 36.0 Intake and Output for Last 24 Hours 01/05/19 01/06/19 01/07/19 23:59 23:59 23:59 Intake Total 2145 / 2145 3214 / 3214 2771 / 2771 Output Total 1850 / 1850 340 / 340 625 / 625 Balance 295 / 295 2874 / 2874 2146 / 2146 Microbiology Past 72 Hours 01/02/19 18:26 Blood Culture - Preliminary Blood Culture (Wb) - Anticubital Left 01/02/19 18:26 Blood Culture - Preliminary Blood Culture (Wb) #2 - Anticubital Right No growth in 48 hours. Laboratory Tests Past 24 Hrs 01/07/19 01/07/19 01/07/19 12:25 12:25 12:25 ESR 68 H Phosphorus 3.3 Magnesium 2.3 Total Bilirubin 0.40 Direct Bilirubin 0.14 AST 18 ALT 20 Alkaline Phosphatase 72 C-React Prot Ext Range 172.00 H B-Natriuretic Peptide 32.4 Total Protein 6.2 L Albumin 2.3 L Globulin 3.9 Assessment/Plan All Active Problems (Last Reviewed 01/07/19 @ 15:12 by Kayla Ellis MD) Sepsis (Acute) Community acquired pneumonia (Acute) Bacteremia due to Gram-negative bacteria (Acute) Hydronephrosis (Acute) Low urine output (Acute) Abdominal pain (Acute) Await results of the CT scan/nephrostogram. Continue antibiotics per ID recommendations. Check bladder scan post void residual. Given the appearance of the urine, I feel that it is likely this is a medical issue with decreased UOP rather than obstruction. The CT will show increased hydronephrosis if there is obstruction. I have a call into IR, await results. BMP, CBC. Will follow with you.
--- NOTE | 2019-01-07 15:37 | PCM.PN.BLA ---
Progress Note I reviewed CT with radiologist. The PCN on the right is in good position. Left kidney starting to develop hydronephrosis, not enough to place PCN at present, ureter is decompressed, bladder is empty. Left lung infiltrate. Uterus/abdomen with mets etc seen on last CT. Recommend desai insertion and consider transfer to . Discussed with medicine team.
--- NOTE | 2019-01-07 16:42 | NURSING ---
ALEJANDRO IN LAB NOTIFIED TO RUN LAB WORK STAT
--- NOTE | 2019-01-07 16:43 | DS.PCM_ITS ---
Discharge Date and Diagnosis - Problem List Patient Problems: Active and Suspected Problems (Last Reviewed 01/07/19 @ 15:12 by Kayla Ellis MD) Sepsis (Acute) Community acquired pneumonia (Acute) Bacteremia due to Gram-negative bacteria (Acute) Hydronephrosis (Acute) Low urine output (Acute) Date of Admission: 01/02/19 Date of Discharge: 01/07/19 - Primary Discharge Diagnosis Active and Suspected Problems (Last Reviewed 01/07/19 @ 15:12 by Kayla Ellis MD) Sepsis (Acute) Healthcare Acquired pneumonia (Acute) Bacteremia due to Gram-negative bacteria (Acute)- anaerobic bottle, 1 of 2 from 01/02 BL Hydronephrosis (Acute) Severe constipation Large Left pleural effusion - suspect possibly malignant Thrombocytosis - Secondary Discharge Diagnosis Ovarian CA with mets to the omentum, mesentery and retroperitoneal nodes Urine retention Hypertension GERD anemia Hospital Course and Treatment Imaging Results: 01/07/19 11:57 CT Chest [Chest without Contrast] [CT] Urgent 01/07/19 12:13 CT Abd [Abdomen/Pel W ORAL Cont Only] [CT] Urgent Dr. Kolby Padilla-infectious disease Dr. Kayla Ellis-urology Operations: None Procedures: None Summary of Care Provided: The patient is a 58-year-old female with a past medical history of recently diagnosed metastatic ovarian cancer (with mets to the omentum,mesentery and retroperitoneal nodes), recent right nephrostomy tube(placed at [facility]) secondary to urinary tract obstruction related to inflammation from metastatic ovarian cancer, hypertension and GERD who presented to the ED at [facility] on 01/02/2019 with a complaint of fever to 102.2 ?F. 2 days prior to presentation to the ED she had an anaphylactic RX to a chemo agent and her tells me that she quit breathing. White blood cell count at presentation to the emergency department was 16.2 with a left shift. Hemoglobin was 10.4 and the platelets were high at 541,000. BMP was remarkable for an elevated BUN at 21. Lactic acid was 1.5. Phosphorus and magnesium were within normal limits. LFTs were unremarkable. A UA had 0-5 WBCs per high-power field and 25-50 RBCs. The urine culture grew mixed gram-positive organisms. Chest x- ray showed infiltrate +/- effusion in the in the left base with platelike in filtrate in the right base. She was admitted to the hospital with a dx of healthcare associated pneumonia, possibly secondary to aspiration during anaphylactic episode. She was started on Vancomycin and Zosyn. Vancomycin was discontinued when a MRSA nasal swab was negative. Legionella and streptococcal antigens in the urine were negative. Urine culture had mixed gram positive organisms. An influenza swab was negative. 1 of 2 anaerobic blood cultures drawn on 01/02/2019 is positive for a gram-negative willa. Repeat BC's drawn 01/06 are pending. She has pitting edema of both LE's to the groin. BL venous US's of the LE's were negative. KUB showed fecal retention and she was started on a bowel regimen. Creatinine increased from 1.01 at admission to 1.32 on 01/05/2019 and she was given IV fluids with some improvement. Creatinine on 01/06/2019 was 1.13. When I first saw her on 01/07 she was tachypneic just walking 10 ft from the BR to a chair. She denied any significant cough. She had some mild abdominal discomfort but, had a few BM's. Auscultation of the lungs revealed markedly diminished BS's on the left side posteriorly and coarse crackles in the left base. She had 4+ edema of the legs BL. She was AF and the VS were stable. She was 94% on RA at rest. She told me that the output from the right nephrostomy tube was decreased. She had spoken to someone from the oncology care service at [facility] who suggested we obtain a urology consult. A CT scan of the chest, abdomen and pelvis was ordered. Stat lab was also ordered. CT of the chest showed a moderate size left pleural effusion with subsegmental airspace disease in the lung bases, mildly worsened from 12/20/2018. A CT scan of the abdomen and pelvis showed a large complex mass with mixed solid and cystic components arising from the pelvis. There was mesenteric/omental metastatic disease as well as peritoneal adenopathy. There was increase in size of a mesenteric soft tissue density consistent with an omental cake. A right percutaneous nephroureteral stent was present with persistent right ureteral nephrosis that was unchanged. There is mild left hydroureteronephrosis now present. She was seen in consult by Dr. Padilla who recommended we continue Zosyn. she was seen by Dr. Ellis from urology who recommended she be transferred to a higher level of care at . I was in contact with Dr. Stokes at who has accepted transfer. Discs of the CT scans will be sent with the patient. Lactic acid on the date of discharge is 1.2. LFTs are within normal limits. ESR is 68 and the CRP is 172. CBC with differential and BMP are currently pending. Hemoglobin on 313 9 was 9.9 with platelets of 562,000. The WBC count was 14.6. - Physical Exam General: Alert, Oriented x3, Cooperative, - - tachypneic after walking across the room from the . She is pale and appears very fatigued HEENT: Atraumatic, PERRLA, EOMI, Normocephalic Oral: Dry Mucosa Neck: Supple, No Nuchal Rigidity, Trachea Midline Lungs: No wheeze, Diminished - ashley in the left base, Rales, Rhonchi, Tachypneic, - - no accessory muscle use Cardiovascular: Regular rate, Regular Rhythm, Normal S1, Normal S2, No murmurs, No rub noted, No Gallop Abdomen: Bowel Sounds Present, Soft, Distended - mildly, - - no guarding with palpation Extremities: Edema - 4+ of the legs.......posterior thighs to the groin. no pitting in the flanks Skin: No rashes, No breakdown Neurological: Cranial nerves II-XII grossly intact, Neuro grossly intact Psych/Mental Status: Normal Affect, Appropriate When she was re-examined later in the afternoon her coloring was irby and the abdominal pain had increased. This note was generated with [employer] dictation software. It may contain incorrect words, spelling, and punctuation that were not noted in checking the note before signing. Patient Problems: Active and Suspected Problems (Last Reviewed 01/07/19 @ 15:12 by Kayla Ellis MD) Sepsis (Acute) Community acquired pneumonia (Acute) Bacteremia due to Gram-negative bacteria (Acute) Hydronephrosis (Acute) Low urine output (Acute) - Physical Exam Vital Signs Temp Pulse Resp BP Pulse Ox 98.9 F 86 16 135/84 H 94 01/07/19 14:04 01/07/19 14:04 01/07/19 14:04 01/07/19 14:04 01/07/19 14:04 Oxygen Flow Rate (L/min) 2 Oxygen Delivery Method Room Air Weight: 210 lb 1.608 oz Body Mass Index (BMI) 36.0 Intake and Output for Last 24 Hours 01/05/19 01/06/19 01/07/19 23:59 23:59 23:59 Intake Total 2145 / 2145 3214 / 3214 2771 / 2771 Output Total 1850 / 1850 340 / 340 625 / 625 Balance 295 / 295 2874 / 2874 2146 / 2146 Microbiology Past 72 Hours 01/02/19 18:26 Blood Culture - Preliminary Blood Culture (Wb) - Anticubital Left 01/02/19 18:26 Blood Culture - Preliminary Blood Culture (Wb) #2 - Anticubital Right No growth in 48 hours. Laboratory Tests Past 24 Hrs 01/07/19 01/07/19 01/07/19 12:25 12:25 12:25 ESR 68 H Lactic Acid Phosphorus 3.3 Magnesium 2.3 Total Bilirubin 0.40 Direct Bilirubin 0.14 AST 18 ALT 20 Alkaline Phosphatase 72 C-React Prot Ext Range 172.00 H B-Natriuretic Peptide 32.4 Total Protein 6.2 L Albumin 2.3 L Globulin 3.9 01/07/19 16:20 ESR Lactic Acid Pending Phosphorus Magnesium Total Bilirubin Direct Bilirubin AST ALT Alkaline Phosphatase C-React Prot Ext Range B-Natriuretic Peptide Total Protein Albumin Globulin Home Medications: Medications to take at Discharge Lisinopril [Zestril] 20 mg PO DAILY 10/02/16 Pantoprazole Sodium [Protonix] 40 mg PO DAILY 01/02/19 Primary Care Physician: Charly Blackmon MD [Primary Care Provider] - Disposition: Acute care Hospital Minutes spent on discharge:: 50 Patient Condition:: Guarded Medical Necessity - Tobacco Use Smoking Status: Never smoker Tobacco Use: Non-smoker Meaningful Use Info Meaningful Use Diagnoses (Choose all that apply): None applicable Code Visit Inpatient E&M: 39539 Disch Hosp
[2019-01-07 17:06] LABS: Lactic Acid 1.2 mmol/L (0.4-2.0)
[2019-01-07 17:08] LABS: Absolute Lymphocyte Count 0.92 X10^3/ul (0.83-4.51); Absolute Neutrophil Count 10.4 X10^3/uL (2.0-7.7); Basophil# 0.03 X10^3/uL; Basophil% 0.2 % (0-1); Eosinophils% 0.8 % (0-5); Hemoglobin 9.8 g/dl (12.0-15.0); Lymphocyte # 0.92 X10^3/ul (4.0); Lymphocyte % 7.4 % (19-41); Mean Corp Hgb Conc 30.6 g/gl (32-36); Mean Corpuscular Hgb 25.8 pg (27.0-32.0); Mean Corpuscular Volume 84.2 fL (81-99); Mean Platelet Vol. 8.9 fl (6.2-12.0); Monocyte# 0.99 X10^3/uL; Monocyte% 7.9 % (0-10); Neutrophil # 10.37 X10^3/uL (2.7-7.7); Neutrophil % 83.3 % (47-70); Platelet Count 447 K/mm3 (150-450); RBC Distribution Width CV 15.2 % (11.6-14.6); RBC Distribution Width SD 47.2 fl (35.1-43.9); White Blood Count 12.5 K/mm3 (4.4-11.0)
[2019-01-07 17:10] LABS: POSITIVE COUNT NO; POSITIVE DIFFERENTIAL NO; POSITIVE MORPHOLOGY NO
[2019-01-07 17:29] LABS: Anion Gap 8 (5-15); BUN 15 mg/dL (7-18); BUN/Creat Ratio 11.9 RATIO (10-20); Calcium,Total 7.7 mg/dL (8.5-10.1); Chloride 103 mmol/L (98-107); Creatinine, Serum 1.26 mg/dL (0.55-1.02); EST Glomerular Filtration Rate 46 mL/min (>60); Est Glom Filt Rate - Afr Amer 56 mL/min (>60); Estimated Creatinine Clearance 41.51 ml/min; Glucose 101 mg/dL (74-106); Potassium 4.1 mmol/L (3.5-5.1); Sodium Level 135 mmol/L (136-145)
--- NOTE | 2019-01-07 19:33 | NURSING ---
Report called to Vivek Corbett [address] [place] [address].
--- NOTE | 2019-01-07 19:53 | NURSING ---
ROUTINE VITAL SIGN CHECK REVEALED SPO2 @ 88%, 2L O2 NC APPLIED. SPO2 BACK UP TO 96%
--- NOTE | 2019-01-11 11:39 | CASEMGMT ---
Addendum entered by Dean Andre 01/12/19 10:56: Message received form Arianne @ [facility] inquiring about discharge disposition. Call placed back to Autumn @ [phone]. No answer. Message left informing her that pt was transferred to hospital Thursday01/07/19. Original Note: RN CM NOTE: CHAD leeg received from Sean @ [facility], inquiring if pt was discharged over the weekend. Call placed back to [facility] @ [phone] and this RN CM informed Sean is not in the office today. This RN CM spoke with Vandana in triage @ [facility] and she was notified that pt was transferred to Hospital on Thursday01/07/19. Ana GLASER RN CM
== END 2019-01-07 20:47 | disposition short-term general hospital (02) | DRG 871 ==
LOC: ED 18:49 → MS2 23:20
PROVIDERS: Internal Medicine; Urology; Admitting Provider Hospitalist; Emergency Provider Emergency Medicine; Family Provider Family Medicine; PCP Family Medicine; Visit Provider Internal Medicine
DX: A41.50 Gram-negative sepsis, unspecified (principal); J18.9 Pneumonia, unspecified organism; C56.9 Malignant neoplasm of unspecified ovary; C78.6 Secondary malignant neoplasm of retroperitoneum and peritoneum; N17.9 Acute kidney failure, unspecified; J91.0 Malignant pleural effusion; N13.39 Other hydronephrosis; Z93.6 Other artificial openings of urinary tract status; I10 Essential (primary) hypertension; K21.9 Gastro-esophageal reflux disease without esophagitis; D64.9 Anemia, unspecified; K59.00 Constipation, unspecified
CPT/HCPCS: 36415; 71046; 71250; 74019; 74176; 80048; 80053; 80076; 81001; 83605; 83735; 83880; 84100; 85025; 85027; 85610; 85652; 85730; 86140; 87040; 87086; 87088; 87449; 87641; 87804; 93970; 94667; 94668; 97162; 97166; 97530; 99285; J7030; J7040; A4216; J1940; J2405

== ENCOUNTER 2019-01-25 15:35 | Emergency (ER) | payer OTHER, SELFPAY ==
[2019-01-02 23:49] VITALS: BMI 36.0
[2019-01-25] VITALS (9 sets, daily range): BP systolic 123–154; BP diastolic 78–96; PULSE 92–121; RESP 16–22; TEMP 36.7–37.9; O2SAT 92–95; BMI 38.9; BMI 34.0
--- NOTE | 2019-01-25 16:00 | EKG12_ITS ---
Test Reason : FEVER Blood Pressure : / mmHG Vent. Rate : 114 BPM Atrial Rate : 114 BPM P-R Int : 120 ms QRS Dur : 072 ms QT Int : 298 ms P-R-T Axes : 025 000 036 degrees QTc Int : 410 ms Sinus tachycardia Otherwise normal ECG Confirmed by HANNA PATEL ([id number]), features editor NICOLE KNOX ([id number]) on 01/28/2019 11:09:23 AM Referred By: ALETHEA Confirmed By:HANNA PATEL
--- NOTE | 2019-01-25 16:00 | RAD_ITS ---
STUDY: X-RAY CHEST REASON FOR EXAM: Female, 58 years old. Cough. Chemotherapy. Ovarian cancer. TECHNIQUE: Single AP portable view of the chest. COMPARISON: 01/02/2019. FINDINGS: Stable opacification of the lower left hemithorax consistent with effusion with atelectasis or infiltrate. Improving platelike atelectasis in the right lung base. Indeterminate heart size. Normal mediastinum and petros. Normal visualized pulmonary arteries. Normal visualized aortic arch and descending thoracic aorta. Normal visualized thoracic spine. Normal visualized ribs, clavicles, and shoulders. There is no demonstrated abnormality of the visualized soft tissue structures of the upper abdomen. RAD/Chest 1 View (Portable) IMPRESSION: Relatively stable opacification in the mid and lower left lung. Electronically Signed: Milton Verde MD at 16:24 EDT , Service support ,
--- NOTE | 2019-01-25 16:03 | ED.VISSUMM ---
- ER Visit Summary Date of Service: 01/25/19 Chief Complaint: Fever and nausea History of Present Illness: The patient is a 58 F with history of ovarian cancer, last chemotherapy treatment on January 14. Patient comes in with intermittent nausea for a few days and today noted fever. Her chemo nurse advised her to come in. Patient did not take any medication to treat temperature before arrival. Patient was admitted January 02- for sepsis, pneumonia, and bacteremia, then transferred to for further care. She has a right-sided nephrostomy tube and has noted decreased output from that recently. She has not had increasing right flank pain. She reports minimal cough. She denies diarrhea or urinary symptoms. Physical Examination: Blood pressure is 145/91, temperature 100.2, heart rate 121, respiratory rate 16, pulse ox 93% on room air. Patient sitting upright in bed no acute distress. She is nontoxic appearing. Head neck examination grossly unremarkable. Heart is tachycardic and regular. Lungs sounds are slightly diminished at the bases. Abdomen is soft and nontender. Extremity examination was 2+ bilateral lower extremity edema that is symmetric. Test Results: EKG is sinus tach at 114 with no acute ischemia. Portable chest x-ray shows stable opacification of the mid to lower left lung. CBC was a white count 12.4 with 84% neutrophils. Hemoglobin is 9.5. Chemistry studies unremarkable. LFTs significant only for an alk phos of 136. Urinalysis shows 5-10 white cells with 0-5 epithelials and no bacteria. Lactate is 1.4. Influenza swab is negative. Blood and urine cultures were sent. CT the chest shows slight increase in moderate to large left pleural effusion with near complete atelectasis of the left lower lobe. Emergency Department Course and Treatment: Patient was given IV fluids, Zofran, and Tylenol. Repeat vital signs include blood pressure of 136/87, heart rate 93, respiratory rate 22, pulse ox 95% on room air. Her temperature is 98.1. Patient was discussed with oncology at . We reviewed her presentation and lab findings. Patient will be discharged home at this time. Oncology from will call her tomorrow to check on her. If her blood cultures are to return positive she will be called immediately and asked to return. Patient is to return for recurrent fever. Treatment Plan: [] Disposition: Discharge Impression: 1. Reported fever, uncertain etiology 2. History of metastatic ovarian cancer This note was generated with [employer] dictation software. It may contain incorrect words, spelling, and punctuation that were not noted in review of the chart prior to signing ED Disposition - Plan for ED Patient: Disposition: Home or Assisted Living Instructions: ED Fever Unconf Cause Additional Instructions: Your oncology nurses will call you tomorrow to check on you. Return to ED for elevated fever, vomiting, increased pain, etc. The preliminary report on your blood cultures should be available tomorrow afternoon. If this reveals concern for infection in your blood stream, you will be called to return to the ED.
[2019-01-25] MEDS: Acetaminophen 500 MG Tablet 1000 MG PO (16:10)
[2019-01-25] MEDS: 0.9% Normal Saline 1,000 ML 150 ML IV (16:41)
[2019-01-25] MEDS: Ondansetron 4 MG/2 ML Vial IV (16:41)
[2019-01-25 16:53] LABS: Absolute Neutrophil Count 10.4 X10^3/uL (2.0-7.7); Basophil# 0.02 X10^3/uL; Basophil% 0.2 % (0-1); Eosinophil# 0.05 X10^3/uL; Eosinophils% 0.4 % (0-5); Hematocrit 30.3 % (37-47); Hemoglobin 9.5 g/dl (12.0-15.0); Lymphocyte % 4.8 % (19-41); Mean Corp Hgb Conc 31.4 g/gl (32-36); Mean Corpuscular Volume 82.8 fL (81-99); Mean Platelet Vol. 9.4 fl (6.2-12.0); Monocyte# 1.22 X10^3/uL; Monocyte% 9.8 % (0-10); Neutrophil # 10.41 X10^3/uL (2.7-7.7); Neutrophil % 83.9 % (47-70); Platelet Count 321 K/mm3 (150-450); RBC Distribution Width SD 46.7 fl (35.1-43.9); Red Blood Count 3.66 M/mm3 (4.2-5.4); White Blood Count 12.4 K/mm3 (4.4-11.0)
[2019-01-25 16:58] LABS: Differential Indicated SCAN CRITERIA MET; POSITIVE COUNT NO; POSITIVE DIFFERENTIAL YES; POSITIVE MORPHOLOGY YES
[2019-01-25 17:05] LABS: ALB/GLOB Ratio 0.5 RATIO (0.9-2.4); AST(SGOT) 25 U/L (15-37); Alanine Aminotransfer ALT/SGPT 18 U/L (13-56); Albumin, Serum 2.2 g/dL (3.2-5.0); Alkaline Phosphatase 136 U/L (45-117); Anion Gap 9 (5-15); BUN 16 mg/dL (7-18); BUN/Creat Ratio 15.5 RATIO (10-20); Calcium,Total 8.4 mg/dL (8.5-10.1); Chloride 102 mmol/L (98-107); Creatinine, Serum 1.03 mg/dL (0.55-1.02); EST Glomerular Filtration Rate 58 mL/min (>60); Est Glom Filt Rate - Afr Amer 71 mL/min (>60); Estimated Creatinine Clearance 50.78 ml/min; Globulin 4.7 g/dL (2.2-4.2); Glucose 115 mg/dL (74-106); Potassium 4.8 mmol/L (3.5-5.1); Protein, Total 6.9 g/dL (6.4-8.2); Sodium Level 139 mmol/L (136-145)
[2019-01-25 17:09] LABS: Lactic Acid 1.4 mmol/L (0.4-2.0)
[2019-01-25 17:18] LABS: Differential Comment SCANNED
[2019-01-25 17:27] LABS: International Normalized Ratio 1.2; Prothrombin Time (Protime)PT. 14.8 SECONDS (11.7-14.9)
[2019-01-25 17:28] LABS: Partial Thromboplast Time 34.8 Seconds (24.1-36.2)
[2019-01-25 17:50] LABS: Bacteria 0 SEEN /hpf (None Seen); Red Blood Cells-Urine 0 SEEN /hpf (0-5)
[2019-01-25 18:01] LABS: Color, Urine Yellow (Yellow); Glucose, Dipstick Normal (Normal); Ketone-Dipstick Negative (Negative); Leukocyte Esterase-Dipstick 25 /ul (Negative); Nitrite-Dipstick Negative (Negative); Occult Blood-Urine 50 /ul (Negative); Protein-Dipstick 30 mg/dl (Negative); Urine Bilirubin Dipstick Negative (Negative); Urine Clarity Sl. Cloudy (Clear); Urine Urobilinogen Normal (Normal)
[2019-01-25 18:03] LABS: Squamous Epithelial Cells - UA 0-5 SEEN /hpf (5-10); White Blood Cells 5-10 SEEN /hpf (0-5)
[2019-01-25 18:04] LABS: Mucous, Urine RARE /hpf (<or=2+); Transitional Epithelial - Ur 0-5 SEEN /hpf (0-5)
--- NOTE | 2019-01-25 18:36 | CT_ITS ---
STUDY: CT CHEST WITHOUT CONTRAST REASON FOR EXAM: Female, 58 years old. Pleural effusion. Hx of ovarian cancer with chemo 01/14/19. RADIATION DOSAGE (If Supplied By Facility): CTDIvol = ( 18.18 ) mGy, DLP = ( 680.01 ) mGycm TECHNIQUE: Transaxial imaging was performed without the administration of intravenous contrast material. Individualized dose optimization techniques were used for this CT. COMPARISON: 01/07/2019. FINDINGS: Normal lung volumes. Moderate to large left pleural effusion which appears grossly free-flowing, and is slightly larger than on the previous exam. No effusion seen on the right. Marked atelectasis of most of the left lower lobe. Stable small areas of discoid atelectasis in the right lower lung reid including the right middle lobe and the right lower lobe. No definite infiltrates. No definite nodules or masses. Evaluation of the soft tissues is limited without IV contrast. Grossly normal heart size. No gross mediastinal mass. Cannot exclude left-sided hilar adenopathy without IV contrast. Pulmonary arteries and aorta are unremarkable. Very small pericardial effusion. Limited views to the upper abdomen show large fatty liver. Increased density seen throughout the upper abdominal fat planes, suggestive of peritoneal metastasis. Skeletal structures show degenerative changes and no definite acute abnormality. CT/Chest without Contrast IMPRESSION: Slight increase in moderate to large left pleural effusion with near complete atelectasis of the left lower lobe. No other significant changes. Electronically Signed: Milton Verde MD at 19:24 EDT , Service support ,
--- NOTE | 2019-01-25 20:39 | ED.DEP ---
ED Disposition - Plan for ED Patient: Disposition: Home or Assisted Living Instructions: ED Fever Unconf Cause Additional Instructions: Your oncology nurses will call you tomorrow to check on you. Return to ED for elevated fever, vomiting, increased pain, etc. The preliminary report on your blood cultures should be available tomorrow afternoon. If this reveals concern for infection in your blood stream, you will be called to return to the ED.
== END 2019-01-25 20:58 | disposition home or self-care (01) ==
PROVIDERS: Emergency Provider Emergency Medicine; Family Provider Family Medicine; PCP Family Medicine
DX: R50.9 Fever, unspecified (principal); I10 Essential (primary) hypertension; R05 Cough; R11.0 Nausea; R60.0 Localized edema; R00.0 Tachycardia, unspecified; Z85.43 Personal history of malignant neoplasm of ovary; Z92.21 Personal history of antineoplastic chemotherapy; Z93.6 Other artificial openings of urinary tract status
CPT/HCPCS: 36415; 71045; 71250; 80053; 81001; 83605; 85025; 85610; 85730; 87040; 87086; 87088; 87804; 93005; 96361; 96374; 99284; J7030; A4216; J2405

== ENCOUNTER 2019-01-27 06:00 | Emergency (ER) | payer OTHER, SELFPAY ==
[2019-01-25 15:53] VITALS: BMI 34.0
[2019-01-27] VITALS (12 sets, daily range): BP systolic 110–141; BP diastolic 69–84; PULSE 75–131; RESP 18–27; TEMP 36.7–38.3; O2SAT 91–94; BMI 34.5
--- NOTE | 2019-01-27 06:15 | EKG12_ITS ---
Test Reason : FEVER Blood Pressure : / mmHG Vent. Rate : 120 BPM Atrial Rate : 120 BPM P-R Int : 112 ms QRS Dur : 078 ms QT Int : 308 ms P-R-T Axes : 024 -01 027 degrees QTc Int : 435 ms Sinus tachycardia Otherwise normal ECG Confirmed by KATELYN CRAWFORD, GAVIN ([id number]), book or script editor NICOLE KNOX ([id number]) on 01/31/2019 9:26:55 AM Referred By: REZA Confirmed By:GAVIN ZEPEDA MD
--- NOTE | 2019-01-27 06:15 | RAD_ITS ---
HISTORY: fever nausea vomiting for couple of dayshigh bpno hx of sx EXAM:XR Chest 1 View COMPARISON: CT chest and chest x-ray 01/25/2019 FINDINGS: No significant change. Left basilar persistent pleural-parenchymal opacity which represents combined moderate pleural effusion and passive atelectasis by recent CT. Chest x-ray findings appear stable. Right basilar chronic discoid atelectasis or scarring. The heart is unchanged in size. No acute infiltrates. No pneumothorax. Thoracic aorta is atherosclerotic. RAD/Chest 1 View (Portable) IMPRESSION: 1. No significant change. No acute infiltrate. 2. Left basilar moderate pleural effusion and passive atelectasis. 3. Right basilar chronic mild discoid atelectasis or scarring. at 0646 Reported and signed by: Karsten Alvares MD Electronically Signed: Karsten Alvares, at 6:45 EDT Tel , Service support ,
--- NOTE | 2019-01-27 06:20 | ED.VISSUMM ---
- ER Visit Summary Date of Service: 01/27/19 Chief Complaint: Fever History of Present Illness: The patient is a 58 F who presents with a fever. She has a history of ovarian cancer. Her last treatment was January 14. She was seen a couple of days ago for fever and underwent workup including chest x-ray laboratory studies CT of the chest. She was discussed with oncology at [facility] who felt she can be discharged with close outpatient follow-up. Patient is worsened since that time. She reports nausea vomiting dry heaving. She reports chills and sweats. She had a fever this morning of 103. She complains of a mild nonproductive cough. No chest pain or shortness of breath. No rhinorrhea or sore throat. She denies any pain currently except for some chronic lower abdominal discomfort which she attributes to her ovarian cancer and is at baseline. She reports chronic soft stools as her mass is pushing on the bowel which led to partial small bowel obstruction so she does take laxatives. She denies any denia watery diarrhea. She really has no other focal symptoms. Physical Examination: Temperature 100.9, heart rate 131, respiratory rate 24, blood pressure 141/83, pulse ox 93% on room air Moist mucous membranes Heart regular tachycardia No rales rhonchi wheezes she is not in respiratory distress Abdomen is soft nontender she has normal bowel sounds Alert Skin warm and dry Test Results: KG shows sinus rhythm at a rate of 120. Laboratory studies are pending including lactic acid. Blood and urine cultures were sent. Chest x-ray on my review is similar to prior, radiology read pending. Emergency Department Course and Treatment: Patient was treated with IV fluids and empirically given Zosyn. She was given Tylenol for fever and Zofran for nausea. Patient signed out to the morning physician to follow-up on results but I do believe the patient will likely require hospitalization. Treatment Plan: [] Disposition: [] Impression: [] This note was generated with [employer] dictation software. It may contain incorrect words, spelling, and punctuation that were not noted in review of the chart prior to signing ED Disposition - Plan for ED Patient: Referrals: Charly Blackmon MD [Primary Care Provider] -
[2019-01-27] MEDS: Acetaminophen 325 MG Tablet 650 MG PO (06:28)
[2019-01-27] MEDS: 0.9% Normal Saline 1,000 ML 999 ML IV (06:28)
[2019-01-27 06:34] LABS: Bacteria 0 SEEN /hpf (None Seen); Mucous, Urine 0 SEEN /hpf (<or=2+)
[2019-01-27 06:41] LABS: Color, Urine Yellow (Yellow); Glucose, Dipstick Normal (Normal); Ketone-Dipstick Negative (Negative); Leukocyte Esterase-Dipstick 25 /ul (Negative); Nitrite-Dipstick Negative (Negative); Occult Blood-Urine 250 /ul (Negative); Protein-Dipstick 100 mg/dl (Negative); Urine Bilirubin Dipstick Negative (Negative); Urine Clarity Clear (Clear); Urine Urobilinogen Normal (Normal)
[2019-01-27] MEDS: Ondansetron 4 MG/2 ML Vial IV ×3 (06:42→17:52)
[2019-01-27 06:47] LABS: ALB/GLOB Ratio 0.5 RATIO (0.9-2.4); AST(SGOT) 24 U/L (15-37); Alanine Aminotransfer ALT/SGPT 13 U/L (13-56); Albumin, Serum 2.1 g/dL (3.2-5.0); Alkaline Phosphatase 147 U/L (45-117); Anion Gap 9 (5-15); BUN 16 mg/dL (7-18); BUN/Creat Ratio 13.4 RATIO (10-20); Calcium,Total 8.3 mg/dL (8.5-10.1); Chloride 105 mmol/L (98-107); Creatinine, Serum 1.19 mg/dL (0.55-1.02); EST Glomerular Filtration Rate 49 mL/min (>60); Est Glom Filt Rate - Afr Amer 60 mL/min (>60); Estimated Creatinine Clearance 43.96 ml/min; Globulin 4.6 g/dL (2.2-4.2); Glucose 155 mg/dL (74-106); Lactic Acid 1.7 mmol/L (0.4-2.0); Potassium 4.6 mmol/L (3.5-5.1); Protein, Total 6.7 g/dL (6.4-8.2); Sodium Level 139 mmol/L (136-145)
[2019-01-27 06:49] LABS: Absolute Lymphocyte Count 0.27 X10^3/ul (0.83-4.51); Absolute Neutrophil Count 22.6 X10^3/uL (2.0-7.7); Basophil# 0.03 X10^3/uL; Basophil% 0.1 % (0-1); Eosinophil# 0.01 X10^3/uL; Hematocrit 29.7 % (37-47); Hemoglobin 9.2 g/dl (12.0-15.0); Lymphocyte # 0.27 X10^3/ul (4.0); Lymphocyte % 1.1 % (19-41); Mean Corpuscular Hgb 25.5 pg (27.0-32.0); Mean Corpuscular Volume 82.3 fL (81-99); Mean Platelet Vol. 9.2 fl (6.2-12.0); Monocyte# 0.89 X10^3/uL; Monocyte% 3.7 % (0-10); Neutrophil # 22.56 X10^3/uL (2.7-7.7); Neutrophil % 94.8 % (47-70); Platelet Count 262 K/mm3 (150-450); RBC Distribution Width SD 47.6 fl (35.1-43.9); Red Blood Count 3.61 M/mm3 (4.2-5.4); White Blood Count 23.8 K/mm3 (4.4-11.0)
[2019-01-27 06:53] LABS: Calcium Oxalate Crystals Ur 1+ /hpf (<or=2+); Red Blood Cells-Urine 5-10 SEEN /hpf (0-5); Squamous Epithelial Cells - UA 5-10 SEEN /hpf (5-10); White Blood Cells 5-10 SEEN /hpf (0-5)
[2019-01-27 07:04] LABS: International Normalized Ratio 1.2; Prothrombin Time (Protime)PT. 14.9 SECONDS (11.7-14.9)
[2019-01-27 07:08] LABS: Differential Indicated SCAN CRITERIA MET; POSITIVE COUNT NO; POSITIVE DIFFERENTIAL YES; POSITIVE MORPHOLOGY YES
[2019-01-27 07:18] LABS: Anisocytosis 1+; Hypochromasia 1+; Ovalocyte RARE; Platelet Estimate ADEQUATE (ADEQ)
--- NOTE | 2019-01-27 07:32 | NURSING ---
CALLED [facility] TO REACH DR NEEL GORMAN, HER ONCOLOGIST
--- NOTE | 2019-01-27 07:36 | NURSING ---
DR GORMAN'S FELLOW ON PHONE FOR DR CORBIN
--- NOTE | 2019-01-27 07:42 | NURSING ---
CALLING [facility] FOR TRANSFER. TALKED TO GATO
--- NOTE | 2019-01-27 09:24 | NURSING ---
[id number] DR HANEY, [facility], FOR DR CORBIN
--- NOTE | 2019-01-27 10:48 | NURSING ---
NO ROOM AT [facility]. WAITING ON DISCHARGES. THIS AFTERNOON. PER TRANSFER LINE
--- NOTE | 2019-01-27 13:34 | ED.RN ---
[facility] CALLED TO INFORM STILL WAITING FOR BED AVAILABLITY
--- NOTE | 2019-01-27 15:57 | NURSING ---
CALLED [facility]. TALKED TO BILL. STILL NO BED. GAVE CURRENT VITALS
--- NOTE | 2019-01-27 17:00 | NURSING ---
[facility], 6TH FLOOR ROOM 28 NURSE TO NURSE [phone]
--- NOTE | 2019-01-27 17:37 | NURSING ---
CALLED [facility] FOR TRANSPORT. ETA IS 30 MIN
== END 2019-01-27 18:03 | disposition short-term general hospital (02) ==
LOC: ED 06:47
PROVIDERS: Emergency Provider Emergency Medicine; Family Provider Family Medicine; PCP Family Medicine
DX: R65.10 Systemic inflammatory response syndrome (SIRS) of non-infectious origin without acute organ dysfunction (principal); C56.9 Malignant neoplasm of unspecified ovary; Z79.899 Other long term (current) drug therapy; R50.2 Drug induced fever; T45.1X5A Adverse effect of antineoplastic and immunosuppressive drugs, initial encounter; R00.0 Tachycardia, unspecified; D64.81 Anemia due to antineoplastic chemotherapy
CPT/HCPCS: 71045; 80053; 81001; 83605; 85025; 85610; 85730; 87040; 87086; 87088; 93005; 96365; 96366; 96375; 96376; 99285; J7030; A4216; J2405

== ENCOUNTER 2019-02-07 19:54 | Emergency (ER) | payer OTHER, SELFPAY ==
[2019-01-27 06:01] VITALS: BMI 34.5
[2019-02-07 19:57] VITALS: BP 138/85; PULSE 108; RESP 18; TEMP 36.7; O2SAT 97; BMI 32.7
--- NOTE | 2019-02-07 20:40 | CT_ITS ---
STUDY: CT ABDOMEN AND PELVIS WITHOUT CONTRAST REASON FOR EXAM: Female, 58 years old. Abdominal pain. History of ovarian mass. RADIATION DOSAGE (If Supplied By Facility): CTDIvol = ( 11.76 ) mGy, DLP = ( 859.14 ) mGycm TECHNIQUE: Transaxial images were obtained from the dome of the diaphragm to the symphysis pubis without oral contrast, and without intravenous contrast. Sagittal and coronal images were reconstructed. Individualized dose optimization techniques were used for this CT. COMPARISON: 01/07/2019 FINDINGS: The study is significantly limited without contrast. There is a stable moderate left pleural effusion with overlying atelectasis. The visualized portions of the heart and pericardium are within normal limits. There are no calcified gallstones present. Again noted is diffuse fatty infiltration of the liver. The spleen is normal in size. The pancreas demonstrates an unremarkable unenhanced appearance. The adrenal glands are within normal limits. There is a right nephroureterostomy tube again noted. There is mild right hydroureteronephrosis which is decreased when compared with the prior exam. There are stable nonobstructing stones in the collecting system of the right kidney. There are no left-sided stones. There is no left-sided hydronephrosis. Normal visualized stomach. There is no bowel obstruction or inflammation. Again noted is nodularity throughout the mesentery, consistent with carcinomatosis. There are stable retroperitoneal lymphadenopathy. Aortic region. The aorta is normal in caliber. There is a moderate amount of ascites. Again noted is a large complex solid and cystic mass in the pelvis which is not well evaluated without contrast. This is grossly unchanged when compared with the prior exam. There are no destructive osseous lesions. CT/Abdomen/Pelvis without Cont IMPRESSION: Study significantly limited without contrast. Redemonstration of a complex solid and cystic mass in the pelvis which is not significantly changed when compared with the prior exam. This likely represents an ovarian neoplasm. Stable nodularity of the mesentery, consistent with carcinomatosis. Stable retroperitoneal lymphadenopathy. Stable moderate amount of ascites. No bowel obstruction or inflammation. Right-sided nephroureterostomy tube in place. Mild right hydronephrosis which is decreased when compared with the prior exam. Stable diffuse fatty infiltration of the liver. Moderate left pleural effusion with overlying atelectasis which is stable when compared with the prior exam. Electronically Signed: Elgin Stringer, at 21:33 EDT Tel , Service support ,
--- NOTE | 2019-02-07 20:43 | ED.DCSUM_ITS ---
- ER Visit Summary Date of Service: 02/07/19 Chief Complaint: Abdominal pain History of Present Illness: The patient is a 58 F who presents for abdominal pain since this morning. Patient is currently undergoing chemotherapy for ovarian cancer. She was recently diagnosed with a bowel obstruction that was r esulting in compression of her lower abdomen and a small bowel obstruction. Patient states she normally has some discomfort in the lower abdomen, however this morning she began having epigastric pain. She was n.p.o. at the time for a replacement of her nephrostomy tube. After the procedure she tried to eat, and vomited. Pain is gradually worsened in the epigastric region. She tried oxycodone and also MiraLAX and vomited each time. She has nausea and vomiting. She has had 3 bowel movements of loose stool today, which is normal for her. Denies any noted fever. No other symptoms at this time. Physical Examination: Vital signs: afebrile, hemodynamically stable, no hypoxia on room air General: well nourished, well developed, in no distress Skin: warm, dry, no rash, no pallor HEENT: normocephalic and atraumatic; PERRL, EOMI, moist mucous membranes Cardiovascular: Tachycardic rate and rhythm without murmurs, no peripheral edema, 2+ pulses all distal extremities Respiratory: No increased work of breathing, lungs are clear to auscultation bilaterally, no rales, rhonchi or wheezing Abdominal: Abdomen is soft, distended, no significant tenderness to palpation, h yperactive bowel sounds MSK: Moves all extremities, no deformities, normal strength Neuro: Awake and alert, oriented ?4. No facial droop, sensation and motor function intact and symmetric Test Results: Abnormal Lab Results 02/07/19 02/07/19 02/07/19 20:45 20:45 20:45 WBC 6.7 RBC 3.42 L Hgb 8.8 L Hct 28.8 L MCV 84.2 MCH 25.7 L MCHC 30.6 L RDW 17.4 H RDW Differential 52.1 H Plt Count 480 H MPV 8.9 Immature Gran % (Auto) 0.300 Neut % (Auto) 84.5 H Lymph % (Auto) 8.5 L George % (Auto) 6.3 Eos % (Auto) 0.3 Baso % (Auto) 0.1 Absolute Neuts (auto) 5.7 Absolute Lymphs (auto) 0.57 L Total Counted Not Reportable Differential Comment SCANNED Sodium 142 Potassium 3.5 Chloride 107 Carbon Dioxide 29.0 Anion Gap 6 BUN 10 Creatinine 0.92 Estim Creat Clear Calc 56.86 Est GFR (MDRD) Af Amer 81 Est GFR (MDRD) Non-Af 67 BUN/Creatinine Ratio 10.9 Glucose 143 H Lactic Acid 1.2 Calcium 8.2 L Total Bilirubin 0.20 AST 11 L ALT 11 L Alkaline Phosphatase 87 Total Protein 6.4 Albumin 2.2 L Globulin 4.2 Albumin/Globulin Ratio 0.5 L Lipase 129 Clinical Impression(s) from Imaging Studies Abdomen/Pelvis CT 02/07/19 20:40 IMPRESSION: Study significantly limited without contrast. Redemonstration of a complex solid and cystic mass in the pelvis which is not significantly changed when compared with the prior exam. This likely represents an ovarian neoplasm. Stable nodularity of the mesentery, consistent with carcinomatosis. Stable retroperitoneal lymphadenopathy. Stable moderate amount of ascites. No bowel obstruction or inflammation. Right-sided nephroureterostomy tube in place. Mild right hydronephrosis which is decreased when compared with the prior exam. Stable diffuse fatty infiltration of the liver. Moderate left pleural effusion with overlying atelectasis which is stable when compared with the prior exam. Electronically Signed: Elgin Stringer, at 21:33 EDT Tel , Service support , Medications Given Discontinued Medications Sodium Chloride () 1,000 mls @ 1,000 mls/hr IV .Q1H ONE Stop: 02/07/19 21:39 Last Admin: 02/07/19 20:54 Dose: 1,000 mls/hr Metoclopramide HCl (Reglan) 10 mg IV X1 ONE Stop: 02/07/19 23:13 Morphine Sulfate () 4 mg IV X1 ONE Stop: 02/07/19 20:41 Last Admin: 02/07/19 20:52 Dose: 4 mg Morphine Sulfate () 8 mg IV X1 ONE Stop: 02/07/19 23:13 Ondansetron HCl (Zofran) 4 mg IV X1 ONE Stop: 02/07/19 20:41 Last Admin: 02/07/19 20:53 Dose: 4 mg Emergency Department Course and Treatment: Patient was given morphine and Zofran for symptomatic relief. Patient given IV fluids for hydration. Patient made n.p.o. Labs and a CT scan performed. Labs showed a lactate of 1.2, no significant leukocytosis, hemoglobin of 8.8, consistent with patient's baseline, no electrolyte derangements, normal lipase and hepatic function. CT of the abdomen and pelvis showed no bowel obstructions and no obvious acute changes when compared to patient's prior CT scan showing cancer related findings. On reevaluation patient was feeling better. She was able to tolerate cesar travis. She feels comfortable going home. She has an appointment tomorrow to learn further care for her nephrostomy, and she has an appointment on Thursday for with her oncologist and for the next round of chemotherapy. To help patient with further symptomatic control, she was given a dose of Reglan and another dose of morphine prior to discharge. Patient then has pain medications and antiemetics at home that she will continue to use for any further symptoms. Patient was discharged home with return precautions. Treatment Plan: [] Disposition: [] Impression: Abdominal pain, metastatic ovarian cancer This note was generated with [employer] dictation software. It may contain incorrect words, spelling, and punctuation that were not noted in review of the chart prior to signing ED Disposition - Plan for ED Patient: Disposition: Home or Assisted Living Instructions: ED Abdominal Pain Unkn Cause Referrals: Charly Blackmon MD [Primary Care Provider] - 1-2 Days if not improving Additional Instructions: Keep your appointment on Thursday with your oncologist. If you have any worsening of your condition or difficulty controlling her symptoms, please return immediately to the emergency department for another evaluation.
[2019-02-07] MEDS: Morphine 4 MG/ML Syringe IV (20:52)
[2019-02-07] MEDS: Ondansetron 4 MG/2 ML Vial IV (20:53)
[2019-02-07] MEDS: 0.9% Normal Saline 1,000 ML 1000 ML IV (20:54)
[2019-02-07 21:13] LABS: ALB/GLOB Ratio 0.5 RATIO (0.9-2.4); AST(SGOT) 11 U/L (15-37); Absolute Lymphocyte Count 0.57 X10^3/ul (0.83-4.51); Absolute Neutrophil Count 5.7 X10^3/uL (2.0-7.7); Alanine Aminotransfer ALT/SGPT 11 U/L (13-56); Albumin, Serum 2.2 g/dL (3.2-5.0); Alkaline Phosphatase 87 U/L (45-117); Anion Gap 6 (5-15); BUN 10 mg/dL (7-18); BUN/Creat Ratio 10.9 RATIO (10-20); Basophil# 0.01 X10^3/uL; Basophil% 0.1 % (0-1); Calcium,Total 8.2 mg/dL (8.5-10.1); Chloride 107 mmol/L (98-107); Creatinine, Serum 0.92 mg/dL (0.55-1.02); EST Glomerular Filtration Rate 67 mL/min (>60); Eosinophil# 0.02 X10^3/uL; Eosinophils% 0.3 % (0-5); Est Glom Filt Rate - Afr Amer 81 mL/min (>60); Estimated Creatinine Clearance 56.86 ml/min; Globulin 4.2 g/dL (2.2-4.2); Glucose 143 mg/dL (74-106); Hematocrit 28.8 % (37-47); Hemoglobin 8.8 g/dl (12.0-15.0); Lipase 129 U/L (73-393); Lymphocyte # 0.57 X10^3/ul (4.0); Lymphocyte % 8.5 % (19-41); Mean Corp Hgb Conc 30.6 g/gl (32-36); Mean Corpuscular Hgb 25.7 pg (27.0-32.0); Mean Corpuscular Volume 84.2 fL (81-99); Mean Platelet Vol. 8.9 fl (6.2-12.0); Monocyte# 0.42 X10^3/uL; Monocyte% 6.3 % (0-10); Neutrophil # 5.65 X10^3/uL (2.7-7.7); Neutrophil % 84.5 % (47-70); Platelet Count 480 K/mm3 (150-450); Potassium 3.5 mmol/L (3.5-5.1); Protein, Total 6.4 g/dL (6.4-8.2); RBC Distribution Width CV 17.4 % (11.6-14.6); RBC Distribution Width SD 52.1 fl (35.1-43.9); Red Blood Count 3.42 M/mm3 (4.2-5.4); Sodium Level 142 mmol/L (136-145); White Blood Count 6.7 K/mm3 (4.4-11.0)
[2019-02-07 21:14] LABS: Differential Indicated SCAN CRITERIA MET; POSITIVE COUNT NO; POSITIVE DIFFERENTIAL YES; POSITIVE MORPHOLOGY YES
[2019-02-07 21:23] LABS: Lactic Acid 1.2 mmol/L (0.4-2.0)
[2019-02-07 21:28] LABS: Differential Comment SCANNED
[2019-02-07 21:56] VITALS: BP 138/74; PULSE 81; RESP 16; O2SAT 97
[2019-02-07] MEDS: morphine 8 MG/ML Syringe IV (23:21)
[2019-02-07] MEDS: Metoclopramide 10 MG/2 ML Vial IV (23:21)
[2019-02-07 23:28] VITALS: BP 148/75; PULSE 87; RESP 16; O2SAT 98
== END 2019-02-07 23:43 | disposition home or self-care (01) ==
PROVIDERS: Emergency Provider Emergency Medicine; Family Provider Family Medicine; PCP Family Medicine
DX: R10.13 Epigastric pain (principal); R11.2 Nausea with vomiting, unspecified; C56.9 Malignant neoplasm of unspecified ovary; C79.9 Secondary malignant neoplasm of unspecified site; Z93.6 Other artificial openings of urinary tract status; Z87.19 Personal history of other diseases of the digestive system
CPT/HCPCS: 74176; 80053; 83605; 83690; 85025; 96361; 96374; 96375; 96376; 99282; J7030; A4216; J2405

== ENCOUNTER 2019-02-08 20:26 | Observation (INO) | payer OTHER, SELFPAY ==
[2019-02-07 19:57] VITALS: BMI 32.7
[2019-02-08 20:27] VITALS: BP 136/82; PULSE 103; RESP 22; TEMP 36.9; O2SAT 95; BMI 32.5
--- NOTE | 2019-02-08 21:18 | RAD_ITS ---
STUDY: X-RAY - ABDOMEN/PELVIS REASON FOR EXAM: Female, 58 years old. Abdominal pain. Ovarian cancer. TECHNIQUE: AP supine and upright views of the abdomen and pelvis. COMPARISON: CT February 07, 2019. FINDINGS: There is left lower lung consolidation and pleural effusion. There is percutaneous nephro ureteral stent on the right extending to the right lower pelvis in the region of the distal ureter. There are dilated loops of the small intestine with a non-distended colon consistent with a small bowel obstruction. There is no demonstrated free abdominal air. Normal visualized osseous structures. RAD/Abd Inc Decub and/or Erect IMPRESSION: Small bowel obstruction. Electronically Signed: Marty Robles MD at 22:05 EDT , Service support ,
[2019-02-08] MEDS: 0.9% Normal Saline 1,000 ML 150 ML IV (21:30)
[2019-02-08] MEDS: Ondansetron 4 MG/2 ML Vial IV (21:30)
[2019-02-08] MEDS: HYDROmorphone 1 MG/ML Syringe 0.5 MG IV (21:30)
[2019-02-08 21:55] LABS: AST(SGOT) 11 U/L (15-37); Alanine Aminotransfer ALT/SGPT 10 U/L (13-56); Albumin, Serum 2.4 g/dL (3.2-5.0); Alkaline Phosphatase 94 U/L (45-117); Anion Gap 7 (5-15); BUN 10 mg/dL (7-18); BUN/Creat Ratio 10.4 RATIO (10-20); Bilirubin, Direct 0.07 mg/dL (0.00-0.30); Calcium,Total 8.6 mg/dL (8.5-10.1); Chloride 107 mmol/L (98-107); Creatinine, Serum 0.97 mg/dL (0.55-1.02); EST Glomerular Filtration Rate 63 mL/min (>60); Est Glom Filt Rate - Afr Amer 76 mL/min (>60); Estimated Creatinine Clearance 53.92 ml/min; Globulin 4.5 g/dL (2.2-4.2); Glucose 141 mg/dL (74-106); Lipase 107 U/L (73-393); Potassium 3.7 mmol/L (3.5-5.1); Protein, Total 6.9 g/dL (6.4-8.2); Sodium Level 142 mmol/L (136-145)
[2019-02-08 21:56] LABS: Absolute Lymphocyte Count 0.55 X10^3/ul (0.83-4.51); Absolute Neutrophil Count 5.5 X10^3/uL (2.0-7.7); Basophil# 0.02 X10^3/uL; Basophil% 0.3 % (0-1); Eosinophil# 0.03 X10^3/uL; Eosinophils% 0.4 % (0-5); Hematocrit 29.9 % (37-47); Hemoglobin 9.1 g/dl (12.0-15.0); Lymphocyte # 0.55 X10^3/ul (4.0); Lymphocyte % 8.1 % (19-41); Mean Corp Hgb Conc 30.4 g/gl (32-36); Mean Corpuscular Volume 85.4 fL (81-99); Mean Platelet Vol. 8.9 fl (6.2-12.0); Monocyte# 0.65 X10^3/uL; Monocyte% 9.5 % (0-10); Neutrophil # 5.52 X10^3/uL (2.7-7.7); Neutrophil % 81.1 % (47-70); Platelet Count 584 K/mm3 (150-450); RBC Distribution Width CV 17.4 % (11.6-14.6); RBC Distribution Width SD 51.2 fl (35.1-43.9); White Blood Count 6.8 K/mm3 (4.4-11.0)
[2019-02-08 22:22] LABS: Lactic Acid 1.1 mmol/L (0.4-2.0)
[2019-02-08 22:27] LABS: Differential Indicated SCAN CRITERIA MET; POSITIVE COUNT NO; POSITIVE DIFFERENTIAL YES; POSITIVE MORPHOLOGY NO
[2019-02-08 22:52] LABS: Anisocytosis 2+; Differential Comment SCANNED; Ovalocyte 1+; Platelet Estimate SLT INC (ADEQ); Poikilocytosis RARE
[2019-02-08 23:35] VITALS: BP 137/95; PULSE 89; RESP 14; O2SAT 96
[2019-02-09] VITALS (7 sets, daily range): BP systolic 148–165; BP diastolic 82–100; PULSE 84–99; RESP 13–17; TEMP 37; O2SAT 91–97; BMI 33.3
--- NOTE | 2019-02-09 00:35 | ED.DCSUM_ITS ---
- ER Visit Summary Date of Service: 02/09/19 Chief Complaint: Abdominal pain History of Present Illness: The patient is a 58 F with a history of ovarian cancer. She had right nephrostomy tube changed out yesterday morning at . She had upper abdominal pain yesterday that was initially thought to her n.p.o. status. She then developed nausea and vomiting yesterday afternoon was seen in the ER last night. Labs and CT were performed at that time with no evidence of a small bowel obstruction. She is able to tolerate Zofran and oxycodone today but it was not controlling her pain this evening. She does note increased belching and is not been passing gas. She has had bowel obstruction secondary to her mass in the past. Physical Examination: Vital signs unremarkable. Patient sitting upright in bed no acute distress. Head neck examination unremarkable. Heart is regular rate and rhythm. Lungs sounds clear. Abdomen is soft and distended. I do not hear bowel sounds. She has mild diffuse tenderness. Nephrostomy tube is in place on the right with light yellow urine noted in the bag. Test Results: CBC was normal white count with hemoglobin of 9.1 and platelet count is 584,000. Chemistry studies unremarkable. LFTs normal. Lactate normal. Abdominal x-ray with decubitus view shows evidence of a small bowel obstruction. Emergency Department Course and Treatment: Patient was given Dilaudid and Zofran along with IV fluids. Test results were discussed with patient and at bedside. At this time she is not having vomiting. She is refusing NG tube. She would prefer admission at where her oncology doctors are located. I spoke with her oncologist and patient has been accepted in transfer. Treatment Plan: [] Disposition: Transfer Impression: 1. Small bowel obstruction 2. Ovarian cancer This note was generated with [employer] software. It may contain incorrect words, spelling, and punctuation that were not noted in review of the chart prior to signing ED Disposition - Plan for ED Patient: Referrals: Charly Blackmon MD [Primary Care Provider] -
--- NOTE | 2019-02-09 00:55 | ED.RN ---
CALLED FERNANDO AT [facility] TO CHECK A STATUS OF A ROOM ASSIGNMENT, PER FERNANDO, WE WILL NOT LIKELY HAVE A ROOM TILL MORNING DISCHARGES
[2019-02-09] MEDS: HYDROmorphone 0.5 MG/0.5 ML SYRINGE IV ×3 (01:55→06:53)
[2019-02-09] MEDS: Ondansetron 4 MG/2 ML Vial IV ×2 (05:03→11:04)
[2019-02-09] MEDS: 0.9% Normal Saline 1,000 ML 150 ML IV (05:04)
[2019-02-09] MEDS: HYDROmorphone 1 MG/ML Syringe IV ×3 (08:31→18:45)
--- NOTE | 2019-02-09 09:39 | NURSING ---
CALLED [facility]. TALKED TO DELANO. GAVE UPDATED VITAL. NO BED YET
[2019-02-09] MEDS: proMETHazine 25 MG/ML Syringe 6.25 MG IV (11:48)
--- NOTE | 2019-02-09 13:18 | NURSING ---
CALLED [facility]. STILL NO BED, BUT ON THE LIST
--- NOTE | 2019-02-09 15:52 | NURSING ---
CALLED [facility], TALKED TO MAURI. NO BED YET
--- NOTE | 2019-02-09 18:00 | NURSING ---
CALLED TRANSFER LINE AT [facility]
--- NOTE | 2019-02-09 18:02 | NURSING ---
TALKED TO FERNANDO, NO BED, H[employer] CENSUS
--- NOTE | 2019-02-09 19:37 | HP.PCM_ITS ---
Problem List (1) SBO (small bowel obstruction) Status: Acute (2) Ovarian cancer Status: Acute History of Present Illness Date of Admission: 02/09/19 Chief Complaint: ABDOMINAL PAIN The patient is a 58 year old F with a significant history of ovarian cancer; nephrostomy tube in the right kidney and hypertension who has an ongoing episodic abdominal pain that started 1 day before presentation to the emergency department. Patient came to emergency department on 02/08/2019. Patient has been admitted to the hospital on 02/09/2019 because she has been waiting for bed to get into [facility] for the past 23 hours. Her pain is epigastric and she rated the pain as 7 out of 10 when intensity is highest. Her pain began gradually and progressively got worse. At the emergency department patient received pain medication to help relieve the pain. The last time her bowels moved was a day before her presentation to the emergency department; which is 2 days ago. Patient has not passed gas for the last 2 days. Associated with symptoms is anorexia, nausea and vomiting. Last time she vomited was in the afternoon of 02/09/2019. Abdominal x-ray at the time of presentation showed small bowel obstruction. Emergency department doctor reported that earlier on patient had declined NG tube. Because of the long wait to get admitted to [facility] it was discussed with patient if she is to be transferred to another hospital. Patient did not want to be transferred to any other hospital except [facility]. Upon decision to keep patient at the hospital before being transferred to [facility] if a bed becomes available, emergency department doctor discussed case with General Surgery who felt that there is no need for any emergent surgical consultation at this time. Past Medical History Medical History: Medical History (Last Reviewed 02/09/19 @ 20:33 by David Martinez MD) Abdominal pain (Acute) R10.9 Asthma J45.909 HTN (hypertension) I10 Allergies carboplatin Allergy (Verified 02/08/19 20:30) Anaphylaxis unresponsive hydrocodone bitartrate [From Vicodin] Allergy (Verified 02/08/19 20:30) Hives paclitaxel Allergy (Verified 02/08/19 20:30) Anaphylaxis unresponsive Home Medications: Ambulatory Orders Medication Instructions Recorded Lisinopril [Zestril] 20 mg PO DAILY 10/02/16 Pantoprazole Sodium [Protonix] 40 mg PO DAILY 03/10/19 Docusate Sodium [Stool Softener] 100 mg PO DAILY 01/25/19 Polyethylene Glycol 3350 [Miralax] 17 gm PO BID 01/25/19 Metoclopramide [Reglan] 10 mg PO Q6H PRN PRN 02/07/19 Ondansetron HCl 4 mg PO Q8 PRN 02/07/19 Oxycodone HCl 5 mg PO Q6H PRN PRN 02/07/19 Surgical History: Surgical History (Last Reviewed 02/09/19 @ 20:33 by David Martinez MD) S/P laparoscopy Z98.890 S/P tonsillectomy Z90.89 [employer] History: ovarian cancer Lives: With Family Smoking Status: Never smoker Alcohol: Occasional - *Family History Maternal Family History: Family History (Last Reviewed 02/09/19 @ 20:33 by David Martinez MD) Mother Breast cancer Diabetes Heart disease Hypertension CVA (cerebral vascular accident) Father Diabetes Heart disease Kidney disease Review of Systems Constitutional: Denies: Chills, Fever, Weight Change HEENT: Denies: Head Aches, Sinus Congestion, Sinus Drainage Cardiovascular: Denies: Chest Pain, Palpitations Respiratory: Denies: Cough, Shortness of breath at rest, Sputum production Gastrointestinal: Reports: Abdominal Pain, Nausea, Vomiting Genitourinary: Denies: Dysuria Musculoskeletal: Denies: Joint Pain, Joint Tenderness Skin: Denies: Rash, Wounds Neurological: Denies: Numbness, Tingling, Focal weakness Psychiatric: Denies: Anxiety, Depression, Homicidal Ideations, Suicidal Ideations Hematologic/ Lymphatic: Denies: Easy Bruising, Easy Bleeding VTE Information - Inpt Only VTE Present on Admission: No VTE Mechan Device Prophylaxis: None VTE Pharm Prophylaxis ordered?: Yes - Physical Exam General: Alert, Oriented x3, Cooperative HEENT: Atraumatic, PERRLA, EOMI, Normocephalic Neck: Supple, No JVD, Negative Carotid Bruits Lungs: Clear to auscultation, Normal air movement Cardiovascular: Regular rate, No murmurs Abdomen: Soft, Hypoactive Bowel Sounds, Obese, Tender Extremities: Capillary Refill Less than 3 Seconds, Edema - 3+ bilateral lower extremities Skin: No rashes, No breakdown, - - Pale Musculoskeletal: No Tenderness to Palpation of Joints or Extremities Neurological: Neuro grossly intact Psych/Mental Status: Normal Affect, Appropriate Vital Signs Temp Pulse Resp BP Pulse Ox 98.5 F 84 16 158/94 H 97 02/08/19 20:27 02/09/19 18:03 02/09/19 18:03 02/09/19 18:03 02/09/19 18:03 Oxygen Delivery Method Room Air Weight: 86.183 kg Body Mass Index (BMI) 32.5 Laboratory Tests Past 24 Hrs 02/08/19 02/08/19 02/08/19 21:00 21:00 21:30 WBC 6.8 RBC 3.50 L Hgb 9.1 L Hct 29.9 L MCV 85.4 MCH 26.0 L MCHC 30.4 L RDW 17.4 H RDW Differential 51.2 H Plt Count 584 H MPV 8.9 Immature Gran % (Auto) 0.600 Neut % (Auto) 81.1 H Lymph % (Auto) 8.1 L Kings % (Auto) 9.5 Eos % (Auto) 0.4 Baso % (Auto) 0.3 Absolute Neuts (auto) 5.5 Absolute Lymphs (auto) 0.55 L Total Counted Not Reportable Differential Comment SCANNED Platelet Estimate SLT INC Poikilocytosis RARE Anisocytosis 2+ Ovalocytes 1+ Sodium 142 Potassium 3.7 Chloride 107 Carbon Dioxide 28.0 Anion Gap 7 BUN 10 Creatinine 0.97 Estim Creat Clear Calc 53.92 Est GFR (MDRD) Af Amer 76 Est GFR (MDRD) Non-Af 63 BUN/Creatinine Ratio 10.4 Glucose 141 H Lactic Acid 1.1 Calcium 8.6 Total Bilirubin 0.20 Direct Bilirubin 0.07 AST 11 L ALT 10 L Alkaline Phosphatase 94 Total Protein 6.9 Albumin 2.4 L Globulin 4.5 H Lipase 107 Assessment/Plan All Active Problems (Last Reviewed 02/09/19 @ 20:33 by David Martinez MD) Sepsis (Acute) Community acquired pneumonia (Acute) Bacteremia due to Gram-negative bacteria (Acute) Hydronephrosis (Acute) Low urine output (Acute) SBO (small bowel obstruction) (Acute) Ovarian cancer (Acute) Abdominal pain (Acute) The patient is a 58 year old F with a significant history of ovarian cancer; nephrostomy tube in the right kidney and hypertension who has an ongoing episodic abdominal pain that started 1 day before presentation to the emergency department and found to have small bowel obstruction and awaiting transfer to oncology unit at [facility]. Small bowel obstruction We will do conservative management with n.p.o.; IV fluids of lactated Ringer's and potassium; IV antiemetics with Zofran and Phenergan; pain controlled with morphine as needed. Hypertension His blood pressure was not within goal. We will hold home lisinopril since patient is n.p.o. at this time. Vasotec IV ordered. GERD We will hold p.o. Protonix and order IV Protonix as patient n.p.o. DVT prophylaxis Subcutaneous Lovenox ordered. Code Visit OBSV E&M: 10695 Initial observation care L3
[2019-02-09] MEDS: Morphine 2 MG/ML Syringe IV (22:16)
--- NOTE | 2019-02-09 22:52 | NURSING ---
PT SIGNED CONSENT TO BE TRANSPORTED TO A BED IS AVAILABLE. IN ROOM AND IS AWARE. CHARGE NURSE WORKING ON TRANSPORT WILL LET PT KNOW WHEN TRANSPORT TIME IS AVAILABLE
--- NOTE | 2019-02-10 00:02 | DS.PCM_ITS ---
Discharge Date and Diagnosis Date of Admission: 02/09/19 Date of Discharge: 02/09/19 - Primary Discharge Diagnosis sbo Hospital Course and Treatment Operations: None Summary of Care Provided: The patient is a 58 year old F with Ovarian cancer who was admitted for abdominal pain and found to have radiographic evidence of small bowel obstruction. ED doctor discussed the case with [facility] where her oncology team is and patient was accepted at the [facility] [place]. However, there was no bed at the [facility] so patient stayed at our ED for about 23 hours where she was managed conservatively with IV narcotics; antiemetics and IV hydration. She had declined NG tube. With patient waiting for about 23 hours she was finally admitted at our hospital pending transfer to [facility]. Upon admission she continued to be treated conservatively with IV narcotics; antiemetics and IV hydration. Few hours after she had been admitted at our hospital, and on the same day, a bed became available at [facility] and patient was accordingly transferred. - Physical Exam General: Alert, Oriented x3, Cooperative HEENT: Atraumatic, PERRLA, EOMI, Normocephalic Neck: Supple, No JVD, Negative Carotid Bruits Lungs: Clear to auscultation, Normal air movement Cardiovascular: Regular rate, No murmurs Abdomen: Bowel Sounds Present, Soft, Hypoactive Bowel Sounds, Obese, Tender Extremities: Capillary Refill Less than 3 Seconds, Edema Skin: No rashes, No breakdown Musculoskeletal: No Tenderness to Palpation of Joints or Extremities Neurological: Cranial nerves II-XII grossly intact Psych/Mental Status: Normal Affect, Appropriate Vital Signs Temp Pulse Resp BP Pulse Ox 98.6 F 88 14 159/82 H 94 02/09/19 21:50 02/09/19 21:50 02/09/19 21:50 02/09/19 21:50 02/09/19 21:50 Oxygen Delivery Method Room Air Weight: 87.9 kg Body Mass Index (BMI) 33.3 Intake and Output for Last 24 Hours 02/08/19 02/09/19 02/10/19 23:59 23:59 23:59 Output Total Balance - / Home Medications: Medications to take at Discharge Lisinopril [Zestril] 20 mg PO DAILY 10/02/16 Pantoprazole Sodium [Protonix] 40 mg PO DAILY 01/02/19 Docusate Sodium [Stool Softener] 100 mg PO DAILY 01/25/19 Polyethylene Glycol 3350 [Miralax] 17 gm PO BID 01/25/19 Metoclopramide [Reglan] 10 mg PO Q6H PRN PRN 02/07/19 Ondansetron HCl 4 mg PO Q8 PRN 02/07/19 Oxycodone HCl 5 mg PO Q6H PRN PRN 02/07/19 Primary Care Physician: Charly Blackmon MD [Primary Care Provider] - Medical Necessity - Tobacco Use Smoking Status: Never smoker Tobacco Use: Secondhand Meaningful Use Info Meaningful Use Diagnoses (Choose all that apply): None applicable Code Visit OBSV E&M: 39642 Observ/hosp same date L3
== END 2019-02-09 23:44 | disposition short-term general hospital (02) ==
LOC: ED 21:23 → MS3 02-09 21:48
PROVIDERS: Admitting Provider Hospitalist; Emergency Provider Emergency Medicine; Family Provider Family Medicine; PCP Family Medicine; Referring Provider Hospitalist; Visit Provider Hospitalist
DX: K56.609 Unspecified intestinal obstruction, unspecified as to partial versus complete obstruction (principal); C56.9 Malignant neoplasm of unspecified ovary; I10 Essential (primary) hypertension; J45.909 Unspecified asthma, uncomplicated; Z79.899 Other long term (current) drug therapy; K21.9 Gastro-esophageal reflux disease without esophagitis
CPT/HCPCS: 74019; 80048; 80076; 83605; 83690; 85025; 96361; 96365; 96374; 96375; 96376; 99282; J7030; J7120; A4216; J2405

== ENCOUNTER 2019-02-18 05:56 | Emergency (ER) | payer OTHER, SELFPAY ==
[2019-02-09 21:53] VITALS: BMI 33.3
[2019-02-18 05:57] VITALS: BP 174/95; PULSE 88; RESP 16; TEMP 36.9; O2SAT 95; BMI 33.0
--- NOTE | 2019-02-18 06:07 | RAD_ITS ---
STUDY: X-RAY - RIGHT SHOULDER REASON FOR EXAM: Female, 58 years old. Pain TECHNIQUE: 2 view(s) of the shoulder. COMPARISON: None. FINDINGS: Degenerative changes of the acromioclavicular and glenohumeral joints. No acute fracture or dislocation identified. Degenerative changes of the visualized thoracic spine. The visualized lung reid appear clear. RAD/Shoulder min 2 Views IMPRESSION: Degenerative changes. No acute fracture or dislocation. Electronically Signed: Kain Santiago, at 6:56 EDT Tel , Service support ,
[2019-02-18] MEDS: HYDROmorphone 1 MG/ML Syringe SC (06:12)
--- NOTE | 2019-02-18 07:00 | VDUE_ITS ---
Reason For Study: RUE pain Right Proximal Right jugular vein is spontaneous, widely patent, phasic, with no intraluminal echogenicity noted. Right subclavian vein is spontaneous, widely patent, phasic, with no intraluminal echogenicity noted. Right Lower Arm Right radial vein is compressible. Right ulnar vein is compressible. Right Arm Right axillary vein is spontaneous, patent, phasic, competent, compressible and demonstrates augmentation. Right brachial vein is compressible. Right cephalic vein is compressible. Right basilic vein is compressible. Interpretation Summary Deep veins of the right upper extremity are patent and compressible segmentally. There is no evidence of deep vein thrombosis. The superficial veins of the right upper extremity, the basilic and cephalic veins, are patent and compressible. There is no evidence of right upper extremity superficial thrombophlebitis involving the veins imaged. Ordering Physician: Brayan Howard Referring Physician: Charly Blackmon Performed By: Glendy Hidalgo RVT ?
--- NOTE | 2019-02-18 07:01 | ED.VISSUMM ---
- ER Visit Summary Date of Service: 02/18/19 Chief Complaint: Arm pain History of Present Illness: The patient is a 58 F with right upper arm pain. Symptoms started 2 days ago. The pain came on gradually. It has been continuous. It is isolated to her right shoulder and fpc down her right upper arm. Worse with moving. Denies numbness or weakness. Denies injury. Denies any history of this in the past. She does have a history of ovarian cancer and has underwent chemo and radiation. She does have a history of blood clots and currently takes Lovenox. Denies any neck or cervical pathology. Denies any chest pain or shortness of breath. Denies any aortic disease. Physical Examination: Hypertensive but otherwise vitals unremarkable. Afebrile. Patient appears very uncomfortable. Alert and oriented. HEENT exam unremarkable. Cranial nerves grossly intact. Neck is nontender. Right shoulder and upper arm are diffusely tender to palpation. No deformity or laxity. Pain is increased with range of motion, but range of motion is intact. She is neurovascular intact distally. Overlying skin appears normal without warmth or erythema. Test Results: X-rays show degenerative changes. Ultrasound is pending. Emergency Department Course and Treatment: Patient has significant right shoulder pain. X-rays were done and show degenerative changes only. No sign of calcific tendinitis. I was also concerned for pathologic fractures. There is no indication of fracture or bone involvement. There is nothing to suggest referred pain from a cardiac, pulmonary, or vascular etiology. Patient has no neurologic symptoms or findings. Duplex ultrasound is pending at the time of this dictation. The oncoming physician will check the results. If this is unremarkable and the patient has no new or worsening issues, she will be discharged to follow-up as an outpatient with orthopedics. Treatment Plan: As above Disposition: Discharge pending further evaluation Impression: Right arm pain This note was generated with [employer] dictation software. It may contain incorrect words, spelling, and punctuation that were not noted in review of the chart prior to signing ED Disposition - Plan for ED Patient: Referrals: Charly Blackmon MD [Primary Care Provider] -
--- NOTE | 2019-02-18 07:04 | ED.DCSUM_ITS ---
- ER Visit Summary Date of Service: 02/18/19 Chief Complaint: Arm pain History of Present Illness: The patient is a 58 F with right upper arm pain. Symptoms started 2 days ago. The pain came on gradually. It has been continuous. It is isolated to her right shoulder and detention down her right upper arm. Worse with moving. Denies numbness or weakness. Denies injury. Denies any history of this in the past. She does have a history of ovarian cancer and has underwent chemo and radiation. She does have a history of blood clots and currently takes Lovenox. Denies any neck or cervical pathology. Denies any chest pain or shortness of breath. Denies any aortic disease. Physical Examination: Hypertensive but otherwise vitals unremarkable. Afebrile. Patient appears very uncomfortable. Alert and oriented. HEENT exam unremarkable. Cranial nerves grossly intact. Neck is nontender. Right shoulder and upper arm are diffusely tender to palpation. No deformity or laxity. Pain is increased with range of motion, but range of motion is intact. She is neurovascular intact distally. Overlying skin appears normal without warmth or erythema. Test Results: X-rays show degenerative changes. Ultrasound is pending. Emergency Department Course and Treatment: Patient has significant right shoulder pain. X-rays were done and show degenerative changes only. No sign of calcific tendinitis. I was also concerned for pathologic fractures. There is no indication of fracture or bone involvement. There is nothing to suggest referred pain from a cardiac, pulmonary, or vascular etiology. Patient has no neurologic symptoms or findings. Duplex ultrasound is pending at the time of this dictation. The oncoming physician will check the results. If this is unremarkable and the patient has no new or worsening issues, she will be discharged to follow-up as an outpatient with orthopedics. Treatment Plan: As above Disposition: Discharge pending further evaluation Impression: Right arm pain This note was generated with [employer] dictation software. It may contain incorrect words, spelling, and punctuation that were not noted in review of the chart prior to signing ED Disposition - Plan for ED Patient: Referrals: Charly Blackmon MD [Primary Care Provider] -
--- NOTE | 2019-02-18 07:04 | ED.DEP ---
ED Disposition - Plan for ED Patient: Instructions: ED Shoulder Pain [facility] Referrals: Ziyad Barone MD [STAFF PHYSICIAN] -
[2019-02-18] MEDS: HYDROmorphone 1 MG/ML Syringe IV (08:32)
== END 2019-02-18 09:30 | disposition home or self-care (01) ==
PROVIDERS: Emergency Provider Emergency Medicine; Family Provider Family Medicine; PCP Family Medicine
DX: M79.601 Pain in right arm (principal); M25.511 Pain in right shoulder; R03.0 Elevated blood-pressure reading, without diagnosis of hypertension; Z79.01 Long term (current) use of anticoagulants; Z79.899 Other long term (current) drug therapy; Z86.718 Personal history of other venous thrombosis and embolism; Z85.43 Personal history of malignant neoplasm of ovary; Z92.21 Personal history of antineoplastic chemotherapy; Z92.3 Personal history of irradiation
CPT/HCPCS: 73030; 93971; 96372; 96374; 96375; 99285

== ENCOUNTER → 2019-03-08 09:15 | Outpatient (CLI) | payer OTHER, SELFPAY ==
[2019-02-18 05:57] VITALS: BMI 33.0
--- NOTE | 2019-03-08 09:19 | RAD_ITS ---
STUDY: X-RAY CHEST REASON FOR EXAM: Female, 58 years old. History of pleural effusions and prior thoracentesis. TECHNIQUE: PA and lateral views of the chest. COMPARISON: Comparison is made with prior study dated January 27, 2019. FINDINGS: No significant pleural effusion is seen at this time. Mild increased markings at the lung bases suggestive of linear atelectasis and/or scarring. There is no demonstrated pleural abnormality. Normal size heart. Normal mediastinum and petros. Normal visualized pulmonary arteries. Normal visualized aortic arch and descending thoracic aorta. There are diffuse degenerative changes of the visualized thoracic spine. Normal visualized ribs, clavicles, and shoulders. There is no demonstrated abnormality of the visualized soft tissue structures of the upper abdomen. RAD/Chest PA and Lateral IMPRESSION: No significant pleural effusion is seen at this time. Electronically Signed: Stefan Perez, at 10:05 EDT , Service support ,
== END ==
PROVIDERS: Family Provider Family Medicine; PCP Family Medicine; Referring Provider Nurse Practitioner Adult Health; Visit Provider Nurse Practitioner Adult Health
DX: Z87.09 Personal history of other diseases of the respiratory system (principal)
CPT/HCPCS: 71046

== ENCOUNTER 2019-03-21 22:24 | Emergency (ER) | payer OTHER, SELFPAY ==
[2019-03-21 22:24] VITALS: BP 101/61; PULSE 112; RESP 18; TEMP 36.9; O2SAT 98; BMI 29.9
--- NOTE | 2019-03-21 22:41 | RAD_ITS ---
STUDY: X-RAY CHEST REASON FOR EXAM: Female, 58 years old. Fever TECHNIQUE: PA and lateral views of the chest. COMPARISON: March 08, 2019 chest x-ray FINDINGS: There is linear density within the right middle lobe stable since prior study. There is no demonstrated pleural abnormality. Normal size heart. Normal mediastinum and petros. Normal visualized pulmonary arteries. There is atherosclerotic calcification of the aortic arch with tortuosity. There are diffuse degenerative changes of the visualized thoracic spine. Normal visualized ribs, clavicles, and shoulders. There is no demonstrated abnormality of the visualized soft tissue structures of the upper abdomen. RAD/Chest PA and Lateral IMPRESSION: Degenerative changes, as described above. Stable chest . No demonstrated acute cardiopulmonary process. Electronically Signed: Alla Clancy MD at 23:49 EDT Tel , Service support ,
[2019-03-21] MEDS: 0.9% Normal Saline 1,000 ML 999 ML IV (23:11)
[2019-03-21 23:17] LABS: Absolute Lymphocyte Count 1.36 X10^3/ul (0.83-4.51); Absolute Neutrophil Count 2.2 X10^3/uL (2.0-7.7); Basophil# 0.01 X10^3/uL; Basophil% 0.2 % (0-1); Eosinophil# 0.02 X10^3/uL; Eosinophils% 0.5 % (0-5); Hematocrit 29.5 % (37-47); Hemoglobin 9.2 g/dl (12.0-15.0); Lymphocyte # 1.36 X10^3/ul (4.0); Lymphocyte % 33.8 % (19-41); Mean Corp Hgb Conc 31.2 g/gl (32-36); Mean Corpuscular Volume 89.7 fL (81-99); Monocyte# 0.43 X10^3/uL; Monocyte% 10.7 % (0-10); Neutrophil # 2.19 X10^3/uL (2.7-7.7); Neutrophil % 54.6 % (47-70); Platelet Count 250 K/mm3 (150-450); RBC Distribution Width CV 19.2 % (11.6-14.6); RBC Distribution Width SD 61.3 fl (35.1-43.9); Red Blood Count 3.29 M/mm3 (4.2-5.4)
[2019-03-21 23:20] LABS: POSITIVE COUNT NO; POSITIVE DIFFERENTIAL NO; POSITIVE MORPHOLOGY NO
[2019-03-21 23:44] LABS: ALB/GLOB Ratio 0.8 RATIO (0.9-2.4); AST(SGOT) 15 U/L (15-37); Alanine Aminotransfer ALT/SGPT 27 U/L (13-56); Albumin, Serum 3.3 g/dL (3.2-5.0); Alkaline Phosphatase 73 U/L (45-117); Anion Gap 9 (5-15); BUN 41 mg/dL (7-18); BUN/Creat Ratio 26.8 RATIO (10-20); Calcium,Total 8.7 mg/dL (8.5-10.1); Chloride 101 mmol/L (98-107); Creatinine, Serum 1.53 mg/dL (0.55-1.02); EST Glomerular Filtration Rate 37 mL/min (>60); Est Glom Filt Rate - Afr Amer 45 mL/min (>60); Estimated Creatinine Clearance 34.19 ml/min; Globulin 4.2 g/dL (2.2-4.2); Glucose 132 mg/dL (74-106); Potassium 4.9 mmol/L (3.5-5.1); Protein, Total 7.5 g/dL (6.4-8.2); Sodium Level 136 mmol/L (136-145)
[2019-03-21 23:45] LABS: Lactic Acid 1.3 mmol/L (0.4-2.0)
--- NOTE | 2019-03-22 00:25 | ED.RN ---
COLLECTD FROM NEPHROSTOMY
[2019-03-22 00:30] LABS: Mucous, Urine 0 SEEN /hpf (<or=2+)
[2019-03-22 00:31] LABS: Color, Urine Yellow (Yellow); Glucose, Dipstick Normal (Normal); Ketone-Dipstick Negative (Negative); Leukocyte Esterase-Dipstick 500 /ul (Negative); Nitrite-Dipstick Negative (Negative); Occult Blood-Urine 150 /ul (Negative); Protein-Dipstick 100 mg/dl (Negative); Specific Gravity, Urine 1.015 (1.002-1.030); Urine Bilirubin Dipstick Negative (Negative); Urine Clarity Cloudy (Clear); Urine Urobilinogen Normal (Normal)
[2019-03-22 00:39] LABS: Bacteria 2+ /hpf (None Seen); Red Blood Cells-Urine 0-5 SEEN /hpf (0-5); Squamous Epithelial Cells - UA 0-5 SEEN /hpf (5-10); White Blood Cells >100 SEEN /hpf (0-5)
--- NOTE | 2019-03-22 01:26 | ED.VISSUMM ---
- ER Visit Summary Date of Service: 03/22/19 Chief Complaint: Fever History of Present Illness: The patient is a 58 F who presents with fever. Patient does have a history of ovarian cancer. She had chemotherapy on March 16. She did not get Neulasta. She had a temperature at home today 100.6. She took Tylenol and had a nap. When she rechecked her temperature was up to 101.3. Her only other complaint is feeling gassy but does not have any pain. No chest pain shortness of breath cough. No urinary symptoms. She does have a right-sided nephrostomy. Physical Examination: Heart rate 112 vitals otherwise normal Moist mucous membranes Heart regular slightly tachycardic Lungs are clear Abdomen soft nontender nondistended Alert Test Results: Labs notable for white count 4.0, hemoglobin 9.2. Creatinine is 1.5 which is slightly elevated from baseline. Liver function normal. INR normal. Lactic acid 1.3. Blood and urine cultures were sent. Urinalysis obtained from the right nephrostomy does show 500 leukocyte esterase, greater than 100 WBCs, 2+ bacteria. Patient unable to provide a voided specimen. Emergency Department Course and Treatment: Patient was empirically given meropenem due to concern for potential neutropenic fever. She was also given IV fluids. Her absolute neutrophil count is greater than 2000. Her repeat heart rate is 76. I did speak to Dr. Stokes who is on-call for oncology at [facility]. She agrees with my plan for oral antibiotics and discharge. They will call to check on her tomorrow. The patient understands to return for any new or worsening symptoms. She is agreeable to this plan was discharged home. Treatment Plan: [] Disposition: Discharge Impression: UTI This note was generated with [employer] software. It may contain incorrect words, spelling, and punctuation that were not noted in review of the chart prior to signing ED Disposition - Plan for ED Patient: Referrals: Charly Blackmon MD [Primary Care Provider] -
[2019-03-22 01:30] VITALS: BP 109/72; PULSE 73; PULSE 75; RESP 16; TEMP 36.9; O2SAT 96; O2SAT 97
--- NOTE | 2019-03-22 01:30 | ED.DCSUM_ITS ---
- ER Visit Summary Date of Service: 03/22/19 Chief Complaint: Fever History of Present Illness: The patient is a 58 F who presents with fever. Patient does have a history of ovarian cancer. She had chemotherapy on March 16. She did not get Neulasta. She had a temperature at home today 100.6. She took Tylenol and had a nap. When she rechecked her temperature was up to 101.3. Her only other complaint is feeling gassy but does not have any pain. No chest pain shortness of breath cough. No urinary symptoms. She does have a right- sided nephrostomy. Physical Examination: Heart rate 112 vitals otherwise normal Moist mucous membranes Heart regular slightly tachycardic Lungs are clear Abdomen soft nontender nondistended Alert Test Results: Labs notable for white count 4.0, hemoglobin 9.2. Creatinine is 1.5 which is slightly elevated from baseline. Liver function normal. INR normal. Lactic acid 1.3. Blood and urine cultures were sent. Urinalysis obtained from the right nephrostomy does show 500 leukocyte esterase, greater than 100 WBCs, 2+ bacteria. Patient unable to provide a voided specimen. Emergency Department Course and Treatment: Patient was empirically given meropenem due to concern for potential neutropenic fever. She was also given IV fluids. Her absolute neutrophil count is greater than 2000. Her repeat heart rate is 76. I did speak to Dr. Stokes who is on-call for oncology at [facility]. She agrees with my plan for oral antibiotics and discharge. They will call to check on her tomorrow. The patient understands to return for any new or worsening symptoms. She is agreeable to this plan was discharged home. Treatment Plan: [] Disposition: Discharge Impression: UTI This note was generated with [employer] (acquired by [employer] in 2014)ation software. It may contain incorrect words, spelling, and punctuation that were not noted in review of the chart prior to signing ED Disposition - Plan for ED Patient: Referrals: Charly Blackmon MD [Primary Care Provider] -
--- NOTE | 2019-03-22 01:30 | ED.DEP ---
ED Disposition - Plan for ED Patient: Instructions: ED Kidney Infec Female Prescriptions: Smz/Tmp Ds [Bactrim Ds] 1 tab PO BID #20 tab Referrals: Charly Blackmon MD [Primary Care Provider] -
== END 2019-03-22 01:42 | disposition home or self-care (01) ==
LOC: ED 22:52
PROVIDERS: Emergency Provider Emergency Medicine; Family Provider Family Medicine; PCP Family Medicine
DX: N39.0 Urinary tract infection, site not specified (principal); I10 Essential (primary) hypertension; K21.9 Gastro-esophageal reflux disease without esophagitis; Z79.899 Other long term (current) drug therapy; Z93.6 Other artificial openings of urinary tract status; Z86.718 Personal history of other venous thrombosis and embolism; Z85.43 Personal history of malignant neoplasm of ovary; Z92.21 Personal history of antineoplastic chemotherapy
CPT/HCPCS: 71046; 80053; 81001; 83605; 85025; 85610; 87040; 87086; 87088; 96365; 99283; J2185; J7030; A4216

== ENCOUNTER → 2019-03-28 11:08 | Outpatient (CLI) | payer OTHER, SELFPAY ==
[2019-03-21 22:24] VITALS: BMI 29.9
[2019-03-28 13:50] LABS: Color, Urine Yellow (Yellow); Glucose, Dipstick Normal (Normal); Ketone-Dipstick Negative (Negative); Leukocyte Esterase-Dipstick 500 /ul (Negative); Nitrite-Dipstick Negative (Negative); Occult Blood-Urine 250 /ul (Negative); Protein-Dipstick 100 mg/dl (Negative); Urine Bilirubin Dipstick Negative (Negative); Urine Clarity Cloudy (Clear); Urine Urobilinogen Normal (Normal)
== END ==
PROVIDERS: Family Provider Family Medicine; PCP Family Medicine
DX: N39.0 Urinary tract infection, site not specified (principal)
CPT/HCPCS: 81002; 87086; 87088; 87186

== ENCOUNTER → 2019-04-20 12:07 | Outpatient (CLI) | payer OTHER, SELFPAY ==
[2019-03-21 22:24] VITALS: BMI 29.9
[2019-04-20 14:53] LABS: Color, Urine Yellow (Yellow); Glucose, Dipstick Normal (Normal); Ketone-Dipstick Negative (Negative); Leukocyte Esterase-Dipstick 500 /ul (Negative); Nitrite-Dipstick Negative (Negative); Occult Blood-Urine 25 /ul (Negative); Protein-Dipstick 30 mg/dl (Negative); Specific Gravity, Urine 1.015 (1.002-1.030); Urine Bilirubin Dipstick Negative (Negative); Urine Urobilinogen Normal (Normal)
[2019-04-20 14:56] LABS: Urine Clarity Cloudy (Clear)
== END ==
PROVIDERS: Family Provider Family Medicine; PCP Family Medicine
DX: N13.30 Unspecified hydronephrosis (principal)
CPT/HCPCS: 81002; 87086; 87088

== ENCOUNTER 2019-05-20 02:52 | Emergency (ER) | payer OTHER, SELFPAY ==
[2019-05-20 02:53] VITALS: BP 155/99; PULSE 92; RESP 18; TEMP 36.5; O2SAT 97; BMI 30.5
[2019-05-20 03:48] LABS: Absolute Lymphocyte Count 1.88 X10^3/uL (0.83-4.51); Absolute Neutrophil Count 4.2 X10^3/uL (2.0-7.7); Basophil# 0.02 X10^3/uL; Basophil% 0.3 % (0-1); Eosinophil# 0.24 X10^3/uL; Eosinophils% 3.4 % (0-5); Hematocrit 28.4 % (37-47); Hemoglobin 8.9 g/dL (12.0-15.0); Lymphocyte # 1.88 X10^3/ul (4.0); Lymphocyte % 26.4 % (19-41); Mean Corp Hgb Conc 31.3 g/dL (32-36); Mean Corpuscular Hgb 29.6 pg (27.0-32.0); Mean Corpuscular Volume 94.4 fL (81-99); Mean Platelet Vol. 9.5 fl (6.2-12.0); Monocyte# 0.78 X10^3/uL; Monocyte% 10.9 % (0-10); NRBC Flagged by Analyzer 0 % (0-5); Neutrophil # 4.15 X10^3/uL (2.7-7.7); Neutrophil % 58.2 % (47-70); Platelet Count 338 K/mm3 (150-450); RBC Distribution Width CV 15.9 % (11.6-14.6); RBC Distribution Width SD 55.3 fl (35.1-43.9); Red Blood Count 3.01 M/mm3 (4.2-5.4); White Blood Count 7.1 K/mm3 (4.4-11.0)
[2019-05-20 03:54] LABS: Prothrombin Time (Protime)PT. 12.8 SECONDS (11.7-14.9)
[2019-05-20 03:57] LABS: Anion Gap 6 (5-15); BUN 21 mg/dL (7-18); BUN/Creat Ratio 20.4 RATIO (10-20); Calcium,Total 8.6 mg/dL (8.5-10.1); Chloride 105 mmol/L (98-107); Creatinine, Serum 1.03 mg/dL (0.55-1.02); EST Glomerular Filtration Rate 58 mL/min (>60); Est Glom Filt Rate - Afr Amer 70 mL/min (>60); Estimated Creatinine Clearance 50.78 ml/min; Glucose 141 mg/dL (74-106); Sodium Level 139 mmol/L (136-145)
--- NOTE | 2019-05-20 04:33 | CT_ITS ---
STUDY: CT ABDOMEN AND PELVIS WITHOUT CONTRAST REASON FOR EXAM: Female, 58 years old. POST OP 05/03/19 BLEEDING. Pt had ITA/BSO,appendectomy,lymph nodes removed and 2 tumors removed from pelvis d/t ovarian and rectal cancer. Also had philip filter placed 05/02/19 RADIATION DOSAGE (If Supplied By Facility): CTDIvol = ( 19.65 ) mGy, DLP = ( 1251.72 ) mGycm TECHNIQUE: Transaxial images were obtained from the dome of the diaphragm to the symphysis pubis without oral contrast, and without intravenous contrast. Sagittal and coronal images were reconstructed. Individualized dose optimization techniques were used for this CT. COMPARISON: 02/07/2019 FINDINGS: The visualized lung bases are unremarkable. The visualized portions of the heart are within normal limits. Normal liver. Normal gallbladder and extrahepatic biliary system. Normal spleen. Normal pancreas. Normal bilateral adrenal glands. There is a cyst in the right kidney measures 1 cm. There is moderate right-sided hydronephrosis and hydroureter. No stones are seen. Normal left kidney. Normal visualized stomach. Normal small intestine. Normal colon. There is non-visualization of the appendix. Normal abdominal aorta. There is an IVC filter in place. There is retroperitoneal lymphadenopathy appears larger when compared to the previous study. The largest lymph node now measures 3 x 2.6 cm, and measured previously 2.7 x 2.4 cm is in the left periaortic region. Normal urinary bladder. There is a cystic lesion on the right side of the pelvis measures 1 cm may represent an adnexal cyst. Postsurgical changes noted in the anterior abdominal wall. There is presacral fat stranding also consistent with postsurgical changes. Normal osseous structures. CT/Abdomen/Pelvis W IV Cont ONLY IMPRESSION: There is moderate right-sided hydronephrosis and hydroureter. No stones are seen. There is a cystic lesion on the right side of the pelvis measures 1 cm may represent an adnexal cyst. There is retroperitoneal lymphadenopathy appears larger when compared to the previous study. The largest lymph node now measures 3 x 2.6 cm, and measured previously 2.7 x 2.4 cm is in the left periaortic region. Electronically Signed: Justyna Worthington, at 5:38 EDT Tel , Service support ,
--- NOTE | 2019-05-20 04:37 | ED.DCSUM_ITS ---
- ER Visit Summary Date of Service: 05/20/19 Chief Complaint: Vaginal bleeding History of Present Illness: The patient is a 58 F who presents with vaginal bleeding. She has a history of ovarian cancer. On May 03 she had an open hysterectomy bowel resection and appendectomy. This was done at [facility] in [place]. Tonight she had a sensation that she needed to have a bowel movement and then developed vaginal bleeding with clots. She denies pain. No fevers chest pain shortness of breath. Physical Examination: Afebrile vitals unremarkable Moist mucous membranes Heart regular rate and rhythm Lungs are clear Abdomen soft nontender abdominal incision is clean dry and intact Speculum examination shows moderate bright vaginal bleeding and small clots. I did not visualize the full cuff however I do not see any obvious evidence of dehiscence such as bowel in the vault Test Results: Labs notable for hemoglobin 8.9 hematocrit 28.4. INR 1.0. Emergency Department Course and Treatment: Work-up as above. I was unable to visualize a definitive source of bleeding. I spoke to the fellow who agreed with my plan for transfer. I spoke to the patient's surgeon who agreed to accept the patient and notes he would be concerned about a vaginal cuff hematoma or dehiscence. Dehiscence is thought to be less likely given lack of abnormal drainage/discharge or obvious visualization of this on speculum exam. However he did request a CT of the abdomen and pelvis prior to transfer for further evaluation. Treatment Plan: [] Disposition: Transfer Impression: Postoperative bleeding This note was generated with [employer] dictation software. It may contain incorrect words, spelling, and punctuation that were not noted in review of the chart prior to signing ED Disposition - Plan for ED Patient: Referrals: Charly Blackmon MD [Primary Care Provider] -
[2019-05-20 05:45] VITALS: BP 155/91; PULSE 87; RESP 16; O2SAT 98
--- NOTE | 2019-05-20 08:01 | NURSING ---
NORA CALLED AND TALKED TO DR HO
--- NOTE | 2019-05-20 08:27 | NURSING ---
CALLED [facility]. PER THE ONCOLOGY GYNO DR, THEY WANT PATIENT TRANSFERRED TO ER. DR HO IS TALKING TO ER DOC
[2019-05-20 08:29] LABS: Hematocrit 27.8 % (37-47); Hemoglobin 8.8 g/dL (12.0-15.0)
--- NOTE | 2019-05-20 08:33 | NURSING ---
[facility] 21 REPORT [phone]
--- NOTE | 2019-05-20 08:38 | NURSING ---
NORA CANELA 5 5TH FLOOR ROM 21
--- NOTE | 2019-05-20 08:49 | NURSING ---
CALLED [facility] FOR TRANSPORT. ETA IS 15 MIN
--- NOTE | 2019-05-20 09:05 | NURSING ---
[id number] CALLED [facility], ETA IS 15 MIN
[2019-05-20 09:20] VITALS: BP 123/82; PULSE 78; RESP 18; O2SAT 96
== END 2019-05-20 09:22 | disposition short-term general hospital (02) ==
PROVIDERS: Emergency Medicine; Emergency Provider Emergency Medicine; Family Provider Family Medicine; PCP Family Medicine
DX: N99.820 Postprocedural hemorrhage of a genitourinary system organ or structure following a genitourinary system procedure (principal); Z79.01 Long term (current) use of anticoagulants; Z79.899 Other long term (current) drug therapy; Z85.43 Personal history of malignant neoplasm of ovary; Z90.710 Acquired absence of both cervix and uterus
CPT/HCPCS: 74177; 80048; 85014; 85018; 85025; 85610; 99285; Q9967; A4216

== ENCOUNTER → 2019-06-08 14:41 | Outpatient (CLI) | payer OTHER, SELFPAY ==
[2019-05-20 02:53] VITALS: BMI 30.5
== END ==
PROVIDERS: Family Provider Family Medicine; PCP Family Medicine; Referring Provider Family Medicine; Visit Provider Family Medicine
DX: J02.9 Acute pharyngitis, unspecified (principal)
CPT/HCPCS: 87070

== ENCOUNTER → 2019-06-13 11:59 | Outpatient (CLI) | payer OTHER, SELFPAY ==
[2019-05-20 02:53] VITALS: BMI 30.5
[2019-06-13 13:46] LABS: Absolute Lymphocyte Count 1.49 X10^3/uL (0.83-4.51); Absolute Neutrophil Count 2.6 X10^3/uL (2.0-7.7); Basophil# 0.01 X10^3/uL; Basophil% 0.2 % (0-1); Eosinophil# 0.14 X10^3/uL; Hematocrit 34.7 % (37-47); Hemoglobin 11.1 g/dL (12.0-15.0); Lymphocyte # 1.49 X10^3/ul (4.0); Lymphocyte % 32.2 % (19-41); Mean Corpuscular Hgb 30.6 pg (27.0-32.0); Mean Corpuscular Volume 95.6 fL (81-99); Mean Platelet Vol. 10.2 fl (6.2-12.0); Monocyte# 0.35 X10^3/uL; Monocyte% 7.6 % (0-10); NRBC Flagged by Analyzer 0 % (0-5); Neutrophil # 2.63 X10^3/uL (2.7-7.7); Neutrophil % 56.8 % (47-70); Platelet Count 216 K/mm3 (150-450); RBC Distribution Width CV 13.5 % (11.6-14.6); RBC Distribution Width SD 48.1 fl (35.1-43.9); Red Blood Count 3.63 M/mm3 (4.2-5.4); White Blood Count 4.6 K/mm3 (4.4-11.0)
[2019-06-13 14:02] LABS: ALB/GLOB Ratio 0.9 RATIO (0.9-2.4); AST(SGOT) 12 U/L (15-37); Alanine Aminotransfer ALT/SGPT 27 U/L (13-56); Albumin, Serum 3.6 g/dL (3.2-5.0); Alkaline Phosphatase 86 U/L (45-117); Anion Gap 8 (5-15); BUN 19 mg/dL (7-18); BUN/Creat Ratio 19.3 RATIO (10-20); Calcium,Total 9.2 mg/dL (8.5-10.1); Chloride 107 mmol/L (98-107); Creatinine, Serum 0.98 mg/dL (0.55-1.02); EST Glomerular Filtration Rate 61 mL/min (>60); Est Glom Filt Rate - Afr Amer 74 mL/min (>60); Globulin 4.1 g/dL (2.2-4.2); Glucose 96 mg/dL (74-106); Magnesium 2.2 mg/dL (1.6-2.6); Potassium 4.5 mmol/L (3.5-5.1); Protein, Total 7.7 g/dL (6.4-8.2); Sodium Level 141 mmol/L (136-145)
[2019-06-14 08:35] LABS: Cancer Antigen 125 509.8 U/mL (0.0-38.1)
== END ==
PROVIDERS: Family Provider Family Medicine; PCP Family Medicine
DX: C56.9 Malignant neoplasm of unspecified ovary (principal)
CPT/HCPCS: 36415; 80053; 83735; 85025; 86304

== ENCOUNTER 2019-06-14 23:24 | Emergency (ER) | payer OTHER, SELFPAY ==
[2019-06-14 23:25] VITALS: BP 140/91; PULSE 96; RESP 20; TEMP 36.4; BMI 30.5
--- NOTE | 2019-06-14 23:44 | EKG12_ITS ---
Test Reason : ABD PAIN Blood Pressure : / mmHG Vent. Rate : 080 BPM Atrial Rate : 080 BPM P-R Int : 136 ms QRS Dur : 082 ms QT Int : 380 ms P-R-T Axes : 040 -02 039 degrees QTc Int : 438 ms Normal sinus rhythm Normal ECG Confirmed by HANNA PATEL ([id number]), video effects editor ANNA SMITH ([id number]) on 06/20/2019 2:11:15 PM Referred By: NEEL GORMAN Confirmed By:HANNA PATEL
--- NOTE | 2019-06-14 23:44 | CT_ITS ---
STUDY: CT ABDOMEN AND PELVIS WITH CONTRAST REASON FOR EXAM: Female, 58 years old. Abdominal pain. Ovarian cancer. RADIATION DOSAGE (If Supplied By Facility): CTDIvol = ( 17.45 ) mGy, DLP = ( 978.74 ) mGycm TECHNIQUE: Transaxial images were obtained from the dome of the diaphragm to the symphysis pubis with oral contrast. 100 IV/Oral Isovue 300 was administered. Sagittal and coronal images were reconstructed. Individualized dose optimization techniques were used for this CT. COMPARISON: May 20, 2019. FINDINGS: The visualized lung bases are unremarkable. The visualized portions of the heart are within normal limits. Borderline hepatomegaly. Normal gallbladder and extrahepatic biliary system. Normal spleen. Normal pancreas. Normal bilateral adrenal glands. Subcentimeter right renal cortical cyst. Mild dilatation right renal collecting system not significantly changed. No evidence of obstructing stone. Normal visualized stomach. Dilated fluid-filled loops of small bowel left hemipelvis measuring up to 3.1 cm in transverse dimension. Some nondilated loops demonstrate wall thickening. Normal colon. There is non-visualization of the appendix. Normal abdominal aorta. Surgical clips in the midabdomen. Surgical clips in the posterior pelvis. Left para-aortic adenopathy measuring 2.8 x 1.6 cm at approximately the level of the right kidney unchanged. There is an IVC filter in place. Normal retroperitoneum. No intra-abdominal free air. Normal urinary bladder. Uterus absent compatible with hysterectomy. Increase in size of simple right ovarian cyst which now measures 7.4 x 5.6 cm, attenuation 6 Hounsfield units. Normal abdominal wall. Mild degenerative changes of the thoracic and lumbar spine. CT/Abdomen/Pelvis WITH Contrast IMPRESSION: Developing mid small bowel obstruction. Stable left para-aortic lymphadenopathy. Increase in size of simple right ovarian cyst. Small right renal cyst. Electronically Signed: Mariusz Kapoor MD at 3:03 EDT , Service support ,
--- NOTE | 2019-06-14 23:54 | ED.DCSUM_ITS ---
- ER Visit Summary Date of Service: 06/14/19 Chief Complaint: Abdominal pain History of Present Illness: The patient is a 58 F who states that she this afternoon she developed a epigastric abdominal pain. She describes as a sharp and painful. It does not radiate. She notes nausea but no vomiting. 2 normal bowel movements this morning. Approximately 6 weeks ago she was diagnosed with ovarian cancer and underwent hysterectomy. This was complicated postoperatively by hematoma. She has known clotting disorder and has an IVC filter as well as on Lovenox currently. Patient states she has had a small bowel obstruction but this feels different. She still has her gallbladder. No history of pancreat itis. Physical Examination: Afebrile vital signs stable Gen: Well-nourished well-developed Head: Normocephalic atraumatic Eyes: Perrl EOMI ENT: TMs clear no rhinorrhea moist mucous membranes Neck: Supple no lymphadenopathy no JVD nontender CVS: Regular rate rhythm no murmurs normal S1-S2 Respiratory: No distress clear to auscultation bilaterally chest nontender Abdomen: Soft to palpation in the epigastric region without guarding or rebound nondistended normal bowel sounds no masses Back: Nontender Extremity: Nontender no edema Skin: Normal color no rash Neuro: alert orientated ?3 CN II-XII intact normal strength sensation Psych: Normal affect normal mood Test Results: EKG shows a normal sinus rhythm at a rate of 80. There is no ectopy or concerning features of ACS. White count is normal. Chemistry showed a glucose 161 BUN 24 creatinine 1.11. Troponin negative lipase 163 liver enzymes are normal. CT and pelvis demonstrates small bowel obstruction as well as a 7.4 x 5.6 cm ovarian cyst. Emergency Department Course and Treatment: Patient received IV fluids morphine and Zofran. Repeat examination states that she is feeling better. Patient received a lidocaine aerosol Ativan and morphine and we placed an NG tube. Looking at the CT is being read as a simple ovarian cyst on the right. Patient assures me that she has had a full hysterectomy. Patient will need to be transferred to her doctors at [facility]. I spoke with the transfer line and then Dr. Stokes from [facility] on surgery. We reviewed the CT findings and her labs. She has been accepted and we are currently awaiting a bed assignment Impression: 1. Acute small bowel obstruction 2. Cystic structure 7 cm right pelvis This note was generated with Dragon dictation software. It may contain incorrect words, spelling, and punctuation that were not noted in review of the chart prior to signing ED Disposition - Plan for ED Patient: Referrals: Charly Blackmon MD [Primary Care Provider] -
[2019-06-15] VITALS (8 sets, daily range): BP systolic 121–148; BP diastolic 76–86; PULSE 75–90; RESP 16–19; TEMP 37.2–37.8; O2SAT 94–97
[2019-06-15 00:30] LABS: Absolute Neutrophil Count 7.8 X10^3/uL (2.0-7.7); Basophil# 0.02 X10^3/uL; Basophil% 0.2 % (0-1); Eosinophil# 0.07 X10^3/uL; Eosinophils% 0.7 % (0-5); Hematocrit 38.8 % (37-47); Hemoglobin 12.5 g/dL (12.0-15.0); Lymphocyte % 10.6 % (19-41); Mean Corp Hgb Conc 32.2 g/dL (32-36); Mean Corpuscular Hgb 30.6 pg (27.0-32.0); Mean Corpuscular Volume 94.9 fL (81-99); Mean Platelet Vol. 9.7 fl (6.2-12.0); Monocyte# 0.49 X10^3/uL; Monocyte% 5.2 % (0-10); NRBC Flagged by Analyzer 0 % (0-5); Neutrophil # 7.84 X10^3/uL (2.7-7.7); Neutrophil % 83.1 % (47-70); Platelet Count 189 K/mm3 (150-450); RBC Distribution Width CV 13.4 % (11.6-14.6); RBC Distribution Width SD 46.9 fl (35.1-43.9); Red Blood Count 4.09 M/mm3 (4.2-5.4); White Blood Count 9.4 K/mm3 (4.4-11.0)
[2019-06-15] MEDS: Ondansetron 4 MG/2 ML Vial IV (00:33)
[2019-06-15] MEDS: 0.9% Normal Saline 1,000 ML 125 ML IV ×2 (00:33→03:30)
[2019-06-15] MEDS: Morphine 4 MG/ML Syringe IV (00:34)
[2019-06-15 00:50] LABS: AST(SGOT) 10 U/L (15-37); Alanine Aminotransfer ALT/SGPT 23 U/L (13-56); Albumin, Serum 3.8 g/dL (3.2-5.0); Alkaline Phosphatase 96 U/L (45-117); Anion Gap 5 (5-15); BUN 24 mg/dL (7-18); BUN/Creat Ratio 21.6 RATIO (10-20); Bilirubin, Direct 0.08 mg/dL (0.00-0.30); Calcium,Total 9.3 mg/dL (8.5-10.1); Chloride 104 mmol/L (98-107); Creatinine, Serum 1.11 mg/dL (0.55-1.02); EST Glomerular Filtration Rate 53 mL/min (>60); Est Glom Filt Rate - Afr Amer 65 mL/min (>60); Estimated Creatinine Clearance 47.12 ml/min; Globulin 4.5 g/dL (2.2-4.2); Glucose 161 mg/dL (74-106); Lipase 163 U/L (73-393); Potassium 4.1 mmol/L (3.5-5.1); Protein, Total 8.3 g/dL (6.4-8.2); Sodium Level 137 mmol/L (136-145)
--- NOTE | 2019-06-15 03:11 | RAD_ITS ---
STUDY: X-RAY - ABDOMEN/PELVIS REASON FOR EXAM: Female, 58 years old. Nasogastric tube placement. TECHNIQUE: AP portable chest. COMPARISON: Fiber Artist view CT abdomen and pelvis June 15, 2019. FINDINGS: Nasogastric tube tip in the left midabdomen in the region of the gastric body. Caval filter. Study limited by patient body habitus. Lung bases are clear. RAD/Abdomen Single View (Portable) IMPRESSION: Nasogastric tube tip in the gastric body. Electronically Signed: Mariusz Kapoor MD at 4:24 EDT , Service support ,
[2019-06-15] MEDS: Morphine 2 MG/ML Syringe IV (03:28)
[2019-06-15] MEDS: LORazepam 2 MG/ML Syringe 0.5 MG IV (03:30)
[2019-06-15] MEDS: Lidocaine 4% 5 ML Ampul 2 ML INHALATION (03:30)
--- NOTE | 2019-06-15 08:00 | NURSING ---
CALLED [facility]. TALKED TO BILLY AT TRANSFER LINE. WAITING ON DISCHARGES
[2019-06-15] MEDS: BENZOCAINE 20% SPRAY 1 EACH MM (09:25)
--- NOTE | 2019-06-15 11:09 | NURSING ---
CALLED [facility], TALKED TO MAURI. NO BED YET
--- NOTE | 2019-06-15 13:01 | NURSING ---
[facility] ROOM 6018 REPORT [phone]
[2019-06-15] MEDS: Acetaminophen 500 MG Tablet 1000 MG PO (13:29)
--- NOTE | 2019-06-15 14:03 | NURSING ---
called report to [facility] for bed 6018 at the [facility]. pt has been on this floor before. pt will be taken by [facility], paper work filled out. pt signed form and consented to being transferred.
== END 2019-06-15 14:09 | disposition short-term general hospital (02) ==
PROVIDERS: Emergency Provider Emergency Medicine; Family Provider Family Medicine; PCP Family Medicine
DX: K56.609 Unspecified intestinal obstruction, unspecified as to partial versus complete obstruction (principal); N83.201 Unspecified ovarian cyst, right side; N94.89 Other specified conditions associated with female genital organs and menstrual cycle; I10 Essential (primary) hypertension; K21.9 Gastro-esophageal reflux disease without esophagitis; Z79.01 Long term (current) use of anticoagulants; Z90.710 Acquired absence of both cervix and uterus; Z95.828 Presence of other vascular implants and grafts; Z79.899 Other long term (current) drug therapy
CPT/HCPCS: 74018; 74177; 80048; 80076; 83690; 84484; 85025; 93005; 96361; 96374; 96375; 99285; J7030; Q9967; J2405

== ENCOUNTER → 2019-07-25 10:27 | Outpatient (CLI) | payer OTHER, SELFPAY ==
[2019-07-25 10:58] LABS: Absolute Neutrophil Count 1.8 X10^3/uL (2.0-7.7); Basophil# 0.01 X10^3/uL; Basophil% 0.3 % (0-1); Eosinophil# 0.02 X10^3/uL; Eosinophils% 0.6 % (0-5); Hematocrit 34.5 % (37-47); Lymphocyte % 38.5 % (19-41); Mean Corp Hgb Conc 31.9 g/dL (32-36); Mean Corpuscular Hgb 30.2 pg (27.0-32.0); Mean Corpuscular Volume 94.8 fL (81-99); Mean Platelet Vol. 9.5 fl (6.2-12.0); Monocyte# 0.27 X10^3/uL; NRBC Flagged by Analyzer 0 % (0-5); Neutrophil # 1.77 X10^3/uL (2.7-7.7); Neutrophil % 52.3 % (47-70); Platelet Count 73 K/mm3 (150-450); Red Blood Count 3.64 M/mm3 (4.2-5.4); White Blood Count 3.4 K/mm3 (4.4-11.0)
[2019-07-25 11:42] LABS: AST(SGOT) 11 U/L (15-37); Alanine Aminotransfer ALT/SGPT 28 U/L (13-56); Albumin, Serum 3.8 g/dL (3.2-5.0); Alkaline Phosphatase 94 U/L (45-117); Anion Gap 6 (5-15); BUN 26 mg/dL (7-18); BUN/Creat Ratio 24.1 RATIO (10-20); Calcium,Total 9.1 mg/dL (8.5-10.1); Chloride 107 mmol/L (98-107); Creatinine, Serum 1.08 mg/dL (0.55-1.02); EST Glomerular Filtration Rate 55 mL/min (>60); Est Glom Filt Rate - Afr Amer 67 mL/min (>60); Globulin 3.9 g/dL (2.2-4.2); Glucose 107 mg/dL (74-106); Potassium 4.8 mmol/L (3.5-5.1); Protein, Total 7.7 g/dL (6.4-8.2); Sodium Level 142 mmol/L (136-145)
[2019-07-26 13:49] LABS: Cancer Antigen 125 410.4 U/mL (0.0-38.1)
== END ==
PROVIDERS: Family Provider Family Medicine; PCP Family Medicine
DX: Z51.11 Encounter for antineoplastic chemotherapy (principal); C56.9 Malignant neoplasm of unspecified ovary
CPT/HCPCS: 36415; 80053; 83735; 85025; 86304

== ENCOUNTER → 2019-08-08 09:40 | Outpatient (CLI) | payer OTHER, SELFPAY ==
[2019-08-08 12:30] LABS: Absolute Neutrophil Count 2.2 X10^3/uL (2.0-7.7); Basophil# 0.02 X10^3/uL; Basophil% 0.5 % (0-1); Eosinophil# 0.07 X10^3/uL; Eosinophils% 1.6 % (0-5); Hematocrit 34.4 % (37-47); Hemoglobin 11.1 g/dL (12.0-15.0); Lymphocyte % 34.2 % (19-41); Mean Corp Hgb Conc 32.3 g/dL (32-36); Mean Corpuscular Volume 96.1 fL (81-99); Mean Platelet Vol. 9.9 fl (6.2-12.0); Monocyte# 0.57 X10^3/uL; NRBC Flagged by Analyzer 0 % (0-5); Neutrophil # 2.21 X10^3/uL (2.7-7.7); Neutrophil % 50.5 % (47-70); Platelet Count 250 K/mm3 (150-450); RBC Distribution Width SD 48.8 fl (35.1-43.9); Red Blood Count 3.58 M/mm3 (4.2-5.4); White Blood Count 4.4 K/mm3 (4.4-11.0)
[2019-08-08 12:53] LABS: ALB/GLOB Ratio 0.9 RATIO (0.9-2.4); AST(SGOT) 15 U/L (15-37); Alanine Aminotransfer ALT/SGPT 28 U/L (13-56); Albumin, Serum 3.7 g/dL (3.2-5.0); Alkaline Phosphatase 91 U/L (45-117); Anion Gap 7 (5-15); BUN 28 mg/dL (7-18); BUN/Creat Ratio 26.2 RATIO (10-20); Chloride 107 mmol/L (98-107); Creatinine, Serum 1.07 mg/dL (0.55-1.02); EST Glomerular Filtration Rate 56 mL/min (>60); Est Glom Filt Rate - Afr Amer 67 mL/min (>60); Globulin 3.9 g/dL (2.2-4.2); Glucose 98 mg/dL (74-106); Magnesium 2.2 mg/dL (1.6-2.6); Potassium 4.8 mmol/L (3.5-5.1); Protein, Total 7.6 g/dL (6.4-8.2); Sodium Level 141 mmol/L (136-145)
== END ==
PROVIDERS: Family Provider Family Medicine; PCP Family Medicine
DX: C56.9 Malignant neoplasm of unspecified ovary (principal)
CPT/HCPCS: 36415; 80053; 83735; 85025

== ENCOUNTER → 2019-09-05 12:40 | Outpatient (CLI) | payer OTHER, SELFPAY ==
[2019-09-05 14:51] LABS: Absolute Lymphocyte Count 1.21 X10^3/uL (0.83-4.51); Basophil# 0.02 X10^3/uL; Basophil% 0.6 % (0-1); Eosinophil# 0.03 X10^3/uL; Eosinophils% 0.8 % (0-5); Hematocrit 33.6 % (37-47); Hemoglobin 10.9 g/dL (12.0-15.0); Lymphocyte # 1.21 X10^3/ul (4.0); Lymphocyte % 33.7 % (19-41); Mean Corp Hgb Conc 32.4 g/dL (32-36); Mean Corpuscular Hgb 30.8 pg (27.0-32.0); Mean Corpuscular Volume 94.9 fL (81-99); Mean Platelet Vol. 9.5 fl (6.2-12.0); Monocyte% 8.4 % (0-10); NRBC Flagged by Analyzer 0 % (0-5); Neutrophil # 2.01 X10^3/uL (2.7-7.7); Neutrophil % 55.9 % (47-70); POSITIVE COUNT YES; Platelet Count 91 K/mm3 (150-450); RBC Distribution Width CV 14.6 % (11.6-14.6); RBC Distribution Width SD 50.6 fl (35.1-43.9); Red Blood Count 3.54 M/mm3 (4.2-5.4); White Blood Count 3.6 K/mm3 (4.4-11.0)
[2019-09-05 14:56] LABS: Differential Indicated SCAN CRITERIA MET
[2019-09-05 15:08] LABS: AST(SGOT) 13 U/L (15-37); Alanine Aminotransfer ALT/SGPT 35 U/L (13-56); Albumin, Serum 3.7 g/dL (3.2-5.0); Alkaline Phosphatase 78 U/L (45-117); Anion Gap 7 (5-15); BUN 24 mg/dL (7-18); BUN/Creat Ratio 25.8 RATIO (10-20); Calcium,Total 9.3 mg/dL (8.5-10.1); Chloride 107 mmol/L (98-107); Creatinine, Serum 0.93 mg/dL (0.55-1.02); EST Glomerular Filtration Rate 65 mL/min (>60); Est Glom Filt Rate - Afr Amer 79 mL/min (>60); Globulin 3.7 g/dL (2.2-4.2); Glucose 99 mg/dL (74-106); Magnesium 1.7 mg/dL (1.6-2.6); Potassium 4.3 mmol/L (3.5-5.1); Protein, Total 7.4 g/dL (6.4-8.2); Sodium Level 140 mmol/L (136-145)
[2019-09-05 15:34] LABS: Platelet Estimate SLT DEC (ADEQ); Red Cell Morphology NORM C+C NORMAL (NORM C&C)
[2019-09-07 12:20] LABS: Cancer Antigen 125 382.4 U/mL (0.0-38.1)
== END ==
PROVIDERS: Family Provider Family Medicine; PCP Family Medicine
DX: C56.9 Malignant neoplasm of unspecified ovary (principal)
CPT/HCPCS: 36415; 80053; 83735; 85025; 86304

== ENCOUNTER → 2019-10-03 12:47 | Outpatient (CLI) | payer OTHER, SELFPAY ==
--- NOTE | 2019-10-03 12:58 | CT_ITS ---
STUDY: CT ABDOMEN AND PELVIS WITH CONTRAST REASON FOR EXAM: Female, 58 years old. Lump and bloating at the site of initial incision. RADIATION DOSAGE (If Supplied By Facility): CTDIvol = ( 18.41 ) mGy, DLP = ( 1834.98 ) mGycm TECHNIQUE: Transaxial images were obtained from the dome of the diaphragm to the symphysis pubis without oral contrast. Oral and amp; IV Readi-CAT and amp; 100mL Isovue-370 was administered. Sagittal and coronal images were reconstructed. Individualized dose optimization techniques were used for this CT. COMPARISON: None. FINDINGS: There is mild posterior lower lobe dependent atelectasis, remainder of the visualized lung bases are unremarkable. The visualized portions of the heart are within normal limits. Possible mild diffuse fatty liver, otherwise normal liver. Normal gallbladder and extrahepatic biliary system. Normal spleen. Normal pancreas. Normal bilateral adrenal glands. Small low-attenuation structure within the lower pole of the right kidney measuring 8 mm, too small to be adequately characterize and statistically consistent with a cyst. Otherwise normal right kidney. Normal left kidney. Normal visualized stomach. Normal small intestine. Abundant fecal debris throughout the colon consistent with constipation. There is non-visualization of the appendix. There is mild atherosclerotic calcification of the abdominal aorta, without a demonstrated aneurysm. Normal inferior vena cava. Normal retroperitoneum. Urinary bladder is decompressed. There is absence of the uterus consistent with a prior hysterectomy. There is a ventral supraumbilical hernia containing a partial colonic loop of transverse colon. There is a second small left-sided periumbilical hernia containing a partial loop of small bowel. There is no evidence of obstruction or inflammatory change at these levels. Mild osteopenia along with multilevel degenerative disease of the spine and SI joints. CT/Abdomen/Pelvis WITH Contrast IMPRESSION: Constipation. No signs of bowel obstruction. No focal inflammatory process or the gastrointestinal tract. Diffuse fatty liver. Small right-sided renal cyst, remainder of abdominal viscera are unremarkable. Electronically Signed: Aisha Cerna MD at 23:15 EST , Service support ,
--- NOTE | 2019-10-03 12:58 | CT_ITS ---
STUDY: CT CHEST WITH CONTRAST REASON FOR EXAM: Female, 58 years old. Lump and bloating at the previous incision site. RADIATION DOSAGE (If Supplied By Facility): CTDIvol = ( 18.41 ) mGy, DLP = ( 1834.98 ) mGycm TECHNIQUE: Transaxial imaging was performed following intravenous administration of 100ML ISOVUE 370. Multiplanar coronal and sagittal images were reformatted. Individualized dose optimization techniques were used for this CT. COMPARISON: None. FINDINGS: There is mild posterior lower lobe dependent atelectasis, remainder of the lungs are normal. There is no demonstrated pleural abnormality. Normal heart and pericardium. Normal mediastinum. Normal hilar regions. Normal enhanced pulmonary arteries. Normal aorta arch and descending thoracic aorta. No abnormal enhancement. There are multi-level degenerative changes of the thoracic spine. Diffuse osteopenia. There is diffuse fatty liver. There is no demonstrated abnormality of the visualized upper abdomen. CT/Chest WITH Contrast IMPRESSION: Mild posterior dependent atelectasis, otherwise no acute cardiopulmonary process seen. Electronically Signed: Aisha Cerna MD at 23:10 EST , Service support ,
[2019-10-03 15:45] LABS: Absolute Lymphocyte Count 1.11 X10^3/uL (0.83-4.51); Absolute Neutrophil Count 1.8 X10^3/uL (2.0-7.7); Basophil# 0.01 X10^3/uL; Basophil% 0.3 % (0-1); Eosinophil# 0.01 X10^3/uL; Eosinophils% 0.3 % (0-5); Hematocrit 28.2 % (37-47); Hemoglobin 9.2 g/dL (12.0-15.0); Lymphocyte # 1.11 X10^3/ul (4.0); Lymphocyte % 34.6 % (19-41); Mean Corp Hgb Conc 32.6 g/dL (32-36); Mean Corpuscular Hgb 32.1 pg (27.0-32.0); Mean Corpuscular Volume 98.3 fL (81-99); Monocyte# 0.32 X10^3/uL; NRBC Flagged by Analyzer 0 % (0-5); Neutrophil # 1.76 X10^3/uL (2.7-7.7); Neutrophil % 54.8 % (47-70); POSITIVE COUNT YES; Platelet Count 72 K/mm3 (150-450); RBC Distribution Width CV 15.9 % (11.6-14.6); RBC Distribution Width SD 55.8 fl (35.1-43.9); Red Blood Count 2.87 M/mm3 (4.2-5.4); White Blood Count 3.2 K/mm3 (4.4-11.0)
[2019-10-03 16:05] LABS: Differential Indicated SCAN CRITERIA MET
[2019-10-03 16:10] LABS: ALB/GLOB Ratio 0.9 RATIO (0.9-2.4); AST(SGOT) 15 U/L (15-37); Alanine Aminotransfer ALT/SGPT 43 U/L (13-56); Albumin, Serum 3.6 g/dL (3.2-5.0); Alkaline Phosphatase 73 U/L (45-117); Anion Gap 6 (5-15); BUN 29 mg/dL (7-18); BUN/Creat Ratio 28.7 RATIO (10-20); Calcium,Total 8.8 mg/dL (8.5-10.1); Chloride 104 mmol/L (98-107); Creatinine, Serum 1.01 mg/dL (0.55-1.02); EST Glomerular Filtration Rate 60 mL/min (>60); Est Glom Filt Rate - Afr Amer 72 mL/min (>60); Globulin 3.8 g/dL (2.2-4.2); Glucose 127 mg/dL (74-106); Potassium 4.1 mmol/L (3.5-5.1); Protein, Total 7.4 g/dL (6.4-8.2); Sodium Level 137 mmol/L (136-145)
[2019-10-03 16:40] LABS: Anisocytosis RARE; Macrocytosis RARE; Platelet Estimate MOD DEC (ADEQ); Red Cell Morphology N CHROM NORMAL (NORM C&C)
[2019-10-03 16:41] LABS: Hypochromasia RARE
[2019-10-05 09:54] LABS: Cancer Antigen 125 277.6 U/mL (0.0-38.1)
== END ==
PROVIDERS: Family Provider Family Medicine; PCP Family Medicine
DX: C56.9 Malignant neoplasm of unspecified ovary (principal); Z79.899 Other long term (current) drug therapy
CPT/HCPCS: 36415; 71260; 74177; 80053; 85025; 86304; Q9967

== ENCOUNTER 2019-11-02 20:53 | Observation (INO) | payer OTHER, SELFPAY ==
[2019-11-02 20:55] VITALS: BP 131/77; PULSE 89; RESP 20; TEMP 37; O2SAT 95; BMI 36.6
--- NOTE | 2019-11-02 22:09 | CT_ITS ---
STUDY: CT ABDOMEN AND PELVIS WITHOUT CONTRAST REASON FOR EXAM: Female, 58 years old. LT LOW BACK PAIN -- HX:HTN,BOWEL OBSTRUCTIONS,OVARIAN CANCER -PT HAD CHEMO,ITA/BSO,APPENDECTOMY RADIATION DOSAGE (If Supplied By Facility): CTDIvol = ( 18.86 ) mGy, DLP = ( 1041.53 ) mGycm TECHNIQUE: Transaxial images were obtained from the dome of the diaphragm to the symphysis pubis without oral contrast, and without intravenous contrast. Sagittal and coronal images were reconstructed. Individualized dose optimization techniques were used for this CT. COMPARISON: October 03, 2019. FINDINGS: There is lower lung atelectasis. There are coronary artery calcifications. There is hepatomegaly with diffuse hepatic enlargement. There is decreased attenuation of the liver consistent with steatosis. Normal gallbladder and extrahepatic biliary system. Normal spleen. Normal pancreas. Normal bilateral adrenal glands. Normal right kidney. Normal left kidney. Normal visualized stomach. No dilated loops of small intestine. There is postoperative change of the colon. There is moderate stool. There is non-visualization of the appendix. Normal abdominal aorta. Normal inferior vena cava. There is postoperative change of the retroperitoneum. There is retroperitoneal lymphadenopathy with 4.0 cm left periaortic nodes, series 2 image 109/202. There are 2.5 cm interaortocaval nodes There are enlarged bilateral iliac nodes measuring up to 2.0 cm . Normal urinary bladder. There is absence of the uterus consistent with a prior hysterectomy. There is no free fluid in the abdomen or pelvis. There are multiple 1.0 to 1.5 cm nodules of the anterior abdominal wall. There are abdominal wall hernias. There are diffuse degenerative changes of the visualized lumbar spine. CT/Abdomen/Pelvis without Cont IMPRESSION: Worsening retroperitoneal lymphadenopathy suggesting metastatic disease or lymphoma. Liver is enlarged with diffuse fatty infiltration. Abdominal wall hernias. No obstruction. Nodular lesions of the abdominal wall could be related to injections. Electronically Signed: Marty Robles MD at 23:04 EST , Service support ,
--- NOTE | 2019-11-02 22:11 | ED.DCSUM_ITS ---
History of Present Illness Chief Complaint: Back Detail of Chief Complaint: Left low back pain Informant: Patient Onset: Today Context: Gradual Onset Timing: Waxes and wanes Current Severity: Mild Maximum Severity: Severe Narrative: Patient presents with pain to the left lower back today. Is been waxing and waning throughout the day. She did have nausea to episodes of vomiting. She states her temperature has been 100.5. She did take ibuprofen prior to arrival. Patient denies urinary symptoms. No problems with bowel movements. Past hi story significant for ovarian cancer diagnosed in November 2018. Last chemotherapy was in August. She did undergo full hysterectomy, appendectomy, and lymph node removal in April of last year. - Past Medical History (1) Ovarian cancer Status: Chronic (2) SBO (small bowel obstruction) Status: Chronic Past Medical History - Allergies and Home Meds Allergies/Adverse Reactions: Allergies carboplatin Allergy (Verified 11/02/19 20:54) Anaphylaxis unresponsive hydrocodone bitartrate [From Vicodin] Allergy (Verified 11/02/19 20:54) Hives paclitaxel Allergy (Verified 11/02/19 20:54) Anaphylaxis unresponsive Primary Care Physician: Charly Blackmon MD [Primary Care Provider] - Doctors: Oncologist at in [place] Prior records reviewed: Yes Surgical History: appendectomy, hysterectomy Lives: Spouse/ Significant Other Smoking Status: Never smoker Review of Systems General: Reports: Fever Eyes: Denies: Visual changes - bilaterally ENT: Denies: Bilateral ear pain Cardiovascular: Denies: Chest pain Respiratory: Denies: Dyspnea Gastrointestinal: Reports: Nausea, Vomiting. Denies: Abdominal pain, Diarrhea Genitourinary: Denies: Dysuria Musculoskeletal: Reports: Back pain. Denies: Extremity Pain Skin: Denies: Rash Neurological: Denies: Headache Physical Exam Vital Signs/Narrative: Vital Signs Temp Pulse Resp BP Pulse Ox 11/02/19 20:55 98.6 F 89 20 H 131/77 H 95 Inital Vital Signs reviewed: Yes General: Well nourished, Well developed Head: Normocephalic ENT: Moist mucous membranes Neck: Supple Cardiovascular: Regular rate, Regular rhythm Respiratory: No distress, CTA bilaterally Abdomen: Soft, Nontender Back: - - Minimal tenderness in the left low lumbar lateral paraspinal region. Extremities: Nontender Skin: Normal color Neurological: Alert, Oriented x3 Psychological: Normal affect Diagnostic/Tx/Re-eval Impressions Abdomen/Pelvis CT 11/02/19 22:09 IMPRESSION: Worsening retroperitoneal lymphadenopathy suggesting metastatic disease or lymphoma. Liver is enlarged with diffuse fatty infiltration. Abdominal wall hernias. No obstruction. Nodular lesions of the abdominal wall could be related to injections. Electronically Signed: Marty Robles MD at 23:04 EST , Service support , 11/02/19 22:09 Abdomen/Pelvis without Cont [CT] Stat Laboratory Results 11/02/19 11/02/19 11/02/19 22:20 22:20 22:48 WBC 11.3 H RBC 3.19 L Hgb 10.3 L Hct 31.4 L MCV 98.4 MCH 32.3 H MCHC 32.8 RDW Std Deviation 49.1 H RDW Coeff of Jenifer 13.5 Plt Count 181 MPV 9.0 Immature Gran % (Auto) 0.400 Neut % (Auto) 85.6 H Lymph % (Auto) 5.3 L [place] % (Auto) 8.4 Eos % (Auto) 0.2 Baso % (Auto) 0.1 Absolute Neuts (auto) 9.7 H Absolute Lymphs (auto) 0.60 L Nucleated RBC % 0 Differential Comment SCANNED Sodium 138 Potassium 4.4 Chloride 106 Carbon Dioxide 25.0 Anion Gap 7 BUN 28 H Creatinine 1.17 H Estim Creat Clear Calc 44.71 Est GFR (MDRD) Af Amer 61 Est GFR (MDRD) Non-Af 50 L BUN/Creatinine Ratio 23.9 H Glucose 170 H Calcium 8.8 Urine Color Yellow Urine Clarity Clear Urine pH 5.0 Ur Specific [place] 1.020 Urine Protein 15 H Urine Glucose (UA) Normal Urine Ketones Negative Urine Occult Blood 10 H Urine Nitrite Negative Urine Bilirubin Negative Urine Urobilinogen Normal Ur Leukocyte Esterase 25 H Urine RBC 0-5 SEEN Urine WBC 0-5 SEEN Ur Squamous Epith Cells 0-5 SEEN Urine Bacteria 0 SEEN Urine Mucus 0 SEEN - Medical Decision Making Patient did take ibuprofen as well as oxycodone at home. She received a total of 8 mg of morphine with EMS. Patient was initially given 0.5 mg of Dilaudid here followed by 1 mg. At this time she states her pain is tolerable but she is still uncomfortable. Test results are discussed with patient and at bedside. I am concerned that her pain may be secondary to the worsening lymph nodes, likely metastatic disease. Patient is concerned about not having good pain control at home. I spoke with Dr. Stokes, covering for the patient's oncologist. Patient has been accepted in transfer to for further evaluation. ED Disposition - Plan for ED Patient: Disposition: Acute Care Hospital - Other Diagnosis: Intractable pain, Flank pain Referrals: Charly Blackmon MD [Primary Care Provider] -
[2019-11-02 22:30] LABS: Absolute Neutrophil Count 9.7 X10^3/uL (2.0-7.7); Basophil# 0.01 X10^3/uL; Basophil% 0.1 % (0-1); Eosinophil# 0.02 X10^3/uL; Eosinophils% 0.2 % (0-5); Hematocrit 31.4 % (37-47); Hemoglobin 10.3 g/dL (12.0-15.0); Lymphocyte % 5.3 % (19-41); Mean Corp Hgb Conc 32.8 g/dL (32-36); Mean Corpuscular Hgb 32.3 pg (27.0-32.0); Mean Corpuscular Volume 98.4 fL (81-99); Monocyte# 0.95 X10^3/uL; Monocyte% 8.4 % (0-10); NRBC Flagged by Analyzer 0 % (0-5); Neutrophil # 9.68 X10^3/uL (2.7-7.7); Neutrophil % 85.6 % (47-70); POSITIVE DIFFERENTIAL YES; Platelet Count 181 K/mm3 (150-450); RBC Distribution Width CV 13.5 % (11.6-14.6); RBC Distribution Width SD 49.1 fl (35.1-43.9); Red Blood Count 3.19 M/mm3 (4.2-5.4); White Blood Count 11.3 K/mm3 (4.4-11.0)
[2019-11-02 22:36] LABS: Differential Indicated SCAN CRITERIA MET
[2019-11-02 22:43] LABS: Anion Gap 7 (5-15); BUN 28 mg/dL (7-18); BUN/Creat Ratio 23.9 RATIO (10-20); Calcium,Total 8.8 mg/dL (8.5-10.1); Chloride 106 mmol/L (98-107); Creatinine, Serum 1.17 mg/dL (0.55-1.02); EST Glomerular Filtration Rate 50 mL/min (>60); Est Glom Filt Rate - Afr Amer 61 mL/min (>60); Estimated Creatinine Clearance 44.71 ml/min; Glucose 170 mg/dL (74-106); Potassium 4.4 mmol/L (3.5-5.1); Sodium Level 138 mmol/L (136-145)
[2019-11-02] MEDS: 0.9% Normal Saline 1,000 ML 150 ML IV (22:50)
[2019-11-02 22:51] LABS: Bacteria 0 SEEN /hpf (None Seen); Mucous, Urine 0 SEEN /hpf (<or=2+)
[2019-11-02 22:52] LABS: Color, Urine Yellow (Yellow); Glucose, Dipstick Normal (Normal); Ketone-Dipstick Negative (Negative); Leukocyte Esterase-Dipstick 25 /ul (Negative); Nitrite-Dipstick Negative (Negative); Occult Blood-Urine 10 /ul (Negative); Protein-Dipstick 15 mg/dl (Negative); Urine Bilirubin Dipstick Negative (Negative); Urine Clarity Clear (Clear); Urine Urobilinogen Normal (Normal)
[2019-11-02 22:55] LABS: Differential Comment SCANNED
[2019-11-02] MEDS: HYDROmorphone 0.5 MG/0.5 ML SYRINGE IV (22:57)
[2019-11-02 23:02] LABS: Red Blood Cells-Urine 0-5 SEEN /hpf (0-5); Squamous Epithelial Cells - UA 0-5 SEEN /hpf (5-10); White Blood Cells 0-5 SEEN /hpf (0-5)
[2019-11-03] VITALS (11 sets, daily range): BP systolic 112–142; BP diastolic 53–81; PULSE 74–103; RESP 11–20; TEMP 36.9–39; O2SAT 93–99; BMI 35.6; BMI 36.6
[2019-11-03] MEDS: HYDROmorphone 1 MG/ML Syringe IV ×5 (00:05→14:41)
[2019-11-03] MEDS: Ondansetron 4 MG/2 ML Vial IV (06:00)
--- NOTE | 2019-11-03 09:55 | ED.RN ---
CALLED [facility] FOR AN UPDATE. SPOKE WITH GATO. SHE IS ACCEPTED BUT WE ARE WAITING ON A BED. WHEN I ASKED HER HOW LONG THAT SHE THOUGHT IT WOULD BE SHE STATED MAYBE DAYS HONESTLY I ASKED HER SO IT DEF WOULD NOT BE TODAY AND SHE STATED PROBABLY NOT RELAYED THE MESSAGE TO EFREN MUÑOZ AND DR EVANGELISTA
--- NOTE | 2019-11-03 11:00 | NURSING ---
pt arrived to [facility]- awaiting transfer to current ms room in computer for process to be started. ER aware
--- NOTE | 2019-11-03 11:20 | PCM.HP.STD ---
Problem List (1) Chronic anemia Status: Chronic (2) History of deep vein thrombosis (DVT) of lower extremity Status: Chronic (3) Hypertension Status: Chronic (4) Ovarian cancer Status: Chronic History of Present Illness Date of Admission: 11/03/19 Chief Complaint: Low back back/left flank pain. The patient is a 58 year old F patient with past medical history as mentioned above presented to the emergency room last night complaining of left low back and left flank pain. Her symptoms started yesterday morning with low back pain on the left side, dull aching pain, extends to the left flank region and down to the left groin, initially was moderate pain, took OxyIR and ibuprofen at home and she slept but she woke up later yesterday evening with severe pain, got worse, it was 12 out of 10 in severity on the same location, associated with nausea and vomiting and without aggravating or relieving factors. She reported a fever of 100.5 Fahrenheit at home. She denied urinary symptoms. She denied constipation or diarrhea. She denied cough or sputum production. Patient had a history of ovarian cancer status post total hysterectomy, salpingo-oophorectomy and debulking as well as appendectomy, received chemotherapy and last session was back on August,. Yesterday, CT scan abdomen and pelvis without contrast performed and revealed worsening retroperitoneal lymphadenopathy suggestive of metastatic disease or lymphoma. The ER physician who evaluated the patient called patient's oncologist at [facility] who recommended to transfer the patient to [facility] for further evaluation. Apparently, the hospitals are very busy and patient has been in the emergency department for more than 13 hours awaiting bed availability. Her pain was not well controlled and she was worried to go back home on p.o. pain meds. She was admitted for pain control awaiting bed availability at [facility]. In the emergency department, her vital signs are stable, afebrile. Routine blood work was remarkable for mild leukocytosis, hemoglobin is 10.3 which is chronic, BUN of 28 and creatinine of 1.17, otherwise normal. Past Medical History Past Medical History (Chronic Problems): Chronic Problems (Last Updated 11/03/19 @ 11:19 by Renee Gunter MD) Chronic anemia (Chronic) History of deep vein thrombosis (DVT) of lower extremity (Chronic) Hypertension (Chronic) Ovarian cancer (Chronic) Medical History: Medical History (Last Updated 11/03/19 @ 11:19 by Renee Gunter MD) Asthma J45.909 HTN (hypertension) I10 Allergies carboplatin Allergy (Verified 11/02/19 20:54) Anaphylaxis unresponsive hydrocodone bitartrate [From Vicodin] Allergy (Verified 11/02/19 20:54) Hives paclitaxel Allergy (Verified 11/02/19 20:54) Anaphylaxis unresponsive Home Medications: Ambulatory Orders Medication Instructions Recorded Lisinopril [Zestril] 20 mg PO DAILY 10/02/16 Pantoprazole Sodium [Protonix] 40 mg PO DAILY 01/02/19 Docusate Sodium [Stool Softener] 100 mg PO DAILY 01/25/19 Polyethylene Glycol 3350 [Miralax] 17 gm PO BID 01/25/19 Metoclopramide [Reglan] 10 mg PO Q6H PRN PRN 02/07/19 Oxycodone HCl 5 mg PO Q6H PRN PRN 02/07/19 Acetaminophen [Tylenol Extra 1,000 mg PO Q4H PRN PRN 05/20/19 Strength] Magnesium Gluconate 500 mg PO BID 05/20/19 Multivitamin with Minerals 1 ea PO DAILY 05/20/19 [Multiple Vitamin] Lovenox 0.9 mg SQ BID 11/02/19 Vitamin B-6 100 mg PO DAILY 11/02/19 Surgical History: Surgical History (Last Reviewed 02/09/19 @ 20:33 by David Martinez MD) S/P laparoscopy Z98.890 S/P tonsillectomy Z90.89 Surgical History: appendectomy, hysterectomy Psychiatric History: No pertinent psych hx [employer] History: ovarian cancer Lives: Spouse/ Significant Other Smoking Status: Never smoker Alcohol: None Drugs: None - *Family History Maternal Family History: Family History (Last Reviewed 11/03/19 @ 11:26 by Renee Gunter MD) Mother Breast cancer Diabetes Heart disease Hypertension CVA (cerebral vascular accident) Father Diabetes Heart disease Kidney disease Paternal Family History: Family History (Last Reviewed 11/03/19 @ 11:26 by Renee Gunter MD) Mother Breast cancer Diabetes Heart disease Hypertension CVA (cerebral vascular accident) Father Diabetes Heart disease Kidney disease Review of Systems Constitutional: Reports: Anorexia, Fever. Denies: Chills, Weakness Eyes: Denies: Blurred vision, Double vision, Drainage, Redness HEENT: Denies: Difficulty Hearing, Ear Pain, Eye Pain, Nasal Congestion, Sore Throat Cardiovascular: Denies: Chest Pain, Chest Pressure, Chest Tightness, Heaviness, Light Headedness, Palpitations, Paroxysmal Noc. Dyspnea, Syncope Respiratory: Denies: Cough, Pleuritic Pain, Shortness of Breath, Sputum production, Wheezing Gastrointestinal: Reports: Abdominal Pain, Nausea, Vomiting. Denies: Constipation, Diarrhea, Hematochezia, Melena Genitourinary: Denies: Dysuria, Frequency, Hematuria Musculoskeletal: Reports: Back Pain. Denies: Arm Pain, Foot Pain Skin: Denies: Dryness, Rash Neurological: Denies: Balance problems, Blurred vision, Double vision, Change in Speech, Slurred speech, Confusion, Headaches, Incoordination Psychiatric: Denies: Anxiety, Depression Endocrine: Denies: Change in Body Habitus, Polydipsia, Polyuria VTE Information - Inpt Only VTE Present on Admission: No VTE Mechan Device Prophylaxis: None VTE Pharm Prophylaxis ordered?: No - Physical Exam Vitals/I&O's: Vital Signs Temp Pulse Resp BP Pulse Ox 98.6 F 84 18 112/59 L 95 11/03/19 11:08 11/03/19 11:08 11/03/19 11:08 11/03/19 11:08 11/03/19 11:08 Oxygen Delivery Method Room Air Weight: 207 lb 10.807 oz Body Mass Index (BMI) 35.6 Intake and Output for Last 24 Hours 11/01/19 11/02/19 11/03/19 23:59 23:59 23:59 Intake Total 1000 / 1000 Balance 1000 / 1000 General: Alert, Oriented x3, Cooperative, - - She is in moderate pain. HEENT: Atraumatic, PERRLA, EOMI, Normocephalic Oral: Moist Mucosa, No Gingival or Mucosal Lesions/ Ulcerations Neck: Supple, No JVD, Negative Carotid Bruits, Trachea Midline, Thyroid Normal Size and Texture Lungs: Clear to auscultation, Normal air movement, No rhonchi, No wheeze, No rales Cardiovascular: Regular rate, Regular Rhythm, Normal S1, Normal S2, PMI Normal Abdomen: Bowel Sounds Present, Soft, Non-Distended, No Hepato-splenomegaly, Obese, Tender - Minimal tenderness on the left flank, left low back. No guarding or rigidity. Extremities: No clubbing, No cyanosis, No edema Skin: No rashes, No breakdown Lymphatic: No Cervical, Supraclavicular, or Inguinal Adenopathy Neurological: Cranial nerves II-XII grossly intact, Motor Exam 5/5 strength throughout Psych/Mental Status: Normal Affect, Appropriate, Alert and oriented to time, place, person, mood and affect Laboratory Results 11/02/19 22:20: WBC 11.3 H, RBC 3.19 L, Hgb 10.3 L, Hct 31.4 L, MCV 98.4, MCH 32.3 H, MCHC 32.8, RDW Std Deviation 49.1 H, RDW Coeff of Jenifer 13.5, Plt Count 181, MPV 9.0, Immature Gran % (Auto) 0.400, Neut % (Auto) 85.6 H, Lymph % (Auto) 5.3 L, Bennett % (Auto) 8.4, Eos % (Auto) 0.2, Baso % (Auto) 0.1, Absolute Neuts (auto) 9.7 H, Absolute Lymphs (auto) 0.60 L, Nucleated RBC % 0, Differential Comment SCANNED 11/02/19 22:20: Sodium 138, Potassium 4.4, Chloride 106, Carbon Dioxide 25.0, Anion Gap 7, BUN 28 H, Creatinine 1.17 H, Estim Creat Clear Calc 44.71, Est GFR (MDRD) Af Amer 61, Est GFR (MDRD) Non-Af 50 L, BUN/Creatinine Ratio 23.9 H, Glucose 170 H, Calcium 8.8 11/02/19 22:48: Urine Color Yellow, Urine Clarity Clear, Urine pH 5.0, Ur Specific [place] 1.020, Urine Protein 15 H, Urine Glucose (UA) Normal, Urine Ketones Negative, Urine Occult Blood 10 H, Urine Nitrite Negative, Urine Bilirubin Negative, Urine Urobilinogen Normal, Ur Leukocyte Esterase 25 H, Urine RBC 0-5 SEEN, Urine WBC 0-5 SEEN, Ur Squamous Epith Cells 0-5 SEEN, Urine Bacteria 0 SEEN, Urine Mucus 0 SEEN Clinical Impression(s) from Imaging Studies Abdomen/Pelvis CT 11/02/19 22:09 IMPRESSION: Worsening retroperitoneal lymphadenopathy suggesting metastatic disease or lymphoma. Liver is enlarged with diffuse fatty infiltration. Abdominal wall hernias. No obstruction. Nodular lesions of the abdominal wall could be related to injections. Electronically Signed: Marty Robles MD at 23:04 EST , Service support , Current Medications Acetaminophen (Tylenol) 650 mg PO Q6H PRN PRN PRN Reason: Pain Score 1-3/Temp > 100.7 F Docusate Sodium (Colace) 100 mg PO DAILY [facility] Enoxaparin Sodium (Lovenox) 90 mg SC Q12@0600,1800 [facility] Hydromorphone HCl (Dilaudid Inj) 1 mg IV Q4H PRN PRN PRN Reason: Pain Score 4-5/10 Hydromorphone HCl (Dilaudid Inj) 1 mg IV X1 ONE Stop: 11/03/19 11:20 Sodium Chloride () 1,000 mls @ 75 mls/hr IV .[id number] [facility] Sodium Chloride () 250 mls @ 15 mls/hr IV .[id number] PRN PRN Reason: Saline Flush Sodium Chloride () 250 mls @ 15 mls/hr IV .[id number] PRN PRN Reason: Additional IVPB Infusion Lisinopril (Zestril) 20 mg PO DAILY [facility] Ondansetron HCl (Zofran) 4 mg IV Q8H PRN PRN PRN Reason: NAUSEA/VOMITING Oxycodone HCl (Oxyir) 5 mg PO Q6H PRN PRN PRN Reason: Pain Score 6-10/10 Pantoprazole Sodium (Protonix) 40 mg PO DAILY [facility] Polyethylene Glycol (Miralax) 17 gm PO BID [facility] Promethazine HCl (Phenergan) 6.25 mg IV Q6H PRN PRN PRN Reason: NAUSEA/VOMITING Sodium Chloride () 10 - 40 ml IV UD PRN PRN Reason: SALINE FLUSH Assessment/Plan This is a 58 years old female patient presented to the emergency room because of low left back and left flank pain and she was found to have worsening lymphadenopathy in context of recent diagnosis of ovarian cancer status post surgery and chemotherapy and she is being admitted for pain control awaiting bed availability at [facility]. #1 intractable left low back/left flank pain: Arrangement was made to transfer patient to [facility] for further evaluation regarding possible recurrent ovarian cancer but there is no acute development, it is very busy updated. CT scan abdomen and pelvis without contrast reviewed as above. There is a concern that patient may have metastatic disease or lymphoma. Her vital signs are stable. Routine blood work reviewed. [facility], gentle IV fluids for hydration, IV Dilaudid PRN for pain, OxyIR PRN, Zofran and Phenergan as needed, laxative, awaiting bed availability at [facility]. #2 ovarian cancer: Status post total hysterectomy, salpingo-oophorectomy and also she had appendectomy at the same time. She received 6 sessions of chemotherapy, last one was back on August,. Plan as above. #3 hypertension: Blood pressure stable, continue lisinopril. #4 history of right leg DVT: Stable, continue Lovenox twice daily. #5 chronic anemia: Secondary to cancer and chemotherapy. No evidence of active bleeding. Hemoglobin and hematocrit are stable at baseline. #6 DVT prophylaxis: Continue therapeutic Lovenox twice daily as above. This note was generated with [employer] dictation software. It may contain incorrect words, spelling, and punctuation that were not noted in checking the note before signing. Code Visit OBSV E&M: 21395 Initial observation care L3
[2019-11-03] MEDS: 0.9% Normal Saline 1,000 ML 75 ML IV (11:25)
[2019-11-03] MEDS: 0.9% Saline Lock 10 ML Syringe IV ×2 (14:02→14:42)
[2019-11-03] MEDS: proMETHazine 25 MG/ML Syringe 6.25 MG IV (14:02)
[2019-11-03] MEDS: Acetaminophen 325 MG Tablet 650 MG PO (14:49)
[2019-11-03] MEDS: Polyethylene Glycol 3350 17 GM PACKET PO (14:49)
--- NOTE | 2019-11-03 15:10 | RAD_ITS ---
STUDY: X-RAY CHEST REASON FOR EXAM: Female, 58 years old. Fever, intractable lower abdomen and back pain TECHNIQUE: Frontal and lateral views of the chest. COMPARISON: CT October 03, 2019 FINDINGS: Lungs are underexpanded with basilar atelectasis. There is no demonstrated pleural abnormality. Normal size heart. Normal mediastinum and petros. Normal visualized pulmonary arteries. Normal visualized aortic arch and descending thoracic aorta. There are diffuse degenerative changes of the visualized thoracic spine. Normal visualized ribs, clavicles, and shoulders. There is postoperative change in the abdomen. RAD/Chest PA and Lateral IMPRESSION: Lower lung atelectasis. Electronically Signed: Marty Robles MD at 16:04 EST , Service support ,
[2019-11-03 16:00] LABS: Absolute Neutrophil Count 8.6 X10^3/uL (2.0-7.7); Basophil# 0.02 X10^3/uL; Basophil% 0.2 % (0-1); Eosinophil# 0.01 X10^3/uL; Eosinophils% 0.1 % (0-5); Hemoglobin 10.4 g/dL (12.0-15.0); Lymphocyte % 6.7 % (19-41); Mean Corp Hgb Conc 32.5 g/dL (32-36); Mean Corpuscular Hgb 32.6 pg (27.0-32.0); Mean Corpuscular Volume 100.3 fL (81-99); Mean Platelet Vol. 9.1 fl (6.2-12.0); Monocyte# 1.03 X10^3/uL; Monocyte% 9.9 % (0-10); NRBC Flagged by Analyzer 0 % (0-5); Neutrophil # 8.61 X10^3/uL (2.7-7.7); Neutrophil % 82.5 % (47-70); Platelet Count 185 K/mm3 (150-450); RBC Distribution Width CV 13.2 % (11.6-14.6); RBC Distribution Width SD 49.2 fl (35.1-43.9); Red Blood Count 3.19 M/mm3 (4.2-5.4); White Blood Count 10.4 K/mm3 (4.4-11.0)
[2019-11-03 16:16] LABS: Anion Gap 5 (5-15); BUN 20 mg/dL (7-18); BUN/Creat Ratio 18.2 RATIO (10-20); Chloride 104 mmol/L (98-107); EST Glomerular Filtration Rate 54 mL/min (>60); Est Glom Filt Rate - Afr Amer 65 mL/min (>60); Estimated Creatinine Clearance 47.55 ml/min; Glucose 150 mg/dL (74-106); Potassium 4.2 mmol/L (3.5-5.1); Sodium Level 136 mmol/L (136-145)
[2019-11-03 16:34] LABS: Lactic Acid 0.7 mmol/L (0.4-1.9)
--- NOTE | 2019-11-03 16:36 | NURSING ---
phoned [facility] at [phone] to give nurse to nurse report. female requests to call back as charge nurse hasn't assigned a bed yet for pt.
--- NOTE | 2019-11-03 17:07 | PCM.DC.SUM ---
Discharge Date and Diagnosis Date of Admission: 11/03/19 Date of Discharge: 11/03/19 - Primary Discharge Diagnosis #1 intractable left low back/left flank pain. #2 worsening retroperitoneal lymphadenopathy suggestive of metastatic disease or lymphoma. #3 fever without obvious source of infection. - Secondary Discharge Diagnosis Chronic Problems (Last Updated 11/03/19 @ 11:19 by Renee Gunter MD) Chronic anemia (Chronic) History of deep vein thrombosis (DVT) of lower extremity (Chronic) Hypertension (Chronic) Ovarian cancer (Chronic) Hospital Course and Treatment Imaging Results: 11/03/19 15:10 CXR [Chest PA and Lateral] [RAD] Urgent Clinical Impression(s) from Imaging Studies Abdomen/Pelvis CT 11/02/19 22:09 IMPRESSION: Worsening retroperitoneal lymphadenopathy suggesting metastatic disease or lymphoma. Liver is enlarged with diffuse fatty infiltration. Abdominal wall hernias. No obstruction. Nodular lesions of the abdominal wall could be related to injections. Electronically Signed: Marty Robles MD at 23:04 EST , Service support , Chest X-Ray 11/03/19 15:10 IMPRESSION: Lower lung atelectasis. Electronically Signed: Marty Robles MD at 16:04 EST , Service support , Operations: None Procedures: None Summary of Care Provided: The patient is a 58 year old F patient presented to the emergency room because of low back and left flank pain. She had a history of ovarian cancer status post total hysterectomy, salpingo-oophorectomy with appendectomy at the same time on April, and she received chemotherapy for that. She had a CT scan abdomen and pelvis done in the emergency room and she was found to have worsening retroperitoneal lymphadenopathy and there was a concern that patient may have metastatic disease or lymphoma. The ER physician called the patient's oncologist at [facility] and recommended transfer back to for further evaluation and treatment. Because [facility] was very busy and that they have no beds, patient was admitted for pain control. Her vital signs were stable. Her routine blood work was remarkable for mild leukocytosis and chronic anemia with stable hemoglobin. She was started on IV Dilaudid as well as OxyIR PRN for pain with IV fluids and IV antibiotics. After patient went to the floor, she had a spike of fever. Repeat CBC revealed normal leukocytosis, otherwise her blood work was unremarkable and unchanged. Lactic acid done and it was normal. Chest x-ray showed no acute infiltrate or consolidation. Urinalysis showed no evidence of acute cystitis. Blood culture and urine culture sent. Later on today, [facility] called and patient had bed available. Patient was transferred to [facility] in a stable condition for further evaluation and treatment. Blood and urine culture were pending at the time of transfer. - Physical Exam Vitals/I&O's: Vital Signs Temp Pulse Resp BP Pulse Ox 99.3 F H 91 18 115/64 98 11/03/19 17:01 11/03/19 17:01 11/03/19 17:01 11/03/19 17:01 11/03/19 17:01 Oxygen Flow Rate (L/min) 2 Oxygen Delivery Method Nasal Cannula Weight: 207 lb 10.807 oz Body Mass Index (BMI) 35.6 Intake and Output for Last 24 Hours 11/01/19 11/02/19 11/03/19 23:59 23:59 23:59 Intake Total 1378.75 / 1378.75 Balance 1378.75 / 1378.75 General: Alert, Oriented x3, Cooperative, No apparent distress HEENT: Atraumatic, PERRLA, EOMI, Normocephalic Oral: Moist Mucosa, No Gingival or Mucosal Lesions/ Ulcerations Neck: Supple, No JVD, Negative Carotid Bruits, Trachea Midline, Thyroid Normal Size and Texture Lungs: Clear to auscultation, Normal air movement, No rhonchi, No wheeze, No rales Cardiovascular: Regular rate, Regular Rhythm, Normal S1, Normal S2, PMI Normal Abdomen: Bowel Sounds Present, Soft, Non Tender, Non-Distended, No Hepato-splenomegaly Extremities: No clubbing, No cyanosis, No edema Skin: No rashes, No breakdown Lymphatic: No Cervical, Supraclavicular, or Inguinal Adenopathy Neurological: Cranial nerves II-XII grossly intact, Neuro grossly intact Laboratory Results 11/02/19 22:20: WBC 11.3 H, RBC 3.19 L, Hgb 10.3 L, Hct 31.4 L, MCV 98.4, MCH 32.3 H, MCHC 32.8, RDW Std Deviation 49.1 H, RDW Coeff of Jenifer 13.5, Plt Count 181, MPV 9.0, Immature Gran % (Auto) 0.400, Neut % (Auto) 85.6 H, Lymph % (Auto) 5.3 L, Dare % (Auto) 8.4, Eos % (Auto) 0.2, Baso % (Auto) 0.1, Absolute Neuts (auto) 9.7 H, Absolute Lymphs (auto) 0.60 L, Nucleated RBC % 0, Differential Comment SCANNED 11/02/19 22:20: Sodium 138, Potassium 4.4, Chloride 106, Carbon Dioxide 25.0, Anion Gap 7, BUN 28 H, Creatinine 1.17 H, Estim Creat Clear Calc 44.71, Est GFR (MDRD) Af Amer 61, Est GFR (MDRD) Non-Af 50 L, BUN/Creatinine Ratio 23.9 H, Glucose 170 H, Calcium 8.8 11/02/19 22:48: Urine Color Yellow, Urine Clarity Clear, Urine pH 5.0, Ur Specific [place] 1.020, Urine Protein 15 H, Urine Glucose (UA) Normal, Urine Ketones Negative, Urine Occult Blood 10 H, Urine Nitrite Negative, Urine Bilirubin Negative, Urine Urobilinogen Normal, Ur Leukocyte Esterase 25 H, Urine RBC 0-5 SEEN, Urine WBC 0-5 SEEN, Ur Squamous Epith Cells 0-5 SEEN, Urine Bacteria 0 SEEN, Urine Mucus 0 SEEN 11/03/19 15:47: Lactic Acid 0.7 11/03/19 15:47: WBC 10.4, RBC 3.19 L, Hgb 10.4 L, Hct 32.0 L, MCV 100.3 H, MCH 32.6 H, MCHC 32.5, RDW Std Deviation 49.2 H, RDW Coeff of Jenifer 13.2, Plt Count 185, MPV 9.1, Immature Gran % (Auto) 0.600, Neut % (Auto) 82.5 H, Lymph % (Auto) 6.7 L, Dare % (Auto) 9.9, Eos % (Auto) 0.1, Baso % (Auto) 0.2, Absolute Neuts (auto) 8.6 H, Absolute Lymphs (auto) 0.70 L, Nucleated RBC % 0 11/03/19 15:47: Sodium 136, Potassium 4.2, Chloride 104, Carbon Dioxide 27.0, Anion Gap 5, BUN 20 H, Creatinine 1.10 H, Estim Creat Clear Calc 47.55, Est GFR (MDRD) Af Amer 65, Est GFR (MDRD) Non-Af 54 L, BUN/Creatinine Ratio 18.2, Glucose 150 H, Calcium 9.0 Current Medications Acetaminophen (Tylenol) 650 mg PO Q6H PRN PRN PRN Reason: Pain Score 1-3/Temp > 100.7 F Last Admin: 11/03/19 14:49 Dose: 650 mg Documented by: Docusate Sodium (Colace) 100 mg PO DAILY [facility] Enoxaparin Sodium (Lovenox) 90 mg SC Q12@0600,1800 [facility] Hydromorphone HCl (Dilaudid Inj) 1 mg IV Q3H PRN PRN PRN Reason: Pain Score 4-10/10 Last Admin: 11/03/19 14:41 Dose: 1 mg Documented by: Sodium Chloride () 1,000 mls @ 75 mls/hr IV .[id number] [facility] Last Infusion: 11/03/19 15:55 Dose: 75 mls/hr Documented by: Sodium Chloride () 250 mls @ 15 mls/hr IV .[id number] PRN PRN Reason: Saline Flush Sodium Chloride () 250 mls @ 15 mls/hr IV .[id number] PRN PRN Reason: Additional IVPB Infusion Lisinopril (Zestril) 20 mg PO DAILY [facility] Ondansetron HCl (Zofran) 4 mg IV Q8H PRN PRN PRN Reason: NAUSEA/VOMITING Oxycodone HCl (Oxyir) 5 mg PO Q6H PRN PRN PRN Reason: Pain Score 4-5/10 Pantoprazole Sodium (Protonix) 40 mg PO DAILY [facility] Polyethylene Glycol (Miralax) 17 gm PO BID [facility] Last Admin: 11/03/19 14:49 Dose: 17 gm Documented by: Promethazine HCl (Phenergan) 6.25 mg IV Q6H PRN PRN PRN Reason: NAUSEA/VOMITING Last Admin: 11/03/19 14:02 Dose: 6.25 mg Documented by: Sodium Chloride () 10 - 40 ml IV UD PRN PRN Reason: SALINE FLUSH Last Admin: 11/03/19 14:42 Dose: 10 ml Documented by: Home Medications: Medications to take at Discharge Lisinopril [Zestril] 20 mg PO DAILY 10/02/16 Pantoprazole Sodium [Protonix] 40 mg PO DAILY 01/02/19 Docusate Sodium [Stool Softener] 100 mg PO DAILY 01/25/19 Polyethylene Glycol 3350 [Miralax] 17 gm PO BID 01/25/19 Metoclopramide [Reglan] 10 mg PO Q6H PRN PRN 02/07/19 Oxycodone HCl 5 mg PO Q6H PRN PRN 02/07/19 Acetaminophen [Tylenol Extra Strength] 1,000 mg PO Q4H PRN PRN 05/20/19 Magnesium Gluconate 500 mg PO BID 05/20/19 Multivitamin with Minerals [Multiple Vitamin] 1 ea PO DAILY 05/20/19 Lovenox 0.9 mg SQ BID 11/02/19 Vitamin B-6 100 mg PO DAILY 11/02/19 Primary Care Physician: Charly Blackmon MD [Primary Care Provider] - Disposition: Acute care Hospital Patient Condition:: Stable Medical Necessity - Tobacco Use Smoking Status: Never smoker Meaningful Use Info Meaningful Use Diagnoses (Choose all that apply): None applicable Code Visit OBSV E&M: 40749 Observ/hosp same date L2
[2019-11-03] MEDS: Enoxaparin 100 MG/ML Syringe 90 MG SC (17:15)
[2019-11-03] MEDS: oxyCODONE 5 MG Tablet PO (17:15)
== END 2019-11-03 17:40 | disposition short-term general hospital (02) ==
LOC: ED 11-03 10:40 → MS3 11-03 11:10
PROVIDERS: Admitting Provider Hospitalist; Emergency Provider Emergency Medicine; Family Provider Family Medicine; PCP Family Medicine; Referring Provider Hospitalist; Visit Provider Hospitalist
DX: M54.5 Low back pain (principal); R10.9 Unspecified abdominal pain; R59.0 Localized enlarged lymph nodes; I10 Essential (primary) hypertension; J45.909 Unspecified asthma, uncomplicated; D63.0 Anemia in neoplastic disease; C56.9 Malignant neoplasm of unspecified ovary; Z79.899 Other long term (current) drug therapy; Z86.718 Personal history of other venous thrombosis and embolism; Z79.01 Long term (current) use of anticoagulants
CPT/HCPCS: 36415; 71046; 74176; 80048; 81001; 83605; 85025; 87040; 87086; 87088; 96361; 96372; 96374; 96375; 96376; 99218; 99251; 99285; J7030; A4216; G0378; G0463; J2405

== ENCOUNTER → 2019-11-18 10:43 | Outpatient (CLI) | payer OTHER, SELFPAY ==
[2019-11-03 11:07] VITALS: BMI 35.6
--- NOTE | 2019-11-18 10:49 | ECHOLONC_ITS ---
Reason For Study: Pre-chemo Procedure This was a limited 2D transthoracic echocardiogram. Myocardial strain analysis was performed in this exam to aid in the assessment of cardiac function. Exam performed in department. Left Ventricle Normal LV size. Mild concentric left ventricular hypertrophy. Left ventricular systolic function is normal. The estimated ejection fraction is 60 %. No regional wall motion abnormalities noted. Right Ventricle Normal RV size. Normal systolic function. Atria Normal left atrium. Normal right atrium. Mitral Valve Normal mitral valve. Tricuspid Valve Normal tricuspid valve. Aortic Valve Normal aortic valve. Trisinus/trileaflet aortic valve. Pulmonic Valve Normal pulmonic valve. Great Vessels Normal aortic root. The pulmonary artery is normal size. Normal inferior vena cava. Pericardium/Pleural No pericardial effusion. MMode/2D Measurements & Calculations LVIDd: 3.8 cm IVSd: 1.3 cm Ao root diam: 3.5 cm LVIDs: 2.5 cm LVPWd: 1.3 cm FS: 35.2 % LAV(MOD-bp): 43.1 ml EDV(MOD-sp4): 72.4 ml EDV(MOD-sp2): 55.2 ml LAV(MOD-bp) Indexed: 21.8 ml/m2 ESV(MOD-sp4): 31.4 ml EF(MOD-sp2): 49.6 % LAV(MOD-sp2): 42.6 ml EF(MOD-sp4): 56.6 % LAV(MOD-sp4): 43.2 ml SV(MOD-sp4): 41.0 ml SV(MOD-sp2): 27.4 ml LA A4 area: 15.2 cm2 LA dimension(2D): 3.0 cm RA A4 area: 10.0 cm2 Interpretation Summary Normal LV size. Mild concentric left ventricular hypertrophy. Left ventricular systolic function is normal. The estimated ejection fraction is 60 %. Structurally normal valves. The global longitudinal strain = -16.7% (abnormal). Ordering Physician: NEEL GORMAN Referring Physician: Charly Blackmon Performed By: Roshni Cowan RDCS
[2019-11-18 14:31] LABS: Absolute Lymphocyte Count 1.79 X10^3/uL (0.83-4.51); Absolute Neutrophil Count 5.5 X10^3/uL (2.0-7.7); Basophil# 0.03 X10^3/uL; Basophil% 0.4 % (0-1); Eosinophil# 0.15 X10^3/uL; Eosinophils% 1.9 % (0-5); Hematocrit 33.3 % (37-47); Hemoglobin 10.2 g/dL (12.0-15.0); Lymphocyte # 1.79 X10^3/ul (4.0); Lymphocyte % 22.2 % (19-41); Mean Corp Hgb Conc 30.6 g/dL (32-36); Mean Corpuscular Hgb 29.9 pg (27.0-32.0); Mean Corpuscular Volume 97.7 fL (81-99); Mean Platelet Vol. 9.5 fl (6.2-12.0); Monocyte# 0.53 X10^3/uL; Monocyte% 6.6 % (0-10); NRBC Flagged by Analyzer 0 % (0-5); Neutrophil % 68.3 % (47-70); Platelet Count 394 K/mm3 (150-450); RBC Distribution Width CV 13.6 % (11.6-14.6); RBC Distribution Width SD 48.6 fl (35.1-43.9); Red Blood Count 3.41 M/mm3 (4.2-5.4); White Blood Count 8.1 K/mm3 (4.4-11.0)
[2019-11-18 14:58] LABS: ALB/GLOB Ratio 0.7 RATIO (0.9-2.4); AST(SGOT) 10 U/L (15-37); Alanine Aminotransfer ALT/SGPT 21 U/L (13-56); Albumin, Serum 3.4 g/dL (3.2-5.0); Alkaline Phosphatase 82 U/L (45-117); Anion Gap 7 (5-15); BUN 28 mg/dL (7-18); BUN/Creat Ratio 24.3 RATIO (10-20); Calcium,Total 10.3 mg/dL (8.5-10.1); Chloride 106 mmol/L (98-107); Creatinine, Serum 1.15 mg/dL (0.55-1.02); EST Glomerular Filtration Rate 51 mL/min (>60); Est Glom Filt Rate - Afr Amer 62 mL/min (>60); Globulin 4.9 g/dL (2.2-4.2); Glucose 99 mg/dL (74-106); Potassium 4.6 mmol/L (3.5-5.1); Protein, Total 8.3 g/dL (6.4-8.2); Sodium Level 138 mmol/L (136-145)
[2019-11-20 10:30] LABS: Cancer Antigen 125 393.6 U/mL (0.0-38.1)
== END ==
PROVIDERS: PCP Family Medicine
DX: Z01.818 Encounter for other preprocedural examination (principal); C56.9 Malignant neoplasm of unspecified ovary
CPT/HCPCS: 36415; 80053; 83735; 85025; 86304; 93308; 93356

== ENCOUNTER 2019-12-04 16:06 | Inpatient (IN) | payer OTHER, SELFPAY ==
[2019-11-03 11:07] VITALS: BMI 35.6
[2019-12-04] VITALS (7 sets, daily range): BP systolic 109–146; BP diastolic 65–80; PULSE 78–108; RESP 10–20; TEMP 37–37.4; O2SAT 88–98; BMI 34.4; BMI 34.7; BMI 34.8
--- NOTE | 2019-12-04 16:33 | EKG12_ITS ---
Test Reason : FEVER Blood Pressure : / mmHG Vent. Rate : 093 BPM Atrial Rate : 093 BPM P-R Int : 158 ms QRS Dur : 080 ms QT Int : 354 ms P-R-T Axes : 038 -10 034 degrees QTc Int : 440 ms Normal sinus rhythm Normal ECG Confirmed by KATELYN CRAWFORD, GAVIN ([id number]), assignment desk editor ANNA SMITH ([id number]) on 12/06/2019 8:03:13 AM Referred By: MARILEE Confirmed By:GAVIN ZEPEDA MD
--- NOTE | 2019-12-04 16:35 | CT_ITS ---
STUDY: CT ABDOMEN AND PELVIS WITH CONTRAST REASON FOR EXAM: Female, 58 years old patient with fever, nausea, and right upper quadrant abdominal pain. RADIATION DOSAGE (If Supplied By Facility): CTDIvol = ( 16.35 ) mGy, DLP = ( 1152.75 ) mGycm TECHNIQUE: Transaxial images were obtained from the dome of the diaphragm to the symphysis pubis without oral contrast. 100mL of IV Isovue-300 was administered. Sagittal and coronal images were reconstructed. Individualized dose optimization techniques were used for this CT. COMPARISON: CT abdomen and pelvis dated November 02, 2019. FINDINGS: The visualized lung bases are unremarkable. The visualized portions of the heart are within normal limits. There is decreased attenuation of the liver consistent with steatosis. The liver is enlarged measuring up to 21.9 cm in greatest dimension. Normal gallbladder and extrahepatic biliary system. Normal spleen. Normal pancreas. Normal bilateral adrenal glands. There is a small cyst within the lower pole of the right kidney measuring approximately 8.3 mm. Normal left kidney. Normal visualized stomach. There is no evidence for dilated bowel, ascites or pneumoperitoneum. Small bowel has a grossly normal appearance. There is diffuse abnormal thickening of the long of the transverse colon, hepatic flexure and splenic flexure. There is also some abnormal thickening of the long of the ascending colon. Surgical sutures are visible within the sigmoid colon suggesting sequela partial bowel resection. The appendix is visualized and appears normal. Normal abdominal aorta. Normal inferior vena cava. There are multiple enlarged retroperitoneal lymph nodes some which may be necrotic. The seng mass extends for several centimeters in cephalocaudal dimension. The urinary bladder is nondistended. There is absence of the uterus consistent with a prior hysterectomy. There appears to be a large ventral hernia containing fat and colon. There is diastases recti as well which may contribute to the appearance of ventral hernia. There are diffuse degenerative changes of the visualized spine. Bones appear osteopenic. CT/Abdomen/Pelvis W IV Cont ONLY IMPRESSION: 1. CT findings suggest sequela of acute or chronic infectious or inflammatory colitis. 2. Extensive retroperitoneal lymphadenopathy. 3. Hepatic steatosis and hepatomegaly. Electronically Signed: Janell Barone MD at 19:08 EST , Service support ,
--- NOTE | 2019-12-04 16:53 | ED.VIS.GEN ---
History of Present Illness Chief Complaint: Fever Informant: Patient Onset: Today Context: Gradual Onset Narrative: Patient is a 58-year-old female presenting with 1 day of fever and abdominal discomfort. Patient states she started feeling unwell today. She states her stomach felt a little upset with nausea and she had multiple bowel movements however they have been normal. She denies any diarrhea, vomiting or blood in her stool. She developed a fever of 101.5. Patient is currently under chemotherapy with Doxil for ovarian cancer. Her last chemotherapy was 11/23, about 10 days ago. Patient receives chemotherapy every 4 weeks. Her oncologist is through [facility]. Today patient has developed pain in her right upper quadrant as well as decreased appetite. She denies any urinary symptoms. She denies any chest pain, shortness of breath or difficulty breathing. She notes her grandchildren were over 1 week ago and 1 of them did have the flu. Patient denies any cough or upper respiratory symptoms. Patient was able to take her oxycodone, Tylenol and Lovenox today but did not take any of her other regular medications. She denies any other complaints at this time. She knows she does have a history of small bowel obstructions but states this feels different. She was admitted to the hospital last month for fever and pain on her left abdomen at that time. No exact source of the fever was found at that point. Prior similar symptoms: Yes Past Medical History - Allergies and Home Meds Allergies/Adverse Reactions: Allergies carboplatin Allergy (Verified 11/02/19 20:54) Anaphylaxis unresponsive hydrocodone bitartrate [From Vicodin] Allergy (Verified 11/02/19 20:54) Hives paclitaxel Allergy (Verified 11/02/19 20:54) Anaphylaxis unresponsive Past Medical History: - - Ovarian cancer, Hypertension, GERD, history of DVT Surgical History: appendectomy, hysterectomy Lives: Spouse/ Significant Other Smoking Status: Never smoker - Family History Maternal Family History: Family History (Last Reviewed 11/03/19 @ 11:26 by Renee Gunter MD) Mother Breast cancer Diabetes Heart disease Hypertension CVA (cerebral vascular accident) Father Diabetes Heart disease Kidney disease Family History: Reports: Cancer, Diabetes Paternal Family History: Family History (Last Reviewed 11/03/19 @ 11:26 by Renee Gunter MD) Mother Breast cancer Diabetes Heart disease Hypertension CVA (cerebral vascular accident) Father Diabetes Heart disease Kidney disease Family History: Reports: Diabetes, Heart Disease, Hypertension Review of Systems General: Reports: Chills, Fever, Malaise. Denies: Sweats Eyes: Denies: Visual changes - bilaterally, Diplopia ENT: Denies: Rhinorrhea, Sore throat Cardiovascular: Denies: Chest pain, Palpitations Respiratory: Denies: Dyspnea, Cough, Dyspnea on exertion Gastrointestinal: Reports: Abdominal pain, Nausea. Denies: Vomiting, Diarrhea, Constipation, Melena, Hematochezia Genitourinary: Denies: Dysuria, Hematuria, Frequency Musculoskeletal: Denies: Back pain, Extremity Pain Skin: Denies: Rash, Wounds Neurological: Denies: Headache, Weakness, Numbness Physical Exam Vital Signs/Narrative: Vital Signs Temp Pulse Resp BP Pulse Ox 12/04/19 16:23 98.8 F 12/04/19 16:07 98.8 F 108 H 20 H 146/80 H 96 Inital Vital Signs reviewed: Yes General: Well nourished, Well developed, No Acute Distress Head: Normocephalic, Atraumatic Eyes: Perrl, EOMI ENT: Moist mucous membranes, No rhinorrhea, TM's clear Neck: Supple, Nontender, No JVD Cardiovascular: Regular rate, Regular rhythm, No murmurs Respiratory: No distress, CTA bilaterally, Chest nontender Abdomen: Soft, Nondistended, Normal bowel sounds, Tender - RUQ. Negative for: Guarding, Rebound tenderness, Mass, Hu's sign Back: Nontender, Normal Inspection Extremities: Nontender, No edema Skin: Normal color, No rash Neurological: Alert, Oriented x3, Cranial nerves II-XII grossly intact, Normal Strength, Normal Sensation Psychological: Normal affect, Normal Mood Diagnostic/Tx/Re-eval Chest X-Ray - ED: 1 View, Read by ED Physician, Read by Radiologist, No Acute Disease Clinical Impression(s) from Imaging Studies Abdomen/Pelvis CT 12/04/19 16:35 IMPRESSION: 1. CT findings suggest sequela of acute or chronic infectious or inflammatory colitis. 2. Extensive retroperitoneal lymphadenopathy. 3. Hepatic steatosis and hepatomegaly. Electronically Signed: Janell Barone MD at 19:08 EST , Service support , Chest X-Ray 12/04/19 16:58 Laboratory Data 12/04/19 12/04/19 12/04/19 16:40 16:40 16:40 WBC 10.9 RBC 3.26 L Hgb 10.1 L Hct 31.3 L MCV 96.0 MCH 31.0 MCHC 32.3 RDW Std Deviation 49.3 H RDW Coeff of Jenifer 14.2 Plt Count 266 MPV 9.2 Immature Gran % (Auto) 0.700 Neut % (Auto) 87.1 H Lymph % (Auto) 8.0 L Whitman % (Auto) 3.8 Eos % (Auto) 0.3 Baso % (Auto) 0.1 Absolute Neuts (auto) 9.5 H Absolute Lymphs (auto) 0.87 Nucleated RBC % 0 PT 14.0 INR 1.1 APTT 34.0 Sodium 136 Potassium 4.2 Chloride 100 Carbon Dioxide 29.0 Anion Gap 7 BUN 23 H Creatinine 1.19 H Estim Creat Clear Calc 43.96 Est GFR (MDRD) Af Amer 60 Est GFR (MDRD) Non-Af 49 L BUN/Creatinine Ratio 19.3 Glucose 131 H Lactic Acid Calcium 9.4 Total Bilirubin 0.30 AST 7 L ALT 25 Alkaline Phosphatase 111 Troponin I < 0.015 Total Protein 8.1 Albumin 3.3 Globulin 4.8 H Albumin/Globulin Ratio 0.7 L Urine Color Urine Clarity Urine pH Ur Specific [place] Urine Protein Urine Glucose (UA) Urine Ketones Urine Occult Blood Urine Nitrite Urine Bilirubin Urine Urobilinogen Ur Leukocyte Esterase Urine RBC Urine WBC Ur Squamous Epith Cells Amorphous Sediment Urine Bacteria Urine Mucus 12/04/19 12/04/19 16:40 17:15 WBC RBC Hgb Hct MCV MCH MCHC RDW Std Deviation RDW Coeff of Jenifer Plt Count MPV Immature Gran % (Auto) Neut % (Auto) Lymph % (Auto) Whitman % (Auto) Eos % (Auto) Baso % (Auto) Absolute Neuts (auto) Absolute Lymphs (auto) Nucleated RBC % PT INR APTT Sodium Potassium Chloride Carbon Dioxide Anion Gap BUN Creatinine Estim Creat Clear Calc Est GFR (MDRD) Af Amer Est GFR (MDRD) Non-Af BUN/Creatinine Ratio Glucose Lactic Acid 0.9 Calcium Total Bilirubin AST ALT Alkaline Phosphatase Troponin I Total Protein Albumin Globulin Albumin/Globulin Ratio Urine Color Yellow Urine Clarity Cloudy Urine pH 6.0 Ur Specific [place] 1.025 Urine Protein 15 H Urine Glucose (UA) Normal Urine Ketones 5 H Urine Occult Blood 10 H Urine Nitrite Negative Urine Bilirubin 1 H Urine Urobilinogen Normal Ur Leukocyte Esterase 25 H Urine RBC 0-5 SEEN Urine WBC 0-5 SEEN Ur Squamous Epith Cells 10-25 SEEN Amorphous Sediment 1+ URATE Urine Bacteria 0 SEEN Urine Mucus 0 SEEN - Rhythm Strip Rhythm Strip: Sinus Rhythm Rate: 93 Ectopy: None - EKG Initial EKG Interpretation: Sinus Rhythm, - - Normal sinus rhythm at a rate of [address] segments Normal intervals - Medical Decision Making Patient is evaluated for abdominal pain and fever. She is currently on chemotherapy for ovarian cancer. Patient does not have a leukocytosis and has a normal lactic acid. She does not meet criteria for sepsis. Blood cultures and urine cultures are obtained however. CBC does show a hemoglobin of 10.1. This seems to be patient's baseline. Creatinine is mildly elevated at 1.19. Again this is her baseline. Urinalysis does show 5 ketones and 10 blood however microscopic is largely negative. No signs of infection in the urine. CT the abdomen pelvis obtained which does show diffuse inflammatory changes of the transverse colon as well as the flexures. This is consistent with patient's pain and presentation. Patient be treated for an acute colitis with Cipro and Flagyl. She will be admitted to the hospital. Patient is agreeable this plan. Patient is given IV morphine and Zofran as well as fluids in the emergency room for her symptoms. She does have a mild transient episode of hypoxia down to 88% however she is asymptomatic when she receives the morphine at first. This does resolve. Patient is agreeable this plan. Patient be admitted to the MedSurg floor. Case discussed with Dr. Gutiérrez. ED Disposition - Plan for ED Patient: Disposition: Acute Care Hospital [facility] Diagnosis: Colitis
[2019-12-04 16:54] LABS: Absolute Lymphocyte Count 0.87 X10^3/uL (0.83-4.51); Absolute Neutrophil Count 9.5 X10^3/uL (2.0-7.7); Basophil# 0.01 X10^3/uL; Basophil% 0.1 % (0-1); Eosinophil# 0.03 X10^3/uL; Eosinophils% 0.3 % (0-5); Hematocrit 31.3 % (37-47); Hemoglobin 10.1 g/dL (12.0-15.0); Lymphocyte # 0.87 X10^3/ul (4.0); Mean Corp Hgb Conc 32.3 g/dL (32-36); Mean Platelet Vol. 9.2 fl (6.2-12.0); Monocyte# 0.41 X10^3/uL; Monocyte% 3.8 % (0-10); NRBC Flagged by Analyzer 0 % (0-5); Neutrophil # 9.49 X10^3/uL (2.7-7.7); Neutrophil % 87.1 % (47-70); Platelet Count 266 K/mm3 (150-450); RBC Distribution Width CV 14.2 % (11.6-14.6); RBC Distribution Width SD 49.3 fl (35.1-43.9); Red Blood Count 3.26 M/mm3 (4.2-5.4); White Blood Count 10.9 K/mm3 (4.4-11.0)
--- NOTE | 2019-12-04 16:58 | RAD_ITS ---
STUDY: X-RAY CHEST REASON FOR EXAM: Female, 58 years old. FEVER, NAUSEA, ABD PAIN. 101.9 , CURRENT CHEMO FOR OVARIAN CA TECHNIQUE: Single view of the chest was obtained COMPARISON: November 03, 2019 FINDINGS: Right-sided port catheter noted. No consolidative process, pleural effusion or pneumothorax. Minimal platelike atelectasis in the right lower lobe. Osseous structures demonstrate no acute abnormalities IMPRESSION: No acute cardiopulmonary pathology Electronically Signed: Nhan Monteiro, at 17:37 EST Tel , Service support , RAD/Chest 1 View (Portable)
[2019-12-04] MEDS: 0.9% Normal Saline 1,000 ML 999 ML IV ×2 (17:01→21:04)
[2019-12-04 17:12] LABS: International Normalized Ratio 1.1
[2019-12-04 17:13] LABS: Lactic Acid 0.9 mmol/L (0.4-1.9)
[2019-12-04 17:23] LABS: Bacteria 0 SEEN /hpf (None Seen); Mucous, Urine 0 SEEN /hpf (<or=2+)
[2019-12-04 17:26] LABS: Color, Urine Yellow (Yellow); Glucose, Dipstick Normal (Normal); Ketone-Dipstick 5 mg/dl (Negative); Leukocyte Esterase-Dipstick 25 /ul (Negative); Nitrite-Dipstick Negative (Negative); Occult Blood-Urine 10 /ul (Negative); Protein-Dipstick 15 mg/dl (Negative); Specific Gravity, Urine 1.025 (1.002-1.030); Urine Clarity Cloudy (Clear); Urine Urobilinogen Normal (Normal)
[2019-12-04 17:27] LABS: Urine Bilirubin Dipstick 1 mg/dL (Negative)
[2019-12-04 17:31] LABS: ALB/GLOB Ratio 0.7 RATIO (0.9-2.4); AST(SGOT) 7 U/L (15-37); Alanine Aminotransfer ALT/SGPT 25 U/L (13-56); Albumin, Serum 3.3 g/dL (3.2-5.0); Alkaline Phosphatase 111 U/L (45-117); Anion Gap 7 (5-15); BUN 23 mg/dL (7-18); BUN/Creat Ratio 19.3 RATIO (10-20); Calcium,Total 9.4 mg/dL (8.5-10.1); Chloride 100 mmol/L (98-107); Creatinine, Serum 1.19 mg/dL (0.55-1.02); EST Glomerular Filtration Rate 49 mL/min (>60); Est Glom Filt Rate - Afr Amer 60 mL/min (>60); Estimated Creatinine Clearance 43.96 ml/min; Globulin 4.8 g/dL (2.2-4.2); Glucose 131 mg/dL (74-106); Potassium 4.2 mmol/L (3.5-5.1); Protein, Total 8.1 g/dL (6.4-8.2); Sodium Level 136 mmol/L (136-145)
[2019-12-04 17:32] LABS: Amorphous Sediment 1+ URATE; Red Blood Cells-Urine 0-5 SEEN /hpf (0-5); Squamous Epithelial Cells - UA 10-25 SEEN /hpf (5-10); White Blood Cells 0-5 SEEN /hpf (0-5)
[2019-12-04] MEDS: Ondansetron 4 MG/2 ML Vial IV (17:38)
[2019-12-04] MEDS: morphine 8 MG/ML Syringe IV (17:38)
--- NOTE | 2019-12-04 19:32 | PCM.HP.STD ---
Problem List (1) Colitis Status: Acute (2) Chronic anemia Status: Chronic (3) History of deep vein thrombosis (DVT) of lower extremity Status: Chronic (4) Hypertension Status: Chronic Qualifiers: Hypertension type: essential hypertension Qualified Code(s): I10 - Essential (primary) hypertension (5) Ovarian cancer Status: Chronic Qualifiers: Laterality: right Qualified Code(s): C56.1 - Malignant neoplasm of right ovary History of Present Illness Date of Admission: 12/04/19 Chief Complaint: Abdominal pain The patient is a 58 year old F with past medical history of ovarian CA, on chemotherapy, last chemotherapy was 23 November 2019, history of right DVT, on subcu Lovenox twice daily, hypertension who comes in with complaints of right-sided abdominal pain ongoing for about 1 day. This was associated with fever and nausea. She took a fever and that was 101.5. She has been having loose stools. Her oncologist is in the [facility] system. He has had multiple bowel movements that are loose but not diarrhea. She has had nausea and has vomited today. She describes her abdominal pain as right sided, sharp, nonradiating, with no relieving or aggravating factors. Denied any dysuria or frequency or urgency. Labs in the ED showed temperature of 98.8F, heart rate 108, blood pressure 146/80, respiratory to 20, SPO2 was 96% on room air. WBC count was 10.9, hemoglobin 10.1, platelet count 266, INR 1.1, BMP was unremarkable except for BUN of 20, creatinine 1.19 which is close to her baseline. UA showed cloudy urine, nitrite negative, leukocyte esterase 25, WBC count 025. Chest x-ray showed no acute abnormalities, medport present. CT of the abdomen and pelvis shows enlarged liver, normal gallbladder and extrahepatic biliary system, normal spleen, pancreas, transverse colon and hepatic flexure and splenic flexure diffuse abnormal thickening as well as thickening of the ascending colon, extensive retroperitoneal lymphadenopathy. Patient states that she felt short of breath after being given morphine, her SPO2 was 88%. She is on 2 L of oxygen. Past Medical History Past Medical History (Chronic Problems): Chronic Problems (Last Updated 11/03/19 @ 11:19 by Renee Gunter MD) Chronic anemia (Chronic) History of deep vein thrombosis (DVT) of lower extremity (Chronic) Hypertension (Chronic) Ovarian cancer (Chronic) Medical History: Medical History (Last Updated 11/03/19 @ 11:19 by Renee Gunter MD) Asthma J45.909 HTN (hypertension) I10 Allergies carboplatin Allergy (Verified 11/02/19 20:54) Anaphylaxis unresponsive hydrocodone bitartrate [From Vicodin] Allergy (Verified 11/02/19 20:54) Hives paclitaxel Allergy (Verified 11/02/19 20:54) Anaphylaxis unresponsive Home Medications: Ambulatory Orders Medication Instructions Recorded Lisinopril [Zestril] 10 mg PO DAILY 10/02/16 Docusate Sodium [Stool Softener] 100 mg PO DAILY 01/25/19 Polyethylene Glycol 3350 [Miralax] 17 gm PO BID 01/25/19 Oxycodone HCl 5 mg PO Q6H PRN PRN 02/07/19 Acetaminophen [Tylenol Extra 1,000 mg PO Q4H PRN PRN 05/20/19 Strength] Magnesium Gluconate 500 mg PO BID 05/20/19 Multivitamin with Minerals 1 ea PO DAILY 05/20/19 [Multiple Vitamin] Lovenox 0.9 mg SQ BID 11/02/19 Vitamin B-6 100 mg PO DAILY 11/02/19 Esomeprazole Mag Trihydrate 40 mg PO DAILY 12/04/19 [Nexium] Ondansetron HCl 4 mg PO Q8H PRN 12/04/19 Surgical History: Surgical History (Last Reviewed 02/09/19 @ 20:33 by David Martinez MD) S/P laparoscopy Z98.890 S/P tonsillectomy Z90.89 Surgical History: appendectomy, hysterectomy 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 Lives: Spouse/ Significant Other Smoking Status: Never smoker Tobacco Use: Non-smoker Alcohol: None Drugs: None - *Family History Maternal Family History: Family History (Last Reviewed 11/03/19 @ 11:26 by Renee Gunter MD) Mother Breast cancer Diabetes Heart disease Hypertension CVA (cerebral vascular accident) Father Diabetes Heart disease Kidney disease History Items: Cancer, Diabetes Paternal Family History: Family History (Last Reviewed 11/03/19 @ 11:26 by Renee Gunter MD) Mother Breast cancer Diabetes Heart disease Hypertension CVA (cerebral vascular accident) Father Diabetes Heart disease Kidney disease History Items: Diabetes, Heart Disease, Hypertension Review of Systems Constitutional: Reports: Anorexia, Chills, Fever, Malaise, Weakness, Fatigue. Denies: Weight Change Eyes: Denies: Blurred vision, Cataracts, Conjunctivae Inflammation, Double vision, Pain, Redness, Vision Change HEENT: Denies: Difficulty Hearing, Difficulty Swallowing, Head Aches, Hearing Changes, Sinus Congestion, Sinus Drainage Cardiovascular: Denies: Chest Pain, Claudication, Orthopnea, Palpitations, Paroxysmal Noc. Dyspnea Respiratory: Denies: Cough, Hemoptysis, Shortness of Breath, Shortness of breath at rest, Shortness of breath upon exertion, Sputum production, Wheezing Gastrointestinal: Reports: Nausea, - - Multiple bowel movements, loose but no diarrhea. Denies: Abdominal Pain, Constipation, Diarrhea, Hematemesis, Hematochezia, Vomiting Genitourinary: Denies: Dysuria, Frequency, Incontinence, Nocturia Gynecological: Denies: Breast symptoms, Excessively long or heavy periods Musculoskeletal: Denies: Hand Pain, Joint Pain, Joint stiffness, Joint swelling, Joint Tenderness Skin: Denies: Pruritis, Rash, Skin Changes, Wounds Neurological: Denies: Numbness, Tingling, Focal weakness Psychiatric: Denies: Anxiety, Depression, Homicidal Ideations, Suicidal Ideations Hematologic/ Lymphatic: Denies: Easy Bruising, Easy Bleeding VTE Information - Inpt Only VTE Present on Admission: No VTE Pharm Prophylaxis ordered?: Yes Patient Problems: Active and Suspected Problems (Last Updated 11/03/19 @ 11:19 by Renee Gunter MD) Colitis (Acute) - Physical Exam Vitals/I&O's: Vital Signs Temp Pulse Resp BP Pulse Ox 98.9 F 78 13 109/65 98 12/04/19 18:40 12/04/19 18:40 12/04/19 18:40 12/04/19 18:40 12/04/19 18:40 Oxygen Flow Rate (L/min) 2 Oxygen Delivery Method Room Air Weight: 90.9 kg Body Mass Index (BMI) 34.4 General: Alert, Oriented x3, Cooperative, No apparent distress, - - Appears slightly short of breath on 2 L of oxygen, no accessory use of respiratory muscles HEENT: Atraumatic, PERRLA, EOMI, Normocephalic Oral: Moist Mucosa Neck: Supple Lungs: Clear to auscultation, Normal air movement, - - Mediport on the right upper chest Cardiovascular: Regular rate, Regular Rhythm, Normal S1, Normal S2, No murmurs Abdomen: Bowel Sounds Present, Soft, Non Tender, Non-Distended, No Hepato-splenomegaly Extremities: No edema Skin: No rashes, No breakdown Musculoskeletal: No Tenderness to Palpation of Joints or Extremities Lymphatic: No Cervical, Supraclavicular, or Inguinal Adenopathy Neurological: Cranial nerves II-XII grossly intact, Neuro grossly intact Psych/Mental Status: Normal Affect, Appropriate Microbiology Past 72 Hours 12/04/19 16:50 Mucosa - Nose Influenza Types A,B Direct FA ([place]) - Final Laboratory Results 12/04/19 16:40: WBC 10.9, RBC 3.26 L, Hgb 10.1 L, Hct 31.3 L, MCV 96.0, MCH 31.0, MCHC 32.3, RDW Std Deviation 49.3 H, RDW Coeff of Jenifer 14.2, Plt Count 266, MPV 9.2, Immature Gran % (Auto) 0.700, Neut % (Auto) 87.1 H, Lymph % (Auto) 8.0 L, [place] % (Auto) 3.8, Eos % (Auto) 0.3, Baso % (Auto) 0.1, Absolute Neuts (auto) 9.5 H, Absolute Lymphs (auto) 0.87, Nucleated RBC % 0 12/04/19 16:40: PT 14.0, INR 1.1, APTT 34.0 12/04/19 16:40: Sodium 136, Potassium 4.2, Chloride 100, Carbon Dioxide 29.0, Anion Gap 7, BUN 23 H, Creatinine 1.19 H, Estim Creat Clear Calc 43.96, Est GFR (MDRD) Af Amer 60, Est GFR (MDRD) Non-Af 49 L, BUN/Creatinine Ratio 19.3, Glucose 131 H, Calcium 9.4, Total Bilirubin 0.30, AST 7 L, ALT 25, Alkaline Phosphatase 111, Troponin I < 0.015, Total Protein 8.1, Albumin 3.3, Globulin 4.8 H, Albumin/Globulin Ratio 0.7 L 12/04/19 16:40: Lactic Acid 0.9 12/04/19 17:15: Urine Color Yellow, Urine Clarity Cloudy, Urine pH 6.0, Ur Specific [place] 1.025, Urine Protein 15 H, Urine Glucose (UA) Normal, Urine Ketones 5 H, Urine Occult Blood 10 H, Urine Nitrite Negative, Urine Bilirubin 1 H, Urine Urobilinogen Normal, Ur Leukocyte Esterase 25 H, Urine RBC 0-5 SEEN, Urine WBC 0-5 SEEN, Ur Squamous Epith Cells 10-25 SEEN, Amorphous Sediment 1+ URATE, Urine Bacteria 0 SEEN, Urine Mucus 0 SEEN Assessment/Plan All Active Problems (Last Updated 11/03/19 @ 11:19 by Renee Gunter MD) Colitis (Acute) 58 year old F with past medical history of ovarian CA, on chemotherapy, history of DVT, hypertension who comes in with a one-day history of abdominal pain, fever and nausea. 1. Acute colitis, unclear etiology, in in an immunocompromised patient, on chemotherapy Will rule out infectious etiology with stool testing Continue on IV Cipro and Flagyl started from the ED Hold stool softeners from home, strict stool charting, gentle IV fluids 2. Hypoxia, likely secondary to atelectasis Chest x-ray independently reviewed shows right-sided atelectasis Will continue on oxygen, encourage use of incentive spirometer 3. Dehydration, history of CKD stage III, creatinine at the baseline Likely secondary to #1, will continue on IV fluids Hold lisinopril, repeat blood work in a.m. 4. History of right leg DVT, on therapeutic Lovenox, continue the same 5. Hypertension, on lisinopril, will hold lisinopril for now in light of dehydration Repeat blood work in am May resume lisinopril if kidney function appears stable 6. Ovarian CA, on chemotherapy, follows with [facility] No signs of neutropenia, Continue on chemoprophylaxis 7. Asymptomatic bacteriuria, would not require treatment 8. Chronic anemia, hemoglobin close to baseline, will monitor 9. DVT PPx- on therapeutic Lovenox Code Visit Inpatient E&M: 13795 Init Hosp L2
[2019-12-04] MEDS: Ciprofloxacin 400 MG/200 ML BAG 200 MG IV (19:47)
[2019-12-04] MEDS: metroNIDAZOLE 500 MG/100 ML BAG 100 MG IV (21:10)
[2019-12-04] MEDS: 0.9% Normal Saline 1,000 ML 100 ML IV (21:12)
[2019-12-04] MEDS: Enoxaparin 100 MG/ML Syringe 90 MG SC (22:33)
[2019-12-05] MEDS: 0.9% Saline Lock 10 ML Syringe IV (01:01)
[2019-12-05] MEDS: Ondansetron 4 MG/2 ML Vial IV ×3 (01:01→16:26)
[2019-12-05] MEDS: Morphine 2 MG/ML Syringe IV ×3 (01:01→16:26)
[2019-12-05 01:11] VITALS: BP 112/69; PULSE 92; RESP 16; TEMP 37.8; O2SAT 93
[2019-12-05 03:30] VITALS: TEMP 37.4
[2019-12-05 06:03] LABS: Absolute Lymphocyte Count 0.76 X10^3/uL (0.83-4.51); Absolute Neutrophil Count 7.4 X10^3/uL (2.0-7.7); Basophil# 0.03 X10^3/uL; Basophil% 0.3 % (0-1); Eosinophil# 0.04 X10^3/uL; Eosinophils% 0.5 % (0-5); Hematocrit 26.5 % (37-47); Hemoglobin 8.3 g/dL (12.0-15.0); Lymphocyte # 0.76 X10^3/ul (4.0); Lymphocyte % 8.8 % (19-41); Mean Corp Hgb Conc 31.3 g/dL (32-36); Mean Corpuscular Hgb 30.4 pg (27.0-32.0); Mean Corpuscular Volume 97.1 fL (81-99); Mean Platelet Vol. 9.4 fl (6.2-12.0); Monocyte# 0.36 X10^3/uL; Monocyte% 4.2 % (0-10); NRBC Flagged by Analyzer 0 % (0-5); Neutrophil # 7.41 X10^3/uL (2.7-7.7); Neutrophil % 85.6 % (47-70); Platelet Count 203 K/mm3 (150-450); RBC Distribution Width CV 14.5 % (11.6-14.6); RBC Distribution Width SD 50.5 fl (35.1-43.9); Red Blood Count 2.73 M/mm3 (4.2-5.4); White Blood Count 8.7 K/mm3 (4.4-11.0)
[2019-12-05] MEDS: metroNIDAZOLE 500 MG/100 ML BAG 100 MG IV ×2 (06:11→15:12)
[2019-12-05 06:14] VITALS: BP 109/66; PULSE 82; RESP 18; TEMP 37.5; O2SAT 95
[2019-12-05 06:36] LABS: ALB/GLOB Ratio 0.7 RATIO (0.9-2.4); AST(SGOT) 6 U/L (15-37); Alanine Aminotransfer ALT/SGPT 19 U/L (13-56); Albumin, Serum 2.7 g/dL (3.2-5.0); Alkaline Phosphatase 87 U/L (45-117); Anion Gap 5 (5-15); BUN 17 mg/dL (7-18); BUN/Creat Ratio 15.9 RATIO (10-20); Calcium,Total 8.6 mg/dL (8.5-10.1); Chloride 107 mmol/L (98-107); Creatinine, Serum 1.07 mg/dL (0.55-1.02); EST Glomerular Filtration Rate 56 mL/min (>60); Est Glom Filt Rate - Afr Amer 67 mL/min (>60); Estimated Creatinine Clearance 48.88 ml/min; Glucose 142 mg/dL (74-106); Potassium 4.1 mmol/L (3.5-5.1); Protein, Total 6.7 g/dL (6.4-8.2); Sodium Level 138 mmol/L (136-145)
[2019-12-05] MEDS: 0.9% Normal Saline 1,000 ML 100 ML IV ×2 (08:37→20:44)
[2019-12-05] MEDS: Acetaminophen 325 MG Tablet 650 MG PO ×2 (08:37→16:26)
[2019-12-05] MEDS: Dicyclomine 10 MG Capsule 20 MG PO ×3 (08:37→16:26)
[2019-12-05] MEDS: Enoxaparin 100 MG/ML Syringe 90 MG SC ×2 (09:34→21:11)
[2019-12-05 10:15] VITALS: BP 112/63; PULSE 70; RESP 18; TEMP 36.7; O2SAT 96
--- NOTE | 2019-12-05 11:04 | CASEMGMT ---
RN CM Assessment Note Presentation: Colitis. Hx of ovarian cancer with current chemo (last dose 11.23.2019) Intro role of CM and purpose of RN CM assessment to patient. Pt is awake, alert and able to participate in assessment. Demographics, PCP and Pharmacy verified. Pt states she has been independent @ home. Has required assist in past, but currently is able to complete own daily care. is able to assist. PCP: Dr. Charly Blackmon Specialists: Oncology @ [facility]; Palliative Care, [facility] Preferred Pharmacy: [facility]- [place], [place] Insurance: [employer] Prescription Benefit: yes LNOK: , Giovanni Douglas Living Arrangements: Lives independently in home. States she has handicap accessible bathroom. Her is able to assist if needed. States not using ambulatory DME currently, but has at home. Transportation: Can drive, but has been driving her. DME: walker, wheelchair HHC: none Patient DC goals: home on discharge DC PLAN: anticipate home on discharge. RN CM let pt know to contact cm if concerns re: dc arise. Freddie GLASER RN ACM
[2019-12-05] MEDS: Ciprofloxacin 400 MG/200 ML BAG 200 MG IV (11:21)
--- NOTE | 2019-12-05 13:51 | CASEMGMT ---
Patient is active with [facility]. SW called Palliative Care and notified them that she is in the hospital. NORY obtained the fax number and sent them her H&P and med list. Palliative Care: Bailee GUZMÁN
--- NOTE | 2019-12-05 15:03 | CHAPLAIN ---
Type of Pastoral Visit _x__ Initial Visit ___ Follow-up Visit ___ On-call Visit ___ General Patient Visit ___ Spiritual Assessment ___ Family Conference ___ Bereavement ___ Rapid Response ___ Code Blue ___ Other (describe below) Pastoral Care Referral From _x__ Patient _x__ Family ___ Nurse ___ Physician ___ Banking Officer ___ Compress Machine Operator ___ Other (describe below) Sacrament/Intervention _x__ Active listening ___ Anointing ___ Anglican ___ Bereavement ___ Communion _x__ Trista exploration ___ _x__ Life review _x__ Prayer ___ Reconciliation ___ Sacrament of Sick _x__ Supportive presence ___ Wedding ___ Other (describe below) Pastoral Comments patient shares concerns and worries about her future with return of cancer; pt has good support from family and her jew as she reports
[2019-12-05 15:16] VITALS: BP 123/72; PULSE 73; RESP 16; TEMP 36.8; O2SAT 94
--- NOTE | 2019-12-05 19:18 | PN_ITS ---
Patient Problems: Active and Suspected Problems (Last Updated 11/03/19 @ 11:19 by Renee Gunter MD) Colitis (Acute) Subjective: She was seen and examined today, I ordered a C. difficile test on the patient's stool which was positive, I stop the patient's Cipro and Flagyl and placed the patient on oral vancomycin. Patient's enteric panel came back negative. I talked by phone briefly with the patient's oncologist (Dr. Cezar Rinaldi). - Physical Exam Vitals/I&O's: Vital Signs Temp Pulse Resp BP Pulse Ox 98.2 F 73 16 123/72 H 94 12/05/19 15:16 12/05/19 15:16 12/05/19 15:16 12/05/19 15:16 12/05/19 15:16 Oxygen Flow Rate (L/min) 2 Oxygen Delivery Method Room Air Weight: 92 kg Body Mass Index (BMI) 34.7 Intake and Output for Last 24 Hours 12/03/19 12/04/19 12/05/19 23:59 23:59 23:59 Intake Total 1910 / 1910 2190.00 / 2190.00 Output Total 300 / 300 850 / 850 Balance 1610 / 1610 1340.00 / 1340.00 General: Alert, Oriented x3, Cooperative HEENT: Atraumatic, PERRLA, EOMI, Normocephalic Oral: Moist Mucosa Neck: Supple, No JVD, Trachea Midline, Thyroid Normal Size and Texture Lungs: Clear to auscultation, Normal air movement, No rhonchi, No wheeze, No rales Cardiovascular: Regular rate, Regular Rhythm, Normal S1, Normal S2, No murmurs, PMI Normal, No rub noted, No Gallop Abdomen: Bowel Sounds Present, Soft, Non Tender, Non-Distended Extremities: No edema, Capillary Refill Less than 3 Seconds Skin: No rashes, No breakdown Musculoskeletal: No Tenderness to Palpation of Joints or Extremities Neurological: Cranial nerves II-XII grossly intact, Neuro grossly intact, Sensory exam intact to light touch and pain, Coordination normal Psych/Mental Status: Normal Affect, Appropriate, Alert and oriented to time, place, person, mood and affect Microbiology Past 72 Hours 12/05/19 10:48 Stool C. difficile GDH Antigen & Toxins - Final Toxigenic C. difficile 12/05/19 10:48 Stool C. difficile DNA Amplification - Final 12/04/19 21:30 Stool Enteric Bacteriology - Final 12/04/19 16:50 Mucosa - Nose Influenza Types A,B Direct FA ([facility]) - Final Laboratory Results 12/05/19 05:42: WBC 8.7, RBC 2.73 L, Hgb 8.3 L, Hct 26.5 L, MCV 97.1, MCH 30.4, MCHC 31.3 L, RDW Std Deviation 50.5 H, RDW Coeff of Jenifer 14.5, Plt Count 203, MPV 9.4, Immature Gran % (Auto) 0.600, Neut % (Auto) 85.6 H, Lymph % (Auto) 8.8 L, Antelope % (Auto) 4.2, Eos % (Auto) 0.5, Baso % (Auto) 0.3, Absolute Neuts (auto) 7.4, Absolute Lymphs (auto) 0.76 L, Nucleated RBC % 0 12/05/19 05:42: Sodium 138, Potassium 4.1, Chloride 107, Carbon Dioxide 26.0, Anion Gap 5, BUN 17, Creatinine 1.07 H, Estim Creat Clear Calc 48.88, Est GFR (MDRD) Af Amer 67, Est GFR (MDRD) Non-Af 56 L, BUN/Creatinine Ratio 15.9, Glucose 142 H, Calcium 8.6, Total Bilirubin 0.30, AST 6 L, ALT 19, Alkaline Phosphatase 87, Total Protein 6.7, Albumin 2.7 L, Globulin 4.0, Albumin/Globulin Ratio 0.7 L Current Medications Acetaminophen (Tylenol) 650 mg PO Q6H PRN PRN PRN Reason: Pain Score 1-10/Temp > 100.7 F Last Admin: 12/05/19 16:26 Dose: 650 mg Documented by: Al Hydroxide/Mg Hydroxide (Mylanta Ii) 30 ml PO Q6H PRN PRN PRN Reason: Gastric Burning Albuterol Sulfate (Ventolin Aerosols) 2.5 mg INHALATION Q2H PRN PRN PRN Reason: Shortness of Breath/Wheezing Dicyclomine HCl (Bentyl) 20 mg PO TIDAC [facility] Last Admin: 12/05/19 16:26 Dose: 20 mg Documented by: Docusate Sodium (Colace) 100 mg PO DAILY [facility] [place] Last Admin: 12/05/19 09:29 Dose: Not Given Documented by: Enoxaparin Sodium (Lovenox) 90 mg SC BID [facility] [place] Last Admin: 12/05/19 09:34 Dose: 90 mg Documented by: Hydralazine HCl (Apresoline Iv) 5 mg IV Q6H PRN PRN PRN Reason: BLOOD PRESSURE Sodium Chloride () 1,000 mls @ 100 mls/hr IV .Q10H [facility] [place] Last Infusion: 12/05/19 16:12 Dose: 100 mls/hr Documented by: Pantoprazole Sodium 40 mg/ (Sodium Chloride) 110 mls @ 330 mls/hr IV Q12 [facility] [place] Last Infusion: 12/05/19 10:00 Dose: Infused Documented by: Sodium Chloride () 250 mls @ 15 mls/hr IV .[id number] PRN PRN Reason: Saline Flush Sodium Chloride () 250 mls @ 15 mls/hr IV .[id number] PRN PRN Reason: Additional IVPB Infusion Morphine Sulfate () 2 mg IV Q3H PRN PRN PRN Reason: Pain Score 6-10/10 Last Admin: 12/05/19 16:26 Dose: 2 mg Documented by: Ondansetron HCl (Zofran) 4 mg IV Q6H PRN PRN PRN Reason: NAUSEA/VOMITING Last Admin: 12/05/19 16:26 Dose: 4 mg Documented by: Oxycodone HCl (Oxyir) 5 mg PO Q6H PRN PRN PRN Reason: Pain Score 1-10/10 Sodium Chloride () 10 - 40 ml IV UD PRN PRN Reason: SALINE FLUSH Last Admin: 12/05/19 01:01 Dose: 10 ml Documented by: Vancomycin HCl () 125 mg PO Q6 [facility] [place] Last Admin: 12/05/19 18:17 Dose: 125 mg Documented by: Medical Necessity - Tobacco Use Smoking Status: Never smoker Tobacco Use: Non-smoker Assessment/Plan All Active Problems (Last Updated 11/03/19 @ 11:19 by Renee Gunter MD) Colitis (Acute) #1 C. difficile colitis-again patient was placed on oral vancomycin, other antibiotic coverage was stopped #2 ovarian cancer #3 hypertension #4 anemia secondary to chronic disease (ovarian cancer) #5 chronic kidney disease stage III-etiology unclear Code Visit Inpatient E&M: 42340 Subs Hosp L2
[2019-12-05 21:25] VITALS: BP 125/77; PULSE 74; RESP 18; TEMP 35.9; O2SAT 95
[2019-12-06 04:25] VITALS: BP 124/74; PULSE 69; RESP 18; TEMP 36.4; O2SAT 93
[2019-12-06] MEDS: Dicyclomine 10 MG Capsule 20 MG PO ×2 (06:28→11:56)
[2019-12-06] MEDS: 0.9% Normal Saline 1,000 ML 100 ML IV (06:28)
[2019-12-06 10:10] VITALS: BP 127/74; PULSE 76; RESP 16; TEMP 36.8; O2SAT 94
[2019-12-06] MEDS: Enoxaparin 100 MG/ML Syringe 90 MG SC (10:16)
--- NOTE | 2019-12-06 11:31 | DCINST_ITS ---
- Discharge Diagnoses Current Active Problems: Current Active and Chronic Problems (Last Updated 11/03/19 @ 11:19 by Renee Gunter MD) Colitis (Acute) You will use the following diet at home:: No restrictions Your food should be the consistency of: Regular Your liquids should be the consistency of: Regular/Thin Discharge Activity: Return to Normal Activity Weight Bearing Status: Weight bearing as tolerated Allergies/Adverse Reactions: Allergies carboplatin Allergy (Verified 11/02/19 20:54) Anaphylaxis unresponsive hydrocodone bitartrate [From Vicodin] Allergy (Verified 11/02/19 20:54) Hives paclitaxel Allergy (Verified 11/02/19 20:54) Anaphylaxis unresponsive Medications to take at Discharge Lisinopril [Zestril] 10 mg PO DAILY 10/02/16 Docusate Sodium [Stool Softener] 100 mg PO BID PRN PRN 01/25/19 Polyethylene Glycol 3350 [Miralax] 17 gm PO BID PRN 01/25/19 Oxycodone HCl 5 mg PO Q4H PRN PRN 02/07/19 Acetaminophen [Tylenol Extra Strength] 500 mg PO Q4H PRN PRN 05/20/19 Magnesium Gluconate 500 mg PO BID 05/20/19 Multivitamin with Minerals [Multiple Vitamin] 1 ea PO DAILY 05/20/19 Lovenox 90 mg SQ BID 11/02/19 Vitamin B-6 100 mg PO DAILY 11/02/19 Esomeprazole Mag Trihydrate [Nexium] 40 mg PO DAILY 12/04/19 Ondansetron HCl 4 mg PO Q8H PRN 12/04/19 Vancomcyin 125mg/5mL PO Liquid 125 mg PO Q6 #40 po.syringe 12/06/19 The following prescriptions were given: Vancomcyin 125mg/5mL PO Liquid 125 mg PO Q6 #40 po.syringe Transmission Status: Pending to [facility] Primary Care Physician: Charly Blackmon MD [Primary Care Provider] - Please follow up with your Primary Care Physician in: IN 2-3 WEEKS Test Results: Test results from this visit will be discussed in further detail at your follow- up appointment, if applicable. Please Follow Up With: YOUR ONCOLOGIST DIRECTED
[2019-12-06] MEDS: DiphenhydrAMINE 25 MG Capsule PO (11:46)
--- NOTE | 2019-12-06 13:42 | CASEMGMT ---
Social Work Note Pt is discharging home today. NORY faxed discharge paperwork to Palliative Care and wrote on fax coversheet that pt is discharging home today. NORY attempted to call Palliative Care, no answer, unable to leave message. Sandra Gonzalez FAIRING MAN, YARD RIGGER
[2019-12-06 13:47] VITALS: BP 127/74; PULSE 76; RESP 16; TEMP 36.8; O2SAT 94
--- NOTE | 2019-12-07 14:01 | CASEMGMT ---
[facility] DC PHONE CALL DC DATE: 12.07.2019 DC Disposition: Home Diagnosis on Discharge: Colitis LACE/STRATA: 09/28 Attempted to call pt at given phone #. No answer, and no answering machine with name identifier. Freddie GIBBONSN RN AC
--- NOTE | 2019-12-07 14:06 | CASEMGMT ---
E[facility] DC PHONE CALL DC DATE: 12.06.2019 DC Disposition: Home Diagnosis on Discharge: Colitis LACE/STRATA: 09/28 Attempted to call pt at given phone #. No answer, and no answering machine with name identifier. Freddie GIBBONSN RN AC
--- NOTE | 2019-12-08 18:57 | PCM.DC.SUM ---
Discharge Date and Diagnosis Date of Admission: 12/04/19 Date of Discharge: 12/06/19 - Primary Discharge Diagnosis #1 C. difficile colitis #2 ovarian cancer #3 essential hypertension #4 anemia secondary to chronic disease (ovarian cancer) #5 chronic kidney disease stage III-etiology unclear - Secondary Discharge Diagnosis Chronic Problems (Last Updated 11/03/19 @ 11:19 by Renee Gunter MD) Chronic anemia (Chronic) History of deep vein thrombosis (DVT) of lower extremity (Chronic) Hypertension (Chronic) Ovarian cancer (Chronic) Hospital Course and Treatment Operations: None Procedures: None Summary of Care Provided: The patient is a 58 year old F was seen in the emergency room at [facility] with chief complaint of fever x24 hours with abdominal discomfort which was generalized. Patient denied any diarrhea, vomiting, or blood in her stool. Patient stated that she developed a fever at home of 101.5. Patient is currently active with oncology and is undergoing chemotherapy for ovarian cancer. Patient had a CT of the abdomen and pelvis performed in the emergency room which showed diffuse inflammatory changes of the transverse colon as well as the flexures bilaterally. Patient was given Zofran and IV morphine, his white blood cell count was normal, her creatinine was slightly elevated at 1.19. Patient was admitted to [place] [address] and IV fluids were continued. Enteric panel on the patient's stool was negative for pathogens however patient stool was checked for C. difficile toxin and it was positive. Patient was placed on oral vancomycin. Patient symptoms improved during her hospitalization. On 12/06/2019, patient was seen and examined: On examination she appeared in good health and spirits. Vital signs as documented. Skin warm and dry and without overt rashes. Neck without JVD. Lungs clear. Heart exam notable for regular rhythm, normal sounds and absence of murmurs, rubs or gallops. Abdomen unremarkable and without evidence of organomegaly, masses, or abdominal aortic enlargement. Extremities nonedematous. Neuro: Cranial nerves II through XII are grossly intact, no focal motor deficits were noted, sensation to light touch and pinprick is intact. Psych: Patient is alert and oriented x3, she does not appear anxious or depressed On 12/06/2019, patient was seen and examined and felt to be in stable condition for discharge home - Physical Exam Vitals/I&O's: Vital Signs Temp Pulse Resp BP Pulse Ox 98.2 F 76 16 127/74 H 94 12/06/19 13:47 12/06/19 13:47 12/06/19 13:47 12/06/19 13:47 12/06/19 13:47 Oxygen Flow Rate (L/min) 2 Oxygen Delivery Method Room Air Weight: 92 kg Body Mass Index (BMI) 34.7 Intake and Output for Last 24 Hours 12/06/19 12/07/19 12/08/19 23:59 23:59 23:59 Intake Total 2723.33 / 2723.33 Output Total 752 / 752 Balance 1971.33 / 1970.33 Microbiology Past 72 Hours 12/04/19 16:50 Blood Culture (Wb) - Anticubital Right Blood Culture - Preliminary No growth in 48 hours. 12/04/19 16:40 Blood Culture (Wb) - Port Blood Culture - Preliminary No growth in 48 hours. 12/05/19 08:00 Stool Ova and Parasites - Final 12/04/19 17:15 Urine, Clean Catch Urine Culture - Final Mixed Gram Positive Organisms 12/05/19 10:48 Stool C. difficile GDH Antigen & Toxins - Final Toxigenic C. difficile 12/05/19 10:48 Stool C. difficile DNA Amplification - Final Discharge Activity: Return to Normal Activity Weight Bearing Status: Weight bearing as tolerated Home Medications: Medications to take at Discharge Lisinopril [Zestril] 10 mg PO DAILY 10/02/16 Docusate Sodium [Stool Softener] 100 mg PO BID PRN PRN 01/25/19 Polyethylene Glycol 3350 [Miralax] 17 gm PO BID PRN 01/25/19 Oxycodone HCl 5 mg PO Q4H PRN PRN 02/07/19 Acetaminophen [Tylenol Extra Strength] 500 mg PO Q4H PRN PRN 05/20/19 Magnesium Gluconate 500 mg PO BID 05/20/19 Multivitamin with Minerals [Multiple Vitamin] 1 ea PO DAILY 05/20/19 Lovenox 90 mg SQ BID 11/02/19 Vitamin B-6 100 mg PO DAILY 11/02/19 Esomeprazole Mag Trihydrate [Nexium] 40 mg PO DAILY 12/04/19 Ondansetron HCl 4 mg PO Q8H PRN 12/04/19 Vancomcyin 125mg/5mL PO Liquid 125 mg PO Q6 #40 po.syringe 12/06/19 Following Prescrptions Were Given to Patient: Vancomcyin 125mg/5mL PO Liquid 125 mg PO Q6 #40 po.syringe Transmission Status: Sent to [facility] Primary Care Physician: Charly Blackmon MD [Primary Care Provider] - Please follow up with your Primary Care Physician in: IN 2-3 WEEKS Please Follow Up With: YOUR ONCOLOGIST DIRECTED Please Follow Up With: Charly Blackmon MD Disposition: Home Minutes spent on discharge:: 33 Patient Condition:: Stable Medical Necessity - Tobacco Use Smoking Status: Never smoker Tobacco Use: Non-smoker Meaningful Use Info Meaningful Use Diagnoses (Choose all that apply): None applicable Code Visit Inpatient E&M: 31883 Disch Hosp
== END 2019-12-06 13:47 | disposition home or self-care (01) | DRG 372 ==
LOC: ED 16:43 → MS3 19:44
PROVIDERS: Admitting Provider Internal Medicine; Emergency Provider Emergency Medicine; PCP Family Medicine; Visit Provider Internal Medicine
DX: A04.72 Enterocolitis due to Clostridium difficile, not specified as recurrent (principal); C56.9 Malignant neoplasm of unspecified ovary; R09.02 Hypoxemia; N18.3 Chronic kidney disease, stage 3 (moderate); I12.9 Hypertensive chronic kidney disease with stage 1 through stage 4 chronic kidney disease, or unspecified chronic kidney disease; E86.0 Dehydration; D63.0 Anemia in neoplastic disease; Z79.01 Long term (current) use of anticoagulants; Z79.899 Other long term (current) drug therapy; Z86.718 Personal history of other venous thrombosis and embolism
CPT/HCPCS: 36591; 71045; 74177; 80053; 81001; 83605; 84484; 85025; 85610; 85730; 87040; 87086; 87088; 87177; 87209; 87493; 87506; 87804; 93005; 97802; 97803; 99285; J7030; J7040; Q9967; A4216; J0744; J2405

== ENCOUNTER → 2019-12-19 11:43 | Outpatient (CLI) | payer OTHER, SELFPAY ==
[2019-12-04 20:12] VITALS: BMI 34.7
[2019-12-19 13:51] LABS: Absolute Lymphocyte Count 1.54 X10^3/uL (0.83-4.51); Absolute Neutrophil Count 2.1 X10^3/uL (2.0-7.7); Basophil# 0.03 X10^3/uL; Basophil% 0.7 % (0-1); Eosinophil# 0.09 X10^3/uL; Hematocrit 32.8 % (37-47); Hemoglobin 10.4 g/dL (12.0-15.0); Lymphocyte # 1.54 X10^3/ul (4.0); Lymphocyte % 34.7 % (19-41); Mean Corp Hgb Conc 31.7 g/dL (32-36); Mean Corpuscular Hgb 30.4 pg (27.0-32.0); Mean Corpuscular Volume 95.9 fL (81-99); Mean Platelet Vol. 10.1 fl (6.2-12.0); Monocyte# 0.65 X10^3/uL; Monocyte% 14.6 % (0-10); NRBC Flagged by Analyzer 0 % (0-5); Neutrophil # 2.11 X10^3/uL (2.7-7.7); Neutrophil % 47.5 % (47-70); Platelet Count 234 K/mm3 (150-450); RBC Distribution Width CV 14.3 % (11.6-14.6); Red Blood Count 3.42 M/mm3 (4.2-5.4); White Blood Count 4.4 K/mm3 (4.4-11.0)
[2019-12-19 14:23] LABS: ALB/GLOB Ratio 0.9 RATIO (0.9-2.4); AST(SGOT) 12 U/L (15-37); Alanine Aminotransfer ALT/SGPT 37 U/L (13-56); Albumin, Serum 3.7 g/dL (3.2-5.0); Alkaline Phosphatase 90 U/L (45-117); Anion Gap 7 (5-15); BUN 24 mg/dL (7-18); BUN/Creat Ratio 22.2 RATIO (10-20); Calcium,Total 9.3 mg/dL (8.5-10.1); Chloride 106 mmol/L (98-107); Creatinine, Serum 1.08 mg/dL (0.55-1.02); EST Glomerular Filtration Rate 55 mL/min (>60); Est Glom Filt Rate - Afr Amer 67 mL/min (>60); Globulin 4.2 g/dL (2.2-4.2); Glucose 90 mg/dL (74-106); Magnesium 1.8 mg/dL (1.6-2.6); Potassium 4.3 mmol/L (3.5-5.1); Protein, Total 7.9 g/dL (6.4-8.2); Sodium Level 139 mmol/L (136-145)
[2019-12-20 16:58] LABS: Cancer Antigen 125 177.1 U/mL (0.0-38.1)
== END ==
PROVIDERS: PCP Family Medicine
DX: Z51.11 Encounter for antineoplastic chemotherapy (principal); C56.9 Malignant neoplasm of unspecified ovary
CPT/HCPCS: 36415; 80053; 83735; 85025; 86304

== ENCOUNTER → 2020-01-16 08:24 | Outpatient (CLI) | payer OTHER, SELFPAY ==
[2019-12-04 20:12] VITALS: BMI 34.7
[2020-01-16 09:56] LABS: Absolute Lymphocyte Count 1.14 X10^3/uL (0.83-4.51); Basophil# 0.03 X10^3/uL; Basophil% 0.8 % (0-1); Eosinophil# 0.18 X10^3/uL; Eosinophils% 4.5 % (0-5); Hematocrit 36.7 % (37-47); Hemoglobin 11.5 g/dL (12.0-15.0); Lymphocyte # 1.14 X10^3/ul (4.0); Lymphocyte % 28.7 % (19-41); Mean Corp Hgb Conc 31.3 g/dL (32-36); Mean Corpuscular Hgb 29.8 pg (27.0-32.0); Mean Corpuscular Volume 95.1 fL (81-99); Mean Platelet Vol. 9.7 fl (6.2-12.0); Monocyte# 0.64 X10^3/uL; Monocyte% 16.1 % (0-10); NRBC Flagged by Analyzer 0 % (0-5); Neutrophil # 1.96 X10^3/uL (2.7-7.7); Neutrophil % 49.4 % (47-70); Platelet Count 228 K/mm3 (150-450); RBC Distribution Width CV 14.8 % (11.6-14.6); RBC Distribution Width SD 51.8 fl (35.1-43.9); Red Blood Count 3.86 M/mm3 (4.2-5.4)
[2020-01-16 10:13] LABS: ALB/GLOB Ratio 0.8 RATIO (0.9-2.4); AST(SGOT) 12 U/L (15-37); Alanine Aminotransfer ALT/SGPT 35 U/L (13-56); Albumin, Serum 3.8 g/dL (3.2-5.0); Alkaline Phosphatase 95 U/L (45-117); Anion Gap 6 (5-15); BUN 25 mg/dL (7-18); BUN/Creat Ratio 22.9 RATIO (10-20); Calcium,Total 9.3 mg/dL (8.5-10.1); Chloride 104 mmol/L (98-107); Creatinine, Serum 1.09 mg/dL (0.55-1.02); EST Glomerular Filtration Rate 54 mL/min (>60); Est Glom Filt Rate - Afr Amer 66 mL/min (>60); Globulin 4.5 g/dL (2.2-4.2); Glucose 157 mg/dL (74-106); Magnesium 1.9 mg/dL (1.6-2.6); Potassium 4.3 mmol/L (3.5-5.1); Protein, Total 8.3 g/dL (6.4-8.2); Sodium Level 137 mmol/L (136-145)
[2020-01-17 09:48] LABS: Cancer Antigen 125 115.8 U/mL (0.0-38.1)
== END ==
PROVIDERS: PCP Family Medicine
DX: C56.9 Malignant neoplasm of unspecified ovary (principal); Z79.899 Other long term (current) drug therapy
CPT/HCPCS: 36415; 80053; 83735; 85025; 86304

== ENCOUNTER → 2020-02-13 15:26 | Outpatient (CLI) | payer OTHER, SELFPAY ==
[2019-12-04 20:12] VITALS: BMI 34.7
[2020-02-13 17:52] LABS: Absolute Neutrophil Count 3.4 X10^3/uL (2.0-7.7); Basophil# 0.03 X10^3/uL; Basophil% 0.6 % (0-1); Eosinophil# 0.13 X10^3/uL; Eosinophils% 2.4 % (0-5); Hematocrit 33.7 % (37-47); Hemoglobin 10.8 g/dL (12.0-15.0); Lymphocyte % 22.3 % (19-41); Mean Corpuscular Hgb 30.2 pg (27.0-32.0); Mean Corpuscular Volume 94.1 fL (81-99); Mean Platelet Vol. 9.8 fl (6.2-12.0); Monocyte# 0.64 X10^3/uL; Monocyte% 11.9 % (0-10); NRBC Flagged by Analyzer 0 % (0-5); Neutrophil # 3.35 X10^3/uL (2.7-7.7); Neutrophil % 62.2 % (47-70); Platelet Count 217 K/mm3 (150-450); RBC Distribution Width CV 15.2 % (11.6-14.6); RBC Distribution Width SD 52.1 fl (35.1-43.9); Red Blood Count 3.58 M/mm3 (4.2-5.4); White Blood Count 5.4 K/mm3 (4.4-11.0)
[2020-02-13 18:21] LABS: ALB/GLOB Ratio 0.9 RATIO (0.9-2.4); AST(SGOT) 15 U/L (15-37); Alanine Aminotransfer ALT/SGPT 39 U/L (13-56); Albumin, Serum 3.6 g/dL (3.2-5.0); Alkaline Phosphatase 92 U/L (45-117); Anion Gap 10 (5-15); BUN 30 mg/dL (7-18); BUN/Creat Ratio 23.1 RATIO (10-20); Calcium,Total 8.9 mg/dL (8.5-10.1); Chloride 107 mmol/L (98-107); EST Glomerular Filtration Rate 44 mL/min (>60); Est Glom Filt Rate - Afr Amer 54 mL/min (>60); Glucose 202 mg/dL (74-106); Magnesium 1.7 mg/dL (1.6-2.6); Potassium 4.2 mmol/L (3.5-5.1); Protein, Total 7.6 g/dL (6.4-8.2); Sodium Level 139 mmol/L (136-145)
[2020-02-15 14:01] LABS: Cancer Antigen 125 112.7 U/mL (0.0-38.1)
== END ==
PROVIDERS: PCP Family Medicine
DX: C56.9 Malignant neoplasm of unspecified ovary (principal)
CPT/HCPCS: 36415; 80053; 83735; 85025; 86304

== ENCOUNTER → 2020-03-12 12:14 | Outpatient (CLI) | payer OTHER, SELFPAY ==
[2019-12-04 20:12] VITALS: BMI 34.7
--- NOTE | 2020-03-12 12:37 | CT_ITS ---
STUDY: CT CHEST/THORAX WITH CONTRAST REASON FOR EXAM: Female, 59 years old. FALLOPIAN TUBE CA RADIATION DOSAGE (If Supplied By Facility): CTDIvol = ( 17.49 ) mGy, DLP = ( 706.72 ) mGycm TECHNIQUE: Transaxial imaging was performed following intravenous administration of Oral and amp; IV Readi-CAT and amp; 100mL Isovue-300. Multiplanar coronal and sagittal images were reformatted. Individualized dose optimization techniques were used for this CT. COMPARISON: CT chest with IV contrast October 03, 2019 FINDINGS: The hub of a Port-A-Cath device is now seen in the subcutaneous infraclavicular soft tissues of the right anterior chest wall. The catheter extends to the right atrium. There is minor curvilinear subsegmental atelectasis in the posterolateral right lower lobe and, to a lesser degree, in the anterolateral left lower lobe. The lungs are otherwise clear. There is no demonstrated pleural abnormality. Normal heart and pericardium. There is atherosclerotic calcifications of the left anterior descending coronary artery. There are occasional nonspecific lymph nodes in the mediastinum and hilar regions.. No new adenopathy. Normal enhanced pulmonary arteries. Normal aorta arch and descending thoracic aorta. There are stable degenerative changes of the thoracic spine with multi-level hypertrophic anterolateral bridging endplate osteophytes. There is a stable 4.7 mm rounded low-density lesion at the confluence of the right thyroid lobe and thyroid isthmus. Liver density is difficult to assess following contrast, there is suggestion of diffuse decreased attenuation that would indicate fatty metamorphosis. CT/Chest WITH Contrast IMPRESSION: 1. No CT findings of thoracic malignancy/metastatic disease. 2. Right anterior chest wall Port-A-Cath now present. 3. Stable 4.7 mm low-density lesion at the juncture of the right thyroid lobe and thyroid isthmus. 4. Fatty infiltration of the liver. Electronically Signed: Onur Bean MD at 13:39 EDT , Service support ,
--- NOTE | 2020-03-12 12:37 | CT_ITS ---
STUDY: CT ABDOMEN AND PELVIS WITH CONTRAST REASON FOR EXAM: Female, 59 years old. FALLOPIAN TUBE CA RADIATION DOSAGE (If Supplied By Facility): CTDIvol = ( 26.88 ) mGy, DLP = ( 1415.31 ) mGycm TECHNIQUE: Transaxial images were obtained from the dome of the diaphragm to the symphysis pubis with oral contrast. Oral and amp; IV Readi-CAT and amp; 100mL Isovue-300 was administered. Sagittal and coronal images were reconstructed. Individualized dose optimization techniques were used for this CT. COMPARISON: CT abdomen and pelvis with IV contrast December 04, 2019. FINDINGS: The visualized lung bases are unremarkable. The visualized portions of the heart are within normal limits. Liver density is difficult to accurately assess following IV contrast, but there is persistent suggestion of diffuse decreased attenuation consistent with fatty infiltration. There is hepatomegaly, the right lobe measuring 21.7 cm in height. The patent portal vein diameter is 14.8 mm. Normal gallbladder and extrahepatic biliary system. The diameter of the common bile duct is 6.6 mm. Normal spleen. Normal pancreas. Normal bilateral adrenal glands. There is a stable well-defined, rounded 11 mm cortical cyst in the posterior medial lower pole of the right kidney. Minor ectasia of the right upper urinary tract down to the pelvic inlet. Normal left kidney. No hydronephrosis. The stomach is filled with fluid, contrast, undigested material, and gas. Normal small intestine. Incidental note of the cecum in the mid abdomen. There is anastomotic suture line at the upper rectum. No associated mural thickening or mass or normal caliber of the colon. There is non-visualization of the appendix. Normal abdominal aorta. Normal inferior vena cava. Again seen are numerous surgical clips in the lower pericaval retroperitoneal soft tissues, consistent with prior lymphadenectomy. Retroperitoneal lymph nodes ranging from nonspecific subcentimeter sized to mildly enlarged in the proximal iliac distributions are decreased in size. Normal urinary bladder. There is absence of the uterus consistent with a prior hysterectomy. There is a stable 7.6 x 8.55 cm midline supraumbilical defect of the anterior abdominal wall, allowing for an 8.85 x 9.37 cm wide, 4.5 cm deep hernia that contains a knuckle of mid transverse colon. Just superior to this is a 2.9 x 0.9 cm midline defect, allowing for a 5.1 x 2.1 x 1.75 cm hernia containing fat. There is a 2.3 x 3.9 cm defect to the left of midline near the level of the umbilicus, allowing for a 3.9 x 2.3 x 3.4 cm hernia containing a knuckle of small bowel. There is a healed infraumbilical midline scar of the anterior abdominal wall. There are numerous rounded or ill-defined soft tissue densities of varying size and contour consistent with injection sites in the subcutaneous tissues of the anterior abdominal wall. Again seen are multilevel spondylotic degenerative changes of the visualized spine. CT/Abdomen/Pelvis WITH Contrast IMPRESSION: 1. Prior hysterectomy as well as lower retroperitoneal lymphadenectomy. A number of lymph nodes in the retroperitoneal iliac distributions are decreased in size from previous exam. 2. Anastomotic suture line noted in the upper rectum. No associated mass or mural thickening. No sign of bowel obstruction. Incidental note of the cecum in the mid abdomen. The appendix is not visualized. 3. Stable hepatomegaly and hepatic steatosis. 4. Stable midline defects of the anterior abdominal wall with herniations of varying size containing fat or knuckles of nondistended bowel. 5. Stable 11 mm cortical cyst in the lower pole of the right kidney. There is mild ectasia of the right upper urinary tract and pelvic inlet. No left hydronephrosis. Electronically Signed: Onur Bean MD at 13:59 EDT , Service support ,
[2020-03-12] MEDS: 0.9% Saline Lock 10 ML Syringe IV (12:57)
[2020-03-12 13:14] LABS: Absolute Lymphocyte Count 1.07 X10^3/uL (0.83-4.51); Absolute Neutrophil Count 2.3 X10^3/uL (2.0-7.7); Basophil# 0.02 X10^3/uL; Basophil% 0.5 % (0-1); Eosinophil# 0.08 X10^3/uL; Hematocrit 35.4 % (37-47); Hemoglobin 11.2 g/dL (12.0-15.0); Lymphocyte # 1.07 X10^3/ul (4.0); Lymphocyte % 27.2 % (19-41); Mean Corp Hgb Conc 31.6 g/dL (32-36); Mean Corpuscular Hgb 30.3 pg (27.0-32.0); Mean Corpuscular Volume 95.7 fL (81-99); Mean Platelet Vol. 9.9 fl (6.2-12.0); Monocyte% 12.7 % (0-10); NRBC Flagged by Analyzer 0 % (0-5); Neutrophil # 2.26 X10^3/uL (2.7-7.7); Neutrophil % 57.3 % (47-70); Platelet Count 237 K/mm3 (150-450); RBC Distribution Width CV 14.3 % (11.6-14.6); RBC Distribution Width SD 50.3 fl (35.1-43.9); White Blood Count 3.9 K/mm3 (4.4-11.0)
[2020-03-12 13:38] LABS: ALB/GLOB Ratio 0.9 RATIO (0.9-2.4); AST(SGOT) 14 U/L (15-37); Alanine Aminotransfer ALT/SGPT 42 U/L (13-56); Albumin, Serum 3.5 g/dL (3.2-5.0); Alkaline Phosphatase 88 U/L (45-117); Anion Gap 6 (5-15); BUN 21 mg/dL (7-18); BUN/Creat Ratio 18.1 RATIO (10-20); Calcium,Total 9.2 mg/dL (8.5-10.1); Chloride 105 mmol/L (98-107); Creatinine, Serum 1.16 mg/dL (0.55-1.02); EST Glomerular Filtration Rate 51 mL/min (>60); Est Glom Filt Rate - Afr Amer 61 mL/min (>60); Globulin 4.1 g/dL (2.2-4.2); Glucose 144 mg/dL (74-106); Magnesium 1.9 mg/dL (1.6-2.6); Potassium 3.9 mmol/L (3.5-5.1); Protein, Total 7.6 g/dL (6.4-8.2); Sodium Level 141 mmol/L (136-145)
== END ==
PROVIDERS: PCP Family Medicine
DX: C57.00 Malignant neoplasm of unspecified fallopian tube (principal); C56.9 Malignant neoplasm of unspecified ovary
CPT/HCPCS: 36415; 71260; 74177; 80053; 83735; 85025; 86304; Q9967; A4216

== ENCOUNTER → 2020-04-09 10:52 | Outpatient (CLI) | payer OTHER, SELFPAY ==
[2019-12-04 20:12] VITALS: BMI 34.7
[2020-04-09 12:42] LABS: Absolute Lymphocyte Count 0.94 X10^3/uL (0.83-4.51); Absolute Neutrophil Count 1.7 X10^3/uL (2.0-7.7); Basophil# 0.02 X10^3/uL; Basophil% 0.6 % (0-1); Eosinophil# 0.07 X10^3/uL; Eosinophils% 2.1 % (0-5); Hematocrit 35.4 % (37-47); Hemoglobin 11.2 g/dL (12.0-15.0); Lymphocyte # 0.94 X10^3/ul (4.0); Lymphocyte % 28.7 % (19-41); Mean Corp Hgb Conc 31.6 g/dL (32-36); Mean Corpuscular Hgb 30.4 pg (27.0-32.0); Mean Corpuscular Volume 96.2 fL (81-99); Mean Platelet Vol. 9.7 fl (6.2-12.0); Monocyte# 0.49 X10^3/uL; Monocyte% 14.9 % (0-10); NRBC Flagged by Analyzer 0 % (0-5); Neutrophil # 1.73 X10^3/uL (2.7-7.7); Neutrophil % 52.8 % (47-70); Platelet Count 199 K/mm3 (150-450); Red Blood Count 3.68 M/mm3 (4.2-5.4); White Blood Count 3.3 K/mm3 (4.4-11.0)
[2020-04-09 13:18] LABS: ALB/GLOB Ratio 0.9 RATIO (0.9-2.4); AST(SGOT) 13 U/L (15-37); Alanine Aminotransfer ALT/SGPT 39 U/L (13-56); Albumin, Serum 3.5 g/dL (3.2-5.0); Alkaline Phosphatase 89 U/L (45-117); Anion Gap 4 (5-15); BUN 21 mg/dL (7-18); BUN/Creat Ratio 19.3 RATIO (10-20); Calcium,Total 9.2 mg/dL (8.5-10.1); Chloride 108 mmol/L (98-107); Creatinine, Serum 1.09 mg/dL (0.55-1.02); EST Glomerular Filtration Rate 54 mL/min (>60); Est Glom Filt Rate - Afr Amer 66 mL/min (>60); Glucose 137 mg/dL (74-106); Potassium 4.6 mmol/L (3.5-5.1); Protein, Total 7.5 g/dL (6.4-8.2); Sodium Level 140 mmol/L (136-145)
== END ==
PROVIDERS: PCP Family Medicine
DX: C56.9 Malignant neoplasm of unspecified ovary (principal)
CPT/HCPCS: 36415; 80053; 83735; 85025; 86304

== ENCOUNTER 2020-05-20 03:24 | Inpatient (IN) | payer OTHER, SELFPAY ==
[2019-12-04 20:12] VITALS: BMI 34.7
[2020-05-20] VITALS (8 sets, daily range): BP systolic 128–147; BP diastolic 76–93; PULSE 66–81; RESP 14–18; TEMP 36.6–37.1; O2SAT 95–99; BMI 38.1; BMI 37.8
--- NOTE | 2020-05-20 03:42 | CT_ITS ---
STUDY: CT ABDOMEN AND PELVIS WITHOUT CONTRAST REASON FOR EXAM: Female, 59 years old. ABDOMEN PAIN SINCE YESTERDAY -- HX:ASTHMA,HTN,HERNIA,OVARIAN CANCER -- SURGERY:APPENDECTOMY,ELLA FILTER,ITA/BSO WITH 2 PELVIC TUMORS REMOVED RADIATION DOSAGE (If Supplied By Facility): CTDIvol = ( 21.22 ) mGy, DLP = ( 1150.69 ) mGycm TECHNIQUE: Transaxial images were obtained from the dome of the diaphragm to the symphysis pubis without oral contrast, and without intravenous contrast. Sagittal and coronal images were reconstructed. Individualized dose optimization techniques were used for this CT. COMPARISON: 03/12/2020. 12/04/2019. FINDINGS: There is mild atelectasis in the visualized posterior lung bases bilaterally. The visualized portions of the heart are within normal limits. There is decreased attenuation of the liver consistent with steatosis. Normal gallbladder and extrahepatic biliary system. Normal spleen. Normal pancreas. Normal bilateral adrenal glands. Normal right kidney. Normal left kidney. Normal visualized stomach. There is dilatation of loops of proximal ileum, with diameters ranging up to 3.5 cm and there is relative decompression of the distal ileum, consistent with a partial small bowel obstruction. Dilated loops of small bowel are seen to enter a supraumbilical ventral hernia, however, there is still moderate distention of the afferent bowel loops, and this does not appear to represent site of obstruction. Transition is seen in the left side of the lower abdomen on axial images 98-96. Specific etiology is not demonstrated and it is most likely due to adhesions. There has been previous sigmoid colon surgery. Otherwise, normal colon. There is non-visualization of the appendix, consistent with history of appendectomy. Normal abdominal aorta. Normal inferior vena cava. There are mildly enlarged para iliac retroperitoneal lymph nodes bilaterally, ranging up to 1.2 cm in short axis diameter. These have decreased in size since the 12/04/2019 exam. Periaortic and pericaval retroperitoneal lymph nodes have also decreased in size Normal urinary bladder. There is absence of the uterus consistent with a prior hysterectomy. There are supraumbilical and infraumbilical ventral hernias containing small bowel loops. There is no associated bowel obstruction or strangulation in the hernia sites. There are numerous subcutaneous nodular densities in the anterior pelvis, probably representing injection sites. There are multilevel degenerative changes of the visualized lumbar spine. CT/Abdomen/Pelvis without Cont IMPRESSION: Partial small bowel obstruction at the level of the mid ileum, probably due to adhesions. Status post hysterectomy, appendectomy, and sigmoid colon surgery. Ventral hernias containing small bowel loops. No associated bowel obstruction and hernia sites. Retroperitoneal lymphadenopathy, with interval improvement compared to the November study. N.B. : The above information has been verbally conveyed by Jr Simon MD to Dr. Eddie White MD, on 05/20/2020 06:14:25 (ET). Electronically Signed: Jr Simon MD at 6:16 EDT , Service support ,
--- NOTE | 2020-05-20 03:53 | ED.VISSUMM ---
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 She has a history of ovarian cancer and is on chemotherapy. Her last chemo was May 09. Patient reports that she has abdominal pain that began yesterday. Is gradually gotten worse. Says sharp pain is 10 of 10 worsening to 10 currently. Is worsened by movement relieved by remaining still. She is been nauseous and had dry heaves. No diarrhea. Her last bowel was yesterday. No matter medication. No dysuria or frequency. States this is similar to when she had a small bowel obstruction in the past. Physical Examination: Vitals: Stable. Afebrile. General: Well-nourished and well-developed. Head: Normocephalic atraumatic. Neck: Supple, no lymphadenopathy. No JVD. Nontender. Cardiovascular: Regular rate and rhythm. No murmurs. Respiratory: No respiratory distress. Clear to auscultation bilaterally. Abdominal: Soft, mild diffuse tenderness palpation with severe tenderness palpation in the epigastric region, nondistended, normal bowel sounds. No guarding, rebound, or peritoneal signs. Back: Nontender. Extremities: Nontender, no edema. Skin: Normal color, no rash. Neurologic: Alert and oriented ?3. Cranial nerves II through XII are intact. Normal strength and sensation. Psych: Normal affect. Test Results: CBC shows an H&H of 10.9 and 33.5, segmented neutrophils 84, lymphocytes of 9. Chem-7 shows a sodium 135, glucose 215, BUN 27, creatinine 1. 2 9. LFTs show an AST of 14. Lipase is 101. Lactate is 1.2. CT shows a partial small bowel obstruction of the level of the mid ileum probably due to adhesions. Emergency Department Course and Treatment: Patient had an IV placed. She was given Dilaudid and Zofran IV. She is resting more comfortably. Patient had an IV placed. She was given a liter normal saline. She was given Zofran and morphine IV. She is resting more comfortably. Patient is very resistant to the idea of an NG tube. She does understand if she begins vomiting that this will have to be placed. Treatment Plan: Patient was discussed with Dr. Monet. She will be discussed with the oncoming hospitalist and admitted for further evaluation and treatment. Disposition: Admitted in improved condition. Impression: 1. Partial small bowel obstruction. 2. History of ovarian cancer on chemotherapy. This note was generated with [employer] dictation software. It may contain incorrect words, spelling, and punctuation that were not noted in review of the chart prior to signing ED Disposition - Plan for ED Patient:
[2020-05-20] MEDS: 0.9% Normal Saline 1,000 ML 1000 ML IV (04:02)
[2020-05-20] MEDS: Ondansetron 4 MG/2 ML Vial IV ×2 (04:03→08:17)
[2020-05-20 04:04] LABS: Absolute Lymphocyte Count 0.69 X10^3/uL (0.83-4.51); Absolute Neutrophil Count 6.2 X10^3/uL (2.0-7.7); Basophil# 0.03 X10^3/uL; Basophil% 0.4 % (0-1); Eosinophil# 0.07 X10^3/uL; Eosinophils% 0.9 % (0-5); Hematocrit 33.5 % (37-47); Hemoglobin 10.9 g/dL (12.0-15.0); Lymphocyte # 0.69 X10^3/ul (4.0); Lymphocyte % 9.3 % (19-41); Mean Corp Hgb Conc 32.5 g/dL (32-36); Mean Corpuscular Hgb 31.1 pg (27.0-32.0); Mean Corpuscular Volume 95.4 fL (81-99); Mean Platelet Vol. 9.3 fl (6.2-12.0); Monocyte% 5.4 % (0-10); NRBC Flagged by Analyzer 0 % (0-5); Neutrophil # 6.15 X10^3/uL (2.7-7.7); Neutrophil % 83.5 % (47-70); Platelet Count 193 K/mm3 (150-450); RBC Distribution Width CV 13.9 % (11.6-14.6); Red Blood Count 3.51 M/mm3 (4.2-5.4); White Blood Count 7.4 K/mm3 (4.4-11.0)
[2020-05-20] MEDS: HYDROmorphone 1 MG/ML Syringe IV (04:06)
[2020-05-20 04:21] LABS: ALB/GLOB Ratio 0.8 RATIO (0.9-2.4); AST(SGOT) 14 U/L (15-37); Alanine Aminotransfer ALT/SGPT 33 U/L (13-56); Albumin, Serum 3.2 g/dL (3.2-5.0); Alkaline Phosphatase 93 U/L (45-117); Anion Gap 5 (5-15); BUN 27 mg/dL (7-18); BUN/Creat Ratio 20.9 RATIO (10-20); Calcium,Total 8.9 mg/dL (8.5-10.1); Chloride 101 mmol/L (98-107); Creatinine, Serum 1.29 mg/dL (0.55-1.02); EST Glomerular Filtration Rate 45 mL/min (>60); Est Glom Filt Rate - Afr Amer 54 mL/min (>60); Estimated Creatinine Clearance 40.05 ml/min; Globulin 4.2 g/dL (2.2-4.2); Glucose 215 mg/dL (74-106); Lipase 101 U/L (73-393); Potassium 4.6 mmol/L (3.5-5.1); Protein, Total 7.4 g/dL (6.4-8.2); Sodium Level 135 mmol/L (136-145)
[2020-05-20 04:28] LABS: Lactic Acid 1.2 mmol/L (0.4-1.9)
[2020-05-20] MEDS: Morphine 4 MG/ML Syringe IV (05:59)
--- NOTE | 2020-05-20 07:06 | NURSING ---
[address] [facility]
--- NOTE | 2020-05-20 07:25 | HP.PCM_ITS ---
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 Pain was intermittent and would come and go and patient was able to eat some and was able to have some bowel movements. However, around 2 AM, patient had w orsening abdominal pain all this was consistent with her prior history of small bowel obstructions. Presented to the emergency room where she underwent a CAT scan that showed a patient received morphine,, hydromorphone. Feeling somewhat better but still having abdominal pain. Patient had one episode of emesis but not actively vomiting now. NG was recommended in ER but patient is declining right now. [] Past Medical History Past Medical History (Chronic Problems): Chronic Problems (Last Updated 05/20/20 @ 07:[address] Jose Dumont DO) Ovarian cancer (Chronic) Hypertension (Chronic) History of deep vein thrombosis (DVT) of lower extremity (Chronic) Chronic anemia (Chronic) Medical History: Medical History (Last Updated 05/20/20 @ 07:[address] Jose Dumont DO) Ovarian cancer C56.9 VTE (venous thromboembolism) I82.90 Asthma J45.909 HTN (hypertension) I10 Allergies carboplatin Allergy (Verified 05/20/20 03:31) Anaphylaxis unresponsive hydrocodone bitartrate [From Vicodin] Allergy (Verified 05/20/20 03:31) Hives paclitaxel Allergy (Verified 05/20/20 03:31) Anaphylaxis unresponsive Home Medications: Ambulatory Orders Medication Instructions Recorded Lisinopril [Zestril] 10 mg PO DAILY 10/02/16 Docusate Sodium [Stool Softener] 100 mg PO BID PRN PRN 01/25/19 Polyethylene Glycol 3350 [Miralax] 17 gm PO BID PRN 01/25/19 Oxycodone HCl 5 mg PO Q4H PRN PRN 02/07/19 Acetaminophen [Tylenol Extra 500 mg PO Q4H PRN PRN 05/20/19 Strength] Magnesium Gluconate 500 mg PO BID 05/20/19 Multivitamin with Minerals 1 ea PO DAILY 05/20/19 [Multiple Vitamin] Vitamin B-6 100 mg PO DAILY 11/02/19 Esomeprazole Mag Trihydrate 40 mg PO DAILY 12/04/19 [Nexium] Ondansetron HCl 4 mg PO Q8H PRN 12/04/19 Apixaban [Eliquis] 5 mg PO BID 05/20/20 Pyridoxine HCl [Vitamin B-6] 50 mg PO DAILY 05/20/20 Surgical History: Surgical History (Last Updated 05/20/20 @ 07:[address] Jose Dumont DO) H/O total hysterectomy with bilateral salpingo-oophorectomy (BSO) Z90.710, Z90.722, Z90.79 History of appendectomy Z90.49 S/P laparoscopy Z98.890 S/P tonsillectomy Z90.89 Surgical History: appendectomy, hysterectomy Psychiatric History: No pertinent psych hx [employer] History: ovarian cancer Smoking Status: Never smoker - *Family History Maternal Family History: Family History (Last Reviewed 05/20/20 @ 07:[address] Jose Dumont DO) Mother Breast cancer Diabetes Heart disease Hypertension CVA (cerebral vascular accident) Father Diabetes Heart disease Kidney disease History Items: Cancer, Diabetes Paternal Family History: Family History (Last Reviewed 05/20/20 @ 07:[address] Jose Dumont DO) Mother Breast cancer Diabetes Heart disease Hypertension CVA (cerebral vascular accident) Father Diabetes Heart disease Kidney disease History Items: Diabetes, Heart Disease, Hypertension Review of Systems Constitutional: Denies: Anorexia, Chills, Fever, Night Sweats Eyes: Denies: Blurred vision, Double vision HEENT: Denies: Head Aches, Sinus Congestion, Sinus Drainage Cardiovascular: Denies: Chest Pain, Palpitations Respiratory: Denies: Cough, Shortness of breath at rest, Sputum production Gastrointestinal: Reports: Abdominal Pain, Constipation, Nausea, Vomiting. Denies: Diarrhea Genitourinary: Denies: Dysuria, Frequency Musculoskeletal: Denies: Joint Pain, Joint Tenderness Skin: Denies: Rash, Wounds Hematologic/ Lymphatic: Reports: Hx of blood clot. Denies: Easy Bruising, Easy Bleeding Comment: All review of systems were negative except as mentioned above in the history of present illness and the other review of systems. VTE Information - Inpt Only VTE Present on Admission: No VTE Mechan Device Prophylaxis: None VTE Pharm Prophylaxis ordered?: No Reason prophylaxis not ordered:: Treatment Not Indicated Patient Problems: Active and Suspected Problems (Last Updated 05/20/20 @ 07:[address] Jose Dumont, DO) Partial small bowel obstruction (Acute) - Physical Exam Vitals/I&O's: Vital Signs Temp Pulse Resp BP Pulse Ox 37.1 C 72 16 128/77 H 99 05/20/20 07:05 05/20/20 07:05 05/20/20 07:05 05/20/20 07:05 05/20/20 07:05 Oxygen Delivery Method Room Air Weight: 100.7 kg Body Mass Index (BMI) 38.1 Intake and Output for Last 24 Hours 05/18/20 05/19/20 05/20/20 23:59 23:59 23:59 Intake Total 1000 / 1000 Balance 1000 / 1000 General: Alert, Cooperative, No apparent distress HEENT: Atraumatic, Normocephalic Oral: Moist Mucosa, No Gingival or Mucosal Lesions/ Ulcerations Neck: No Nodes, Trachea Midline Lungs: Clear to auscultation, Normal air movement, No rhonchi, No wheeze, No rales Cardiovascular: Regular rate, Regular Rhythm, Normal S1, Normal S2, No murmurs Abdomen: Hypoactive Bowel Sounds - with high-pitched, Tender, - - more distended in epigastrum Extremities: No edema, No Calf Tenderness Skin: No rashes, No breakdown Musculoskeletal: No Tenderness to Palpation of Joints or Extremities, No Muscle Wasting Neurological: Deep Tendon Reflexes 2+/4 and Symmetrical, - - no clonus Psych/Mental Status: Normal Affect, Appropriate Laboratory Results 05/20/20 03:35: WBC 7.4, RBC 3.51 L, Hgb 10.9 L, Hct 33.5 L, MCV 95.4, MCH 31.1, MCHC 32.5, RDW Std Deviation 48.0 H, RDW Coeff of Jenifer 13.9, Plt Count 193, MPV 9.3, Immature Gran % (Auto) 0.500, Neut % (Auto) 83.5 H, Lymph % (Auto) 9.3 L, [place] % (Auto) 5.4, Eos % (Auto) 0.9, Baso % (Auto) 0.4, Absolute Neuts (auto) 6.2, Absolute Lymphs (auto) 0.69 L, Nucleated RBC % 0 05/20/20 03:35: Sodium 135 L, Potassium 4.6, Chloride 101, Carbon Dioxide 29.0, Anion Gap 5, BUN 27 H, Creatinine 1.29 H, Estim Creat Clear Calc 40.05, Est GFR (MDRD) Af Amer 54 L, Est GFR (MDRD) Non-Af 45 L, BUN/Creatinine Ratio 20.9 H, Glucose 215 H, Calcium 8.9, Total Bilirubin 0.30, AST 14 L, ALT 33, Alkaline Phosphatase 93, Total Protein 7.4, Albumin 3.2, Globulin 4.2, Albumin/Globulin Ratio 0.8 L, Lipase 101 05/20/20 03:35: Lactic Acid 1.2 Clinical Impression(s) from Imaging Studies Abdomen/Pelvis CT 05/20/20 03:42 IMPRESSION: Partial small bowel obstruction at the level of the mid ileum, probably due to adhesions. Status post hysterectomy, appendectomy, and sigmoid colon surgery. Ventral hernias containing small bowel loops. No associated bowel obstruction and hernia sites. Retroperitoneal lymphadenopathy, with interval improvement compared to the November study. N.B. : The above information has been verbally conveyed by Jr Simon MD to Dr. Eddie White MD, on 05/20/2020 06:14:25 (ET). Electronically Signed: Jr Simon MD at 6:16 EDT , Service support , ADDENDUM: 05/20/20 0623 IMPRESSION: Partial small bowel obstruction at the level of the mid ileum, probably due to adhesions. Status post hysterectomy, appendectomy, and sigmoid colon surgery. Ventral hernias containing small bowel loops. No associated bowel obstruction and hernia sites. Retroperitoneal lymphadenopathy, with interval improvement compared to the November study. N.B. : The above information has been verbally conveyed by Jr Simon MD to Dr. Eddie White MD, on 05/20/2020 06:14:25 (ET). Electronically Signed: Jr Simon MD at 6:16 EDT , Service support , Current Medications Heparin Sodium (Beef Lung) () 50 units IV UD PRN PRN Reason: Port-a-Cath (VAD)Heparin Flush Sodium Chloride () 10 - 40 ml IV UD PRN PRN Reason: Port-a-Cath (VAD) Flush Sodium Chloride (0.9% Nacl (Sterile) Posiflush) 10 - 40 ml IV UD PRN PRN Reason: Port access or dressing change Assessment/Plan All Active Problems (Last Updated 05/20/20 @ 07:[address] Jose Dumont DO) Partial small bowel obstruction (Acute) 1. Partial small bowel obstruction: * Have been ongoing since yesterday but was intermittent. Symptoms became worse today. * Due to adhesions from prior abdominal surgery * Patient declined NG tube preferring to hold off at this point in time. Discussed with the patient that if her symptoms do become worse necessary. She was in agreement to that * Plan is for supportive management at this time with n.p.o., fluids, pain control and antiemetics. * Patient states that if she were to require surgery she would not want a surgery performed here but rather at [facility] with her surgical onc ologist, Dr. Rinaldi. Therefore, will hold off on consulting general surgery here. 2. Ovarian cancer * Patient has had a hysterectomy and bilateral salpingo-oophorectomy * Still undergoing chemotherapy 3. History of venous thromboembolic disease * Patient is on apixaban at home. Will place patient on therapeutic dosing of while n.p.o. Once able to take oral, transition patient back to apixaban. 4. Advanced care planning: Discussed with patient. Patient wishes to be full CODE STATUS at this time. Case discussed with the patient's at bedside. Length of stay: date to be determined depending on clinical course. At this time I would suspect a hospitalization 48 to 72 hours. Inpatient E&M: 92125 Init Hosp L3
[2020-05-20] MEDS: HYDROmorphone 0.5 MG/0.5 ML SYRINGE IV ×2 (08:16→11:52)
[2020-05-20] MEDS: 0.9% Saline Lock 10 ML Syringe IV (08:26)
[2020-05-20] MEDS: 0.9% Normal Saline 1,000 ML 150 ML IV ×3 (08:36→20:57)
[2020-05-20] MEDS: Morphine 2 MG/ML Syringe IV ×2 (10:49→14:15)
--- NOTE | 2020-05-20 10:56 | CON.PCM_ITS ---
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 She has a history of ovarian cancer and is on chemotherapy. Her last chemo was May 09. Patient reports that she has abdominal pain that began yesterday. Is gradually gotten worse. Says sharp pain is 10 of 10 worsening to 10 currently. Is worsened by movement relieved by remaining still. She is been nauseous and had dry heaves. No diarrhea. Her last bowel was yesterday. No matter medication. No dysuria or frequency. States this is similar to when she had a small bowel obstruction in the past x4. Past Medical History Past Medical History (Chronic Problems): Chronic Problems (Last Reviewed 05/20/20 @ 10:[address] Brayan Monet MD) Ovarian cancer (Chronic) Hypertension (Chronic) History of deep vein thrombosis (DVT) of lower extremity (Chronic) Chronic anemia (Chronic) Medical History: Medical History (Last Reviewed 05/20/20 @ 10:[address] Brayan Monet MD) Ovarian cancer C56.9 VTE (venous thromboembolism) I82.90 Asthma J45.909 HTN (hypertension) I10 Allergies carboplatin Allergy (Verified 05/20/20 03:31) Anaphylaxis unresponsive hydrocodone bitartrate [From Vicodin] Allergy (Verified 05/20/20 03:31) Hives paclitaxel Allergy (Verified 05/20/20 03:31) Anaphylaxis unresponsive Home Medications: Ambulatory Orders Medication Instructions Recorded Lisinopril [Zestril] 10 mg PO DAILY 10/02/16 Docusate Sodium [Stool Softener] 100 mg PO BID 01/25/19 Polyethylene Glycol 3350 [Miralax] 17 gm PO BID PRN 01/25/19 Oxycodone HCl 5 mg PO Q4H PRN PRN 02/07/19 Acetaminophen [Tylenol Extra 500 mg PO Q4H PRN PRN 05/20/19 Strength] Magnesium Gluconate 500 mg PO BID 05/20/19 Multivitamin with Minerals 1 ea PO DAILY 05/20/19 [Multiple Vitamin] Esomeprazole Mag Trihydrate 40 mg PO DAILY 12/04/19 [Nexium] Ondansetron HCl 4 mg PO Q8H PRN 12/04/19 Apixaban [Eliquis] 5 mg PO BID 05/20/20 Pyridoxine HCl [Vitamin B-6] 100 mg PO DAILY 05/20/20 Surgical History: Surgical History (Last Reviewed 05/20/20 @ 10:[address] 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 Brayan Monet MD) Mother Breast cancer Diabetes Heart disease Hypertension CVA (cerebral vascular accident) Father Diabetes Heart disease Kidney disease History Items: Cancer, Diabetes Paternal Family History: Family History (Last Reviewed 05/20/20 @ 10:[address] Brayan Monet MD) Mother Breast cancer Diabetes Heart disease Hypertension CVA (cerebral vascular accident) Father Diabetes Heart disease Kidney disease History Items: Diabetes, Heart Disease, Hypertension Review of Systems Constitutional: Denies: Chills, Fever, Weight Change Cardiovascular: Denies: Chest Pain, Chest Pressure, Chest Tightness, Palpitations Respiratory: Denies: Cough, Hemoptysis, Shortness of breath at rest, Shortness of breath upon exertion, Wheezing Gastrointestinal: Reports: Abdominal Pain, Nausea, Vomiting Genitourinary: Denies: Dysuria, Frequency, Hematuria, Urgency Patient Problems: Active and Suspected Problems (Last Reviewed 05/20/20 @ 10:[address] Brayan Monet MD) Partial small bowel obstruction (Acute) - Physical Exam Vitals/I&O's: Vital Signs Temp Pulse Resp BP Pulse Ox 97.9 F 66 16 132/76 H 98 05/20/20 08:15 05/20/20 08:15 05/20/20 08:15 05/20/20 08:15 05/20/20 08:15 Oxygen Delivery Method Room Air Weight: 220 lb 6.4 oz Body Mass Index (BMI) 37.8 Intake and Output for Last 24 Hours 05/18/20 05/19/2005/20/20 23:59 23:59 23:59 Intake Total 999 / 999 Balance 1000 / 999 General: Alert, Oriented x3 Lungs: Clear to auscultation Cardiovascular: Regular rate, Regular Rhythm, No murmurs Abdomen: Soft, Tender Laboratory Results 05/20/20 03:35: WBC 7.4, RBC 3.51 L, Hgb 10.9 L, Hct 33.5 L, MCV 95.4, MCH 31.1, MCHC 32.5, RDW Std Deviation 48.0 H, RDW Coeff of Jenifer 13.9, Plt Count 193, MPV 9.3, Immature Gran % (Auto) 0.500, Neut % (Auto) 83.5 H, Lymph % (Auto) 9.3 L, [place] % (Auto) 5.4, Eos % (Auto) 0.9, Baso % (Auto) 0.4, Absolute Neuts (auto) 6.2, Absolute Lymphs (auto) 0.69 L, Nucleated RBC % 0 05/20/20 03:35: Sodium 135 L, Potassium 4.6, Chloride 101, Carbon Dioxide 29.0, Anion Gap 5, BUN 27 H, Creatinine 1.29 H, Estim Creat Clear Calc 40.05, Est GFR (MDRD) Af Amer 54 L, Est GFR (MDRD) Non-Af 45 L, BUN/Creatinine Ratio 20.9 H, Glucose 215 H, Calcium 8.9, Total Bilirubin 0.30, AST 14 L, ALT 33, Alkaline Phosphatase 93, Total Protein 7.4, Albumin 3.2, Globulin 4.2, Albumin/Globulin Ratio 0.8 L, Lipase 101 05/20/20 03:35: Lactic Acid 1.2 Current Medications Dextrose (D50w Syringe) 0 gm IV X1 PRN; Protocol PRN Reason: Hypoglycemia Enoxaparin Sodium (Lovenox) 100 mg 1 mg/kg (100 mg) SC Q12@0600,1800 CEDRIC Glucagon () 1 mg IM .X1 PRN PRN Reason: Hypoglycemia Heparin Sodium (Beef Lung) () 50 units IV UD PRN PRN Reason: Port-a-Cath (VAD)Heparin Flush Hydromorphone HCl (Dilaudid Inj) 0.5 mg IV Q3H PRN PRN Reason: Pain Score 6-10/10 Last Admin: 05/20/20 08:16 Dose: 0.5 mg Documented by: Sodium Chloride () 1,000 mls @ 150 mls/hr IV .Q6H40M CEDRIC Last Admin: 05/20/20 08:36 Dose: 150 mls/hr Documented by: Sodium Chloride () 250 mls @ 15 mls/hr IV .[id number] PRN PRN Reason: Saline Flush Sodium Chloride () 250 mls @ 15 mls/hr IV .[id number] PRN PRN Reason: Additional IVPB Infusion Morphine Sulfate () 2 mg IV Q3H PRN PRN PRN Reason: Pain Score 4-5/10 Last Admin: 05/20/20 10:49 Dose: 2 mg Documented by: Ondansetron HCl (Zofran) 4 mg IV Q8H PRN PRN PRN Reason: NAUSEA/VOMITING Last Admin: 05/20/20 08:17 Dose: 4 mg Documented by: Sodium Chloride () 10 - 40 ml IV UD PRN PRN Reason: SALINE FLUSH Last Admin: 05/20/20 08:26 Dose: 20 ml Documented by: Sodium Chloride (0.9% Nacl (Sterile) Posiflush) 10 - 40 ml IV UD PRN PRN Reason: Port access or dressing change Assessment/Plan All Active Problems (Last Reviewed 05/20/20 @ 10:[address] Brayan Monet MD) Partial small bowel obstruction (Acute) At the present time we will hold off on an NG tube but the patient does know that if she is vomits we will have to place it. Encourage her to ambulate chew gum. If her conditions worsen we will transfer her back up to [facility] for further surgical interventions. Office Visits / Consults: [id number] IP Consult L3
[2020-05-20] MEDS: Enoxaparin 100 MG/ML Syringe SC (17:23)
[2020-05-20] MEDS: Nystatin Ointment 1 APPLIC TOPICAL (20:57)
[2020-05-21 02:15] VITALS: BP 114/57; PULSE 76; RESP 14; TEMP 37; O2SAT 95
[2020-05-21] MEDS: 0.9% Normal Saline 1,000 ML 150 ML IV ×2 (03:25→10:17)
[2020-05-21 05:38] LABS: Anion Gap 3 (5-15); BUN 20 mg/dL (7-18); Calcium,Total 8.1 mg/dL (8.5-10.1); Chloride 109 mmol/L (98-107); Creatinine, Serum 1.05 mg/dL (0.55-1.02); EST Glomerular Filtration Rate 57 mL/min (>60); Est Glom Filt Rate - Afr Amer 69 mL/min (>60); Glucose 130 mg/dL (74-106); Potassium 4.3 mmol/L (3.5-5.1); Sodium Level 138 mmol/L (136-145)
[2020-05-21] MEDS: Enoxaparin 100 MG/ML Syringe SC (06:36)
--- NOTE | 2020-05-21 08:16 | PN_ITS ---
Patient Problems: Active and Suspected Problems (Last Reviewed 05/20/20 @ 10:[address] Brayan Monet MD) Partial small bowel obstruction (Acute) Subjective: Patient was admitted with severe abdominal pain, nausea and vomiting and CT abdomen finding consistent with small bowel obstruction. Patient has history of ovarian cancer, last chemo on May 10. Vitals/I&O's: Vital Signs Temp Pulse Resp BP Pulse Ox 98.6 F 76 14 114/57 L 95 05/21/20 02:15 05/21/20 02:15 05/21/20 02:15 05/21/20 02:15 05/21/20 02:15 Oxygen Delivery Method Room Air Weight: 220 lb 6.4 oz Body Mass Index (BMI) 37.8 Intake and Output for Last 24 Hours 05/19/20 05/20/20 05/21/20 23:59 23:59 23:59 Intake Total 3305.0 / 3305.0 517.5 / 517.5 Balance 3305.0 / 3305.0 517.5 / 517.5 Laboratory Results 05/21/20 05:08: Sodium 138, Potassium 4.3, Chloride 109 H, Carbon Dioxide 26.0, Anion Gap 3 L, BUN 20 H, Creatinine 1.05 H, Estim Creat Clear Calc 49.20, Est GFR (MDRD) Af Amer 69, Est GFR (MDRD) Non-Af 57 L, BUN/Creatinine Ratio 19.0, Glucose 130 H, Calcium 8.1 L Current Medications Dextrose (D50w Syringe) 0 gm IV X1 PRN; Protocol PRN Reason: Hypoglycemia Enoxaparin Sodium (Lovenox) 100 mg 1 mg/kg (100 mg) SC Q12@0600,1800 CEDRIC Last Admin: 05/21/20 06:36 Dose: 100 mg Documented by: Glucagon () 1 mg IM .X1 PRN PRN Reason: Hypoglycemia Heparin Sodium (Beef Lung) () 50 units IV UD PRN PRN Reason: Port-a-Cath (VAD)Heparin Flush Hydromorphone HCl (Dilaudid Inj) 0.5 mg IV Q3H PRN PRN Reason: Pain Score 6-10/10 Last Admin: 05/20/20 11:52 Dose: 0.5 mg Documented by: Sodium Chloride () 1,000 mls @ 150 mls/hr IV .Q6H40M CEDRIC Last Admin: 05/21/20 03:25 Dose: 150 mls/hr Documented by: Sodium Chloride () 250 mls @ 15 mls/hr IV .[id number] PRN PRN Reason: Saline Flush Sodium Chloride () 250 mls @ 15 mls/hr IV .[id number] PRN PRN Reason: Additional IVPB Infusion Morphine Sulfate () 2 mg IV Q3H PRN PRN PRN Reason: Pain Score 4-5/10 Last Admin: 05/20/20 14:15 Dose: 2 mg Documented by: Nystatin (Mycostatin) 1 applic TOPICAL BID CEDRIC; Protocol Last Admin: 05/20/20 20:57 Dose: 1 applic Documented by: Ondansetron HCl (Zofran) 4 mg IV Q8H PRN PRN PRN Reason: NAUSEA/VOMITING Last Admin: 05/20/20 08:17 Dose: 4 mg Documented by: Sodium Chloride () 10 - 40 ml IV UD PRN PRN Reason: SALINE FLUSH Last Admin: 05/20/20 08:26 Dose: 20 ml Documented by: Sodium Chloride (0.9% Nacl (Sterile) Posiflush) 10 - 40 ml IV UD PRN PRN Reason: Port access or dressing change Medical Necessity - Tobacco Use Smoking Status: Never smoker Assessment/Plan All Active Problems (Last Reviewed 05/20/20 @ 10:[address] Brayan Monet MD) Partial small bowel obstruction (Acute) Patient was admitted with severe abdominal pain, nausea and vomiting and CT abdomen finding consistent with small bowel obstruction. Patient has history of ovarian cancer, last chemo on May 10. 1. Partial small bowel obstruction due to adhesions from previous abdominal s urgeries/ovarian cancer: CT abdomen shows partial small bowel obstruction at the level of the ileum related to adhesions: * Seen by surgeon. * Plan is for supportive management at this time with n.p.o., fluids, pain control and antiemetics. * Patient states that if she were to require surgery she would not want a surgery performed here but rather at [facility] with her surgical oncologist, Dr. Rinaldi. 2. Ovarian cancer * Patient has had a hysterectomy and bilateral salpingo-oophorectomy * Still undergoing chemotherapy 3. History of venous thromboembolic disease * Patient is on apixaban at home. On Lovenox therapeutic dosing while n.p.o. Once able to take oral, transition patient back to apixaban. 4. Advanced care planning: Patient wishes to be full CODE STATUS at this time. Clinical Impression(s) from Imaging Studies Abdomen/Pelvis CT 05/20/20 03:42 IMPRESSION: Partial small bowel obstruction at the level of the mid ileum, probably due to adhesions. Status post hysterectomy, appendectomy, and sigmoid colon surgery. Ventral hernias containing small bowel loops. No associated bowel obstruction and hernia sites. Retroperitoneal lymphadenopathy, with interval improvement compared to the November study.
[2020-05-21 10:14] VITALS: BP 132/76; PULSE 70; RESP 18; TEMP 36.9; O2SAT 95
[2020-05-21] MEDS: Nystatin Ointment 1 APPLIC TOPICAL (10:18)
--- NOTE | 2020-05-21 10:53 | CASEMGMT ---
EFREN MUNOZ assessment: Face to Face with patient for initial transition planning/care coordination assessment. EFREN MUNOZ introduced self and role at [facility], pt voices understanding and consents to assessment at this time. Pt is sitting up on side of bed in no distress at this time. Pt is A/Ox4 at this time and answers all questions appropriately at this time. Care providers, pharmacy, and demographics verified at this time. Presentation: Abd pain since yesterday-pt in treatment for ovarian cancer and has chemo every 4weeks Admitting dx: Partial small bowel obstruction PCP: Neymar Specialists: Store Mgr at Preferred Pharmacy: [facility] Heath Insurance: [employer] Prescription Benefit: [employer] Living Will/HPOA: Pt does not have LW/HPOA and declines AD info at this time. LNOK: Giovanni Douglas, ; Yaima Johnson, daughter Living Arrangements: Pt states lives with in 1 story home and states no concerns at home at this time. Pt states is independent with ADL's. Transportation: Pt states drives self and states no transportation concerns at this time. DME/HHC: Pt states does have HCP bathroom with grab bars and shower chair and states no need for any further DME at this time. Pt states no hx of HHC or SNF in the past. Pt states no concerns with going home at time of discharge. Pt states is currently unemployed. Pt states does not smoke cigarettes but does drink ETOH occasionally. Pt states no further concerns/needs at this time. CM to follow for any further discharge planning/needs. Advised pt to ask for CM if any further questions/concerns/needs arise, voices understanding. Pt Goal: Home Plan: Home [place] EFREN MUNOZ
[2020-05-21] MEDS: Acetaminophen 500 MG Tablet 1000 MG PO (11:15)
--- NOTE | 2020-05-21 14:33 | PCM.PN.SRG ---
Patient Problems: Active and Suspected Problems (Last Reviewed 05/20/20 @ 10:[address] Brayan Monet MD) Partial small bowel obstruction (Acute) Subjective: Patient no longer having abdominal pain. Passing gas and has had 3 bowel movements last night Objective: Abdomen is soft nontender - Physical Exam Vitals/I&O's: Vital Signs Temp Pulse Resp BP Pulse Ox 98.5 F 70 18 132/76 H 95 05/21/20 10:14 05/21/20 10:14 05/21/20 10:14 05/21/20 10:14 05/21/20 10:14 Oxygen Delivery Method Room Air Weight: 220 lb 6.4 oz Body Mass Index (BMI) 37.8 Intake and Output for Last 24 Hours 05/19/20 05/20/20 05/21/20 23:59 23:59 23:59 Intake Total 3305.0 / 3305.0 1517.5 / 1517.5 Balance 3305.0 / 3305.0 1517.5 / 1517.5 Laboratory Results 05/21/20 05:08: Sodium 138, Potassium 4.3, Chloride 109 H, Carbon Dioxide 26.0, Anion Gap 3 L, BUN 20 H, Creatinine 1.05 H, Estim Creat Clear Calc 49.20, Est GFR (MDRD) Af Amer 69, Est GFR (MDRD) Non-Af 57 L, BUN/Creatinine Ratio 19.0, Glucose 130 H, Calcium 8.1 L Current Medications Acetaminophen (Tylenol) 1,000 mg PO Q8H PRN PRN PRN Reason: HEADACHE Last Admin: 05/21/20 11:15 Dose: 1,000 mg Documented by: Dextrose (D50w Syringe) 0 gm IV X1 PRN; Protocol PRN Reason: Hypoglycemia Enoxaparin Sodium (Lovenox) 100 mg 1 mg/kg (100 mg) SC Q12@0600,1800 [facility] Last Admin: 05/21/20 06:36 Dose: 100 mg Documented by: Glucagon () 1 mg IM .X1 PRN PRN Reason: Hypoglycemia Heparin Sodium (Beef Lung) () 50 units IV UD PRN PRN Reason: Port-a-Cath (VAD)Heparin Flush Hydromorphone HCl (Dilaudid Inj) 0.5 mg IV Q3H PRN PRN Reason: Pain Score 6-10/10 Last Admin: 05/20/20 11:52 Dose: 0.5 mg Documented by: Sodium Chloride () 1,000 mls @ 150 mls/hr IV .[id number] C[facility]RIC Last Admin: 05/21/20 10:17 Dose: 150 mls/hr Documented by: Sodium Chloride () 250 mls @ 15 mls/hr IV .[id number] PRN PRN Reason: Saline Flush Sodium Chloride () 250 mls @ 15 mls/hr IV .[id number] PRN PRN Reason: Additional IVPB Infusion Morphine Sulfate () 2 mg IV Q3H PRN PRN PRN Reason: Pain Score 4-510 Last Admin: 05/20/20 14:15 Dose: 2 mg Documented by: Nystatin (Mycostatin) 1 applic TOPICAL BID [facility]; Protocol Last Admin: 05/21/20 10:18 Dose: 1 applic Documented by: Ondansetron HCl (Zofran) 4 mg IV Q8H PRN PRN PRN Reason: NAUSEA/VOMITING Last Admin: 05/20/20 08:17 Dose: 4 mg Documented by: Sodium Chloride () 10 - 40 ml IV UD PRN PRN Reason: SALINE FLUSH Last Admin: 05/20/20 08:26 Dose: 20 ml Documented by: Sodium Chloride (0.9% Nacl (Sterile) Posiflush) 10 - 40 ml IV UD PRN PRN Reason: Port access or dressing change Medical Necessity - Tobacco Use Smoking Status: Never smoker Assessment/Plan All Active Problems (Last Reviewed 05/20/20 @ 10:[address] Brayan Monet MD) Partial small bowel obstruction (Acute) Okay for discharge Inpatient E&M: 52062 Subs Hosp L2
--- NOTE | 2020-05-21 14:35 | PCM.DC ---
- Discharge Diagnoses Current Active Problems: Current Active and Chronic Problems (Last Reviewed 05/20/20 @ 10:[address] Brayan Monet MD) Partial small bowel obstruction (Acute) You will use the following diet at home:: Other - liquid diet for 3 days gradually advance as per tolerated to regular consistency diet. Your liquids should be the consistency of: Regular/Thin Discharge Activity: May Not Drive Weight Bearing Status: Weight bearing as tolerated Call your doctor if you observe: Fever of 101 or Higher, Numbness or Tingling, Change in Color, Inability to urinate, Inability to have a bowel movement, Using more than one pad per hour, Shortness of breath, Dizziness, Fainting spells, Swelling in the ankles, Chest pain, Prolonged hiccoughing, Increased palpitations (irregular heartbeat), Calf discomfort, Uncontrolled pain Additional Instructions: [facility] Dr Henderson Allergies/Adverse Reactions: Allergies carboplatin Allergy (Verified 05/20/20 03:31) Anaphylaxis unresponsive hydrocodone bitartrate [From Vicodin] Allergy (Verified 05/20/20 03:31) Hives paclitaxel Allergy (Verified 05/20/20 03:31) Anaphylaxis unresponsive Medications to take at Discharge Lisinopril [Zestril] 10 mg PO DAILY 10/02/16 Polyethylene Glycol 3350 [Miralax] 17 gm PO BID PRN 01/25/19 Oxycodone HCl 5 mg PO Q4H PRN PRN 02/07/19 Acetaminophen [Tylenol Extra Strength] 500 mg PO Q4H PRN PRN 05/20/19 Magnesium Gluconate 500 mg PO BID 05/20/19 Multivitamin with Minerals [Multiple Vitamin] 1 ea PO DAILY 05/20/19 Esomeprazole Mag Trihydrate [Nexium] 40 mg PO DAILY 12/04/19 Ondansetron HCl 4 mg PO Q8H PRN 12/04/19 Apixaban [Eliquis] 5 mg PO BID 05/20/20 Pyridoxine HCl [Vitamin B6] 100 mg PO DAILY 05/20/20 Sennosides/Docusate Sodium [Senna-S Tablet] 1 ea PO BID #20 tab 05/21/20 The following prescriptions were given: Sennosides/Docusate Sodium [Senna-S Tablet] 1 ea PO BID #20 tab Transmission Status: Pending to [facility] Primary Care Physician: Charly Blackmon MD [Primary Care Provider] - Please follow up with your Primary Care Physician in: in 2 weeks Test Results: Test results from this visit will be discussed in further detail at your follow-up appointment, if applicable. Please Follow Up With: Brayan Monet MD
--- NOTE | 2020-05-21 14:37 | DS.PCM_ITS ---
Discharge Date and Diagnosis - Problem List Patient Problems: Active and Suspected Problems (Last Reviewed 05/20/20 @ 10:[address] Brayan Monet MD) Partial small bowel obstruction (Acute) Date of Admission: 05/20/20 Date of Discharge: 05/21/20 - Primary Discharge Diagnosis Acute Problems: Active Problems (Last Reviewed 05/20/20 @ 10:[address] Brayan Monet MD) Partial small bowel obstruction (Acute) - Secondary Discharge Diagnosis Chronic Problems: Chronic Problems (Last Reviewed 05/20/20 @ 10:[address] 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 Patient has history of ovarian cancer, last chemo on May 10. 1. Partial small bowel obstruction due to adhesions from previous abdominal surgeries/ovarian cancer: CT abdomen shows partial small bowel obstruction at the level of the ileum related to adhesions: * Seen by surgeon, Dr. Monet and discussed with him. Patient improved with supportive management, n.p.o. IV fluid, pain control and antiemetics. * Patient is discharged on clear liquid diets. Patient follows surgical oncologist Dr. Rinaldi and if she requires surgery in future, will need to be done at . 2. Ovarian cancer * Patient has had a hysterectomy and bilateral salpingo-oophorectomy * Still undergoing chemotherapy 3. History of venous thromboembolic disease * Patient is on apixaban at home. Was on Lovenox therapeutic dosing while n.p.o. was placed back on apixaban. 4. Advanced care planning: Patient wishes to be full CODE STATUS at this time. Patient was admitted as inpatient but was discharged because of sooner recovery than expected at time of admission. Discharge medication reconciliation done. Discharge follow-up instructions completed. Discharge process discussed with the patient and all questions were answered to patient's satisfaction. Total time spent, exact 35 minutes on discharge meds reconciliation, examination, coordination of care with nurses and ancillary staff, review of imaging and blood test and discussion with the patient on follow-up instructions Clinical Impression(s) from Imaging Studies Abdomen/Pelvis CT 05/20/20 03:42 IMPRESSION: Partial small bowel obstruction at the level of the mid ileum, probably due to adhesions. Status post hysterectomy, appendectomy, and sigmoid colon surgery. Ventral hernias containing small bowel loops. No associated bowel obstruction and hernia sites. Retroperitoneal lymphadenopathy, with interval improvement compared to the November study. [] Patient Problems: Active and Suspected Problems (Last Reviewed 05/20/20 @ 10:[address] Brayan Monet MD) Partial small bowel obstruction (Acute) Objective: Seen and examined. Patient was admitted with severe abdominal pain, nausea and vomiting and CT abdomen finding consistent with small bowel obstruction. Patient has history of ovarian cancer, last chemo on May 10. Patient had 3 BMs, first 1 liquid second semisolid and third soft. Started on clear liquid diet. Physical exam General: Alert, Oriented x3, Cooperative HEENT: Atraumatic, PERRLA, EOMI, Normocephalic Oral: No Gingival or Mucosal Lesions/ Ulcerations Neck: Supple, No JVD, Negative Carotid Bruits Lungs: Air entry diminished in bilateral lung bases. No crepitation/rhonchi Cardiovascular: Regular rate, Regular Rhythm, Normal S1, Normal S2, No murmurs Abdomen: Bowel Sounds Present, Soft, Non Tender, Non-Distended : No renal angle tenderness. No suprapubic tenderness. Extremities: No edema, Capillary Refill Less than 3 Seconds Skin: No rashes, No breakdown Musculoskeletal: No Tenderness to Palpation of Joints or Extremities Neurological: Cranial nerves II-XII grossly intact, Deep Tendon Reflexes 2+/4 and Symmetrical, Neuro grossly intact Psych/Mental Status: Normal Affect, Appropriate. - Physical Exam Vitals/I&O's: Vital Signs Temp Pulse Resp BP Pulse Ox 98.5 F 70 18 132/76 H 95 05/21/20 10:14 05/21/20 10:14 05/21/20 10:14 05/21/20 10:14 05/21/20 10:14 Oxygen Delivery Method Room Air Weight: 220 lb 6.4 oz Body Mass Index (BMI) 37.8 Intake and Output for Last 24 Hours 05/19/20 05/20/20 05/21/20 23:59 23:59 23:59 Intake Total 3305.0 / 3305.0 1517.5 / 1517.5 Balance 3305.0 / 3305.0 1517.5 / 1517.5 Laboratory Results 05/21/20 05:08: Sodium 138, Potassium 4.3, Chloride 109 H, Carbon Dioxide 26.0, Anion Gap 3 L, BUN 20 H, Creatinine 1.05 H, Estim Creat Clear Calc 49.20, Est GFR (MDRD) Af Amer 69, Est GFR (MDRD) Non-Af 57 L, BUN/Creatinine Ratio 19.0, Glucose 130 H, Calcium 8.1 L Current Medications Acetaminophen (Tylenol) 1,000 mg PO Q8H PRN PRN PRN Reason: HEADACHE Last Admin: 05/21/20 11:15 Dose: 1,000 mg Documented by: Dextrose (D50w Syringe) 0 gm IV X1 PRN; Protocol PRN Reason: Hypoglycemia Enoxaparin Sodium (Lovenox) 100 mg 1 mg/kg (100 mg) SC Q12@0600,1800 [facility] Last Admin: 05/21/20 06:36 Dose: 100 mg Documented by: Glucagon () 1 mg IM .X1 PRN PRN Reason: Hypoglycemia Heparin Sodium (Beef Lung) () 50 units IV UD PRN PRN Reason: Port-a-Cath (VAD)Heparin Flush Hydromorphone HCl (Dilaudid Inj) 0.5 mg IV Q3H PRN PRN Reason: Pain Score 6-10/10 Last Admin: 05/20/20 11:52 Dose: 0.5 mg Documented by: Sodium Chloride () 1,000 mls @ 150 mls/hr IV .Q6H40M [facility] Last Admin: 05/21/20 10:17 Dose: 150 mls/hr Documented by: Sodium Chloride () 250 mls @ 15 mls/hr IV .[id number] PRN PRN Reason: Saline Flush Sodium Chloride () 250 mls @ 15 mls/hr IV .[id number] PRN PRN Reason: Additional IVPB Infusion Morphine Sulfate () 2 mg IV Q3H PRN PRN PRN Reason: Pain Score 4-5/10 Last Admin: 05/20/20 14:15 Dose: 2 mg Documented by: Nystatin (Mycostatin) 1 applic TOPICAL BID [facility]; Protocol Last Admin: 05/21/20 10:18 Dose: 1 applic Documented by: Ondansetron HCl (Zofran) 4 mg IV Q8H PRN PRN PRN Reason: NAUSEA/VOMITING Last Admin: 05/20/20 08:17 Dose: 4 mg Documented by: Sodium Chloride () 10 - 40 ml IV UD PRN PRN Reason: SALINE FLUSH Last Admin: 05/20/20 08:26 Dose: 20 ml Documented by: Sodium Chloride (0.9% Nacl (Sterile) Posiflush) 10 - 40 ml IV UD PRN PRN Reason: Port access or dressing change Discharge Activity: May Not Drive Weight Bearing Status: Weight bearing as tolerated Call your doctor if you observe: Fever of 101 or Higher, Numbness or Tingling, Change in Color, Inability to urinate, Inability to have a bowel movement, Using more than one pad per hour, Shortness of breath, Dizziness, Fainting spells, Swelling in the ankles, Chest pain, Prolonged hiccoughing, Increased palpitations (irregular heartbeat), Calf discomfort, Uncontrolled pain Home Medications: Medications to take at Discharge Lisinopril [Zestril] 10 mg PO DAILY 10/02/16 Polyethylene Glycol 3350 [Miralax] 17 gm PO BID PRN 01/25/19 Oxycodone HCl 5 mg PO Q4H PRN PRN 02/07/19 Acetaminophen [Tylenol Extra Strength] 500 mg PO Q4H PRN PRN 05/20/19 Magnesium Gluconate 500 mg PO BID 05/20/19 Multivitamin with Minerals [Multiple Vitamin] 1 ea PO DAILY 05/20/19 Esomeprazole Mag Trihydrate [Nexium] 40 mg PO DAILY 12/04/19 Ondansetron HCl 4 mg PO Q8H PRN 12/04/19 Apixaban [Eliquis] 5 mg PO BID 05/20/20 Pyridoxine HCl [Vitamin B6] 100 mg PO DAILY 05/20/20 Sennosides/Docusate Sodium [Senna-S Tablet] 1 ea PO BID #20 tab 05/21/20 Following Prescrptions Were Given to Patient: Sennosides/Docusate Sodium [Senna-S Tablet] 1 ea PO BID #20 tab Transmission Status: Received by [facility] Primary Care Physician: Charly Blackmon MD [Primary Care Provider] - Please follow up with your Primary Care Physician in: in 2 weeks Please Follow Up With: Brayan Monet MD Medical Necessity - Tobacco Use Smoking Status: Never smoker Meaningful Use Info Meaningful Use Diagnoses (Choose all that apply): None applicable Inpatient E&M: 13723 Disch Hosp
[2020-05-21 15:09] VITALS: BP 130/76; PULSE 58; RESP 18; TEMP 36.6; O2SAT 95
--- NOTE | 2020-05-21 15:17 | PHA.DC.MC ---
Pharmacy Service has performed discharge medication reconciliation and counseling for this patient. 1. SENNA/DOCUSATE 1T PO BID X 10DAYS The patient's discharge medication list was reviewed for discrepancies and discrepancies were resolved. Home Medications Lisinopril [Zestril] 10 mg PO DAILY 10/02/16 Polyethylene Glycol 3350 [Miralax] 17 gm PO BID PRN 01/25/19 Oxycodone HCl 5 mg PO Q4H PRN PRN 02/07/19 Acetaminophen [Tylenol Extra Strength] 500 mg PO Q4H PRN PRN 05/20/19 Magnesium Gluconate 500 mg PO BID 05/20/19 Multivitamin with Minerals [Multiple Vitamin] 1 ea PO DAILY 05/20/19 Esomeprazole Mag Trihydrate [Nexium] 40 mg PO DAILY 12/04/19 Ondansetron HCl 4 mg PO Q8H PRN 12/04/19 Apixaban [Eliquis] 5 mg PO BID 05/20/20 Pyridoxine HCl [Vitamin B6] 100 mg PO DAILY 05/20/20 Sennosides/Docusate Sodium [Senna-S Tablet] 1 ea PO BID #20 tab 05/21/20 The patient was counseled on the following discharge medications and changes in medications for homegoing were reviewed. The Reason for Use, instructions for use, and potential side effects were reviewed for all new medications. The patient's questions regarding all of their medications were answered. The patient was able to verbally demonstrate an understanding of their discharge medications. Patient counseled by pharmacy associateYanna
[2020-05-21] MEDS: 0.9% Saline Lock 10 ML Syringe IV (16:05)
--- NOTE | 2020-05-22 13:29 | CASEMGMT ---
EFREN MUNOZ Discharge F/U Phone Call LACE: 10 Strata: 3 Discharge date: 05/21/2020 Call date: 05/22/2020 Call time: [phone] Attempted multiple times to reach pt without success at this time, unable to leave message at this time. [place] EFREN CM Admission dx: Partial small bowel obstruction
== END 2020-05-21 16:25 | disposition home or self-care (01) | DRG 389 ==
LOC: ED 04:12 → PCU 05-21 07:12
PROVIDERS: Emergency Provider Emergency Medicine; PCP Family Medicine; Visit Provider Internal Medicine
DX: K56.51 Intestinal adhesions [bands], with partial obstruction (principal); C56.1 Malignant neoplasm of right ovary; I10 Essential (primary) hypertension; J45.909 Unspecified asthma, uncomplicated; Z79.01 Long term (current) use of anticoagulants; Z79.899 Other long term (current) drug therapy; Z86.718 Personal history of other venous thrombosis and embolism; Z90.49 Acquired absence of other specified parts of digestive tract; Z90.710 Acquired absence of both cervix and uterus
CPT/HCPCS: 36415; 36591; 74176; 80048; 80053; 83605; 83690; 85025; 97802; 99285; J7030; A4216; J2405

== ENCOUNTER → 2020-06-04 14:56 | Outpatient (CLI) | payer OTHER, SELFPAY ==
[2019-12-04 20:12] VITALS: BMI 34.7
[2020-05-20 07:41] VITALS: BMI 37.8
[2020-06-04 14:53] LABS: Absolute Lymphocyte Count 1.21 X10^3/uL (0.83-4.51); Absolute Neutrophil Count 2.6 X10^3/uL (2.0-7.7); Basophil# 0.03 X10^3/uL; Basophil% 0.6 % (0-1); Eosinophil# 0.13 X10^3/uL; Eosinophils% 2.8 % (0-5); Hematocrit 34.4 % (37-47); Hemoglobin 10.8 g/dL (12.0-15.0); Lymphocyte # 1.21 X10^3/ul (4.0); Lymphocyte % 25.8 % (19-41); Mean Corp Hgb Conc 31.4 g/dL (32-36); Mean Corpuscular Hgb 30.2 pg (27.0-32.0); Mean Corpuscular Volume 96.1 fL (81-99); Mean Platelet Vol. 9.7 fl (6.2-12.0); Monocyte# 0.71 X10^3/uL; Monocyte% 15.1 % (0-10); NRBC Flagged by Analyzer 0 % (0-5); Neutrophil # 2.59 X10^3/uL (2.7-7.7); Neutrophil % 55.3 % (47-70); Platelet Count 227 K/mm3 (150-450); RBC Distribution Width CV 13.5 % (11.6-14.6); Red Blood Count 3.58 M/mm3 (4.2-5.4); White Blood Count 4.7 K/mm3 (4.4-11.0)
--- NOTE | 2020-06-04 14:58 | CT_ITS ---
STUDY: CT ABDOMEN AND PELVIS WITH CONTRAST REASON FOR EXAM: Female, 59 years old. OVARIAN CANCER FOLLOW UP S/P 7 CHEMO TREATMENTS RADIATION DOSAGE (If Supplied By Facility): CTDIvol = ( 26.75 ) mGy, DLP = ( 1408.28 ) mGycm TECHNIQUE: Transaxial images were obtained from the dome of the diaphragm to the symphysis pubis with oral contrast. Oral and amp; IV Readi-CAT and amp; 100mL Isovue-300 was administered. Sagittal and coronal images were reconstructed. Individualized dose optimization techniques were used for this CT. COMPARISON: Comparison is made with prior examination dated 05/20/2020. FINDINGS: Stable mild degree of increased markings at the lung bases suggestive of atelectasis. A dual-chamber pacemaker is seen. There is decreased attenuation of the liver consistent with steatosis. Normal gallbladder and extrahepatic biliary system. Normal spleen. Normal pancreas. Normal bilateral adrenal glands. Normal right kidney. Normal left kidney. Normal visualized stomach. Normal small intestine. There are multiple colonic diverticula consistent with diverticulosis. There is non-visualization of the appendix. Normal abdominal aorta. Normal inferior vena cava. Surgical clips are seen in the retroperitoneal region most likely secondary to prior lymphadenectomy. There is borderline retroperitoneal lymphadenopathy with enlarged nodes no greater than 10mm in the short axis diameter. Normal urinary bladder. There is absence of the uterus consistent with a prior hysterectomy. Stable appearance of the anterior abdominal wall hernias containing a portion of the transverse colon. There is no evidence of obstruction. Small subcutaneous nodules. These are new as compared to prior study. There are diffuse degenerative changes of the visualized lumbar spine. CT/Abdomen/Pelvis WITH Contrast IMPRESSION: Small residual retroperitoneal lymph nodes. Fatty infiltration of the liver. Stable central abdominal hernia containing portion of the transverse colon Electronically Signed: Stefan Perez, at 15:29 EDT , Service support ,
--- NOTE | 2020-06-04 14:58 | CT_ITS ---
STUDY: CT CHEST WITH CONTRAST REASON FOR EXAM: Female, 59 years old. OVARIAN CANCER FOLLOW UP S/P 7 CHEMO TREATMENTS RADIATION DOSAGE (If Supplied By Facility): CTDIvol = ( 19.28 ) mGy, DLP = ( 678.62 ) mGycm TECHNIQUE: Transaxial imaging was performed following intravenous administration of Oral and amp; IV Readi-CAT and amp; 100mL Isovue-300. Multiplanar coronal and sagittal images were reformatted. Individualized dose optimization techniques were used for this CT. COMPARISON: Comparison is made with prior examination of 03/12/2020. FINDINGS: A right-sided portacatheter is seen with the tip in the superior vena cava. Small benign appearing bilateral axillary lymph nodes. Stable minimal degree of increased markings in the peripheral lateral aspect of the right lower lobe suggestive of scarring. There is no demonstrated pleural abnormality. There are calcifications of the coronary arteries. There are multiple small lymph nodes within the mediastinum, which are normal in size and morphology most compatible with reactive lymph hyperplasia. Normal hilar regions. Normal enhanced pulmonary arteries. Normal aorta arch and descending thoracic aorta. There are multi-level degenerative changes of the thoracic spine. Diffuse fatty infiltration of the liver. CT/Chest WITH Contrast IMPRESSION: Stable examination. Electronically Signed: Stefan Perez, at 15:33 EDT , Service support ,
[2020-06-04 18:47] LABS: ALB/GLOB Ratio 0.8 RATIO (0.9-2.4); AST(SGOT) 20 U/L (15-37); Alanine Aminotransfer ALT/SGPT 42 U/L (13-56); Albumin, Serum 3.6 g/dL (3.2-5.0); Alkaline Phosphatase 98 U/L (45-117); Anion Gap 8 (5-15); BUN 22 mg/dL (7-18); BUN/Creat Ratio 18.8 RATIO (10-20); Calcium,Total 8.8 mg/dL (8.5-10.1); Chloride 104 mmol/L (98-107); Creatinine, Serum 1.17 mg/dL (0.55-1.02); EST Glomerular Filtration Rate 50 mL/min (>60); Est Glom Filt Rate - Afr Amer 61 mL/min (>60); Globulin 4.6 g/dL (2.2-4.2); Glucose 94 mg/dL (74-106); Magnesium 2.1 mg/dL (1.6-2.6); Potassium 4.2 mmol/L (3.5-5.1); Protein, Total 8.2 g/dL (6.4-8.2); Sodium Level 139 mmol/L (136-145)
== END ==
PROVIDERS: PCP Family Medicine
DX: C56.9 Malignant neoplasm of unspecified ovary (principal); Z92.21 Personal history of antineoplastic chemotherapy
CPT/HCPCS: 36415; 71260; 74177; 80053; 83735; 85025; 86304; Q9967

== ENCOUNTER → 2020-07-03 08:50 | Outpatient (CLI) | payer OTHER, SELFPAY ==
[2020-05-20 07:41] VITALS: BMI 37.8
[2020-07-03 10:19] LABS: Hematocrit 34.9 % (37-47); Hemoglobin 11.2 g/dL (12.0-15.0); Mean Corp Hgb Conc 32.1 g/dL (32-36); Mean Corpuscular Hgb 30.8 pg (27.0-32.0); Mean Corpuscular Volume 95.9 fL (81-99); Mean Platelet Vol. 9.6 fl (6.2-12.0); Platelet Count 213 K/mm3 (150-450); RBC Distribution Width CV 13.5 % (11.6-14.6); RBC Distribution Width SD 47.5 fl (35.1-43.9); Red Blood Count 3.64 M/mm3 (4.2-5.4); White Blood Count 4.7 K/mm3 (4.4-11.0)
[2020-07-03 10:30] LABS: ALB/GLOB Ratio 0.8 RATIO (0.9-2.4); AST(SGOT) 20 U/L (15-37); Alanine Aminotransfer ALT/SGPT 34 U/L (13-56); Albumin, Serum 3.4 g/dL (3.2-5.0); Alkaline Phosphatase 99 U/L (45-117); Anion Gap 5 (5-15); BUN 24 mg/dL (7-18); BUN/Creat Ratio 18.2 RATIO (10-20); Calcium,Total 8.4 mg/dL (8.5-10.1); Chloride 106 mmol/L (98-107); Creatinine, Serum 1.32 mg/dL (0.55-1.02); EST Glomerular Filtration Rate 44 mL/min (>60); Est Glom Filt Rate - Afr Amer 53 mL/min (>60); Globulin 4.2 g/dL (2.2-4.2); Glucose 198 mg/dL (74-106); Magnesium 1.8 mg/dL (1.6-2.6); Potassium 4.3 mmol/L (3.5-5.1); Protein, Total 7.6 g/dL (6.4-8.2); Sodium Level 138 mmol/L (136-145)
[2020-07-03 13:05] LABS: Absolute Lymphocyte Count 0.99 X10^3/uL (0.83-4.51); Absolute Neutrophil Count 2.9 X10^3/uL (2.0-7.7); Basophil# 0.03 X10^3/uL; Basophil% 0.6 % (0-1); Eosinophil# 0.12 X10^3/uL; Eosinophils% 2.5 % (0-5); Lymphocyte # 0.99 X10^3/ul (4.0); Lymphocyte % 20.9 % (19-41); Monocyte# 0.67 X10^3/uL; Monocyte% 14.2 % (0-10); NRBC Flagged by Analyzer 0 % (0-5); Neutrophil # 2.91 X10^3/uL (2.7-7.7); Neutrophil % 61.6 % (47-70)
== END ==
PROVIDERS: PCP Family Medicine
DX: C56.9 Malignant neoplasm of unspecified ovary (principal)
CPT/HCPCS: 36415; 80053; 83735; 85025; 85027; 86304

== ENCOUNTER → 2020-07-30 10:01 | Outpatient (CLI) | payer BC, SELFPAY ==
[2020-05-20 07:41] VITALS: BMI 37.8
[2020-07-30 12:04] LABS: Absolute Lymphocyte Count 0.99 X10^3/uL (0.83-4.51); Basophil# 0.03 X10^3/uL; Basophil% 0.5 % (0-1); Eosinophil# 0.08 X10^3/uL; Eosinophils% 1.4 % (0-5); Hematocrit 33.4 % (37-47); Lymphocyte # 0.99 X10^3/ul (4.0); Lymphocyte % 17.1 % (19-41); Mean Corp Hgb Conc 32.9 g/dL (32-36); Mean Corpuscular Volume 97.1 fL (81-99); Mean Platelet Vol. 9.8 fl (6.2-12.0); Monocyte% 12.1 % (0-10); NRBC Flagged by Analyzer 0 % (0-5); Neutrophil # 3.96 X10^3/uL (2.7-7.7); Neutrophil % 68.4 % (47-70); Platelet Count 225 K/mm3 (150-450); RBC Distribution Width CV 13.7 % (11.6-14.6); RBC Distribution Width SD 48.1 fl (35.1-43.9); Red Blood Count 3.44 M/mm3 (4.2-5.4); White Blood Count 5.8 K/mm3 (4.4-11.0)
[2020-07-30 12:39] LABS: ALB/GLOB Ratio 0.7 RATIO (0.9-2.4); AST(SGOT) 12 U/L (15-37); Alanine Aminotransfer ALT/SGPT 31 U/L (13-56); Albumin, Serum 3.4 g/dL (3.2-5.0); Alkaline Phosphatase 103 U/L (45-117); Anion Gap 6 (5-15); BUN 26 mg/dL (7-18); BUN/Creat Ratio 20.3 RATIO (10-20); Chloride 102 mmol/L (98-107); Creatinine, Serum 1.28 mg/dL (0.55-1.02); EST Glomerular Filtration Rate 45 mL/min (>60); Est Glom Filt Rate - Afr Amer 55 mL/min (>60); Globulin 4.7 g/dL (2.2-4.2); Glucose 148 mg/dL (74-106); Magnesium 2.1 mg/dL (1.6-2.6); Potassium 4.5 mmol/L (3.5-5.1); Protein, Total 8.1 g/dL (6.4-8.2); Sodium Level 135 mmol/L (136-145)
== END ==
PROVIDERS: PCP Family Medicine
DX: C56.9 Malignant neoplasm of unspecified ovary (principal)
CPT/HCPCS: 36415; 80053; 83735; 85025; 86304

== ENCOUNTER 2020-08-17 11:57 | Emergency (ER) | payer BC, SELFPAY ==
[2020-05-20 07:41] VITALS: BMI 37.8
[2020-08-17] VITALS (9 sets, daily range): BP systolic 127–150; BP diastolic 77–87; PULSE 67–92; RESP 15–18; TEMP 36.4; O2SAT 94–97; BMI 37.8
--- NOTE | 2020-08-17 12:24 | CT_ITS ---
STUDY: CT ABDOMEN AND PELVIS WITH CONTRAST REASON FOR EXAM: Female, 59 years old. ABD PAIN, SBO RADIATION DOSAGE (If Supplied By Facility): CTDIvol = ( 16.79 ) mGy, DLP = ( 1329.50 ) mGycm TECHNIQUE: Transaxial images were obtained from the dome of the diaphragm to the symphysis pubis without oral contrast. Oral and amp; IV Gastrografin and amp; 100mL Isovue-300 was administered. Sagittal and coronal images were reconstructed. Individualized dose optimization techniques were used for this CT. COMPARISON: 06/04/2020. FINDINGS: Mild fibrotic atelectatic changes in the right lung base. Heart size is normal. Diffuse fatty infiltration of the liver. The gallbladder is unremarkable. The spleen and pancreas are unremarkable. The adrenal glands are normal. 1 cm lower pole right renal cyst. The kidneys are otherwise unremarkable. No stones or hydronephrosis. The aorta is normal in caliber. There is no free fluid, free air or organized collection. Prior retroperitoneal surgery. Small bowel obstruction. Possible transition in the pelvis near the hysterectomy site. Supraumbilical rectus diastases, with protrusion of a short segment of transverse colon. Superior to this is a small, fat-containing incisional hernia. There is a small left paraumbilical hernia containing a short segment of small bowel. However, transition is not definitely seen. Moderate to large stool burden. Urinary bladder is nondistended. Uterus is surgically absent. Multiple surgical clips in the pelvis. Normal osseous structures. CT/Abdomen/Pelvis WITH Contrast IMPRESSION: 1. Small bowel obstruction with suspected transition near the hysterectomy site. Small left paraumbilical hernia contains a short segment of small bowel without definite transition. 2. Rectus diastases contains a segment of transverse colon. 3. Small fat-containing supraumbilical hernia. 4. Hepatic steatosis. 5. Right renal cyst. 6. Hysterectomy. N.B. : The above information has been verbally conveyed by Clare Javier MD to Emily Perera DO on 08/17/2020 17:12:18 (ET). Electronically Signed: Clare Javier MD at 17:13 EDT Tel , Service support ,
--- NOTE | 2020-08-17 12:26 | ED.VISSUMM ---
- ER Visit Summary Date of Service: 08/17/20 Chief Complaint: Abdominal pain History of Present Illness: The patient is a 59 F who presents with abdominal pain that began last night. Patient states it has gradually gotten worse. Patient states the pain is over the epigastric area. Patient describes the pain as stabbing. Patient states the pain is similar to prior episodes of bowel obstructions. Patient has a history of ovarian cancer which has caused bowel obstructions. Patient states her pain is worse with movement. Patient states it is better with rest. Patient admits to an episode of nausea and vomiting early this morning. Patient denies any hematemesis or coffee-ground emesis. Patient denies any diarrhea, melena, or hematochezia. Patient denies any dysuria or hematuria. Physical Examination: Vital signs are stable. Patient is afebrile. Patient is in no acute distress. Oral mucosa is pink and moist. Neck is supple. Trachea is midline. There is no JVD. Heart was regular rate and rhythm. Lungs are clear and equal bilaterally. Abdomen is soft. Bowel sounds are hypoactive. There is upper abdominal tenderness. There is no rebound or guarding noted. Cranial nerves II through XII are intact. There are no focal motor or sensory deficits noted. Extremities are intact. There is no calf tenderness or edema. Test Results: CBC and comprehensive metabolic profile were obtained and were essentially within normal limits. Urinalysis shows evidence of urinary tract infection with a leukocyte esterase of 500 and 10-[address] scan of the abdomen pelvis was obtained. There is a small bowel obstruction with a transition point likely in the area of prior hysterectomy. This was interpreted by the radiologist and reviewed by myself. Emergency Department Course and Treatment: Patient was given IV fluids here. Patient was given analgesics and antiemetics here in the emergency department. Patient has had prior surgery and gynecologic oncology treatments at [facility] and wishes to be transferred there. Case was discussed with Dr. Catalan. He accepted the patient in transfer. He recommended placing an NG tube. This was performed. Patient was also given a dose of Rocephin for her urinary tract infection. Patient understood and was agreeable with the plan. All questions were answered. Disposition: Transfer to [facility] Impression: 1. Small bowel obstruction This note was generated with [employer] software. It may contain incorrect words, spelling, and punctuation that were not noted in review of the chart prior to signing ED Disposition - Plan for ED Patient: Disposition: Home or Assisted Living Referrals: Charly Blackmon MD [Primary Care Provider] -
[2020-08-17 12:57] LABS: Absolute Lymphocyte Count 0.75 X10^3/uL (0.83-4.51); Absolute Neutrophil Count 4.6 X10^3/uL (2.0-7.7); Basophil# 0.02 X10^3/uL; Basophil% 0.3 % (0-1); Eosinophil# 0.04 X10^3/uL; Eosinophils% 0.7 % (0-5); Hematocrit 31.9 % (37-47); Lymphocyte # 0.75 X10^3/ul (4.0); Lymphocyte % 12.6 % (19-41); Mean Corp Hgb Conc 31.3 g/dL (32-36); Mean Corpuscular Hgb 29.4 pg (27.0-32.0); Mean Corpuscular Volume 93.8 fL (81-99); Mean Platelet Vol. 9.4 fl (6.2-12.0); Monocyte# 0.52 X10^3/uL; Monocyte% 8.8 % (0-10); NRBC Flagged by Analyzer 0 % (0-5); Neutrophil # 4.58 X10^3/uL (2.7-7.7); Neutrophil % 77.3 % (47-70); Platelet Count 229 K/mm3 (150-450); RBC Distribution Width SD 47.3 fl (35.1-43.9); White Blood Count 5.9 K/mm3 (4.4-11.0)
[2020-08-17 13:15] LABS: ALB/GLOB Ratio 0.7 RATIO (0.9-2.4); AST(SGOT) 26 U/L (15-37); Alanine Aminotransfer ALT/SGPT 21 U/L (13-56); Albumin, Serum 2.9 g/dL (3.2-5.0); Alkaline Phosphatase 96 U/L (45-117); Anion Gap 6 (5-15); BUN 25 mg/dL (7-18); BUN/Creat Ratio 21.2 RATIO (10-20); Calcium,Total 8.6 mg/dL (8.5-10.1); Chloride 106 mmol/L (98-107); Creatinine, Serum 1.18 mg/dL (0.55-1.02); EST Glomerular Filtration Rate 50 mL/min (>60); Est Glom Filt Rate - Afr Amer 60 mL/min (>60); Estimated Creatinine Clearance 43.78 ml/min; Globulin 4.4 g/dL (2.2-4.2); Glucose 134 mg/dL (74-106); Lipase 58 U/L (73-393); Potassium 4.8 mmol/L (3.5-5.1); Protein, Total 7.3 g/dL (6.4-8.2); Sodium Level 138 mmol/L (136-145)
[2020-08-17] MEDS: Ondansetron 4 MG/2 ML Vial IV ×3 (13:41→22:23)
[2020-08-17] MEDS: 0.9% Normal Saline 1,000 ML 1000 ML IV (13:42)
[2020-08-17] MEDS: Morphine 4 MG/ML Syringe IV (13:42)
[2020-08-17] MEDS: HYDROmorphone 0.5 MG/0.5 ML SYRINGE IV ×3 (14:16→22:18)
[2020-08-17 15:47] LABS: Mucous, Urine 0 SEEN /hpf (<or=2+); Red Blood Cells-Urine 0 SEEN /hpf (0-5)
[2020-08-17 16:06] LABS: Color, Urine Yellow (Yellow); Glucose, Dipstick Normal (Normal); Ketone-Dipstick Negative (Negative); Leukocyte Esterase-Dipstick 500 /ul (Negative); Nitrite-Dipstick Negative (Negative); Occult Blood-Urine Negative /ul (Negative); Protein-Dipstick Negative (Negative); Specific Gravity, Urine 1.015 (1.002-1.030); Urine Bilirubin Dipstick Negative (Negative); Urine Clarity Clear (Clear); Urine Urobilinogen Normal (Normal)
[2020-08-17 16:50] LABS: Squamous Epithelial Cells - UA 0-5 SEEN /hpf (5-10); White Blood Cells 10-25 SEEN /hpf (0-5)
[2020-08-17 16:51] LABS: Bacteria 1+ /hpf (None Seen); Hyaline Cast 0-5 SEEN /lpf (0-5)
--- NOTE | 2020-08-17 18:17 | RAD_ITS ---
STUDY: X-RAY - ABDOMEN/PELVIS REASON FOR EXAM: Female, 59 years old. NG tube placement. TECHNIQUE: AP. COMPARISON: None. FINDINGS: Limited study of the lung bases and upper abdomen. Port-A-Cath terminates in the right atrium. Nasogastric tube terminates in stomach. Dilated left upper quadrant small bowel loop. RAD/Abdomen Single View (Portable) IMPRESSION: NG tube terminates in the stomach. Electronically Signed: Clare Javier MD at 19:57 EDT Tel , Service support ,
[2020-08-17] MEDS: Lidocaine 4% 5 ML Ampul 2 ML INHALATION (18:28)
[2020-08-17] MEDS: Oxymetazoline 0.05% 1 SPRAY SPRAY.BTL 2 SPRAY NASAL (18:28)
[2020-08-17] MEDS: Ceftriaxone 1 GM/50 ML BAG IV (18:40)
[2020-08-17] MEDS: Lidocaine 2% Jelly 1 APPLIC Tube TOPICAL (18:46)
[2020-08-17] MEDS: HYDROmorphone 1 MG/ML Syringe IV (19:24)
== END 2020-08-17 22:24 | disposition home or self-care (01) ==
LOC: ED 14:11
PROVIDERS: Emergency Provider Emergency Medicine; PCP Family Medicine
DX: K56.609 Unspecified intestinal obstruction, unspecified as to partial versus complete obstruction (principal); N39.0 Urinary tract infection, site not specified; I10 Essential (primary) hypertension; Z79.01 Long term (current) use of anticoagulants; Z79.899 Other long term (current) drug therapy; Z85.43 Personal history of malignant neoplasm of ovary; Z90.710 Acquired absence of both cervix and uterus
CPT/HCPCS: 36591; 74018; 74177; 80053; 81001; 83690; 85025; 94640; 96365; 96375; 96376; 99285; Q9967; J2405

== ENCOUNTER 2020-09-18 20:01 | Emergency (ER) | payer BC, SELFPAY ==
[2020-08-17 11:58] VITALS: BMI 37.8
[2020-09-18 20:01] VITALS: BP 84/56; PULSE 86; RESP 18; TEMP 36.8; O2SAT 94; BMI 36.0
--- NOTE | 2020-09-18 20:24 | EKG12_ITS ---
Test Reason : DISCOMFORT Blood Pressure : / mmHG Vent. Rate : 078 BPM Atrial Rate : 078 BPM P-R Int : 138 ms QRS Dur : 080 ms QT Int : 398 ms P-R-T Axes : 033 027 052 degrees QTc Int : 453 ms Normal sinus rhythm Normal ECG Confirmed by GAVIN ZEPEDA MD ([id number]), video news editor NICOLE KNOX ([id number]) on 09/21/2020 10:59:08 AM Referred By: ALETHEA Confirmed By:GAVIN ZEPEDA MD
--- NOTE | 2020-09-18 20:29 | ED.DCSUM_ITS ---
History of Present Illness Chief Complaint: Abn Labs Informant: Patient Onset: Today Narrative: Patient is approximately 3 weeks postop bowel blockage leading to surgery and creation of a colostomy. This was performed at in [place]. Patient does have a history of ovarian cancer. Patient states since her surgery she is been very fatigued and weak. Home health came today to check on her and devon blood work. She states she was told by her doctor she either has an infection or is very dehydrated and she go to the hospital. I do not have the labs easily available to review at this time. Patient denies fever or chills. She does report having dry heaves the past few days. She has been having output from her colostomy but does report decreased urination. - Past Medical History (1) History of deep vein thrombosis (DVT) of lower extremity Status: Chronic (2) Hypertension Status: Chronic (3) Ovarian cancer Status: Chronic Past Medical History - Allergies and Home Meds Allergies/Adverse Reactions: Allergies carboplatin Allergy (Verified 05/20/20 03:31) Anaphylaxis unresponsive hydrocodone bitartrate [From Vicodin] Allergy (Verified 05/20/20 03:31) Hives paclitaxel Allergy (Verified 05/20/20 03:31) Anaphylaxis unresponsive Primary Care Physician: Charly Blackmon MD [Primary Care Provider] - Surgical History: appendectomy, hysterectomy Smoking Status: Never smoker - Family History Maternal Family History: Family History (Last Reviewed 05/20/20 @ 10:[address] Brayan Monet MD) Mother Breast cancer Diabetes Heart disease Hypertension CVA (cerebral vascular accident) Father Diabetes Heart disease Kidney disease Family History: Reports: Cancer, Diabetes Paternal Family History: Family History (Last Reviewed 05/20/20 @ 10:[address] Brayan Monet MD) Mother Breast cancer Diabetes Heart disease Hypertension CVA (cerebral vascular accident) Father Diabetes Heart disease Kidney disease Family History: Reports: Diabetes, Heart Disease, Hypertension Review of Systems General: Denies: Chills, Fever Eyes: Denies: Visual changes - bilaterally ENT: Denies: Bilateral ear pain Cardiovascular: Denies: Chest pain Respiratory: Denies: Dyspnea, Cough Gastrointestinal: Reports: Nausea. Denies: Abdominal pain, Vomiting Genitourinary: Reports: - - Decreased urine output Musculoskeletal: Denies: Swelling, Extremity Pain Hematologic: Denies: Easy bruising, Easy bleeding Allergy: Denies: Uticaria Physical Exam Vital Signs/Narrative: Vital Signs Temp Pulse Resp BP Pulse Ox 09/18/20 20:01 98.3 F 86 18 84/56 L 94 General: Well nourished, Well developed ENT: Dry mucous membranes Neck: Supple Cardiovascular: Regular rate, Regular rhythm Respiratory: No distress, CTA bilaterally Abdomen: Soft, Nontender, - - Colostomy in right lower quadrant with liquid output. Skin: Normal color Neurological: Alert, Oriented x3 Psychological: Normal affect Diagnostic/Tx/Re-eval Impressions Abdomen/Pelvis CT 09/18/20 20:56 IMPRESSION: Study limited without contrast. Postsurgical changes from a recent colostomy. No bowel obstruction or inflammation. 8.0 x 6.2 x 3.0 cm air-fluid collection in the subcutaneous tissues of the midline of the anterior abdominal wall. This likely represents an abscess. Fatty liver. Electronically Signed: Elgin Stringer at 22:02 EST Tel , Service support , Chest X-Ray 09/18/20 21:05 IMPRESSION: 1. Bibasilar atelectasis. Electronically Signed: Brooks Hutchins MD (Brooks) at 21:46 EST , Service support , 09/18/20 20:56 Abdomen/Pelvis without Cont [CT] Stat 09/18/20 21:05 Chest 1 View (Portable) [RAD] Stat 09/18/20 20:45 Mucosa - Nose SARS-CoV-2 Antigen (Rapid) - Final Laboratory Results 09/18/20 09/18/20 09/18/20 20:50 20:50 20:50 WBC 10.2 RBC 3.42 L Hgb 9.6 L Hct 29.9 L MCV 87.4 MCH 28.1 MCHC 32.1 RDW Std Deviation 49.7 H RDW Coeff of Jenifer 15.6 H Plt Count 379 MPV 9.7 Immature Gran % (Auto) 1.000 H Neut % (Auto) 78.0 H Lymph % (Auto) 9.7 L [place] % (Auto) 10.1 H Eos % (Auto) 0.8 Baso % (Auto) 0.4 Absolute Neuts (auto) 8.0 H Absolute Lymphs (auto) 0.99 Nucleated RBC % 0 PT 18.8 H INR 1.6 APTT 35.2 Sodium 128 L Potassium 4.6 Chloride 81 L Carbon Dioxide 29.0 Anion Gap 18 H BUN 107 H* Creatinine 9.70 H* Estim Creat Clear Calc 5.33 Est GFR (MDRD) Af Amer 5 L Est GFR (MDRD) Non-Af 4 L BUN/Creatinine Ratio 11.0 Glucose 125 H Lactic Acid Calcium 8.3 L Total Bilirubin 0.40 AST 12 L ALT 30 Alkaline Phosphatase 199 H Total Protein 8.2 Albumin 2.9 L Globulin 5.3 H Albumin/Globulin Ratio 0.5 L 09/18/20 20:50 WBC RBC Hgb Hct MCV MCH MCHC RDW Std Deviation RDW Coeff of Jenifer Plt Count MPV Immature Gran % (Auto) Neut % (Auto) Lymph % (Auto) [place] % (Auto) Eos % (Auto) Baso % (Auto) Absolute Neuts (auto) Absolute Lymphs (auto) Nucleated RBC % PT INR APTT Sodium Potassium Chloride Carbon Dioxide Anion Gap BUN Creatinine Estim Creat Clear Calc Est GFR (MDRD) Af Amer Est GFR (MDRD) Non-Af BUN/Creatinine Ratio Glucose Lactic Acid 0.8 Calcium Total Bilirubin AST ALT Alkaline Phosphatase Total Protein Albumin Globulin Albumin/Globulin Ratio - EKG Initial EKG Interpretation: Sinus Rhythm - Sinus at 78 with no acute ischemia. - Medical Decision Making Patient was given a liter IV fluids. Labs are reviewed. Patient does have acute renal failure with a creatinine of 9.7. I was able to find some labs in clinic sink. Earlier today her creatinine was 9.43. On September 07 her creatinine was 0.94. Patient had a CT scan with no contrast primarily to evaluate her kidneys. Her kidneys look unremarkable, however they do see a fluid collection in the midline subcutaneous tissue concerning for an abscess. This measures 8 x 6.2 x 3 cm. Patient has received 1 L of IV fluids. Systolic pressure is currently 103. I have 2 additional liters ordered for her. I spoke with the patient's oncologist, Dr. Rinaldi at . Patient will be accepted in transfer to their facility. Without a fever or white count he is hoping the fluid collection noted is just a postop fluid collection and not actual infection. No antibiotics are needed at this time. ED Disposition - Plan for ED Patient: Disposition: Acute Care Hospital - Other Diagnosis: Acute renal failure, Postoperative wound infection Referrals: Charly Blackmon MD [Primary Care Provider] -
[2020-09-18 20:50] VITALS: BP 90/61; PULSE 78; RESP 18; TEMP 37.1; O2SAT 98
--- NOTE | 2020-09-18 20:56 | CT_ITS ---
STUDY: CT ABDOMEN AND PELVIS WITHOUT CONTRAST REASON FOR EXAM: Female, 59 years old. Pain. History of uterine cancer. History of appendectomy. RADIATION DOSAGE (If Supplied By Facility): CTDIvol = ( 14.64 ) mGy, DLP = ( 778.85 ) mGycm TECHNIQUE: Transaxial images were obtained from the dome of the diaphragm to the symphysis pubis with oral contrast, and without intravenous contrast. Sagittal and coronal images were reconstructed. Individualized dose optimization techniques were used for this CT. COMPARISON: 08/17/20 FINDINGS: Evaluation of the abdominal viscera is limited in the absence of intravenous contrast. There is atelectasis at the lung bases. The visualized portions of the heart and pericardium are within normal limits. There are no calcified gallstones present. The liver is low in density, consistent with fatty infiltration. The spleen is normal in size. The pancreas demonstrates an unremarkable unenhanced appearance. The adrenal glands are within normal limits. There are no renal or ureteral stones. There is no hydronephrosis. Normal visualized stomach. There is no bowel obstruction or inflammation. The patient is status post appendectomy. There are postsurgical changes from a right lower quadrant colostomy. There is an 8.0 x 6.2 x 3.0 cm air and fluid collection in the subcutaneous tissues of the midline of the anterior abdominal wall. This is consistent with an abscess. The aorta is normal in caliber. There is no free air or free fluid. There are stable postsurgical changes noted from a prior hysterectomy. There are no destructive osseous lesions. CT/Abdomen/Pelvis without Cont IMPRESSION: Study limited without contrast. Postsurgical changes from a recent colostomy. No bowel obstruction or inflammation. 8.0 x 6.2 x 3.0 cm air-fluid collection in the subcutaneous tissues of the midline of the anterior abdominal wall. This likely represents an abscess. Fatty liver. Electronically Signed: Elgin Stringer, at 22:02 EST Tel , Service support ,
--- NOTE | 2020-09-18 21:05 | RAD_ITS ---
STUDY: X-RAY CHEST REASON FOR EXAM: Female, 59 years old. TOLD BY CANCER MD TO COME IN FOR START OF INFECTION, DEHYDRATION, ABN LABS. TECHNIQUE: AP COMPARISON: 12/04/2019 FINDINGS: Right chest port is stable. Lungs are hypoinflated with bibasilar reticular densities, likely atelectasis. There is no demonstrated pleural abnormality. Normal size heart. Normal mediastinum and petros. Normal visualized pulmonary arteries. There is atherosclerosis of the aortic arch. There is demineralization of the osseous structures. Normal visualized ribs, clavicles, and shoulders. There is no demonstrated abnormality of the visualized soft tissue structures of the upper abdomen. RAD/Chest 1 View (Portable) IMPRESSION: 1. Bibasilar atelectasis. Electronically Signed: Brooks Hutchins MD (Brooks) at 21:46 EST , Service support ,
[2020-09-18 21:09] LABS: Absolute Lymphocyte Count 0.99 X10^3/uL (0.83-4.51); Basophil# 0.04 X10^3/uL; Basophil% 0.4 % (0-1); Eosinophil# 0.08 X10^3/uL; Eosinophils% 0.8 % (0-5); Hematocrit 29.9 % (37-47); Hemoglobin 9.6 g/dL (12.0-15.0); Lymphocyte # 0.99 X10^3/ul (4.0); Lymphocyte % 9.7 % (19-41); Mean Corp Hgb Conc 32.1 g/dL (32-36); Mean Corpuscular Hgb 28.1 pg (27.0-32.0); Mean Corpuscular Volume 87.4 fL (81-99); Mean Platelet Vol. 9.7 fl (6.2-12.0); Monocyte# 1.03 X10^3/uL; Monocyte% 10.1 % (0-10); NRBC Flagged by Analyzer 0 % (0-5); Neutrophil # 7.98 X10^3/uL (2.7-7.7); Platelet Count 379 K/mm3 (150-450); RBC Distribution Width CV 15.6 % (11.6-14.6); RBC Distribution Width SD 49.7 fl (35.1-43.9); Red Blood Count 3.42 M/mm3 (4.2-5.4); White Blood Count 10.2 K/mm3 (4.4-11.0)
[2020-09-18] MEDS: 0.9% Normal Saline 1,000 ML 999 ML IV ×2 (21:11→22:21)
[2020-09-18 21:28] LABS: International Normalized Ratio 1.6; Prothrombin Time (Protime)PT. 18.8 SECONDS (11.7-14.9)
[2020-09-18 21:29] LABS: Partial Thromboplast Time 35.2 Seconds (24.1-36.2)
[2020-09-18 21:49] VITALS: BP 98/51; PULSE 75; RESP 18; TEMP 36.9; O2SAT 97
[2020-09-18 22:03] LABS: Lactic Acid 0.8 mmol/L (0.4-1.9)
[2020-09-18 22:06] LABS: ALB/GLOB Ratio 0.5 RATIO (0.9-2.4); AST(SGOT) 12 U/L (15-37); Alanine Aminotransfer ALT/SGPT 30 U/L (13-56); Albumin, Serum 2.9 g/dL (3.2-5.0); Alkaline Phosphatase 199 U/L (45-117); Anion Gap 18 (5-15); BUN 107 mg/dL (7-18); Calcium,Total 8.3 mg/dL (8.5-10.1); Chloride 81 mmol/L (98-107); EST Glomerular Filtration Rate 4 mL/min (>60); Est Glom Filt Rate - Afr Amer 5 mL/min (>60); Estimated Creatinine Clearance 5.33 ml/min; Globulin 5.3 g/dL (2.2-4.2); Glucose 125 mg/dL (74-106); Potassium 4.6 mmol/L (3.5-5.1); Protein, Total 8.2 g/dL (6.4-8.2); Sodium Level 128 mmol/L (136-145)
[2020-09-18 22:50] VITALS: BP 93/55; PULSE 70; RESP 18; TEMP 36.7; O2SAT 98
[2020-09-18 23:50] VITALS: BP 96/53; PULSE 67; RESP 18; TEMP 36.6; O2SAT 96
[2020-09-19] MEDS: 0.9% Normal Saline 1,000 ML 999 ML IV (00:41)
[2020-09-19 00:50] VITALS: BP 92/53; PULSE 66; RESP 18; TEMP 36.6; O2SAT 99
--- NOTE | 2020-09-19 01:00 | ED.RN ---
AT 0040 [facility] CALLED REPORTS A 45 MIN ETA TO ASSISTANT CASE MANAGER PT TO TRANSPORT TO [facility].
== END 2020-09-19 01:49 | disposition short-term general hospital (02) ==
PROVIDERS: Emergency Provider Emergency Medicine; PCP Family Medicine
DX: N17.9 Acute kidney failure, unspecified (principal); T81.41XA Infection following a procedure, superficial incisional surgical site, initial encounter; I10 Essential (primary) hypertension; Z93.3 Colostomy status; Z79.01 Long term (current) use of anticoagulants; Z79.899 Other long term (current) drug therapy; Z85.43 Personal history of malignant neoplasm of ovary; Z86.718 Personal history of other venous thrombosis and embolism
CPT/HCPCS: 71045; 74176; 80053; 83605; 85025; 85610; 85730; 87040; 87426; 93005; 96360; 96361; 99285; J7030

== ENCOUNTER 2020-11-02 15:45 | Observation (INO) | payer BC, SELFPAY ==
[2020-11-02] VITALS (7 sets, daily range): BP systolic 111–139; BP diastolic 61–77; PULSE 75–93; RESP 14–19; TEMP 35.8–36.9; O2SAT 95–98; BMI 31.7; BMI 34.3; BMI 34.4
--- NOTE | 2020-11-02 16:07 | EKG12_ITS ---
Test Reason : NAUSEA Blood Pressure : / mmHG Vent. Rate : 075 BPM Atrial Rate : 075 BPM P-R Int : 140 ms QRS Dur : 080 ms QT Int : 398 ms P-R-T Axes : 048 016 036 degrees QTc Int : 444 ms Normal sinus rhythm Normal ECG Confirmed by KATELYN CRAWFORD, GAVIN ([id number]), supervising film or videotape editor NICOLE KNOX ([id number]) on 11/05/2020 9:40:34 AM Referred By: Colleen Gutiérrez Confirmed By:GAVIN ZEPEDA MD
[2020-11-02 16:22] LABS: Bacteria 0 SEEN /hpf (None Seen); Mucous, Urine 0 SEEN /hpf (<or=2+); Red Blood Cells-Urine 0 SEEN /hpf (0-5)
[2020-11-02] MEDS: 0.9% Normal Saline 1,000 ML 1000 ML IV (16:23)
[2020-11-02] MEDS: Ondansetron 4 MG/2 ML Vial IV (16:23)
[2020-11-02 16:29] LABS: Color, Urine Yellow (Yellow); Glucose, Dipstick Normal (Normal); Ketone-Dipstick Negative (Negative); Leukocyte Esterase-Dipstick 500 /ul (Negative); Nitrite-Dipstick Negative (Negative); Occult Blood-Urine 10 /ul (Negative); Protein-Dipstick 30 mg/dl (Negative); Specific Gravity, Urine 1.015 (1.002-1.030); Urine Bilirubin Dipstick Negative (Negative); Urine Clarity Clear (Clear); Urine Urobilinogen Normal (Normal)
[2020-11-02 16:34] LABS: Absolute Lymphocyte Count 1.02 X10^3/uL (0.83-4.51); Basophil# 0.01 X10^3/uL; Basophil% 0.2 % (0-1); Eosinophil# 0.03 X10^3/uL; Eosinophils% 0.5 % (0-5); Hematocrit 27.6 % (37-47); Hemoglobin 8.4 g/dL (12.0-15.0); Lymphocyte # 1.02 X10^3/ul (4.0); Lymphocyte % 15.5 % (19-41); Mean Corp Hgb Conc 30.4 g/dL (32-36); Mean Corpuscular Hgb 27.8 pg (27.0-32.0); Mean Corpuscular Volume 91.4 fL (81-99); Mean Platelet Vol. 10.1 fl (6.2-12.0); Monocyte# 0.53 X10^3/uL; Monocyte% 8.1 % (0-10); NRBC Flagged by Analyzer 0 % (0-5); Neutrophil # 4.95 X10^3/uL (2.7-7.7); Neutrophil % 75.1 % (47-70); Platelet Count 327 K/mm3 (150-450); RBC Distribution Width CV 18.4 % (11.6-14.6); RBC Distribution Width SD 61.8 fl (35.1-43.9); Red Blood Count 3.02 M/mm3 (4.2-5.4); White Blood Count 6.6 K/mm3 (4.4-11.0)
[2020-11-02 16:35] LABS: Squamous Epithelial Cells - UA 5-10 SEEN /hpf (5-10); White Blood Cells 5-10 SEEN /hpf (0-5)
[2020-11-02 16:36] LABS: Renal Epithelial Cells 0-5 SEEN /hpf (0-5)
[2020-11-02 16:37] LABS: Hyaline Cast 0-5 SEEN /lpf (0-5)
[2020-11-02 16:39] LABS: Fine Granular Cast- Urine 0-5 SEEN /lpf (0-5)
[2020-11-02 16:47] LABS: Yeast-Urine RARE /hpf (None Seen)
[2020-11-02 16:53] LABS: ALB/GLOB Ratio 0.6 RATIO (0.9-2.4); AST(SGOT) 16 U/L (15-37); Alanine Aminotransfer ALT/SGPT 22 U/L (13-56); Albumin, Serum 2.1 g/dL (3.2-5.0); Alkaline Phosphatase 116 U/L (45-117); Anion Gap 8 (5-15); BUN 11 mg/dL (7-18); BUN/Creat Ratio 8.4 RATIO (10-20); Calcium,Total 6.3 mg/dL (8.5-10.1); Chloride 113 mmol/L (98-107); Creatinine, Serum 1.31 mg/dL (0.55-1.02); EST Glomerular Filtration Rate 44 mL/min (>60); Est Glom Filt Rate - Afr Amer 53 mL/min (>60); Estimated Creatinine Clearance 39.44 ml/min; Globulin 3.8 g/dL (2.2-4.2); Glucose 84 mg/dL (74-106); Lipase 61 U/L (73-393); Potassium 3.6 mmol/L (3.5-5.1); Protein, Total 5.9 g/dL (6.4-8.2); Sodium Level 142 mmol/L (136-145)
[2020-11-02 17:48] LABS: Magnesium 0.7 mg/dL (1.6-2.6); Phosphorus 3.9 mg/dL (2.5-4.9)
[2020-11-02] MEDS: Calcium Carbonate 1250 MG/5 ML PO (17:57)
--- NOTE | 2020-11-02 18:26 | ED.DCSUM_ITS ---
- ER Visit Summary Date of Service: 11/02/20 Chief Complaint: Do not feel well. 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 She reports for the past 2 days she has been shaky and had poor energy. States that her last chemo was in August. Patient reports that her abdomen feels full, but she denies any pain. She has had nausea and dry heaves. She states that her ileostomy is draining normally. There is no blood. No dysuria or frequency. Patient denies any fever, chills, or cough. She has not had any sick contacts. She does wear a mask. She denies any change in her sense of smell or taste. Physical Examination: Vitals: Stable. Afebrile. General: Well-nourished and well-developed. Head: Normocephalic atraumatic. Neck: Supple, no lymphadenopathy. No JVD. Nontender. Cardiovascular: Regular rate and rhythm. No murmurs. Respiratory: No respiratory distress. Clear to auscultation bilaterally. Abdominal: Soft, nontender, nondistended, normal bowel sounds. No guarding, rebound, or peritoneal signs. Back: Nontender. Extremities: Nontender, 1+ lower extremities bilaterally. Skin: Normal color, no rash. Port on the right side of her chest is nontender. There is no surrounding erythema or induration to suggest infection. Neurologic: Alert and oriented ?3. Cranial nerves II through XII are intact. Normal strength and sensation. Psych: Normal affect. Test Results: EKG is sinus at [address] changes. Her QTC is 444. Troponin is negative. LFTs show protein of 5.9 and albumin of 2.1. Lipase is normal. Chem-7 shows a chloride of 113 and creatinine 1.31. Her calcium is 6.3. However when corrected for albumin this is 7.8. Her magnesium is 0.7. Her phosphorus is 3.9. CBC shows an H&H of 8.4 and 27.6, 7 neutrophils 75, lymphocytes of 16. Emergency Department Course and Treatment: Patient was given a dose of Zofran IV. She was given liter normal saline. She was given calcium p.o. and magnesium IV. Patient still feels nauseated, but has been able to keep the calcium down. Treatment Plan: Patient does not feel well enough to go home. She was discussed with Dr. Gutiérrez. She will be admitted to the hospital for further evaluation and treatment. Disposition: Admitted in stable condition. Impression: 1. Anemia. 2. Dehydration. 3. Hypocalcemia. 4. Hypomagnesemia. This note was generated with [employer] dictation software. It may contain incorrect words, spelling, and punctuation that were not noted in review of the chart prio r to signing ED Disposition - Plan for ED Patient: Instructions: ED Hypocalcemia (Adult) Prescriptions: Calcium Carbonate Liquid 1,250 mg PO BID #60 ml Prescription Printed Ondansetron [Zofran Odt] 4 mg PO Q8H PRN PRN #10 tab PRN Reason: Nausea Prescription Printed Referrals: Charly Blackmon MD [Primary Care Provider] -
--- NOTE | 2020-11-02 19:16 | PCM.HP.STD ---
Problem List (1) Hypocalcemia Status: Acute (2) Hypomagnesemia Status: Acute (3) Ovarian cancer Status: Chronic Qualifiers: Laterality: right Qualified Code(s): C56.1 - Malignant neoplasm of right ovary (4) Hypertension Status: Chronic Qualifiers: Hypertension type: essential hypertension Qualified Code(s): I10 - Essential (primary) hypertension (5) History of deep vein thrombosis (DVT) of lower extremity Status: Chronic History of Present Illness Date of Admission: 11/02/20 Chief Complaint: Nausea, generalized weakness ongoing for 1 week The patient is a 59 year old F with past medical history of ovarian CA status post ITA/BSO, on chemotherapy. She last had chemotherapy in August 2020. She comes in with progressive weakness. Patient has history of small bowel obstruction status post ileostomy. At baseline she manages her increased output from the ileostomy with antimotility medications as well as IV fluids through her port. She typically gives herself 1 bag of IV fluid a day. If her ileostomy output is more than 2 L, she gives herself 2 bags of IV fluid. Patient denied any fever or chills. She has had increased output from her ileostomy. She has been having dry heaving but no diarrhea. She feels dizzy but denied any chest pain or palpitation. She has bilateral leg swelling. Her vitals in the ED showed temperature of 96.5F, heart rate 94, blood pressure 119/69, respiratory rate 16, SPO2 is 95% on room air. WBC count is 6.6, hemoglobin 8.4, blood hemoglobin was 9.6, platelet count 327, sodium 142, potassium 3.6, chloride 113, bicarbonate 21, BUN 11, creatinine 1.31, glucose 84, calcium 6.3, magnesium 0.7, phosphorus 3.9, LFTs are unremarkable, vitamin D pending, PTH is also pending Past Medical History Past Medical History (Chronic Problems): Chronic Problems (Last Reviewed 05/20/20 @ 10:[address] Brayan Monet MD) Ovarian cancer (Chronic) Hypertension (Chronic) History of deep vein thrombosis (DVT) of lower extremity (Chronic) Chronic anemia (Chronic) Medical History: Medical History (Last Reviewed 05/20/20 @ 10:[address] Brayan Monet MD) Asthma J45.909 Ovarian cancer C56.9 VTE (venous thromboembolism) I82.90 HTN (hypertension) I10 Allergies carboplatin Allergy (Verified 11/02/20 15:46) Anaphylaxis unresponsive hydrocodone bitartrate [From Vicodin] Allergy (Verified 11/02/20 15:46) Hives paclitaxel Allergy (Verified 11/02/20 15:46) Anaphylaxis unresponsive Home Medications: Ambulatory Orders Medication Instructions Recorded Lisinopril [Zestril] 10 mg PO DAILY 10/02/16 Acetaminophen [Tylenol Extra 500 mg PO Q4H PRN PRN 05/20/19 Strength] Magnesium Gluconate 1,000 mg PO BID 05/20/19 Multivitamin with Minerals 1 ea PO DAILY 05/20/19 [Multiple Vitamin] Apixaban [Eliquis] 5 mg PO BID 05/20/20 Pyridoxine HCl [Vitamin B6] 200 mg PO DAILY 05/20/20 Loperamide [Imodium] 1 mg PO 4X/DAY 09/18/20 Calcium Carbonate Liquid 1,250 mg PO BID #60 ml 11/02/20 Cholestyramine [Cholestyramine 4,000 gm MC 4X/DAY 11/02/20 Resin] Dicyclomine HCl 20 mg PO DAILY 11/02/20 Docusate Sodium [Colace] 100 mg PO BID 11/02/20 Omeprazole [Prilosec] 20 mg PO DAILY 11/02/20 Ondansetron [Zofran Odt] 4 mg PO Q8H PRN PRN #10 tab 11/02/20 Rucaparib Camsylate [Rubraca] 600 mg PO BID 11/02/20 morphine solution (IR) [Roxanol 3 mg PO Q6H 11/02/20 (IR oral solution)] Surgical History: Surgical History (Last Reviewed 05/20/20 @ 10:[address] Brayan Monet MD) H/O total hysterectomy with bilateral salpingo-oophorectomy (BSO) Z90.710, Z90.722, Z90.79 History of appendectomy Z90.49 S/P laparoscopy Z98.890 S/P tonsillectomy Z90.89 Surgical History: appendectomy, hysterectomy, tonsillectomy, - - Status post ileostomy Psychiatric History: No pertinent psych hx [employer] History: ovarian cancer Lives: Spouse/ Significant Other Smoking Status: Never smoker Tobacco Use: Non-smoker Alcohol: None Drugs: None - *Family History Maternal Family History: Family History (Last Reviewed 05/20/20 @ 10:[address] Brayan Monet MD) Mother Breast cancer Diabetes Heart disease Hypertension CVA (cerebral vascular accident) Father Diabetes Heart disease Kidney disease History Items: Cancer - breast cancer, Diabetes, Heart Disease, Hypertension, Stroke - brain aneurysm Paternal Family History: Family History (Last Reviewed 05/20/20 @ 10:[address] Brayan Monet MD) Mother Breast cancer Diabetes Heart disease Hypertension CVA (cerebral vascular accident) Father Diabetes Heart disease Kidney disease History Items: Diabetes, Heart Disease, Hypertension Review of Systems Constitutional: Reports: Weakness, Fatigue. Denies: Anorexia, Chills, Fever, Night Sweats, Malaise, Weight Change Eyes: Denies: Blurred vision, Cataracts, Conjunctivae Inflammation, Pain, Redness, Vision Change HEENT: Denies: Difficulty Hearing, Difficulty Swallowing, Head Aches, Hearing Changes, Sinus Congestion, Sinus Drainage Cardiovascular: Denies: Chest Pain, Claudication, Orthopnea, Palpitations, Paroxysmal Noc. Dyspnea Respiratory: Denies: Cough, Shortness of Breath, Shortness of breath at rest, Shortness of breath upon exertion, Sputum production Gastrointestinal: Denies: Abdominal Pain, Constipation, Hematemesis, Hematochezia, Nausea, Vomiting Genitourinary: Denies: Dysuria, Frequency Musculoskeletal: Denies: Joint Pain, Joint stiffness, Joint swelling, Joint Tenderness Skin: Denies: Rash, Wounds Neurological: Denies: Difficulty swallowing, Focal weakness, Numbness, Tingling Psychiatric: Denies: Anxiety, Depression, Homicidal Ideations, Suicidal Ideations Hematologic/ Lymphatic: Denies: Easy Bruising, Easy Bleeding VTE Information - Inpt Only VTE Present on Admission: No VTE Pharm Prophylaxis ordered?: Yes Patient Problems: Active and Suspected Problems (Last Reviewed 05/20/20 @ 10:[address] Brayan Monet MD) Hypocalcemia (Acute) Hypomagnesemia (Acute) - Physical Exam Vitals/I&O's: Vital Signs Temp Pulse Resp BP Pulse Ox 96.5 F L 80 14 128/77 H 98 11/02/20 15:46 11/02/20 19:00 11/02/20 19:00 11/02/20 19:00 11/02/20 19:00 Oxygen Delivery Method Room Air Weight: 83.915 kg Body Mass Index (BMI) 31.7 Intake and Output for Last 24 Hours 10/31/20 11/01/20 11/02/20 23:59 23:59 23:59 Intake Total 1000 / 1000 Balance 1000 / 1000 General: Alert, Oriented x3, Cooperative, No apparent distress HEENT: Atraumatic, PERRLA, EOMI, Normocephalic Oral: Moist Mucosa Neck: Supple Lungs: Clear to auscultation, Normal air movement, - - s/p chest wall port Cardiovascular: Regular rate, Regular Rhythm, Normal S1, Normal S2, No murmurs Abdomen: Bowel Sounds Present, Soft, Non Tender, Non-Distended, No Hepato-splenomegaly Extremities: Edema - Trace bilateral Skin: No rashes Musculoskeletal: No Tenderness to Palpation of Joints or Extremities Lymphatic: No Cervical, Supraclavicular, or Inguinal Adenopathy Neurological: Cranial nerves II-XII grossly intact, Neuro grossly intact Psych/Mental Status: Normal Affect, Appropriate Microbiology Past 72 Hours 11/02/20 16:15 Mucosa - Nose SARS-CoV-2 Antigen (Rapid) - Final Laboratory Results 11/02/20 15:55: WBC 6.6, RBC 3.02 L, Hgb 8.4 L, Hct 27.6 L, MCV 91.4, MCH 27.8, MCHC 30.4 L, RDW Std Deviation 61.8 H, RDW Coeff of Jenifer 18.4 H, Plt Count 327, MPV 10.1, Immature Gran % (Auto) 0.600, Neut % (Auto) 75.1 H, Lymph % (Auto) 15.5 L, [place] % (Auto) 8.1, Eos % (Auto) 0.5, Baso % (Auto) 0.2, Absolute Neuts (auto) 5.0, Absolute Lymphs (auto) 1.02, Nucleated RBC % 0 11/02/20 15:55: Sodium 142, Potassium 3.6, Chloride 113 H, Carbon Dioxide 21.0, Anion Gap 8, BUN 11, Creatinine 1.31 H, Estim Creat Clear Calc 39.44, Est GFR (MDRD) Af Amer 53 L, Est GFR (MDRD) Non-Af 44 L, BUN/Creatinine Ratio 8.4 L, Glucose 84, Calcium 6.3 L*, Total Bilirubin 0.30, AST 16, ALT 22, Alkaline Phosphatase 116, Troponin I < 0.015, Total Protein 5.9 L, Albumin 2.1 L, Globulin 3.8, Albumin/Globulin Ratio 0.6 L, Lipase 61 L 11/02/20 15:55: Phosphorus 3.9, Magnesium 0.7 L* 11/02/20 16:15: Urine Color Yellow, Urine Clarity Clear, Urine pH 5.0, Ur Specific [place] 1.015, Urine Protein 30 H, Urine Glucose (UA) Normal, Urine Ketones Negative, Urine Occult Blood 10 H, Urine Nitrite Negative, Urine Bilirubin Negative, Urine Urobilinogen Normal, Ur Leukocyte Esterase 500 H, Urine RBC 0 SEEN, Urine WBC 5-10 SEEN, Ur Squamous Epith Cells 5-10 SEEN, Ur Renal Epithelial Cell 0-5 SEEN, Urine Bacteria 0 SEEN, Hyaline Casts 0-5 SEEN, Fine Granular Casts 0-5 SEEN, Urine Mucus 0 SEEN, Urine Yeast RARE 11/02/20 18:15: PTH Intact Pending 11/02/20 18:15: Vit D 1,25-Dihydroxy Pending Current Medications Magnesium Sulfate 2 gm/ Sodium (Chloride) 104 mls @ 52 mls/hr IV X1 ONE Stop: 11/02/20 19:51 Last Admin: 11/02/20 18:19 Dose: 52 mls/hr Documented by: Assessment/Plan All Active Problems (Last Reviewed 05/20/20 @ 10:[address] Brayan Monet MD) Partial small bowel obstruction (Acute) Hypocalcemia (Acute) Hypomagnesemia (Acute) 1. Acute severe hypomagnesemia/hypocalcemia secondary to GI loss from ileostomy Magnesium is 0.7, corrected calcium is 7.82 Will replace electrolytes, recheck in a.m. Vitamin D, PTH levels are pending 2. Ovarian CA status post ITA/BSO, on oral chemotherapy Patient will follow with oncology in the outpatient 3. History of DVT, on apixaban 4. Hypertension, continue on lisinopril 5. DVT PPx- on apixaban 6. Code status: DNR CCA I discussed and explained in details the various types of CODE STATUS-full code, DNR CCA, DNR CC. Patient does not want to be resuscitated in the event of a cardiopulmonary arrest. Time spent discussing CODE STATUS 18 minutes Inpatient E&M: 70639 Init Hosp L3 Procedures: 30947 Advncd Care Plan 30 Min
--- NOTE | 2020-11-02 20:02 | ED.RN ---
PT NOTIFIED OF PT ADMISSION AND VISITING HOURS.
[2020-11-02] MEDS: 0.9% Normal Saline 1,000 ML 75 ML IV (21:21)
[2020-11-02] MEDS: APIXABAN 5 MG TABLET PO (22:20)
[2020-11-02] MEDS: Magnesium Chloride 64 MG Delay Rel.Tablet 128 MG PO (22:21)
--- NOTE | 2020-11-02 23:19 | PCS.PANDOC ---
PANDEMIC DOCUMENTATION INITIATED: Date: 11/02/2020 Time: 2100
[2020-11-02] MEDS: morphine (oral solution) 10MG/0.5ML Syringe 3 MG PO (23:45)
[2020-11-03] MEDS: 0.9% Saline Lock 10 ML Syringe IV ×2 (00:30→15:01)
[2020-11-03] MEDS: proCHLORPERazine 10 MG/2 ML Vial 5 MG IV (00:31)
[2020-11-03 03:18] VITALS: PULSE 78
[2020-11-03 05:40] VITALS: BP 112/58; PULSE 76; RESP 18; TEMP 36.8; O2SAT 96
[2020-11-03] MEDS: morphine (oral solution) 10MG/0.5ML Syringe 3 MG PO ×2 (05:47→11:42)
[2020-11-03 07:00] VITALS: PULSE 74
[2020-11-03] MEDS: Dicyclomine 10 MG Capsule 20 MG PO (08:18)
[2020-11-03] MEDS: Multivitamins,Ther W-Minerals Tablet 1 TABLET PO (08:18)
[2020-11-03 09:14] LABS: Absolute Lymphocyte Count 0.88 X10^3/uL (0.83-4.51); Absolute Neutrophil Count 4.8 X10^3/uL (2.0-7.7); Basophil# 0.03 X10^3/uL; Basophil% 0.5 % (0-1); Eosinophil# 0.07 X10^3/uL; Eosinophils% 1.1 % (0-5); Hematocrit 26.7 % (37-47); Hemoglobin 8.2 g/dL (12.0-15.0); Lymphocyte # 0.88 X10^3/ul (4.0); Lymphocyte % 13.6 % (19-41); Mean Corp Hgb Conc 30.7 g/dL (32-36); Mean Corpuscular Hgb 28.1 pg (27.0-32.0); Mean Corpuscular Volume 91.4 fL (81-99); Mean Platelet Vol. 10.2 fl (6.2-12.0); Monocyte# 0.65 X10^3/uL; NRBC Flagged by Analyzer 0 % (0-5); Neutrophil # 4.83 X10^3/uL (2.7-7.7); Neutrophil % 74.3 % (47-70); Platelet Count 313 K/mm3 (150-450); RBC Distribution Width CV 18.6 % (11.6-14.6); RBC Distribution Width SD 62.7 fl (35.1-43.9); Red Blood Count 2.92 M/mm3 (4.2-5.4); White Blood Count 6.5 K/mm3 (4.4-11.0)
[2020-11-03 10:11] VITALS: BP 128/67; PULSE 73; RESP 16; TEMP 36.7; O2SAT 97
[2020-11-03] MEDS: APIXABAN 5 MG TABLET PO (10:15)
[2020-11-03] MEDS: Cholestyramine/Sucrose 4 GM/PACKET PO ×2 (10:15→13:05)
[2020-11-03] MEDS: Magnesium Chloride 64 MG Delay Rel.Tablet 128 MG PO (10:15)
[2020-11-03] MEDS: Pantoprazole Sodium 20 MG Tablet PO (10:15)
[2020-11-03] MEDS: Pyridoxine HCl 50 MG Tablet 200 MG PO (10:16)
[2020-11-03] MEDS: Lisinopril 10 MG Tablet PO (10:16)
[2020-11-03 10:27] LABS: ALB/GLOB Ratio 0.6 RATIO (0.9-2.4); AST(SGOT) 18 U/L (15-37); Alanine Aminotransfer ALT/SGPT 20 U/L (13-56); Albumin, Serum 2.1 g/dL (3.2-5.0); Alkaline Phosphatase 115 U/L (45-117); Anion Gap 9 (5-15); BUN 11 mg/dL (7-18); BUN/Creat Ratio 9.7 RATIO (10-20); Calcium,Total 6.6 mg/dL (8.5-10.1); Chloride 112 mmol/L (98-107); Creatinine, Serum 1.13 mg/dL (0.55-1.02); EST Glomerular Filtration Rate 52 mL/min (>60); Est Glom Filt Rate - Afr Amer 63 mL/min (>60); Estimated Creatinine Clearance 45.72 ml/min; Globulin 3.7 g/dL (2.2-4.2); Glucose 93 mg/dL (74-106); Potassium 3.4 mmol/L (3.5-5.1); Protein, Total 5.8 g/dL (6.4-8.2); Sodium Level 142 mmol/L (136-145)
[2020-11-03 11:05] LABS: PTHIN 49.2 pg/mL (18.4-80.1)
[2020-11-03 11:45] LABS: Magnesium 1.8 mg/dL (1.6-2.6)
--- NOTE | 2020-11-03 12:44 | DCINST_ITS ---
- Discharge Diagnoses Current Active Problems: Current Active and Chronic Problems (Last Reviewed 05/20/20 @ 10:[address] Brayan Monet MD) Ovarian cancer (Chronic) Hypertension (Chronic) History of deep vein thrombosis (DVT) of lower extremity (Chronic) Hypocalcemia (Acute) Hypomagnesemia (Acute) You will use the following diet at home:: Regular Your food should be the consistency of: Regular Discharge Activity: Return to Normal Activity Weight Bearing Status: Weight bearing as tolerated Call your doctor if you observe: Fever of 101 or Higher, Shortness of breath, Dizziness, Fainting spells, Chest pain, Increased palpitations (irregular heartbeat), Uncontrolled pain Instructions: ED Hypocalcemia (Adult) Allergies/Adverse Reactions: Allergies carboplatin Allergy (Verified 11/02/20 15:46) Anaphylaxis unresponsive hydrocodone bitartrate [From Vicodin] Allergy (Verified 11/02/20 15:46) Hives paclitaxel Allergy (Verified 11/02/20 15:46) Anaphylaxis unresponsive Medications to take at Discharge Lisinopril [Zestril] 10 mg PO DAILY 10/02/16 Acetaminophen [Tylenol Extra Strength] 500 mg PO Q4H PRN PRN 05/20/19 Magnesium Gluconate 1,000 mg PO BID 05/20/19 Multivitamin with Minerals [Multiple Vitamin] 1 ea PO DAILY 05/20/19 Apixaban [Eliquis] 5 mg PO BID 05/20/20 Pyridoxine HCl [Vitamin B6] 200 mg PO DAILY 05/20/20 Loperamide [Imodium] 1 mg PO 4X/DAY 09/18/20 Cholestyramine [Cholestyramine Resin] 4,000 gm MC 4X/DAY 11/02/20 Dicyclomine HCl 20 mg PO DAILY 11/02/20 Docusate Sodium [Colace] 100 mg PO BID 11/02/20 Omeprazole [Prilosec] 20 mg PO DAILY 11/02/20 Rucaparib Camsylate [Rubraca] 600 mg PO BID 11/02/20 morphine solution (IR) [Roxanol (IR oral solution)] 3 mg PO Q6H 11/02/20 Calcium Carbonate [Tums] 500 mg PO TIDCM #90 tab 11/03/20 The following prescriptions were given: Calcium Carbonate [Tums] 500 mg PO TIDCM #90 tab Transmission Status: [facility]ending to [id number] Primary Care Physician: Charly Blackmon MD [Primary Care Provider] - Please follow up with your Primary Care Physician in: 1 WEEK. Test Results: Test results from this visit will be discussed in further detail at your follow- up appointment, if applicable.
--- NOTE | 2020-11-03 12:45 | DS.PCM_ITS ---
Discharge Date and Diagnosis - Problem List Patient Problems: Active and Suspected Problems (Last Reviewed 05/20/20 @ 10:[address] Brayan Monet MD) Hypocalcemia (Acute) Hypomagnesemia (Acute) Date of Admission: 11/02/20 Date of Discharge: 11/03/20 - Primary Discharge Diagnosis Acute Problems: Active Problems (Last Reviewed 05/20/20 @ 10:[address] Brayan Monet MD) #1 hypocalcemia. #2 severe hypomagnesemia. #3 hypokalemia. - Secondary Discharge Diagnosis Chronic Problems: Chronic Problems (Last Reviewed 05/20/20 @ 10:[address] Brayan Monet MD) Ovarian cancer (Chronic) Hypertension (Chronic) History of deep vein thrombosis (DVT) of lower extremity (Chronic) Chronic anemia (Chronic) Hospital Course and Treatment Operations: None Procedures: None Summary of Care Provided: Patient seen and examined on the day of discharge and appeared to be stable to be discharged home. She states that she is feeling significantly better, weakness improved as well as nausea. Her vital signs were stable. The patient is a 59 year old F presented to the emergency room because of not feeling well and weakness and she was found to have electrolyte disturbances including hypocalcemia, hypomagnesemia and mild hypokalemia. This patient had a history of ovarian cancer status post surgery, status post ileostomy with recurrent bowel obstructions. She stated that she has been having issues with recurrent bowel obstructions. She mentioned that output of the ileostomy has been large amount and watery over the last several weeks. She was found to have calcium of 6.3 mg/dL, magnesium of 0.7. Her LFT revealed hypoalbuminemia with serum albumin of 2.1 g/dL. She does have chronic anemia and her hemoglobin has been stable. She received replacement of her calcium and magnesium. Also, she received IV albumin 25 g x 1. She was given K. Dur 40 mEq x 1. COVID-19 antigen was negative. With replacement, her calcium improved, it came up to 6.6 mg/dL and up on correction to albumin, calcium upon discharge was 8.1 mg/dL. Admission magnesium was 0.7 and with replacement, it came up to 1.8. LFT was unremarkable. Patient feels better, weakness improved as well as nausea. Patient discharged home in a stable condition, she was discharged on calcium carbonate (Tums), continued on p.o. magnesium supplement that she has been taking, continued on her other previous home medications without any changes, patient stated that she gets blood done twice every week, recommended to follow- up with PCP in 1 week. Patient Problems: Active and Suspected Problems (Last Reviewed 05/20/20 @ 10:[address] Brayan Monet MD) Hypocalcemia (Acute) Hypomagnesemia (Acute) - Physical Exam Vitals/I&O's: Vital Signs Temp Pulse Resp BP Pulse Ox 98.0 F 73 16 128/67 H 97 11/03/20 10:11 11/03/20 10:11 11/03/20 10:11 11/03/20 10:11 11/03/20 10:11 Oxygen Delivery Method Room Air Weight: 199 lb 1.239 oz Body Mass Index (BMI) 34.3 Intake and Output for Last 24 Hours 11/01/20 11/02/20 11/03/20 23:59 23:59 23:59 Intake Total 1550.5 / 1550.5 1407.5 / 1407.5 Output Total 150 / 150 1150 / 1150 Balance 1400.5 / 1400.5 257.5 / 257.5 General: Alert, Oriented x3, Cooperative, No apparent distress HEENT: Atraumatic, PERRLA, EOMI, Normocephalic Oral: Moist Mucosa, No Gingival or Mucosal Lesions/ Ulcerations Neck: Supple, No JVD, Negative Carotid Bruits, Trachea Midline, Thyroid Normal Size and Texture Lungs: Clear to auscultation, Normal air movement, No rhonchi, No wheeze, No rales Cardiovascular: Regular rate, Regular Rhythm, Normal S1, Normal S2, PMI Normal Abdomen: Bowel Sounds Present, Soft, Non Tender, Non-Distended, No Hepato- splenomegaly Extremities: No clubbing, No cyanosis, No edema Skin: No rashes, No breakdown Lymphatic: No Cervical, Supraclavicular, or Inguinal Adenopathy Neurological: Cranial nerves II-XII grossly intact, Neuro grossly intact Psych/Mental Status: Normal Affect, Appropriate Microbiology Past 72 Hours 11/02/20 16:15 Mucosa - Nose SARS-CoV-2 Antigen (Rapid) - Final Laboratory Results 11/02/20 15:55: WBC 6.6, RBC 3.02 L, Hgb 8.4 L, Hct 27.6 L, MCV 91.4, MCH 27.8, MCHC 30.4 L, RDW Std Deviation 61.8 H, RDW Coeff of Jenifer 18.4 H, Plt Count 327, MPV 10.1, Immature Gran % (Auto) 0.600, Neut % (Auto) 75.1 H, Lymph % (Auto) 15.5 L, [place] % (Auto) 8.1, Eos % (Auto) 0.5, Baso % (Auto) 0.2, Absolute Neuts (auto) 5.0, Absolute Lymphs (auto) 1.02, Nucleated RBC % 0 11/02/20 15:55: Sodium 142, Potassium 3.6, Chloride 113 H, Carbon Dioxide 21.0, Anion Gap 8, BUN 11, Creatinine 1.31 H, Estim Creat Clear Calc 39.44, Est GFR (MDRD) Af Amer 53 L, Est GFR (MDRD) Non-Af 44 L, BUN/Creatinine Ratio 8.4 L, Glucose 84, Calcium 6.3 L*, Total Bilirubin 0.30, AST 16, ALT 22, Alkaline Phosphatase 116, Troponin I < 0.015, Total Protein 5.9 L, Albumin 2.1 L, Globulin 3.8, Albumin/Globulin Ratio 0.6 L, Lipase 61 L 11/02/20 15:55: Phosphorus 3.9, Magnesium 0.7 L* 11/02/20 16:15: Urine Color Yellow, Urine Clarity Clear, Urine pH 5.0, Ur Specific [place] 1.015, Urine Protein 30 H, Urine Glucose (UA) Normal, Urine Ketones Negative, Urine Occult Blood 10 H, Urine Nitrite Negative, Urine Bilirubin Negative, Urine Urobilinogen Normal, Ur Leukocyte Esterase 500 H, Urine RBC 0 SEEN, Urine WBC 5-10 SEEN, Ur Squamous Epith Cells 5-10 SEEN, Ur Renal Epithelial Cell 0-5 SEEN, Urine Bacteria 0 SEEN, Hyaline Casts 0-5 SEEN, Fine Granular Casts 0-5 SEEN, Urine Mucus 0 SEEN, Urine Yeast RARE 11/02/20 18:15: PTH Intact 49.2 11/02/20 18:15: Vit D 1,25-Dihydroxy Pending 11/03/20 08:19: WBC 6.5, RBC 2.92 L, Hgb 8.2 L, Hct 26.7 L, MCV 91.4, MCH 28.1, MCHC 30.7 L, RDW Std Deviation 62.7 H, RDW Coeff of Jenifer 18.6 H, Plt Count 313, MPV 10.2, Immature Gran % (Auto) 0.500, Neut % (Auto) 74.3 H, Lymph % (Auto) 13.6 L, [place] % (Auto) 10.0, Eos % (Auto) 1.1, Baso % (Auto) 0.5, Absolute Neuts (auto) 4.8, Absolute Lymphs (auto) 0.88, Nucleated RBC % 0 11/03/20 08:19: Sodium Cancelled, Potassium Cancelled, Chloride Cancelled, Carbon Dioxide Cancelled, Anion Gap Cancelled, BUN Cancelled, Creatinine Cancelled, Estim Creat Clear Calc Cancelled, Est GFR (MDRD) Af Amer Cancelled, Est GFR (MDRD) Non-Af Cancelled, BUN/Creatinine Ratio Cancelled, Glucose Cancell ed, Calcium Cancelled, Total Bilirubin Cancelled, AST Cancelled, ALT Cancelled, Alkaline Phosphatase Cancelled, Total Protein Cancelled, Albumin Cancelled, Globulin Cancelled, Albumin/Globulin Ratio Cancelled 11/03/20 09:46: Sodium 142, Potassium 3.4 L, Chloride 112 H, Carbon Dioxide 21.0, Anion Gap 9, BUN 11, Creatinine 1.13 H, Estim Creat Clear Calc 45.72, Est GFR (MDRD) Af Amer 63, Est GFR (MDRD) Non-Af 52 L, BUN/Creatinine Ratio 9.7 L, Glucose 93, Calcium 6.6 L, Total Bilirubin 0.30, AST 18, ALT 20, Alkaline Phosphatase 115, Total Protein 5.8 L, Albumin 2.1 L, Globulin 3.7, Albumin/Globulin Ratio 0.6 L 11/03/20 09:46: Magnesium 1.8 Current Medications Acetaminophen (Acetaminophen 325 Mg Tablet) 650 mg PO Q6H PRN PRN PRN Reason: Pain Score 1-10/Temp > 100.7 F Al Hydroxide/Mg Hydroxide (Mag Hydrox/Al Hydrox/Simeth 30 Ml Udc) 30 ml PO Q6H PRN PRN PRN Reason: Gastric Burning Albuterol Sulfate (Albuterol 2.5 Mg/3 Ml Vial.Neb.) 2.5 mg INHALATION Q2H PRN PRN PRN Reason: SOB/Wheezing Apixaban (Apixaban 5 Mg Tablet) 5 mg PO BID [facility] Last Admin: 11/03/20 10:15 Dose: 5 mg Documented by: Cholestyramine Resin (Cholestyramine/Sucrose 4 Gm/Packet) 4 gm PO 4X/DAY [facility] Last Admin: 11/03/20 10:15 Dose: 4 gm Documented by: Dicyclomine HCl (Dicyclomine 10 Mg Capsule) 20 mg PO DAILY [facility] Last Admin: 11/03/20 08:18 Dose: 20 mg Documented by: Docusate Sodium (Docusate Sodium 100 Mg Capsule) 100 mg PO BID [facility] Last Admin: 11/03/20 08:18 Dose: Not Given Documented by: Sodium Chloride () 250 mls @ 15 mls/hr IV .[id number] PRN PRN Reason: Saline Flush Sodium Chloride () 250 mls @ 15 mls/hr IV .[id number] PRN PRN Reason: Additional IVPB Infusion Albumin Human () 25 gm in 100 mls @ 60 mls/hr IV X1 ONE Stop: 11/03/20 14:09 Lisinopril (Lisinopril 10 Mg Tablet) 10 mg PO DAILY [facility] Last Admin: 11/03/20 10:16 Dose: 10 mg Documented by: Loperamide HCl (Loperamide 1 Mg/7.5 Ml) 1 mg PO 4X/DAY [facility] Last Admin: 11/03/20 11:42 Dose: 1 mg Documented by: Magnesium Chloride (Magnesium Chloride 64 Mg Delay Rel.Tablet) 128 mg PO BID [facility] Last Admin: 11/03/20 10:15 Dose: 128 mg Documented by: Morphine Sulfate (Morphine (Oral Solution) 10mg/0.5ml Syringe) 3 mg PO Q6 [facility] Last Admin: 11/03/20 11:42 Dose: 3 mg Documented by: Multivitamins/Minerals (Multivitamins,Ther W-Minerals Tablet) 1 tablet PO DAILY@0800 [facility] Last Admin: 11/03/20 08:18 Dose: 1 tablet Documented by: Pantoprazole Sodium (Pantoprazole Sodium 20 Mg Tablet) 20 mg PO DAILY [facility] Last Admin: 11/03/20 10:15 Dose: 20 mg Documented by: Prochlorperazine Edisylate (Prochlorperazine 10 Mg/2 Ml Vial) 5 mg IV Q4H PRN PRN PRN Reason: NAUSEA/VOMITING Last Admin: 11/03/20 00:31 Dose: 5 mg Documented by: Pyridoxine HCl (Pyridoxine Hcl 50 Mg Tablet) 200 mg PO DAILY [facility] Last Admin: 11/03/20 10:16 Dose: 200 mg Documented by: Senna/Docusate Sodium (Senna/Docusate Sodium 1 Tablet) 2 tablet PO BID PRN PRN PRN Reason: Constipation Sodium Chloride (0.9% Saline Lock 10 Ml Syringe) 10 - 40 ml IV UD PRN PRN Reason: SALINE FLUSH Last Admin: 11/03/20 00:30 Dose: 10 ml Documented by: Discharge Activity: Return to Normal Activity Weight Bearing Status: Weight bearing as tolerated Call your doctor if you observe: Fever of 101 or Higher, Shortness of breath, Dizziness, Fainting spells, Chest pain, Increased palpitations (irregular heartbeat), Uncontrolled pain Home Medications: Medications to take at Discharge Lisinopril [Zestril] 10 mg PO DAILY 10/02/16 Acetaminophen [Tylenol Extra Strength] 500 mg PO Q4H PRN PRN 05/20/19 Magnesium Gluconate 1,000 mg PO BID 05/20/19 Multivitamin with Minerals [Multiple Vitamin] 1 ea PO DAILY 05/20/19 Apixaban [Eliquis] 5 mg PO BID 05/20/20 Pyridoxine HCl [Vitamin B6] 200 mg PO DAILY 05/20/20 Loperamide [Imodium] 1 mg PO 4X/DAY 09/18/20 Cholestyramine [Cholestyramine Resin] 4,000 gm MC 4X/DAY 11/02/20 Dicyclomine HCl 20 mg PO DAILY 11/02/20 Docusate Sodium [Colace] 100 mg PO BID 11/02/20 Omeprazole [Prilosec] 20 mg PO DAILY 11/02/20 Rucaparib Camsylate [Rubraca] 600 mg PO BID 11/02/20 morphine solution (IR) [Roxanol (IR oral solution)] 3 mg PO Q6H 11/02/20 Calcium Carbonate [Tums] 500 mg PO TIDCM #90 tab 11/03/20 Following Prescriptions Were Given to Patient: Calcium Carbonate [Tums] 500 mg PO TIDCM #90 tab Transmission Status: [id number] Primary Care Physician: Charly Blackmon MD [Primary Care Provider] - Please follow up with your Primary Care Physician in: 1 WEEK. Patient Instructions: ED Hypocalcemia (Adult) Disposition: Home Minutes spent on discharge:: 27 Patient Condition:: Stable Medical Necessity - Tobacco Use Smoking Status: Never smoker Tobacco Use: Non-smoker Meaningful Use Info Meaningful Use Diagnoses (Choose all that apply): None applicable Inpatient E&M: 49734 Disch Hosp
--- NOTE | 2020-11-03 12:46 | CM.UR ---
EFREN MUNOZ assessment: Face to Face with patient for initial transition planning/care coordination assessment. RN TAMMY introduced self and role at [facility], pt voices understanding and consents to assessment at this time. Pt is sitting up on side of bed in no distress at this time. Pt is A/Ox4 at this time and answers all questions appropriately at this time. Care providers, pharmacy, and demographics verified at this time. Presentation: Weakness, shaky, not feeling well Admitting dx: dehydration PCP: Dr. 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 LNOK: Giovanni Douglas, ; Yaima Johnson, daughter Living Arrangements: Pt states lives with in 1 story home and states no concerns at home at this time. Pt states she really only needs someone with her when she showers otherwise independent. States has a new job and has been working 6 days a week. States has several friends/family members that check on her every day. They can help her if she needs help with anything. Transportation: Pt states hasn't been driving herself lately. States family and friends have been transporting her. Denies any transportation concerns. DME: Pt states does have HCP bathroom with grab bars and shower chair and states no need for any further DME at this time. HHC: none SNF: none Pt states no concerns with going home at time of discharge. Pt states is currently unemployed. Pt states does not smoke cigarettes but does drink ETOH occasionally. Pt states no further concerns/needs at this time. CM to follow for any further discharge planning/needs. Advised pt to ask for CM if any further questions/concerns/needs arise, voices understanding. Pt Goal: Home Plan: Home Virginia Bolton RN, CCM
[2020-11-03] MEDS: Albumin Human 25% (100 mL) 25 GM/100 ML BAG IV (13:05)
[2020-11-03 15:00] VITALS: PULSE 80; O2SAT 96
[2020-11-03 15:01] VITALS: BP 134/73; PULSE 75; RESP 18; TEMP 36.9; O2SAT 96
--- NOTE | 2020-11-05 15:10 | CASEMGMT ---
Addendum entered by Sandra Avila 11/06/20 14:06: Attempted to reach pt again without success and unable to leave message d/t mailbox being full. Rajwinder SCHWARTZ CM Original Note: EFREN MUNOZ Discharge F/U Phone Call LACE: 12 Strata: 3 Discharge date: 11/03/20 Call date: 11/05/20 Call time: [id number] Attempted to reach pt without success at this time, pt's voice mailbox is full at this time and this RN TAMMY is unable to leave a message at this time. Rajwinder SCHWARTZ CM Admission dx: Electrolyte disturbances
[2020-11-05 15:18] LABS: Vitamin D 1,25-Dihydroxy 13.9 pg/mL (19.9-79.3)
== END 2020-11-03 16:24 | disposition home or self-care (01) | DRG 641 ==
LOC: ED 16:55 → PCU 11-03 07:09
PROVIDERS: Admitting Provider Internal Medicine; Emergency Provider Emergency Medicine; PCP Family Medicine; Referring Provider Internal Medicine; Visit Provider Hospitalist
DX: E83.51 Hypocalcemia (principal); E86.0 Dehydration; D64.9 Anemia, unspecified; E83.42 Hypomagnesemia; E88.09 Other disorders of plasma-protein metabolism, not elsewhere classified; E87.6 Hypokalemia; I10 Essential (primary) hypertension; J45.909 Unspecified asthma, uncomplicated; Z93.2 Ileostomy status; Z79.01 Long term (current) use of anticoagulants; Z79.899 Other long term (current) drug therapy; Z85.43 Personal history of malignant neoplasm of ovary; Z86.718 Personal history of other venous thrombosis and embolism; Z90.710 Acquired absence of both cervix and uterus; Z90.722 Acquired absence of ovaries, bilateral
CPT/HCPCS: 36415; 36591; 80053; 81001; 82652; 83690; 83735; 83970; 84100; 84484; 85025; 87426; 93005; 96361; 96365; 96366; 96375; 97802; 99218; 99251; 99284; J7030; P9047; A4216; G0378; G0463; J2405

== ENCOUNTER 2020-11-09 21:14 | Emergency (ER) | payer BC, SELFPAY ==
[2020-11-02 20:30] VITALS: BMI 34.3
[2020-11-09 21:15] VITALS: BP 130/76; PULSE 98; RESP 16; TEMP 36.8; O2SAT 94; BMI 34.5
--- NOTE | 2020-11-09 22:11 | CT_ITS ---
STUDY: CT ABDOMEN AND PELVIS WITH CONTRAST REASON FOR EXAM: Female, 59 years old. EPIGASTRIC PAIN/COLOSTOMY/SBO. Patient has hx of ovarian cancer with ITA/BSO in 04/2019. Chemo at that time. Had colostomy placed 3 mo ago. No recent oral contrast per patient. RADIATION DOSAGE (If Supplied By Facility): CTDIvol = ( 22.86 ) mGy, DLP = ( 1354.53 ) mGycm TECHNIQUE: Transaxial images were obtained from the dome of the diaphragm to the symphysis pubis without oral contrast. IV 100mL Isovue-300 was administered. Sagittal and coronal images were reconstructed. Individualized dose optimization techniques were used for this CT. COMPARISON: 09/18/2020. FINDINGS: Limited views of the lower chest show a small right pleural effusion which was not present previously. There is a trace left pleural effusion. There is atelectasis in the posterior right lung base. There is marked fatty liver and hepatomegaly. There is thickened gallbladder wall with no definite stones. There is abnormal increased density fluid overlying the liver surface and extending under the edge of the liver. Findings likely represent peritoneal metastatic disease. Grossly normal spleen surrounded by fluid. Grossly normal pancreas and adrenal glands. Both kidneys show symmetric function. The right kidney shows hydronephrosis and hydroureter extending down to probable obstruction related to right retroperitoneal neoplasm. There are nonobstructing stones in the lower pole of the right kidney. Evaluation of the GI tract is limited by absence of opacification. A very LITTLE bit of contrast is seen in the hepatic flexure and transverse colon. No dilated loops of bowel or evidence for obstruction. There is a normal-appearing right ostomy. There may be segments of bowel wall thickening which cannot be assessed without adequate oral contrast. Widespread increase in streaky density seen throughout the abdominal, mesenteric, pelvic fat consistent with peritonitis or peritoneal metastatic disease. Several small pockets of fluid are suggested throughout the abdomen and pelvis among bowel loops, suspicious for abscess or loculated malignant ascites. As example, largest of these is approximately 7.5 cm in the right lower quadrant on coronal image 41. Another elongated fluid collection is seen in the left lower quadrant, 8 cm greatest dimension, on coronal image 60. In the pelvis, bladder is nondistended. Uterus has been removed. There is likely malignant adenopathy in the pelvis there is soft tissue density anterior to the sacrum which could be malignant. Grossly normal aorta. There is extensive bilateral retroperitoneal adenopathy along both sides of the aorta and extending down along the iliac chains bilaterally. Largest focus of adenopathy is 3.9 cm across, on the right, below level of the right renal hilum. There is bilateral inguinal adenopathy. Skeletal structures show degenerative changes. No gross focal destructive lesions. CT/Abdomen/Pelvis W IV Cont ONLY IMPRESSION: Since prior study patient has had creation of a right abdominal ostomy. No evidence for bowel obstruction but there may be segments of bowel wall thickening possibly with neoplastic involvement of the bladder long. Probable extensive peritoneal metastatic disease. Prominent bilateral extrarenal adenopathy that is worse than prior study and resulting in right hydronephrosis. Probable local metastatic adenopathy in the pelvis. Scattered foci of either loculated malignant ascites or abscess among bowel loops. New small right pleural effusion since previous study. Electronically Signed: Milton Verde MD at 23:36 EST , Service support ,
[2020-11-09] MEDS: Morphine 4 MG/ML Syringe IV (22:17)
[2020-11-09] MEDS: Ondansetron 4 MG/2 ML Vial IV (22:17)
[2020-11-09] MEDS: 0.9% Normal Saline 1,000 ML 1000 ML IV (22:17)
[2020-11-09 22:23] LABS: Bacteria 0 SEEN /hpf (None Seen); Color, Urine Yellow (Yellow); Glucose, Dipstick Normal (Normal); Ketone-Dipstick Negative (Negative); Leukocyte Esterase-Dipstick 100 /ul (Negative); Mucous, Urine 0 SEEN /hpf (<or=2+); Nitrite-Dipstick Negative (Negative); Occult Blood-Urine Negative /ul (Negative); Protein-Dipstick 15 mg/dl (Negative); Red Blood Cells-Urine 0 SEEN /hpf (0-5); Urine Bilirubin Dipstick Negative (Negative); Urine Clarity Clear (Clear); Urine Urobilinogen Normal (Normal)
--- NOTE | 2020-11-09 22:29 | ED.DCSUM_ITS ---
History of Present Illness Chief Complaint: General Illness Informant: Patient Narrative: Patient is a 59-year-old female with a past medical history of ovarian cancer status post hysterectomy previously undergoing chemotherapy, small bowel obstruction status post ileostomy who presents to the emergency department for epigastric abdominal pain and nausea. She states that she had the ileostomy placed 3 months ago. She states that she has had intermittent abdominal pain since then. This does not seem significantly worse but she has not had the nausea before. She feels like she has been dehydrated as she has had more output from her ileostomy that is been very watery. No black tarry output or blood in the output. She denies any urinary symptoms. No chest pain or shortness of breath. She currently rates her pain as a 5 out of 10. She did take oxycodone earlier for this which did not give her relief. She is being treated for a UTI and was just started on ciprofloxacin today. She has urinary frequency but denies any hematuria or dysuria. She denies any cough. No fevers or chills. She denies any body aches to me. Past Medical History - Allergies and Home Meds Allergies/Adverse Reactions: Allergies carboplatin Allergy (Verified 11/09/20 21:18) Anaphylaxis unresponsive hydrocodone bitartrate [From Vicodin] Allergy (Verified 11/09/20 21:18) Hives paclitaxel Allergy (Verified 11/09/20 21:18) Anaphylaxis unresponsive Primary Care Physician: Charly Blackmon MD [Primary Care Provider] - Surgical History: appendectomy, hysterectomy, tonsillectomy, - - Status post ileostomy Smoking Status: Never smoker - Family History Maternal Family History: Family History (Last Reviewed 05/20/20 @ 10:[address] Brayan Monet MD) Mother Breast cancer Diabetes Heart disease Hypertension CVA (cerebral vascular accident) Father Diabetes Heart disease Kidney disease Family History: Reports: Cancer - breast cancer, Diabetes, Heart Disease, Hypertension, Stroke - brain aneurysm Paternal Family History: Family History (Last Reviewed 05/20/20 @ 10:[address] Brayan Monet MD) Mother Breast cancer Diabetes Heart disease Hypertension CVA (cerebral vascular accident) Father Diabetes Heart disease Kidney disease Family History: Reports: Diabetes, Heart Disease, Hypertension Review of Systems All systems negative except as indicated General: Denies: Chills, Fever, Sweats Eyes: Denies: Visual changes - bilaterally, Diplopia ENT: Denies: Rhinorrhea, Sore throat Cardiovascular: Denies: Chest pain, Palpitations Respiratory: Denies: Dyspnea, Cough, Dyspnea on exertion Gastrointestinal: Reports: Abdominal pain, Nausea. Denies: Vomiting, Diarrhea, Melena, Hematochezia Genitourinary: Denies: Dysuria, Hematuria, Frequency Musculoskeletal: Denies: Back pain, Extremity Pain Skin: Denies: Rash, Wounds Neurological: Denies: Headache, Weakness, Numbness Physical Exam Vital Signs/Narrative: Vital Signs Temp Pulse Resp BP Pulse Ox 11/09/20 21:15 98.3 F 98 16 130/76 H 94 Inital Vital Signs reviewed: Yes General: Well nourished, Well developed, No Acute Distress Head: Normocephalic, Atraumatic Eyes: Perrl, EOMI ENT: Moist mucous membranes, No rhinorrhea Neck: Supple, Nontender Cardiovascular: Regular rate, Regular rhythm, No murmurs Respiratory: No distress, CTA bilaterally, Chest nontender Abdomen: Soft, Nondistended, Normal bowel sounds, Tender, - - Ileostomy present. Does appear healthy. There is green liquid output present. Back: Nontender, Normal Inspection Extremities: Nontender, No edema, Edema - 1+ edema pitting bilaterally. Negative for: Calf Tenderness Skin: Normal color, No rash Neurological: Alert, Oriented x3, Cranial nerves II-XII grossly intact, Normal Strength, Normal Sensation Psychological: Normal affect, Normal Mood Diagnostic/Tx/Re-eval - Medical Decision Making Patient presents to the emergency department for nausea and abdominal pain. Abdominal pain has been a chronic issue since her ileostomy has been placed. Upon arrival to the emergency department her vital signs are within normal limits. She does have abdominal tenderness but no peritoneal signs. Will check basic lab work, CT scan abdomen pelvis. She is given a dose of Zofran and morphine for symptomatic treatment. Patient's lab work did not reveal a significant acute abnormality. She is anemic and does appear to be trending downward slowly from previous labs. Her CT scan unfortunately showed concern for extensive peritoneal metastatic disease. She has bowel wall thickening as well as bladder wall thickening. She also has fluid collections concerning for loculated metastatic ascites versus abscess. She has no fevers and no white count so we will hold off on antibiotics until she gets further evaluation for this. She did get her previous care at [facility] with oncology and gynecologic. She is agreeable to transferring there at this time. I did speak to Dr. Pina who did accept the patient for transfer. Patient otherwise has been stable throughout ED stay. She has required a few doses of pain medication for pain. She was explained the CT scan findings ED Disposition - Plan for ED Patient: Disposition: Home or Assisted Living Diagnosis: Metastatic disease, Hydronephrosis, Abdominal lymphadenopathy, Intra-abdominal fluid collection, Abdominal pain, Nausea, Pleural effusion Referrals: Charly Blackmon MD [Primary Care Provider] -
[2020-11-09 22:40] LABS: Amorphous Sediment 1+; Squamous Epithelial Cells - UA 0-5 SEEN /hpf (5-10); White Blood Cells 5-10 SEEN /hpf (0-5)
[2020-11-09 22:41] LABS: Absolute Lymphocyte Count 0.95 X10^3/uL (0.83-4.51); Absolute Neutrophil Count 6.5 X10^3/uL (2.0-7.7); Basophil# 0.03 X10^3/uL; Basophil% 0.4 % (0-1); Eosinophil# 0.02 X10^3/uL; Eosinophils% 0.2 % (0-5); Hematocrit 26.9 % (37-47); Hemoglobin 8.4 g/dL (12.0-15.0); Lymphocyte # 0.95 X10^3/ul (4.0); Lymphocyte % 11.4 % (19-41); Mean Corp Hgb Conc 31.2 g/dL (32-36); Mean Corpuscular Hgb 28.7 pg (27.0-32.0); Mean Corpuscular Volume 91.8 fL (81-99); Mean Platelet Vol. 9.9 fl (6.2-12.0); Monocyte# 0.84 X10^3/uL; Monocyte% 10.1 % (0-10); NRBC Flagged by Analyzer 0 % (0-5); Neutrophil # 6.46 X10^3/uL (2.7-7.7); Neutrophil % 77.5 % (47-70); Platelet Count 357 K/mm3 (150-450); RBC Distribution Width CV 18.5 % (11.6-14.6); RBC Distribution Width SD 62.5 fl (35.1-43.9); Red Blood Count 2.93 M/mm3 (4.2-5.4); White Blood Count 8.3 K/mm3 (4.4-11.0)
[2020-11-09 22:52] LABS: ALB/GLOB Ratio 0.6 RATIO (0.9-2.4); AST(SGOT) 26 U/L (15-37); Alanine Aminotransfer ALT/SGPT 21 U/L (13-56); Albumin, Serum 2.1 g/dL (3.2-5.0); Alkaline Phosphatase 122 U/L (45-117); Anion Gap 8 (5-15); BUN 15 mg/dL (7-18); BUN/Creat Ratio 12.7 RATIO (10-20); Calcium,Total 7.5 mg/dL (8.5-10.1); Chloride 107 mmol/L (98-107); Creatinine, Serum 1.18 mg/dL (0.55-1.02); EST Glomerular Filtration Rate 50 mL/min (>60); Est Glom Filt Rate - Afr Amer 60 mL/min (>60); Estimated Creatinine Clearance 43.78 ml/min; Globulin 3.8 g/dL (2.2-4.2); Glucose 90 mg/dL (74-106); Lipase 49 U/L (73-393); Potassium 3.7 mmol/L (3.5-5.1); Protein, Total 5.9 g/dL (6.4-8.2); Sodium Level 139 mmol/L (136-145)
[2020-11-09 23:22] LABS: Lactic Acid 1.7 mmol/L (0.4-1.9)
[2020-11-10] VITALS (7 sets, daily range): BP systolic 109–131; BP diastolic 64–78; PULSE 71–80; RESP 16–18; TEMP 36.6; O2SAT 95–99
[2020-11-10] MEDS: HYDROmorphone 1 MG/ML Syringe IV ×4 (00:12→11:27)
--- NOTE | 2020-11-10 03:43 | ED.RN ---
CALLED TO CHECK A STATUS UPDATE ON A BED ASSIGNMENT, PER DANIEL IN THE TRANSFER CENTER, NONE AT THIS TIME. SHE IS GAOIN TO CHECK WITH BED CONTROL FOR AN ETA OF AN ASSIGNMENT
[2020-11-10] MEDS: Ondansetron 4 MG/2 ML Vial IV ×2 (08:43→11:27)
--- NOTE | 2020-11-10 09:16 | NURSING ---
PER ADRIAN WITH [facility]; PT DOES HAVE A BED ASSIGNMENT BUT IT IS BEING CLEAN. SHE WILL CALL WHEN THEY ARE READY
== END 2020-11-10 11:50 | disposition short-term general hospital (02) ==
PROVIDERS: Emergency Provider Emergency Medicine; PCP Family Medicine
DX: C56.9 Malignant neoplasm of unspecified ovary (principal); C78.6 Secondary malignant neoplasm of retroperitoneum and peritoneum; J90 Pleural effusion, not elsewhere classified; R18.8 Other ascites; N13.30 Unspecified hydronephrosis; R59.0 Localized enlarged lymph nodes; R10.13 Epigastric pain; Z79.01 Long term (current) use of anticoagulants; Z79.899 Other long term (current) drug therapy; Z85.43 Personal history of malignant neoplasm of ovary; Z90.710 Acquired absence of both cervix and uterus; Z93.2 Ileostomy status
CPT/HCPCS: 36591; 74177; 80053; 81001; 83605; 83690; 85025; 96361; 96374; 96375; 96376; 99285; J7030; Q9967; A4216; J2405

== ENCOUNTER 2020-11-15 09:30 | Emergency (ER) | payer BC, SELFPAY ==
[2020-11-15 09:33] VITALS: BP 147/82; PULSE 94; RESP 16; TEMP 36.6; O2SAT 95; BMI 32.9
--- NOTE | 2020-11-15 10:19 | CT_ITS ---
STUDY: CT ABDOMEN AND PELVIS WITH CONTRAST REASON FOR EXAM: Female, 59 years old. ABD PAIN, OVARIAN CA. LEG WELLING X 2 WEEKS RADIATION DOSAGE (If Supplied By Facility): CTDIvol = ( 17.83 ) mGy, DLP = ( 1269.26 ) mGycm TECHNIQUE: Transaxial images were obtained from the dome of the diaphragm to the symphysis pubis without oral contrast. IV 100mL Isovue-300 was administered. Sagittal and coronal images were reconstructed. Individualized dose optimization techniques were used for this CT. COMPARISON: Comparison is made with prior study dated 11/09/2020. FINDINGS: Stable right pleural effusion with new infiltration in the right lower lobe. New left pleural effusion with left basilar atelectasis. The visualized portions of the heart are within normal limits. There is decreased attenuation of the liver consistent with steatosis. Hepatomegaly. Loculated fluid is seen in the left upper quadrant. This is unchanged. There is mesenteric thickening along the inferior aspect of the liver with loculated fluid collection. This is suggestive of a mesenteric metastasis. Normal gallbladder and extrahepatic biliary system. Normal spleen. Normal pancreas. Stable thickening of the mesentery involving the root and the leaves of the mesentery suggestive of a mesenteric metastasis. Normal bilateral adrenal glands. Normal right kidney. Normal left kidney. Normal visualized stomach. Normal small intestine. Surgical anastomosis seen at the rectosigmoid junction. An ostomy is seen in the anterior right abdominal wall. There is non-visualization of the appendix. Normal abdominal aorta. Normal inferior vena cava. Normal retroperitoneum. Normal urinary bladder. There is absence of the uterus consistent with a prior hysterectomy. There is a small umbilical hernia containing fat. Normal osseous structures. CT/Abdomen/Pelvis W IV Cont ONLY IMPRESSION: Essentially stable examination except for new left pleural effusion with bibasilar infiltration and/or atelectasis. Electronically Signed: Stefan Perez MD at 11:18 EST , Service support ,
--- NOTE | 2020-11-15 10:21 | ED.VISSUMM ---
- ER Visit Summary Date of Service: 11/15/20 Chief Complaint: Abdominal pain History of Present Illness: The patient is a 59 F 3 of ovarian cancer diagnosed about 2 years ago. Prior hysterectomy and appendectomy. She also has a ileostomy in her right lower abdomen. Patient states that she has not had any output from her ileostomy today. She is having upper abdominal pain with nausea and minimal vomiting. No dysuria. No fever. She has recently been at [facility] where she is treated for ovarian cancer for a bowel obstruction. She has undergone chemotherapy in the past. Physical Examination: Older female vital signs stable afebrile. Does not look septic or toxic. H EENT exam unremarkable. Neck nontender no lymphadenopathy. Lungs clear to auscultation bilaterally. Heart regular rhythm no murmur. Abdomen soft. Mildly tender right upper quadrant. Nondistended. No peritoneal signs. Ostomy in the right lower abdomen. No stool output. Left side of abdomen is nontender. She is moving all 4 extremities. She is trace edema in her feet and ankles. Neurologically she is awake alert with no focal motor deficits. Test Results: CBC shows white count of 5. Hemoglobin 8. After baseline anemia. Chemistries unremarkable normal creatinine gap. Liver enzymes normal other than alk phos of 141 lipase normal [address] abdomen pelvis with IV contrast as read by the radiologist was a stable exam with chronic changes. There is a new left pleural effusion. There is no obvious obstruction. Repeat exam patient is doing well. We discussed all of her test results and CAT scan. She will be discharged home with magnesium citrate for constipation. Emergency Department Course and Treatment: 59-year-old female with prior ovarian cancer with prior hysterectomy and appendectomy with a ostomy in the right lower abdomen. Complaining of pain in no ostomy output. Rule out obstruction. Treated with Dilaudid for pain and Zofran for nausea. Labs and CAT scan pending. Treatment Plan: Magnesium citrate. Follow-up if not improving. Return if worse. Disposition: Discharge Impression: Acute abdominal pain secondary to constipation History ovarian CA with prior hysterectomy and appendectomy and ileostomy. This note was generated with [employer] software. It may contain incorrect words, spelling, and punctuation that were not noted in review of the chart prior to signing ED Disposition - Plan for ED Patient: Referrals: Charly Blackmon MD [Primary Care Provider] -
[2020-11-15] MEDS: HYDROmorphone 1 MG/ML Syringe IV (10:29)
[2020-11-15] MEDS: Ondansetron 4 MG/2 ML Vial IV (10:29)
[2020-11-15] MEDS: 0.9% Normal Saline 1,000 ML 250 ML IV (10:35)
[2020-11-15 10:36] LABS: Absolute Lymphocyte Count 0.75 X10^3/uL (0.83-4.51); Absolute Neutrophil Count 4.2 X10^3/uL (2.0-7.7); Basophil# 0.02 X10^3/uL; Basophil% 0.4 % (0-1); Hematocrit 28.2 % (37-47); Hemoglobin 8.4 g/dL (12.0-15.0); Lymphocyte # 0.75 X10^3/ul (4.0); Lymphocyte % 13.5 % (19-41); Mean Corp Hgb Conc 29.8 g/dL (32-36); Mean Corpuscular Hgb 27.2 pg (27.0-32.0); Mean Corpuscular Volume 91.3 fL (81-99); Mean Platelet Vol. 9.1 fl (6.2-12.0); Monocyte# 0.51 X10^3/uL; Monocyte% 9.2 % (0-10); NRBC Flagged by Analyzer 0 % (0-5); Neutrophil # 4.23 X10^3/uL (2.7-7.7); Neutrophil % 76.4 % (47-70); Platelet Count 324 K/mm3 (150-450); RBC Distribution Width CV 18.5 % (11.6-14.6); RBC Distribution Width SD 61.8 fl (35.1-43.9); Red Blood Count 3.09 M/mm3 (4.2-5.4); White Blood Count 5.5 K/mm3 (4.4-11.0)
[2020-11-15 10:41] LABS: AST(SGOT) 30 U/L (15-37); Alanine Aminotransfer ALT/SGPT 23 U/L (13-56); Albumin, Serum 1.9 g/dL (3.2-5.0); Alkaline Phosphatase 141 U/L (45-117); Anion Gap 5 (5-15); BUN 15 mg/dL (7-18); BUN/Creat Ratio 13.2 RATIO (10-20); Bilirubin, Direct 0.11 mg/dL (0.00-0.30); Calcium,Total 7.7 mg/dL (8.5-10.1); Chloride 105 mmol/L (98-107); Creatinine, Serum 1.14 mg/dL (0.55-1.02); EST Glomerular Filtration Rate 52 mL/min (>60); Est Glom Filt Rate - Afr Amer 62 mL/min (>60); Estimated Creatinine Clearance 45.32 ml/min; Glucose 84 mg/dL (74-106); Lipase 69 U/L (73-393); Potassium 3.8 mmol/L (3.5-5.1); Protein, Total 5.9 g/dL (6.4-8.2); Sodium Level 137 mmol/L (136-145)
[2020-11-15 11:39] VITALS: BP 149/77; PULSE 84; RESP 16; O2SAT 99
[2020-11-15 11:53] LABS: Bacteria 0 SEEN /hpf (None Seen); Mucous, Urine 0 SEEN /hpf (<or=2+)
[2020-11-15 12:03] LABS: Color, Urine Yellow (Yellow); Glucose, Dipstick Normal (Normal); Ketone-Dipstick 5 mg/dl (Negative); Leukocyte Esterase-Dipstick 25 /ul (Negative); Nitrite-Dipstick Negative (Negative); Occult Blood-Urine 10 /ul (Negative); Protein-Dipstick 30 mg/dl (Negative); Specific Gravity, Urine 1.015 (1.002-1.030); Urine Bilirubin Dipstick Negative (Negative); Urine Clarity Sl. Cloudy (Clear); Urine Urobilinogen Normal (Normal)
[2020-11-15 12:19] LABS: Red Blood Cells-Urine 0-5 SEEN /hpf (0-5); Squamous Epithelial Cells - UA 0-5 SEEN /hpf (5-10); Uric Acid Crystals Ur 2+ /hpf (<or=1+); White Blood Cells 0-5 SEEN /hpf (0-5)
--- NOTE | 2020-11-15 12:42 | ED.DEP ---
ED Disposition - Plan for ED Patient: Disposition: Home or Assisted Living Instructions: ED Constipation (Adult) Referrals: Charly Blackmon MD [Primary Care Provider] - 1-2 Days if not improving Additional Instructions: Plenty of fluids, fruits, vegetables fiber magnesium citrate for the constipation. All your tests and CAT scan were otherwise unremarkable except for your chronic anemia. Follow-up with your doctor if not improving and return emergency department if worse.
[2020-11-15] MEDS: Magnesium Citrate 300 ML PO (12:51)
[2020-11-15 12:52] VITALS: BP 129/77; PULSE 84; RESP 18; O2SAT 99
--- NOTE | 2020-11-15 12:52 | ED.RN ---
PORT ACCESSED PRIOR TO PT ARRIVAL TO ER, PT GIVES SELF FLUIDS AT HOME. PT LEAVES ED WITH PORT STILL ACCESSED.
== END 2020-11-15 13:39 | disposition home or self-care (01) ==
PROVIDERS: Emergency Provider Emergency Medicine; PCP Family Medicine
DX: K59.00 Constipation, unspecified (principal); J90 Pleural effusion, not elsewhere classified; R11.2 Nausea with vomiting, unspecified; Z79.01 Long term (current) use of anticoagulants; Z79.899 Other long term (current) drug therapy; Z93.2 Ileostomy status; Z86.718 Personal history of other venous thrombosis and embolism; Z92.21 Personal history of antineoplastic chemotherapy; Z85.43 Personal history of malignant neoplasm of ovary; Z90.710 Acquired absence of both cervix and uterus; Z90.49 Acquired absence of other specified parts of digestive tract
CPT/HCPCS: 74177; 80048; 80076; 81001; 83690; 85025; 96374; 96375; 99282; J7030; Q9967; A4216; J2405

== ENCOUNTER 2020-11-26 15:37 | Emergency (ER) | payer BC, SELFPAY ==
[2020-11-26 15:38] VITALS: BP 135/86; PULSE 107; RESP 18; TEMP 36.1; O2SAT 95; BMI 34.3
--- NOTE | 2020-11-26 15:47 | ED.DCSUM_ITS ---
History of Present Illness Chief Complaint: Nausea/Vomiting Informant: Patient Onset: Days Context: Gradual Onset Timing: Continuous Current Severity: Moderate Maximum Severity: Moderate Narrative: The patient is a 59-year-old female with history of ovarian cancer with metastasis, status post ileostomy, who presents to the emergency department with watery ostomy output, nausea, and vomiting. Patient has not had any chemotherapy since August. She does follow with oncology at [facility]. She states that she just felt generally weak with no appetite. She states she has not had a bowel obstruction since her ostomy was put in. She denies fever or chills. She denies chest pain or shortness of breath. She states she did try some MiraLAX today but still has had diminished output in her bag. Prior similar symptoms: Yes Recent Illness/Hospitalization: No Past Medical History - Allergies and Home Meds Allergies/Adverse Reactions: Allergies carboplatin Allergy (Verified 11/26/20 15:37) Anaphylaxis unresponsive hydrocodone bitartrate [From Vicodin] Allergy (Verified 11/26/20 15:37) Hives paclitaxel Allergy (Verified 11/26/20 15:37) Anaphylaxis unresponsive Primary Care Physician: Charly Blacmkon MD [Primary Care Provider] - Prior records reviewed: Yes Past Medical History: - - Ovarian cancer with metastasis, hypertension, prior DVT Surgical History: appendectomy, hysterectomy, tonsillectomy, - - Status post ileostomy Smoking Status: Never smoker - Family History Maternal Family History: Family History (Last Reviewed 05/20/20 @ 10:[address] Brayan Monet MD) Mother Breast cancer Diabetes Heart disease Hypertension CVA (cerebral vascular accident) Father Diabetes Heart disease Kidney disease Family History: Reports: Cancer - breast cancer, Diabetes, Heart Disease, Hypertension, Stroke - brain aneurysm Paternal Family History: Family History (Last Reviewed 05/20/20 @ 10:[address] Brayan Monet MD) Mother Breast cancer Diabetes Heart disease Hypertension CVA (cerebral vascular accident) Father Diabetes Heart disease Kidney disease Family History: Reports: Diabetes, Heart Disease, Hypertension Review of Systems General: Denies: Chills, Fever, Sweats Eyes: Denies: Visual changes - bilaterally, Diplopia ENT: Denies: Rhinorrhea, Sore throat Cardiovascular: Denies: Chest pain, Palpitations Respiratory: Denies: Dyspnea, Cough, Dyspnea on exertion Gastrointestinal: Reports: Abdominal pain, Nausea, Vomiting. Denies: Diarrhea, Melena, Hematochezia Genitourinary: Denies: Dysuria, Hematuria, Frequency Musculoskeletal: Denies: Back pain, Extremity Pain Skin: Denies: Rash, Wounds Neurological: Reports: Weakness. Denies: Headache, Numbness Physical Exam Vital Signs/Narrative: Vital Signs Temp Pulse Resp BP Pulse Ox 11/26/20 15:38 97 F L 107 H 18 135/86 H 95 Inital Vital Signs reviewed: Yes General: Well nourished, Well developed, No Acute Distress Head: Normocephalic, Atraumatic Eyes: Perrl, EOMI ENT: Moist mucous membranes, No rhinorrhea Neck: Supple, Nontender Cardiovascular: Regular rate, Regular rhythm, No murmurs Respiratory: No distress, CTA bilaterally, Chest nontender Abdomen: Soft, Nontender, Nondistended, Normal bowel sounds Back: Nontender, Normal Inspection Extremities: Nontender, No edema Skin: Normal color, No rash Neurological: Alert, Oriented x3, Cranial nerves II-XII grossly intact, Normal Strength, Normal Sensation Psychological: Normal affect, Normal Mood Diagnostic/Tx/Re-eval Clinical Impression(s) from Imaging Studies Abdomen/Pelvis CT 11/26/20 16:20 IMPRESSION: Stable bilateral pleural effusions with bibasilar atelectasis larger on the right than the left. Fatty infiltration of liver, no discrete lesion Stable diffuse ascites and omental thickening suggestive of metastasis Stable prominence to the right renal calyces and proximal right ureter likely due to surgical changes to the right of the aorta Stable borderline-enlarged retroperitoneal lymph nodes Degenerative bony changes Overall, little significant change since the previous study Electronically Signed: Onur Perera MD at 17:23 EST , Service support , Abnormal Lab Results 11/26/20 11/26/20 11/26/20 15:55 15:55 15:55 WBC 5.8 RBC 3.13 L Hgb 9.3 L Hct 29.2 L MCV 93.3 MCH 29.7 MCHC 31.8 L RDW Std Deviation 61.7 H RDW Coeff of Jenifer 18.7 H Plt Count 253 MPV 9.5 Immature Gran % (Auto) 0.500 Neut % (Auto) 76.0 H Lymph % (Auto) 14.5 L Granite % (Auto) 8.8 Eos % (Auto) 0.0 Baso % (Auto) 0.2 Absolute Neuts (auto) 4.4 Absolute Lymphs (auto) 0.84 Nucleated RBC % 0 Sodium 140 Potassium 4.2 Chloride 105 Carbon Dioxide 27.0 Anion Gap 8 BUN 24 H Creatinine 1.13 H Estim Creat Clear Calc 45.72 Est GFR (MDRD) Af Amer 63 Est GFR (MDRD) Non-Af 52 L BUN/Creatinine Ratio 21.2 H Glucose 112 H Lactic Acid 1.8 Calcium 7.8 L Total Bilirubin 0.40 AST 37 ALT 34 Alkaline Phosphatase 144 H Total Protein 6.4 Albumin 2.0 L Globulin 4.4 H Albumin/Globulin Ratio 0.5 L Lipase 56 L Urine Color Urine Clarity Urine pH Ur Specific Epes Urine Protein Urine Glucose (UA) Urine Ketones Urine Occult Blood Urine Nitrite Urine Bilirubin Urine Urobilinogen Ur Leukocyte Esterase 11/26/20 17:30 WBC RBC Hgb Hct MCV MCH MCHC RDW Std Deviation RDW Coeff of Jenifer Plt Count MPV Immature Gran % (Auto) Neut % (Auto) Lymph % (Auto) Granite % (Auto) Eos % (Auto) Baso % (Auto) Absolute Neuts (auto) Absolute Lymphs (auto) Nucleated RBC % Sodium Potassium Chloride Carbon Dioxide Anion Gap BUN Creatinine Estim Creat Clear Calc Est GFR (MDRD) Af Amer Est GFR (MDRD) Non-Af BUN/Creatinine Ratio Glucose Lactic Acid Calcium Total Bilirubin AST ALT Alkaline Phosphatase Total Protein Albumin Globulin Albumin/Globulin Ratio Lipase Urine Color Yellow Urine Clarity Clear Urine pH 5.0 Ur Specific Epes 1.015 Urine Protein 30 H Urine Glucose (UA) Normal Urine Ketones 5 H Urine Occult Blood Negative Urine Nitrite Negative Urine Bilirubin Negative Urine Urobilinogen Normal Ur Leukocyte Esterase 25 H - Medical Decision Making Patient presents with nausea and vomiting. She does have rather significant metastatic cancer. IV was established. Patient was given analgesics and anti emetics with improvement of her symptoms. Labs were obtained and relatively unremarkable. With the patient's pain, I did want to rule out small bowel obstruction. She underwent CT of the abdomen and pelvis. There is no evidence of obstruction. She does have rather diffuse metastatic disease, but relatively unchanged from prior. Her urine does not show evidence of infection. Her lactic acid is normal. At this point, the patient will be discharged home to continue her therapy. Impression 1. Nausea vomiting 2. History of metastatic ovarian cancer ED Disposition - Plan for ED Patient: Instructions: ED Vomiting (Adult) Prescriptions: Ondansetron [Zofran Odt] 4 mg PO Q8H PRN PRN #10 tab PRN Reason: Nausea Prescription Printed Referrals: Charly Blackmon MD [Primary Care Provider] -
[2020-11-26] MEDS: Ondansetron 4 MG/2 ML Vial IV (15:54)
[2020-11-26] MEDS: HYDROmorphone 1 MG/ML Syringe IV (15:54)
[2020-11-26] MEDS: 0.9% Normal Saline 1,000 ML 1000 ML IV (15:55)
[2020-11-26 16:02] LABS: Absolute Lymphocyte Count 0.84 X10^3/uL (0.83-4.51); Absolute Neutrophil Count 4.4 X10^3/uL (2.0-7.7); Basophil# 0.01 X10^3/uL; Basophil% 0.2 % (0-1); Hematocrit 29.2 % (37-47); Hemoglobin 9.3 g/dL (12.0-15.0); Lymphocyte # 0.84 X10^3/ul (4.0); Lymphocyte % 14.5 % (19-41); Mean Corp Hgb Conc 31.8 g/dL (32-36); Mean Corpuscular Hgb 29.7 pg (27.0-32.0); Mean Corpuscular Volume 93.3 fL (81-99); Mean Platelet Vol. 9.5 fl (6.2-12.0); Monocyte# 0.51 X10^3/uL; Monocyte% 8.8 % (0-10); NRBC Flagged by Analyzer 0 % (0-5); Platelet Count 253 K/mm3 (150-450); RBC Distribution Width CV 18.7 % (11.6-14.6); RBC Distribution Width SD 61.7 fl (35.1-43.9); Red Blood Count 3.13 M/mm3 (4.2-5.4); White Blood Count 5.8 K/mm3 (4.4-11.0)
[2020-11-26 16:18] LABS: ALB/GLOB Ratio 0.5 RATIO (0.9-2.4); AST(SGOT) 37 U/L (15-37); Alanine Aminotransfer ALT/SGPT 34 U/L (13-56); Alkaline Phosphatase 144 U/L (45-117); Anion Gap 8 (5-15); BUN 24 mg/dL (7-18); BUN/Creat Ratio 21.2 RATIO (10-20); Calcium,Total 7.8 mg/dL (8.5-10.1); Chloride 105 mmol/L (98-107); Creatinine, Serum 1.13 mg/dL (0.55-1.02); EST Glomerular Filtration Rate 52 mL/min (>60); Est Glom Filt Rate - Afr Amer 63 mL/min (>60); Estimated Creatinine Clearance 45.72 ml/min; Globulin 4.4 g/dL (2.2-4.2); Glucose 112 mg/dL (74-106); Lipase 56 U/L (73-393); Potassium 4.2 mmol/L (3.5-5.1); Protein, Total 6.4 g/dL (6.4-8.2); Sodium Level 140 mmol/L (136-145)
--- NOTE | 2020-11-26 16:20 | CT_ITS ---
STUDY: CT ABDOMEN AND PELVIS WITH CONTRAST REASON FOR EXAM: Female, 59 years old. Abdominal pain and distention, history of ovarian carcinoma RADIATION DOSAGE (If Supplied By Facility): CTDIvol = ( 20.14 ) mGy, DLP = ( 1435.42 ) mGycm TECHNIQUE: Transaxial images were obtained from the dome of the diaphragm to the symphysis pubis with oral contrast. IV 75mL [id number]-[id number] was administered. Sagittal and coronal images were reconstructed. Individualized dose optimization techniques were used for this CT. COMPARISON: 11/15/2020 FINDINGS: Stable appearance of bilateral pleural effusions with bibasilar atelectasis worse in the right lung base than the left. Heart size is normal. There is decreased attenuation of the liver consistent with steatosis. Normal gallbladder and extrahepatic biliary system. Normal spleen. Normal pancreas. There is stable diffuse ascites around the periphery of the liver and spleen, down both paracolic gutters and into the pelvis. Normal bilateral adrenal glands. There is stable prominence to the right renal calyces and proximal right ureter. This is likely due to partial obstruction from surgical clips noted in the retroperitoneum to the right of the aorta. Left kidney is unremarkable. Stable omental thickening suggestive of metastasis. Normal visualized stomach. Persistent nonspecific thickening of small bowel loops likely due to the diffuse ascites and metastasis. A colostomy in the right lower quadrant and is free of complication. Stable surgical anastomosis at the rectosigmoid junction. Appendix not visualized. There is diffuse atherosclerotic calcification of the abdominal aorta, without a demonstrated aneurysm. Normal inferior vena cava. Stable borderline-enlarged retroperitoneal lymph nodes. The bladder is incompletely distended There is absence of the uterus consistent with a prior hysterectomy. Stable small umbilical hernia containing fat. Stable induration of the subcutaneous fat. There are diffuse degenerative changes of the visualized lumbar spine, pelvis. CT/Abdomen/Pelvis W IV Cont ONLY IMPRESSION: Stable bilateral pleural effusions with bibasilar atelectasis larger on the right than the left. Fatty infiltration of liver, no discrete lesion Stable diffuse ascites and omental thickening suggestive of metastasis Stable prominence to the right renal calyces and proximal right ureter likely due to surgical changes to the right of the aorta Stable borderline-enlarged retroperitoneal lymph nodes Degenerative bony changes Overall, little significant change since the previous study Electronically Signed: Onur Perera MD at 17:23 EST , Service support ,
[2020-11-26 16:28] LABS: Lactic Acid 1.8 mmol/L (0.4-1.9)
[2020-11-26 17:33] VITALS: BP 127/85
[2020-11-26 17:39] LABS: Red Blood Cells-Urine 0 SEEN /hpf (0-5)
[2020-11-26 17:41] LABS: Color, Urine Yellow (Yellow); Glucose, Dipstick Normal (Normal); Ketone-Dipstick 5 mg/dl (Negative); Leukocyte Esterase-Dipstick 25 /ul (Negative); Nitrite-Dipstick Negative (Negative); Occult Blood-Urine Negative /ul (Negative); Protein-Dipstick 30 mg/dl (Negative); Specific Gravity, Urine 1.015 (1.002-1.030); Urine Bilirubin Dipstick Negative (Negative); Urine Clarity Clear (Clear); Urine Urobilinogen Normal (Normal)
[2020-11-26 18:12] LABS: Bacteria RARE /hpf (None Seen); Mucous, Urine RARE /hpf (<or=2+); Squamous Epithelial Cells - UA 0-5 SEEN /hpf (5-10); White Blood Cells 0-5 SEEN /hpf (0-5)
--- NOTE | 2020-11-26 18:16 | ED.RN ---
heparin flush to port prior to dc. left accessed- pt gives fluids at home.
== END 2020-11-26 18:15 | disposition home or self-care (01) ==
LOC: ED 16:00
PROVIDERS: Emergency Provider Emergency Medicine; PCP Family Medicine
DX: R11.2 Nausea with vomiting, unspecified (principal); C56.9 Malignant neoplasm of unspecified ovary; C79.9 Secondary malignant neoplasm of unspecified site; I10 Essential (primary) hypertension; Z93.2 Ileostomy status; Z79.01 Long term (current) use of anticoagulants; Z79.899 Other long term (current) drug therapy; Z86.718 Personal history of other venous thrombosis and embolism
CPT/HCPCS: 36591; 74177; 80053; 81001; 83605; 83690; 85025; 96361; 96374; 96375; 99282; J7030; Q9967; A4216; J2405